=== PATIENT | male | born 1950 | race Two or more races ===

== ENCOUNTER 2018-03-31 01:52 | Inpatient (IN) | payer MEDICARE, OTHER ==
[~2018-03-31] VITALS: Ht 185.4 cm; Wt 84.4 kg
[2018-03-31] VITALS (8 sets, daily range): BP systolic 104–130; BP diastolic 60–74
--- NOTE | 2018-03-31 02:12 | Emergency Room Report ---
History of Present Illness General Chief Complaint: Dyspnea/Respdistress Source: Patient, Medical Record Present Illness HPI This is a 67-year-old male with history of depression, schizophrenia, diabetes who presents from senior care with chief complaint of fever and altered mental status. Patient is noted to be unresponsive and hypoxic at 89% on room air. He also had a temperature of 103. He was given Tylenol rectally. He is brought here for evaluation. Patient is unresponsive at this moment in time and cannot give a history. History is through EMS and senior care note. Allergies: Coded Allergies: ARIPIPRAZOLE (Verified Allergy, Unknown, 03/31/18) QUETIAPINE (Verified Allergy, Unknown, 03/31/18) Patient History Past Medical History: see triage record, old chart reviewed, psych hx Past Surgical History: other Pertinent Family History: none Social History: Denies: smoking Immunizations: other Reviewed Nursing Documentation: PMH: Agreed; PSxH: Agreed Nursing Documentation-PMH Past Medical History: No History, Except For Hx Diabetes: Yes History Of Psychiatric Problem: Yes - SCHIZOPHRENIA, Review of Systems Constitutional: Reports: fever, malaise All Other Systems: limited - secondary to his condition Physical Exam Vital Signs Date Time Temp Pulse Resp B/P (MAP) Pulse Ox O2 Delivery O2 Flow Rate FiO2 03/31/18 01:53 142 56 129/105 87 Room Air vitals with fever and tachycardia Sp02 EP Interpretation: abnormal General Appearance: moderate distress, Chronically Ill, Stupor Head: normocephalic, atraumatic Eyes: bilateral eye PERRL, bilateral eye EOMI ENT: dry mucus membranes Neck: full range of motion, supple, no meningismus Respiratory: chest non-tender, rhonchi Cardiovascular #1: regular rate, rhythm, no murmur, tachycardia Gastrointestinal: normal bowel sounds, non tender, no mass, no organomegaly, no bruit, non-distended Genitourinary: other - Valle with dark urine Musculoskeletal: back normal, other - sacral decubitus Neurologic: grossly normal Skin: warm/dry Procedures Critical Care Time Critical Care Time Critical care is mandated in this patient who presented with abscess from pneumonia. Patient require my urgent intervention to attenuate the risks of metabolic collapse which may lead to cardiovascular collapse and . Critical care time is 55 minutes excluding any reportable procedure. Critical care time included evaluation, multiple reevaluation, looking at old charts, interpreting laboratory and diagnostic data, discussing case with patient and family and consultants, and charting. Medical Decision Making Diagnostic Impression: Primary Impression: Sepsis Qualified Codes: A41.9 - Sepsis, unspecified organism Additional Impressions: Healthcare associated bacterial pneumonia Supraventricular tachycardia Acute prerenal azotemia Thrombocytopenia ER Course Patient presents with sepsis from pneumonia. Heart rate much improved with IV fluid and Tylenol. Occasionally he we'll get paroxysmal SVT versus A. fib. Rate controlled with a dose of Cardizem. Wide spectrum antibiotics given to cover for healthcare associated pneumonia. Patient mental status improve and is more verbalize with IV fluid. Lactic acid improve. Urinalysis is negative. No evidence of acute abdomen. No evidence of TIA or CVA. Patient primary care doctor is Dr. Salcido. I contacted Dr. Hernandes for admission. Lab Results Impression labs with elevated WBC AND LACTIC ACID EKG Diagnostic Results Rate: tachycardiac Rhythm: NSR ST Segments: other - nonspecific ST changes Rhythm Strip Diag. Results Rhythm Strip Time: 02:12 EP Interpretation: yes Rate: 120 Rhythm: NSR, no PVC's, no ectopy Chest X-Ray Diagnostic Results Chest X-Ray Diagnostic Results : Chest X-Ray Ordered: Yes # of Views/Limited/Complete: 1 View Indication: Shortness of Breath EP Interpretation: Yes Interpretation: no effusion, no pneumothorax, other - LEFT LOWER LOBE INFILTRATE Impression: Other - LLL infiltrate Electronically Signed by: Casey Guevara MD Last Vital Signs Date Time Temp Pulse Resp B/P (MAP) Pulse Ox O2 Delivery O2 Flow Rate FiO2 03/31/18 01:53 142 56 129/105 87 Room Air Status: improved Disposition: ADMITTED INPATIENT Condition: Serious Casey Guevara MD Mar 31, 2018 02:12
[2018-03-31 02:26] LABS: HEMATOCRIT 40.5 % (42.0-52.0); HEMOGLOBIN 13.9 G/DL (14.2-18.0); MEAN CORPUSCULAR VOLUME 103 FL (80-99); PLATELET COUNT 99 K/UL (150-450); RED BLOOD COUNT 3.94 M/UL (4.70-6.10); RED CELL DISTRIBUTION WIDTH 12.6 % (11.6-14.8); WHITE BLOOD COUNT 21.9 K/UL (4.8-10.8)
[2018-03-31] MEDS ORDERED: Piperacillin/Tazobactam 3.375 GM in NS 110 ML IVPB ONE (02:30)
[2018-03-31 02:41] LABS: ANION GAP 8 mmol/L (5-15); BLOOD UREA NITROGEN 29 mg/dL (7-18); CALCIUM 9.5 MG/DL (8.5-10.1); CARBON DIOXIDE 26 MMOL/L (21-32); CHLORIDE 108 MMOL/L (98-107); CREATININE 1.2 MG/DL (0.55-1.30); POTASSIUM 4.1 MMOL/L (3.5-5.1); SODIUM 142 MMOL/L (136-145)
[2018-03-31 02:43] LABS: APPEARANCE,URINE CLEAR; BILIRUBIN, URINE 1+ (NEGATIVE); GLUCOSE, URINE (UA) NEGATIVE (NEGATIVE); KETONES,URINE 1+ (NEGATIVE); LEUKOCYTE ESTERASE ,URINE 1+ (NEGATIVE); NITRITE,URINE NEGATIVE (NEGATIVE); PH,URINE 6.5 (4.5-8.0); PROTEIN,URINE 2+ (NEGATIVE); UROBILINOGEN,URINE 12 MG/DL (0.0-1.0)
[2018-03-31 02:54] LABS: ALANINE AMINOTRANSFERASE 48 U/L (12-78); ALBUMIN/GLOBULIN RATIO 0.3 (1.0-2.7); ALKALINE PHOSPHATASE 98 U/L (46-116); ASPARTATE AMINO TRANSFERASE 72 U/L (15-37); BILIRUBIN,TOTAL 1.5 MG/DL (0.2-1.0); CKMB 0.5 NG/ML (0.0-3.6); CREATINE KINASE 162 U/L (26-308)
[2018-03-31 02:54] LABS: COLOR,URINE YELLOW
[2018-03-31] MEDS ORDERED: dilTIAZem HCl 25mg/5ml Inj IVP ONE (03:15)
[2018-03-31] MEDS ORDERED: KLONOPIN1 MG ORAL (04:22)
[2018-03-31] MEDS ORDERED: BREO ELLIPTA 21 EACH IH (04:22)
[2018-03-31] MEDS ORDERED: DEPAKOTE ER500 MG ORAL (04:22)
[2018-03-31] MEDS ORDERED: BUSPIRONE HCL15 MG ORAL (04:22)
[2018-03-31] MEDS ORDERED: BUPROPION XL150 MG ORAL (04:22)
[2018-03-31] MEDS ORDERED: BENZTROPINE ME0.5 MG PO (04:22)
[2018-03-31] MEDS ORDERED: CYCLOBENZAPRINE10 MG ORAL (04:22)
[2018-03-31] MEDS ORDERED: GABAPENTIN300 MG ORAL (04:22)
[2018-03-31] MEDS ORDERED: BANOPHEN50 MG PO (04:22)
[2018-03-31] MEDS ORDERED: SEROQUEL100 MG ORAL (05:38)
[2018-03-31] MEDS ORDERED: HALOPERIDOL10 MG ORAL (05:38)
[2018-03-31] MEDS ORDERED: MONTELUKAST SOD10 MG ORAL (05:38)
[2018-03-31] MEDS ORDERED: PROTONIX40 MG ORAL (05:38)
[2018-03-31] MEDS ORDERED: Acetaminophen 500mg (ES) tab ORAL PRN (06:00)
[2018-03-31] MEDS: BuPROPion XL 150mg tab ORAL SCH (06:00)
--- NOTE | 2018-03-31 06:30 | Consultation ---
Consult Note Consult Note Hematology/Oncology RFC: Thrombocytopenia, Leukocytosis DOS: 03/31/18 REQ MD: Ekta, A ID 67-year-old male with history of depression, schizophrenia, diabetes who presents from residential with chief complaint of fever and altered mental status. Patient is noted to be unresponsive and hypoxic at 89% on room air. He also had a temperature of 103. He was given Tylenol rectally. He is brought here for evaluation. Patient is unresponsive at this moment in time and cannot give a history. History is through EMS and residential note. During interview, sleeping, difficult to arouse, onabx as per rn, and noted to be low plts on admission. Coded Allergies: ARIPIPRAZOLE (Verified Allergy, Unknown, 03/31/18) QUETIAPINE (Verified Allergy, Unknown, 03/31/18) Patient History Past Medical History: see triage record, old chart reviewed, psych hx Past Surgical History: other Pertinent Family History: none Social History: Denies: smoking Immunizations: other Reviewed Nursing Documentation: PMH: Agreed; PSxH: Agreed Nursing Documentation-PMH Past Medical History: No History, Except For Hx Diabetes: Yes History Of Psychiatric Problem: Yes - SCHIZOPHRENIA, ER ROS - General Review of Systems Constitutional: Reports: fever, malaise All Other Systems: limited - secondary to his condition A+O x1 ER Physical Exam - General Physical Exam Vital Signs Date Time Temp Pulse Resp B/P (MAP) Pulse Ox O2 Delivery O2 Flow Rate FiO2 03/31/18 01:53 142 56 129/105 87 Room Air Vitals with fever and tachycardia General Appearance: moderate distress, Chronically Ill, Stupor Head: normocephalic Eyes: bilateral eye PERRL, bilateral eye EOMI Neck: full range of motion, supple Respiratory: chest non-tender, rhonchi++ right side Cardiovascular #1: regular rate, rhythm, no murmur, tachycardia Gastrointestinal: normal bowel sounds, non tender, nd, nt Genitourinary: other - Valle with dark urine Musculoskeletal: back normal, other - sacral decubitus Neurologic: grossly normal Laboratory Tests Test 03/31/18 02:00 03/31/18 02:25 03/31/18 02:30 03/31/18 03:50 White Blood Count 21.9 K/UL (4.8-10.8) H Red Blood Count 3.94 M/UL (4.70-6.10) L Hemoglobin 13.9 G/DL (14.2-18.0) L Hematocrit 40.5 % (42.0-52.0) L Mean Corpuscular Volume 103 FL (80-99) H Mean Corpuscular Hemoglobin 35.3 PG (27.0-31.0) H Mean Corpuscular Hemoglobin Concent 34.4 G/DL (32.0-36.0) Red Cell Distribution Width 12.6 % (11.6-14.8) Platelet Count 99 K/UL (150-450) L Mean Platelet Volume 7.0 FL (6.5-10.1) Neutrophils (%) (Auto) % (45.0-75.0) Lymphocytes (%) (Auto) % (20.0-45.0) Monocytes (%) (Auto) % (1.0-10.0) Eosinophils (%) (Auto) % (0.0-3.0) Basophils (%) (Auto) % (0.0-2.0) Differential Total Cells Counted 100 Neutrophils % (Manual) 78 % (45-75) H Lymphocytes % (Manual) 14 % (20-45) L Monocytes % (Manual) 8 % (1-10) Eosinophils % (Manual) 0 % (0-3) Basophils % (Manual) 0 % (0-2) Band Neutrophils 0 % (0-8) Platelet Estimate Decreased L Platelet Morphology Normal Sodium Level 142 MMOL/L (136-145) Potassium Level 4.1 MMOL/L (3.5-5.1) Chloride Level 108 MMOL/L (98-107) H Carbon Dioxide Level 26 MMOL/L (21-32) Anion Gap 8 mmol/L (5-15) Blood Urea Nitrogen 29 mg/dL (7-18) H Creatinine 1.2 MG/DL (0.55-1.30) Estimat Glomerular Filtration Rate > 60 mL/min (>60) Glucose Level 170 MG/DL (74-106) H Lactic Acid Level 3.30 mmol/L (0.4-2.0) H 2.10 mmol/L (0.66-2.22) Calcium Level 9.5 MG/DL (8.5-10.1) Total Bilirubin 1.5 MG/DL (0.2-1.0) H Direct Bilirubin 1.0 MG/DL (0.0-0.3) H Aspartate Amino Transf (AST/SGOT) 72 U/L (15-37) H Alanine Aminotransferase (ALT/SGPT) 48 U/L (12-78) Alkaline Phosphatase 98 U/L (46-116) Total Creatine Kinase 162 U/L (26-308) Creatine Kinase MB 0.5 NG/ML (0.0-3.6) Creatine Kinase MB Relative Index 0.3 Troponin I 0.025 ng/mL (0.000-0.056) Total Protein 9.8 G/DL (6.4-8.2) H Albumin 2.0 G/DL (3.4-5.0) L Globulin 7.8 g/dL Albumin/Globulin Ratio 0.3 (1.0-2.7) L Ammonia 61 umol/L (11-32) H Urine Color Yellow Urine Appearance Clear Urine pH 6.5 (4.5-8.0) Urine Specific [place] 1.010 (1.005-1.035) Urine Protein 2+ (NEGATIVE) H Urine Glucose (UA) Negative (NEGATIVE) Urine Ketones 1+ (NEGATIVE) H Urine Blood 3+ (NEGATIVE) H Urine Nitrite Negative (NEGATIVE) Urine Bilirubin 1+ (NEGATIVE) H Urine Ictotest Positive (NEGATIVE) Urine Urobilinogen 12 MG/DL (0.0-1.0) H Urine Leukocyte Esterase 1+ (NEGATIVE) H Urine RBC 30-40 /HPF (0 - 0) H Urine WBC 2-4 /HPF (0 - 0) Urine Squamous Epithelial Cells None /LPF (NONE/OCC) Urine Calcium Oxalate Crystals Few /LPF (NONE) Urine Bacteria Few /HPF (NONE) Assessment and Recs: # Thrombocytopenia -- first admission here, therefore do not have his baseline, is VERY likely related to underlying sepsis and consumptive state --> hepatitis and hiv have been ordered, if doesnt improve next few days, consider us of abd --> abx have been reviewed, unlikely contibutors as only short hospital stay --> other medications have been reviewed as well --> peripheral smear reviewed, does not show schistocytes or blasts # Leukocytosis very likely related to either uti/pna --> appreciate id care --> abx have been reviewed # Anemia of chronic disease -- hgb currently >10 --> trend cbc # Septic shock -- on ivf and has recieved abx # Healthcare associated bacterial pneumonia--> on abx, have been reviewed --> consider id eval # Supraventricular tachycardia # Acute prerenal azotemia # Paroxysmal SVT versus A. fib. Rate controlled with a dose of Cardizem. Greatly appreciate consultation! Jose Mcekon MD Mar 31, 2018 06:30
--- NOTE | 2018-03-31 09:46 | Consultation ---
History of Present Illness General Date patient seen: Mar 31, 2018 Time patient seen: 09:38 Chief Complaint: Dyspnea/Respdistress Reason for Consultation: Pneumonia with sepsis Present Illness HPI 67 y/o male w/ hx schizophrenia admitted from half-way, unable to provide history but from chart appears to have developed respiratory distress and altered mental status. Noted with hypoxemia and lactate elevation with mild NURY. Pneumonia reportedly from admission CXR. He was initially on nonrebreather but now on 4L NC. Coughing, moist. Zosyn and levaquin given in ED. BP has been stable and lactate trending down from initial. Starting to be more alert and interactive but still altered and unclear baseline. Allergies: Coded Allergies: ARIPIPRAZOLE (Verified Allergy, Unknown, 03/31/18) QUETIAPINE (Verified Allergy, Unknown, 03/31/18) Medication History Scheduled Bupropion Xl* (Bupropion Xl*), 300 MG ORAL Q24H, (Reported) Buspirone Hcl* (Buspirone Hcl*), 15 MG ORAL TWICE A DAY, (Reported) Clonazepam* (Klonopin*), 1 MG ORAL BID, (Reported) Cyclobenzaprine Hcl* (Flexeril*), 5 MG ORAL THREE TIMES A DAY, (Reported) Divalproex Sodium* (Depakote Er*), 500 MG ORAL EVERY 12 HOURS, (Reported) Gabapentin* (Gabapentin*), 300 MG ORAL THREE TIMES A DAY, (Reported) Haloperidol (Haloperidol), 10 MG ORAL BID, (Reported) Montelukast Sodium* (Montelukast Sodium*), 10 MG ORAL DAILY, (Reported) Pantoprazole* (Protonix*), 40 MG ORAL DAILY, (Reported) Quetiapine Fumarate* (Seroquel*), 100 MG ORAL BID, (Reported) Miscellaneous Medications Benztropine Mesylate* (Cogentin*), 1 MG PO, (Reported) Diphenhydramine Hcl (Banophen), 50 MG PO, (Reported) Fluticasone/Vilanterol (Breo Ellipta 200-25 Mcg INH), 1 EACH IH, (Reported) Patient History Limited by: medical condition History Provided By: Medical Record Healthcare decision maker Resuscitation status Full Code Advanced Directive on File Past Medical/Surgical History Past Medical/Surgical History: (1) Thrombocytopenia (2) Healthcare associated bacterial pneumonia (3) Acute prerenal azotemia (4) Dyspnea (5) Respiratory distress (6) Supraventricular tachycardia (7) Sepsis Review of Systems ROS Narrative Unable to obtain due to patient factors Physical Exam General Appearance: WD/WN, no apparent distress, confused HEENT: normocephalic, atraumatic, PERRL Neck: non-tender, supple Respiratory/Chest: other - Coarse breath sounds anteriorly Cardiovascular/Chest: normal rate, regular rhythm Abdomen: non tender, soft Extremities: no edema Last 24 Hour Vital Signs Date Time Temp Pulse Resp B/P (MAP) Pulse Ox O2 Delivery O2 Flow Rate FiO2 03/31/18 08:00 98.1 102 19 117/67 (84) 91 98.1 03/31/18 08:00 100 03/31/18 06:20 Nasal Cannula 4.0 03/31/18 05:00 98.0 114 30 104/71 92 Nasal Cannula 4.0 100 98.0 03/31/18 04:52 98.0 114 30 104/71 92 Nasal Cannula 5.0 98.0 03/31/18 03:30 98.0 133 28 123/60 100 Non-Rebreather 15.0 100 98.0 03/31/18 03:28 174 130/71 03/31/18 02:30 103.0 142 38 118/72 87 Room Air 103.0 03/31/18 02:15 103.0 142 38 130/70 Room Air 103.0 03/31/18 02:15 142 56 Room Air 03/31/18 01:53 142 56 129/105 87 Room Air Intake and Output 03/30/18 03/31/18 19:00 07:00 Intake Total 0 ml Output Total 400 ml Balance -400 ml Intake Oral 0 ml Output Urine Total 400 ml Laboratory Tests Test 03/31/18 02:00 03/31/18 02:25 03/31/18 02:30 03/31/18 03:50 White Blood Count 21.9 K/UL (4.8-10.8) H Red Blood Count 3.94 M/UL (4.70-6.10) L Hemoglobin 13.9 G/DL (14.2-18.0) L Hematocrit 40.5 % (42.0-52.0) L Mean Corpuscular Volume 103 FL (80-99) H Mean Corpuscular Hemoglobin 35.3 PG (27.0-31.0) H Mean Corpuscular Hemoglobin Concent 34.4 G/DL (32.0-36.0) Red Cell Distribution Width 12.6 % (11.6-14.8) Platelet Count 99 K/UL (150-450) L Mean Platelet Volume 7.0 FL (6.5-10.1) Neutrophils (%) (Auto) % (45.0-75.0) Lymphocytes (%) (Auto) % (20.0-45.0) Monocytes (%) (Auto) % (1.0-10.0) Eosinophils (%) (Auto) % (0.0-3.0) Basophils (%) (Auto) % (0.0-2.0) Differential Total Cells Counted 100 Neutrophils % (Manual) 78 % (45-75) H Lymphocytes % (Manual) 14 % (20-45) L Monocytes % (Manual) 8 % (1-10) Eosinophils % (Manual) 0 % (0-3) Basophils % (Manual) 0 % (0-2) Band Neutrophils 0 % (0-8) Platelet Estimate Decreased L Platelet Morphology Normal Sodium Level 142 MMOL/L (136-145) Potassium Level 4.1 MMOL/L (3.5-5.1) Chloride Level 108 MMOL/L (98-107) H Carbon Dioxide Level 26 MMOL/L (21-32) Anion Gap 8 mmol/L (5-15) Blood Urea Nitrogen 29 mg/dL (7-18) H Creatinine 1.2 MG/DL (0.55-1.30) Estimat Glomerular Filtration Rate > 60 mL/min (>60) Glucose Level 170 MG/DL (74-106) H Lactic Acid Level 3.30 mmol/L (0.4-2.0) H 2.10 mmol/L (0.66-2.22) Calcium Level 9.5 MG/DL (8.5-10.1) Total Bilirubin 1.5 MG/DL (0.2-1.0) H Direct Bilirubin 1.0 MG/DL (0.0-0.3) H Aspartate Amino Transf (AST/SGOT) 72 U/L (15-37) H Alanine Aminotransferase (ALT/SGPT) 48 U/L (12-78) Alkaline Phosphatase 98 U/L (46-116) Total Creatine Kinase 162 U/L (26-308) Creatine Kinase MB 0.5 NG/ML (0.0-3.6) Creatine Kinase MB Relative Index 0.3 Troponin I 0.025 ng/mL (0.000-0.056) Total Protein 9.8 G/DL (6.4-8.2) H Albumin 2.0 G/DL (3.4-5.0) L Globulin 7.8 g/dL Albumin/Globulin Ratio 0.3 (1.0-2.7) L Ammonia 61 umol/L (11-32) H Urine Color Yellow Urine Appearance Clear Urine pH 6.5 (4.5-8.0) Urine Specific [place] 1.010 (1.005-1.035) Urine Protein 2+ (NEGATIVE) H Urine Glucose (UA) Negative (NEGATIVE) Urine Ketones 1+ (NEGATIVE) H Urine Blood 3+ (NEGATIVE) H Urine Nitrite Negative (NEGATIVE) Urine Bilirubin 1+ (NEGATIVE) H Urine Ictotest Positive (NEGATIVE) Urine Urobilinogen 12 MG/DL (0.0-1.0) H Urine Leukocyte Esterase 1+ (NEGATIVE) H Urine RBC 30-40 /HPF (0 - 0) H Urine WBC 2-4 /HPF (0 - 0) Urine Squamous Epithelial Cells None /LPF (NONE/OCC) Urine Calcium Oxalate Crystals Few /LPF (NONE) Urine Bacteria Few /HPF (NONE) Test 03/31/18 07:00 Total Protein (PEP) Pending Albumin (PEP) Pending Globulin (PEP) Pending Albumin/Globulin Ratio Pending [id number] Pending Rupin-3-Idxawkowx Pending Beta Globulins Pending Beta Gamma Globulin Pending PEP Abnormal Protein Bands Pending Protein Electrophoresis Interpret Pending Prostate Specific Antigen 1.05 ng/mL (0.13-4.0) Hepatitis A IgM Antibody Pending Hepatitis B Surface Antigen Pending Hepatitis B Core IgM Antibody Pending Hepatitis C Antibody Pending HIV (1&2) Antibody Rapid Negative (NEGATIVE) Height (Feet): 6 Height (Inches): 1.00 Weight (Pounds): 180 Medications Current Medications Medications (Trade) Dose Ordered Sig/Elizabeth Route PRN Reason Start Time Stop Time Status Last Admin Dose Admin Acetaminophen (Tylenol) 500 mg Q4H PRN ORAL Mild Pain/Temp > 100.5 10/11/18 06:00 04/30/18 05:59 Albuterol/ Ipratropium (Albuterol/ Ipratropium) 3 ml Q6HRT HHN 03/31/18 13:00 04/05/18 12:59 UNV Benztropine Mesylate (Cogentin) 1 mg BID ORAL 03/31/18 09:00 04/30/18 08:59 Bupropion HCl (Wellbutrin XL) 300 mg Q24H ORAL 03/31/18 06:00 04/30/18 05:59 Divalproex Sodium (Depakote ER) 500 mg EVERY 12 HOURS ORAL 03/31/18 09:00 04/30/18 08:59 Gabapentin (Neurontin) 300 mg THREE TIMES A DAY ORAL 03/31/18 09:00 04/30/18 08:59 Haloperidol (Haldol) 10 mg BID PRN ORAL Agitation 03/31/18 05:45 04/30/18 05:44 Pantoprazole (Protonix) 40 mg DAILY ORAL 03/31/18 09:00 04/30/18 08:59 Piperacillin Sod/ Tazobactam Sod 3.375 gm/Dextrose 110 ml @ 27.5 mls/hr Q6HR IVPB 03/31/18 12:00 04/05/18 11:59 UNV Quetiapine Fumarate (SEROquel) 100 mg BID ORAL 03/31/18 09:00 04/30/18 08:59 UNV Sodium Chloride 1,000 ml @ 75 mls/hr [id number] IV 03/31/18 09:30 04/30/18 09:29 UNV Vancomycin HCl (Vanco rx to dose) 1 ea DAILY PRN MISC Per rx protocol 03/31/18 09:30 04/30/18 09:29 UNV Vancomycin HCl 1 gm/Dextrose 275 ml @ 183.708 mls/hr Q24H IVPB 03/31/18 09:30 04/05/18 09:29 UNV Assessment/Plan Assessment/Plan 67 y/o male w/ hx schizophrenia with sepsis likely from pneumonia. Assessment: 1. Acute hypoxemic respiratory failure 2. Sepsis 3. Pneumonia 4. Altered mental status 5. NURY 6. Thrombocytopenia 7. Schizophrenia Plan: -abx: vanco/zosyn -f/u cultures -IVF: NS 75 cc/hour -ABG -wean oxygen as tolerated -duonebs q6 -monitor platelets Koko Wetzel MD Mar 31, 2018 09:46
--- NOTE | 2018-03-31 10:39 | Diagnostic Imaging Report ---
Indication: Dyspnea Comparison: None A single view chest radiograph was obtained. Findings: Patient is rotated. There is no definite infiltrate or evidence of pulmonary edema. Heart size is probably normal. There are osteophytes within the thoracic spine. IMPRESSION: No acute disease
[2018-03-31] MEDS ORDERED: Vancomycin 1.5 GM/D5W 250ML IVPB ONE (11:00)
--- NOTE | 2018-03-31 11:09 | Consultation ---
History of Present Illness General Date patient seen: Mar 31, 2018 Chief Complaint: Dyspnea/Respdistress Reason for Consultation: Pneumonia with sepsis Present Illness HPI 7 y/o male w/ hx schizophrenia admitted from [facility], unable to provide history the pt is confused. the pt has hx oif schizoaffective d/o and is on multiple psychotropics. the pt is hypotensive and tachy the pt has waxing and waning of consciousness. Allergies: Coded Allergies: ARIPIPRAZOLE (Verified Allergy, Unknown, 03/31/18) QUETIAPINE (Verified Allergy, Unknown, 03/31/18) Medication History Scheduled Bupropion Xl* (Bupropion Xl*), 300 MG ORAL Q24H, (Reported) Buspirone Hcl* (Buspirone Hcl*), 15 MG ORAL TWICE A DAY, (Reported) Clonazepam* (Klonopin*), 1 MG ORAL BID, (Reported) Cyclobenzaprine Hcl* (Flexeril*), 5 MG ORAL THREE TIMES A DAY, (Reported) Divalproex Sodium* (Depakote Er*), 500 MG ORAL EVERY 12 HOURS, (Reported) Gabapentin* (Gabapentin*), 300 MG ORAL THREE TIMES A DAY, (Reported) Haloperidol (Haloperidol), 10 MG ORAL BID, (Reported) Montelukast Sodium* (Montelukast Sodium*), 10 MG ORAL DAILY, (Reported) Pantoprazole* (Protonix*), 40 MG ORAL DAILY, (Reported) Quetiapine Fumarate* (Seroquel*), 100 MG ORAL BID, (Reported) Miscellaneous Medications Benztropine Mesylate* (Cogentin*), 1 MG PO, (Reported) Diphenhydramine Hcl (Banophen), 50 MG PO, (Reported) Fluticasone/Vilanterol (Breo Ellipta 200-25 Mcg INH), 1 EACH IH, (Reported) Patient History Limited by: medical condition History Provided By: Patient, Medical Record Healthcare decision maker Resuscitation status Full Code Advanced Directive on File Past Medical/Surgical History Past Medical/Surgical History: (1) Thrombocytopenia (2) Healthcare associated bacterial pneumonia (3) Acute prerenal azotemia (4) Dyspnea (5) Respiratory distress (6) Supraventricular tachycardia (7) Sepsis Review of Systems Psychiatric: Reports: prior hx, anxiety, depressed feelings, hallucinations Physical Exam General Appearance: no apparent distress, alert, confused, agitated Last 24 Hour Vital Signs Date Time Temp Pulse Resp B/P (MAP) Pulse Ox O2 Delivery O2 Flow Rate FiO2 03/31/18 09:00 Nasal Cannula 3.0 03/31/18 08:00 98.1 102 19 117/67 (84) 91 98.1 03/31/18 08:00 100 03/31/18 06:20 Nasal Cannula 4.0 03/31/18 05:00 98.0 114 30 104/71 92 Nasal Cannula 4.0 100 98.0 03/31/18 04:52 98.0 114 30 104/71 92 Nasal Cannula 5.0 98.0 03/31/18 03:30 98.0 133 28 123/60 100 Non-Rebreather 15.0 100 98.0 03/31/18 03:28 174 130/71 03/31/18 02:30 103.0 142 38 118/72 87 Room Air 103.0 03/31/18 02:15 103.0 142 38 130/70 Room Air 103.0 03/31/18 02:15 142 56 Room Air 03/31/18 01:53 142 56 129/105 87 Room Air Intake and Output 03/30/18 03/31/18 19:00 07:00 Intake Total 0 ml Output Total 400 ml Balance -400 ml Intake Oral 0 ml Output Urine Total 400 ml Laboratory Tests Test 03/31/18 02:00 03/31/18 02:25 03/31/18 02:30 03/31/18 03:50 White Blood Count 21.9 K/UL (4.8-10.8) H Red Blood Count 3.94 M/UL (4.70-6.10) L Hemoglobin 13.9 G/DL (14.2-18.0) L Hematocrit 40.5 % (42.0-52.0) L Mean Corpuscular Volume 103 FL (80-99) H Mean Corpuscular Hemoglobin 35.3 PG (27.0-31.0) H Mean Corpuscular Hemoglobin Concent 34.4 G/DL (32.0-36.0) Red Cell Distribution Width 12.6 % (11.6-14.8) Platelet Count 99 K/UL (150-450) L Mean Platelet Volume 7.0 FL (6.5-10.1) Neutrophils (%) (Auto) % (45.0-75.0) Lymphocytes (%) (Auto) % (20.0-45.0) Monocytes (%) (Auto) % (1.0-10.0) Eosinophils (%) (Auto) % (0.0-3.0) Basophils (%) (Auto) % (0.0-2.0) Differential Total Cells Counted 100 Neutrophils % (Manual) 78 % (45-75) H Lymphocytes % (Manual) 14 % (20-45) L Monocytes % (Manual) 8 % (1-10) Eosinophils % (Manual) 0 % (0-3) Basophils % (Manual) 0 % (0-2) Band Neutrophils 0 % (0-8) Platelet Estimate Decreased L Platelet Morphology Normal Sodium Level 142 MMOL/L (136-145) Potassium Level 4.1 MMOL/L (3.5-5.1) Chloride Level 108 MMOL/L (98-107) H Carbon Dioxide Level 26 MMOL/L (21-32) Anion Gap 8 mmol/L (5-15) Blood Urea Nitrogen 29 mg/dL (7-18) H Creatinine 1.2 MG/DL (0.55-1.30) Estimat Glomerular Filtration Rate > 60 mL/min (>60) Glucose Level 170 MG/DL (74-106) H Lactic Acid Level 3.30 mmol/L (0.4-2.0) H 2.10 mmol/L (0.66-2.22) Calcium Level 9.5 MG/DL (8.5-10.1) Total Bilirubin 1.5 MG/DL (0.2-1.0) H Direct Bilirubin 1.0 MG/DL (0.0-0.3) H Aspartate Amino Transf (AST/SGOT) 72 U/L (15-37) H Alanine Aminotransferase (ALT/SGPT) 48 U/L (12-78) Alkaline Phosphatase 98 U/L (46-116) Total Creatine Kinase 162 U/L (26-308) Creatine Kinase MB 0.5 NG/ML (0.0-3.6) Creatine Kinase MB Relative Index 0.3 Troponin I 0.025 ng/mL (0.000-0.056) Total Protein 9.8 G/DL (6.4-8.2) H Albumin 2.0 G/DL (3.4-5.0) L Globulin 7.8 g/dL Albumin/Globulin Ratio 0.3 (1.0-2.7) L Ammonia 61 umol/L (11-32) H Urine Color Yellow Urine Appearance Clear Urine pH 6.5 (4.5-8.0) Urine Specific [place] 1.010 (1.005-1.035) Urine Protein 2+ (NEGATIVE) H Urine Glucose (UA) Negative (NEGATIVE) Urine Ketones 1+ (NEGATIVE) H Urine Blood 3+ (NEGATIVE) H Urine Nitrite Negative (NEGATIVE) Urine Bilirubin 1+ (NEGATIVE) H Urine Ictotest Positive (NEGATIVE) Urine Urobilinogen 12 MG/DL (0.0-1.0) H Urine Leukocyte Esterase 1+ (NEGATIVE) H Urine RBC 30-40 /HPF (0 - 0) H Urine WBC 2-4 /HPF (0 - 0) Urine Squamous Epithelial Cells None /LPF (NONE/OCC) Urine Calcium Oxalate Crystals Few /LPF (NONE) Urine Bacteria Few /HPF (NONE) Test 03/31/18 07:00 03/31/18 11:00 Total Protein (PEP) Pending Albumin (PEP) Pending Globulin (PEP) Pending Albumin/Globulin Ratio Pending Uozqv-4-Tthbiiruq Pending Ecxit-5-Iciwgurpm Pending Beta Globulins Pending Beta Gamma Globulin Pending PEP Abnormal Protein Bands Pending Protein Electrophoresis Interpret Pending Prostate Specific Antigen 1.05 ng/mL (0.13-4.0) Hepatitis A IgM Antibody Pending Hepatitis B Surface Antigen Pending Hepatitis B Core IgM Antibody Pending Hepatitis C Antibody Pending HIV (1&2) Antibody Rapid Negative (NEGATIVE) Arterial Blood pH 7.474 (7.350-7.450) Arterial Blood Partial Pressure CO2 34.8 mmHg (35.0-45.0) L Arterial Blood Partial Pressure O2 62.1 mmHg (75.0-100.0) L Arterial Blood HCO3 25.0 mmol/L (22.0-26.0) Arterial Blood Oxygen Saturation 91.7 % (95-100) L Arterial Blood Base Excess 1.7 (-2-2) [place] Test Positive Height (Feet): 6 Height (Inches): 1.00 Weight (Pounds): 180 Medications Current Medications Medications (Trade) Dose Ordered Sig/Elizabeth Route PRN Reason Start Time Stop Time Status Last Admin Dose Admin Acetaminophen (Tylenol) 500 mg Q4H PRN ORAL Mild Pain/Temp > 100.5 03/31/18 06:00 04/30/18 05:59 Albuterol/ Ipratropium (Albuterol/ Ipratropium) 3 ml Q6HRT HHN 03/31/18 13:00 04/05/18 12:59 Benztropine Mesylate (Cogentin) 1 mg BID ORAL 03/31/18 09:00 04/30/18 08:59 Bupropion HCl (Wellbutrin XL) 300 mg Q24H ORAL 03/31/18 06:00 04/30/18 05:59 Divalproex Sodium (Depakote ER) 500 mg EVERY 12 HOURS ORAL 03/31/18 09:00 04/30/18 08:59 Gabapentin (Neurontin) 300 mg THREE TIMES A DAY ORAL 03/31/18 09:00 04/30/18 08:59 Haloperidol (Haldol) 10 mg BID PRN ORAL Agitation 03/31/18 05:45 04/30/18 05:44 Pantoprazole (Protonix) 40 mg DAILY ORAL 03/31/18 09:00 04/30/18 08:59 Piperacillin Sod/ Tazobactam Sod 3.375 gm/Dextrose 110 ml @ 27.5 mls/hr Q8HR IVPB 03/31/18 14:00 04/07/18 13:59 Quetiapine Fumarate (SEROquel) 100 mg BID ORAL 03/31/18 09:00 04/30/18 08:59 UNV Sodium Chloride 1,000 ml @ 75 mls/hr [id number] IV 03/31/18 10:00 04/30/18 09:59 Vancomycin HCl (Vanco rx to dose) 1 ea DAILY PRN MISC Per rx protocol 03/31/18 09:30 04/30/18 09:29 Vancomycin HCl 1 gm/Dextrose 275 ml @ 183.708 mls/hr Q12HR@1100,2300 IVPB 03/31/18 23:00 04/05/18 22:59 Vancomycin HCl/ Dextrose 250 ml @ 125 mls/hr ONCE ONCE IVPB 03/31/18 11:00 03/31/18 12:59 Assessment/Plan Assessment/Plan encephalopathy due to metabolic d/o hypotension tachy cardia the pt lacks capacity to make decisions hold all psych meds at this time Madisyn Shetty MD Mar 31, 2018 11:09
[2018-03-31] MEDS: Benztropine 1mg tab ORAL SCH ×2 (11:12→18:00)
[2018-03-31] MEDS: Depakote ER 500mg tab ORAL SCH ×2 (11:13→21:00)
[2018-03-31] MEDS: Albuterol/Ipratropium 3ml neb HHN SCH ×2 (13:00→20:25)
[2018-03-31] MEDS: Piperacillin/Tazobactam 3.375 GM in D5W 110 ML IVPB SCH ×2 (14:51→22:03)
--- NOTE | 2018-03-31 15:40 | Consultation ---
History of Present Illness General Date patient seen: Mar 31, 2018 Chief Complaint: Dyspnea/Respdistress Reason for Consultation: infected sacral decubitus ulcer Present Illness HPI 67 year old male long-term resident presents with pneumonia, altered, desaturating. During admission noted to have foul smelling necrotic sacral decubitus ulcer. surgery called to evaluate and assist with care and management. patient seen, chart reviewed, patient examined. Allergies: Coded Allergies: ARIPIPRAZOLE (Verified Allergy, Unknown, 03/31/18) QUETIAPINE (Verified Allergy, Unknown, 03/31/18) Medication History Scheduled Bupropion Xl* (Bupropion Xl*), 300 MG ORAL Q24H, (Reported) Buspirone Hcl* (Buspirone Hcl*), 15 MG ORAL TWICE A DAY, (Reported) Clonazepam* (Klonopin*), 1 MG ORAL BID, (Reported) Cyclobenzaprine Hcl* (Flexeril*), 5 MG ORAL THREE TIMES A DAY, (Reported) Divalproex Sodium* (Depakote Er*), 500 MG ORAL EVERY 12 HOURS, (Reported) Gabapentin* (Gabapentin*), 300 MG ORAL THREE TIMES A DAY, (Reported) Haloperidol (Haloperidol), 10 MG ORAL BID, (Reported) Montelukast Sodium* (Montelukast Sodium*), 10 MG ORAL DAILY, (Reported) Pantoprazole* (Protonix*), 40 MG ORAL DAILY, (Reported) Quetiapine Fumarate* (Seroquel*), 100 MG ORAL BID, (Reported) Miscellaneous Medications Benztropine Mesylate* (Cogentin*), 1 MG PO, (Reported) Diphenhydramine Hcl (Banophen), 50 MG PO, (Reported) Fluticasone/Vilanterol (Breo Ellipta 200-25 Mcg INH), 1 EACH IH, (Reported) Patient History Limited by: medical condition History Provided By: Medical Record, PMD Healthcare decision maker Resuscitation status Full Code Advanced Directive on File Past Medical/Surgical History Past Medical/Surgical History: (1) Thrombocytopenia (2) Healthcare associated bacterial pneumonia (3) Acute prerenal azotemia (4) Dyspnea (5) Respiratory distress (6) Supraventricular tachycardia (7) Sepsis Review of Systems ROS Narrative cannot obtain given medical condition Physical Exam General Appearance: no apparent distress Lines, tubes and drains: other HEENT: mucous membranes moist Neck: other Respiratory/Chest: other Cardiovascular/Chest: regular rhythm Abdomen: soft, no organomegaly, no mass Skin Exam: other Neurologic: unresponsiveness Last 24 Hour Vital Signs Date Time Temp Pulse Resp B/P (MAP) Pulse Ox O2 Delivery O2 Flow Rate FiO2 03/31/18 13:10 99 16 98 Nasal Cannula 2.0 28 03/31/18 13:00 100 16 95 Nasal Cannula 2.0 28 03/31/18 13:00 28 03/31/18 12:00 98.2 106 23 116/65 (82) 93 98.2 03/31/18 12:00 106 03/31/18 09:00 Nasal Cannula 3.0 03/31/18 08:00 98.1 102 19 117/67 (84) 91 98.1 03/31/18 08:00 100 03/31/18 06:20 Nasal Cannula 4.0 03/31/18 05:00 98.0 114 30 104/71 92 Nasal Cannula 4.0 100 98.0 03/31/18 04:52 98.0 114 30 104/71 92 Nasal Cannula 5.0 98.0 03/31/18 03:30 98.0 133 28 123/60 100 Non-Rebreather 15.0 100 98.0 03/31/18 03:28 174 130/71 03/31/18 02:30 103.0 142 38 118/72 87 Room Air 103.0 03/31/18 02:15 103.0 142 38 130/70 Room Air 103.0 03/31/18 02:15 142 56 Room Air 03/31/18 01:53 142 56 129/105 87 Room Air Intake and Output 03/30/18 03/31/18 19:00 07:00 Intake Total 0 ml Output Total 400 ml Balance -400 ml Intake Oral 0 ml Output Urine Total 400 ml Laboratory Tests Test 03/31/18 02:00 03/31/18 02:25 03/31/18 02:30 03/31/18 03:50 White Blood Count 21.9 K/UL (4.8-10.8) H Red Blood Count 3.94 M/UL (4.70-6.10) L Hemoglobin 13.9 G/DL (14.2-18.0) L Hematocrit 40.5 % (42.0-52.0) L Mean Corpuscular Volume 103 FL (80-99) H Mean Corpuscular Hemoglobin 35.3 PG (27.0-31.0) H Mean Corpuscular Hemoglobin Concent 34.4 G/DL (32.0-36.0) Red Cell Distribution Width 12.6 % (11.6-14.8) Platelet Count 99 K/UL (150-450) L Mean Platelet Volume 7.0 FL (6.5-10.1) Neutrophils (%) (Auto) % (45.0-75.0) Lymphocytes (%) (Auto) % (20.0-45.0) Monocytes (%) (Auto) % (1.0-10.0) Eosinophils (%) (Auto) % (0.0-3.0) Basophils (%) (Auto) % (0.0-2.0) Differential Total Cells Counted 100 Neutrophils % (Manual) 78 % (45-75) H Lymphocytes % (Manual) 14 % (20-45) L Monocytes % (Manual) 8 % (1-10) Eosinophils % (Manual) 0 % (0-3) Basophils % (Manual) 0 % (0-2) Band Neutrophils 0 % (0-8) Platelet Estimate Decreased L Platelet Morphology Normal Sodium Level 142 MMOL/L (136-145) Potassium Level 4.1 MMOL/L (3.5-5.1) Chloride Level 108 MMOL/L (98-107) H Carbon Dioxide Level 26 MMOL/L (21-32) Anion Gap 8 mmol/L (5-15) Blood Urea Nitrogen 29 mg/dL (7-18) H Creatinine 1.2 MG/DL (0.55-1.30) Estimat Glomerular Filtration Rate > 60 mL/min (>60) Glucose Level 170 MG/DL (74-106) H Lactic Acid Level 3.30 mmol/L (0.4-2.0) H 2.10 mmol/L (0.66-2.22) Calcium Level 9.5 MG/DL (8.5-10.1) Total Bilirubin 1.5 MG/DL (0.2-1.0) H Direct Bilirubin 1.0 MG/DL (0.0-0.3) H Aspartate Amino Transf (AST/SGOT) 72 U/L (15-37) H Alanine Aminotransferase (ALT/SGPT) 48 U/L (12-78) Alkaline Phosphatase 98 U/L (46-116) Total Creatine Kinase 162 U/L (26-308) Creatine Kinase MB 0.5 NG/ML (0.0-3.6) Creatine Kinase MB Relative Index 0.3 Troponin I 0.025 ng/mL (0.000-0.056) Total Protein 9.8 G/DL (6.4-8.2) H Albumin 2.0 G/DL (3.4-5.0) L Globulin 7.8 g/dL Albumin/Globulin Ratio 0.3 (1.0-2.7) L Ammonia 61 umol/L (11-32) H Urine Color Yellow Urine Appearance Clear Urine pH 6.5 (4.5-8.0) Urine Specific [place] 1.010 (1.005-1.035) Urine Protein 2+ (NEGATIVE) H Urine Glucose (UA) Negative (NEGATIVE) Urine Ketones 1+ (NEGATIVE) H Urine Blood 3+ (NEGATIVE) H Urine Nitrite Negative (NEGATIVE) Urine Bilirubin 1+ (NEGATIVE) H Urine Ictotest Positive (NEGATIVE) Urine Urobilinogen 12 MG/DL (0.0-1.0) H Urine Leukocyte Esterase 1+ (NEGATIVE) H Urine RBC 30-40 /HPF (0 - 0) H Urine WBC 2-4 /HPF (0 - 0) Urine Squamous Epithelial Cells None /LPF (NONE/OCC) Urine Calcium Oxalate Crystals Few /LPF (NONE) Urine Bacteria Few /HPF (NONE) Test 03/31/18 07:00 03/31/18 11:00 03/31/18 13:45 Total Protein (PEP) Pending Albumin (PEP) Pending Globulin (PEP) Pending Albumin/Globulin Ratio Pending Vpmls-7-Dtwktollm Pending Ticdp-2-Glkmpjzmn Pending Beta Globulins Pending Beta Gamma Globulin Pending PEP Abnormal Protein Bands Pending Protein Electrophoresis Interpret Pending Prostate Specific Antigen 1.05 ng/mL (0.13-4.0) Hepatitis A IgM Antibody Pending Hepatitis B Surface Antigen Pending Hepatitis B Core IgM Antibody Pending Hepatitis C Antibody Pending HIV (1&2) Antibody Rapid Negative (NEGATIVE) Arterial Blood pH 7.474 (7.350-7.450) Arterial Blood Partial Pressure CO2 34.8 mmHg (35.0-45.0) L Arterial Blood Partial Pressure O2 62.1 mmHg (75.0-100.0) L Arterial Blood HCO3 25.0 mmol/L (22.0-26.0) Arterial Blood Oxygen Saturation 91.7 % (95-100) L Arterial Blood Base Excess 1.7 (-2-2) [place] Test Positive Urine Total Protein Pending Urine Albumin (%) Pending Urine Xtvpx-2-Rqjjnmgyo (%) Pending Urine Eqdqw-0-Yinqzpavz (%) Pending Urine Beta-Globulin (%) Pending Urine Gamma Globulin (%) Pending Ur Protein Electrophoresis [place] Pending Urine Protein Electrophoresis Intrp Pending Height (Feet): 6 Height (Inches): 1.00 Weight (Pounds): 180 Medications Current Medications Medications (Trade) Dose Ordered Sig/Elizabeth Route PRN Reason Start Time Stop Time Status Last Admin Dose Admin Acetaminophen (Tylenol) 500 mg Q4H PRN ORAL Mild Pain/Temp > 100.5 03/31/18 06:00 04/30/18 05:59 Albuterol/ Ipratropium (Albuterol/ Ipratropium) 3 ml Q6HRT HHN 03/31/18 13:00 04/05/18 12:59 03/31/18 13:00 Benztropine Mesylate (Cogentin) 1 mg BID ORAL 03/31/18 09:00 04/30/18 08:59 Bupropion HCl (Wellbutrin XL) 300 mg Q24H ORAL 03/31/18 06:00 04/30/18 05:59 Divalproex Sodium (Depakote ER) 500 mg EVERY 12 HOURS ORAL 03/31/18 09:00 04/30/18 08:59 Gabapentin (Neurontin) 300 mg THREE TIMES A DAY ORAL 03/31/18 09:00 04/30/18 08:59 Haloperidol (Haldol) 10 mg BID PRN ORAL Agitation 03/31/18 05:45 04/30/18 05:44 Pantoprazole (Protonix) 40 mg DAILY ORAL 03/31/18 09:00 04/30/18 08:59 Piperacillin Sod/ Tazobactam Sod 3.375 gm/Dextrose 110 ml @ 27.5 mls/hr Q8HR IVPB 03/31/18 14:00 04/07/18 13:59 03/31/18 14:51 Quetiapine Fumarate (SEROquel) 100 mg BID ORAL 03/31/18 18:00 04/30/18 17:59 Sodium Chloride 1,000 ml @ 75 mls/hr [id number] IV 03/31/18 10:00 04/30/18 09:59 03/31/18 11:37 Vancomycin HCl (Vanco rx to dose) 1 ea DAILY PRN MISC Per rx protocol 03/31/18 09:30 04/30/18 09:29 Vancomycin HCl 1 gm/Dextrose 275 ml @ 183.708 mls/hr Q12HR@1100,2300 IVPB 03/31/18 23:00 04/05/18 22:59 Assessment/Plan Problem List: (1) Decubitus ulcer of sacral region, stage 4 Assessment & Plan: Large malodorous full thickness stage IV / unstageable Sacral pressure injury. Wound bed with necrosis centrally with detached borders. Soft yellow slough along perimeter. Wound measures (L)9cm x (W)12.1cm with area of necrosis measuring 5.5cm x (W) 10cm. Surrounding area denuded with additional skin breakdown of which largest noted to R buttocks measuring (L)2cm x (W)0.6cm. Scrotum is grossly red with multiple partial thickness wounds at base of scrotum. DTPI noted to R heel (L) 5.7cm x (W)6cm. Area is maroon and fluctuant with delineated borders. Wound present on admission and will be cared for during hospital stay. will likely need debridement given odor and appearance. will work to obtain consent and follow with care plan Tx.Plan:Apply Dakin's moist gauze to wound. Cavilon wipe along borders .Cover with Biatain drsg Daily and prn. P200 Air Fluidized mattress. Apply Cavilon to R heel.Cover with Biatain for 7 days and prn. Reposition on sides at minimum every 2hours or as tolerated. Off-load heels with pillow. ICD Codes: L89.154 - Pressure ulcer of sacral region, stage 4 SNOMED: [id number], [id number] Matthew Jeter Mar 31, 2018 15:39
[2018-03-31] MEDS: Dakin's 0.125% Soln (Quarter Strength) 16oz TOPIC SCH (17:13)
--- NOTE | 2018-03-31 19:00 | Consultation ---
DATE OF CONSULTATION: 03/31/2018 INFECTIOUS DISEASE CONSULTATION CONSULTING PHYSICIAN: Mao Trevino M.D. PRIMARY ATTENDING PHYSICIAN: Loly Dash M.D. REASON FOR CONSULTATION: Sepsis, pneumonia, bronchitis. HISTORY OF PRESENT ILLNESS: This is a 67-year-old male who is a [facility] resident, admitted today because of fever. He had temperature 103, tachycardia, and altered mental status. He was found to have hypoxemic, had leukocytosis, and had lactic acidosis. The patient is poor historian because of his psychological issue. He had history of depression and schizophrenia. He had history of hepatitis C. He had history of admission to [facility] because of suicidal ideation. ALLERGIES: Allergic to aripiprazole and quetiapine. MEDICATIONS: Getting vancomycin, Zosyn, Seroquel, sodium chloride, Depakote, gabapentin, Protonix, benztropine, bupropion, Tylenol, and also got a dose of Levaquin and Zosyn in the ER. SOCIAL HISTORY: [facility] resident. No other history obtainable by the patient. PHYSICAL EXAMINATION: VITAL SIGNS: Maximum temperature is 103, current temperature 98.1, pulse 100, blood pressure 117/67. GENERAL APPEARANCE: He seems to be weak. HEAD AND NECK: Getting oxygen by nasal cannula. He has poor dentition. HEART: Tachycardic. LUNGS: He has bilateral rhonchi. ABDOMEN: Soft. EXTREMITIES: He has no edema. NEUROLOGIC: Awake, verbal, although speaking with low voice. LABORATORY AND DIAGNOSTIC DATA: Sodium 142, potassium 4.1, chloride 108, bicarbonate 26, BUN 29, creatinine 1.2, glucose 117, bilirubin 1.5, AST 72. WBC 21.9 at admission today is 12, hemoglobin 13.9, hematocrit 40.5, and platelet is 99,000. UA showed rbc of 30-40. Chest x-ray was negative. ABG showed hypoxemia, pCO2 in mid 60s. IMPRESSION: Sepsis with fever, leukocytosis, lactic acidosis. The patient has acute hypoxemic respiratory failure that is improving. At the beginning, the patient was on oxygen by mask, now he is getting by nasal cannula. He has bronchitis or pneumonia, thrombocytopenia, history of hepatitis C, and has abnormal bilirubin and AST. RECOMMENDATION: We will continue vancomycin and Zosyn. We will follow up the cultures and narrow antibiotic. We will order an abdominal ultrasound. At the end of my exam, I thank Dr. Dash for involving me in the care of this patient. Mao Trevino M.D. DR: Kristin JOB#: [id number] CC: LISSY
[2018-03-31] MEDS: Vancomycin 1 GM in D5W 275 ML IVPB SCH (22:46)
[2018-04-01] VITALS: BP 129/68
--- NOTE | 2018-04-01 00:15 | History and Physical Report ---
DATE OF ADMISSION: 03/31/2018 HISTORY OF PRESENT ILLNESS: The patient is here admitted for sepsis and pneumonia with leukocytosis and azotemia. The patient was also tachycardic, admitted for those reasons and azotemia. The patient is relatively a poor historian and cannot get any reliable history from the patient. PAST MEDICAL HISTORY: Depression, schizophrenia. Also has a past medical history of anxiety, chronic pain, COPD, GERD, psychosis. PAST SURGICAL HISTORY: Denies. ALLERGIES: and Seroquel. MEDICATIONS: Bupropion, gabapentin, montelukast, Protonix. FAMILY HISTORY: Noncontributory. SOCIAL HISTORY: No history of smoking or illicit drugs. Comes from a senior care. REVIEW OF SYSTEMS: Unable to obtain. Poor historian. However, does have chronic pain syndrome, significant changes in speech pattern, feels weak, poor historian. PHYSICAL EXAMINATION: VITAL SIGNS: Temperature 98, pulse is 108, blood pressure 110/62. HEENT: PERRLA. NECK: Supple. No lymphadenopathy. CHEST: Clear to auscultation. GASTROINTESTINAL: Soft, nontender. EXTREMITIES: A 1+ edema, reflexes in both sides. LABORATORY DATA: WBC of 21.9, hemoglobin 13.9, and platelets of 99,000. Lactic acid 2.1. Chest x-ray shows pneumonia. ASSESSMENT AND PLAN: 1. Leukocytosis. 2. Sepsis. 3. Azotemia. 4. Pneumonia. 5. Psychiatric patient. I have asked Dr. Jade, Dr. Villalta, to see the patient for the treatment of the above-mentioned diagnoses. Loly Dash M.D. DR: FERCHO JOB#: [id number] CC:
[2018-04-01] MEDS: Albuterol/Ipratropium 3ml neb HHN SCH ×4 (02:00→19:38)
[2018-04-01 04:00] VITALS: BP 127/61
[2018-04-01] MEDS: Piperacillin/Tazobactam 3.375 GM in D5W 110 ML IVPB SCH ×3 (05:11→21:25)
[2018-04-01] MEDS: BuPROPion XL 150mg tab ORAL SCH (05:12)
[2018-04-01 06:24] LABS: HEMATOCRIT 33.3 % (42.0-52.0); HEMOGLOBIN 11.2 G/DL (14.2-18.0); MEAN CORPUSCULAR VOLUME 104 FL (80-99); PLATELET COUNT 70 K/UL (150-450); RED CELL DISTRIBUTION WIDTH 12.4 % (11.6-14.8)
[2018-04-01 07:07] LABS: ALANINE AMINOTRANSFERASE 25 U/L (12-78); ALBUMIN 1.6 G/DL (3.4-5.0); ALBUMIN/GLOBULIN RATIO 0.3 (1.0-2.7); ALKALINE PHOSPHATASE 76 U/L (46-116); ANION GAP 6 mmol/L (5-15); ASPARTATE AMINO TRANSFERASE 45 U/L (15-37); BLOOD UREA NITROGEN 18 mg/dL (7-18); CALCIUM 8.8 MG/DL (8.5-10.1); CARBON DIOXIDE 27 MMOL/L (21-32); CHLORIDE 112 MMOL/L (98-107); CHOLESTEROL 51 MG/DL (< 200); CREATININE 0.8 MG/DL (0.55-1.30); GAMMA GLUTAMYL TRANSPEPTIDASE 44 U/L (5-85); HDL CHOLESTEROL 8 MG/DL (40-60); PHOSPHORUS 2.5 MG/DL (2.5-4.9); POTASSIUM 3.5 MMOL/L (3.5-5.1); SODIUM 145 MMOL/L (136-145); TRIGLYCERIDES 98 MG/DL (30-150)
--- NOTE | 2018-04-01 07:17 | General Progress Note ---
Assessment/Plan Assessment/Plan # Thrombocytopenia -- first admission here, therefore do not have his baseline, is VERY likely related to underlying sepsis and consumptive state, plt count appears to be 50-100k, hep panel pending --> hepatitis P and hiv is negative, if doesnt improve next few days, consider us of abd --> abx have been reviewed, unlikely contibutors as only short hospital stay --> other medications have been reviewed as well --> peripheral smear reviewed, does not show schistocytes or blasts # Leukocytosis very likely related to either uti/pna --> appreciate id care --> abx have been reviewed # Anemia of chronic disease -- hgb currently >10 --> trend cbc # Septic shock -- on ivf and has received abx # Healthcare associated bacterial pneumonia--> on abx, have been reviewed --> consider id eval # Supraventricular tachycardia # Acute prerenal azotemia # Paroxysmal SVT versus A. fib. Rate controlled with a dose of Cardizem. # Resp failure on NC Greatly appreciate consultation! Subjective Constitutional: Denies: no symptoms, chills, diaphoresis, fever, malaise, weakness, other HEENT: Denies: no symptoms, eye pain, blurred vision, tearing, double vision, ear pain, ear discharge, nose pain, nose congestion, throat pain, throat swelling, mouth pain, mouth swelling, other Cardiovascular: Denies: no symptoms, chest pain, edema, irregular heart rate, lightheadedness, palpitations, syncope, other Respiratory: Denies: no symptoms, cough, orthopnea, shortness of breath, SOB with excertion, SOB at rest, sputum, stridor, wheezing, other Gastrointestinal/Abdominal: Denies: no symptoms, abdomen distended, abdominal pain, black stools, tarry stools, blood in stool, constipated, diarrhea, difficulty swallowing, nausea, poor appetite, poor fluid intake, rectal bleeding , vomiting, other Genitourinary: Denies: no symptoms, burning, discharge, frequency, flank pain, hematuria, incontinence, pain, urgency, other Neurologic/Psychiatric: Denies: no symptoms, anxiety, depressed, emotional problems, headache, numbness, paresthesia, pre-existing deficit, seizure, tingling, tremors, weakness, other Endocrine: Denies: no symptoms, excessive sweating, flushing, intolerance to cold, intolerance to heat, increased hunger, increased thirst, increased urine, unexplained weight gain, unexplained weight loss, other Allergies: Coded Allergies: ARIPIPRAZOLE (Verified Allergy, Unknown, 03/31/18) QUETIAPINE (Verified Allergy, Unknown, 03/31/18) Subjective no fevers, or chills, on abx Objective Last 24 Hour Vital Signs Date Time Temp Pulse Resp B/P (MAP) Pulse Ox O2 Delivery O2 Flow Rate FiO2 04/01/18 06:58 110 20 95 Nasal Cannula 2.0 28 04/01/18 06:58 28 04/01/18 06:58 110 20 Nasal Cannula 2.0 28 04/01/18 04:00 117 04/01/18 04:00 97.7 114 20 127/61 (83) 97 97.7 04/01/18 02:05 108 20 98 Nasal Cannula 2.0 28 04/01/18 01:57 112 20 96 Nasal Cannula 2.0 28 04/01/18 00:00 99.1 110 20 129/68 (88) 96 99.1 04/01/18 00:00 111 03/31/18 21:00 Nasal Cannula 2.0 03/31/18 20:28 107 20 97 Nasal Cannula 2.0 28 03/31/18 20:23 111 24 96 Nasal Cannula 2.0 28 03/31/18 20:21 111 24 Nasal Cannula 2.0 28 03/31/18 20:00 97.9 110 18 113/74 (87) 95 97.9 03/31/18 20:00 111 03/31/18 16:00 98.0 108 19 110/62 (78) 93 98.0 03/31/18 16:00 107 03/31/18 13:10 99 16 98 Nasal Cannula 2.0 28 03/31/18 13:00 100 16 95 Nasal Cannula 2.0 28 03/31/18 13:00 28 03/31/18 12:00 98.2 106 23 116/65 (82) 93 98.2 03/31/18 12:00 106 03/31/18 09:00 Nasal Cannula 3.0 03/31/18 08:00 98.1 102 19 117/67 (84) 91 98.1 03/31/18 08:00 100 Intake and Output 03/31/18 04/01/18 19:00 07:00 Intake Total 0 ml 700 ml Output Total 675 ml 550 ml Balance -675 ml 150 ml Intake Oral 0 ml 0 ml IV Total 700 ml Output Urine Total 675 ml 550 ml Laboratory Tests 03/31/18 11:00: Arterial Blood pH 7.474H, Arterial Blood Partial Pressure CO2 34.8L, Arterial Blood Partial Pressure O2 62.1L, Arterial Blood HCO3 25.0, Arterial Blood Oxygen Saturation 91.7L, Arterial Blood Base Excess 1.7, [place] Test Positive 03/31/18 13:45: Urine Total Protein [Pending], Urine Albumin (%) [Pending], Urine Alpha-1- Globulins (%) [Pending], Urine [id number]-[id number] (%) [Pending], Urine Beta- Globulin (%) [Pending], Urine Gamma Globulin (%) [Pending], Ur Protein Electrophoresis M-Glen [Pending], Urine Protein Electrophoresis Intrp [Pending] 04/01/18 04:50: White Blood Count 12.0H, Red Blood Count 3.20L, Hemoglobin 11.2L, Hematocrit 33.3L, Mean Corpuscular Volume 104H, Mean Corpuscular Hemoglobin 35.0H, Mean Corpuscular Hemoglobin Concent 33.6, Red Cell Distribution Width 12.4, Platelet Count 70L, Mean Platelet Volume 7.3, Neutrophils (%) (Auto) , Lymphocytes (%) ( Auto) , Monocytes (%) (Auto) , Eosinophils (%) (Auto) , Basophils (%) (Auto) , Neutrophils % (Manual) [Pending], Lymphocytes % (Manual) [Pending], Platelet Estimate [Pending], Platelet Morphology [Pending], Sodium Level 145, Potassium Level 3.5, Chloride Level 112H, Carbon Dioxide Level 27, Anion Gap 6, Blood Urea Nitrogen 18, Creatinine 0.8, Estimat Glomerular Filtration Rate > 60, Glucose Level 70#L, Uric Acid 1.7L, Calcium Level 8.8, Phosphorus Level 2.5, Magnesium Level 1.6L, Total Bilirubin 1.0, Gamma Glutamyl Transpeptidase 44, Aspartate Amino Transf (AST/SGOT) 45H, Alanine Aminotransferase (ALT/SGPT) 25, Alkaline Phosphatase 76, Pro-B-Type Natriuretic Peptide 269H, Total Protein 7.7 , Albumin 1.6L, Globulin 6.1, Albumin/Globulin Ratio 0.3L, Triglycerides Level 98, Cholesterol Level 51, LDL Cholesterol 33, HDL Cholesterol 8L, Cholesterol/ HDL Ratio 6.4H, Vitamin B12 Level [Pending], Thyroid Stimulating Hormone (TSH) 4.496H Height (Feet): 6 Height (Inches): 1.00 Weight (Pounds): 180 General Appearance: alert EENT: TMs normal Neck: supple Cardiovascular: regular rhythm Respiratory/Chest: normal breath sounds Abdomen: non tender Extremities: non-tender Edema: 1+ Leg (L), 1+ Leg (R) Edema: mild edema Neurologic: alert Skin: normal pigmentation Jose Mckeon MD Apr 01, 2018 07:17
[2018-04-01 07:53] VITALS: BP 134/63
[2018-04-01] MEDS: Benztropine 1mg tab ORAL SCH ×2 (09:12→17:49)
[2018-04-01] MEDS: Depakote ER 500mg tab ORAL SCH ×2 (09:12→21:25)
--- NOTE | 2018-04-01 09:39 | Pulmonology Progress Note ---
Assessment/Plan Assessment/Plan 67 y/o male w/ hx schizophrenia with sepsis likely from pneumonia. Assessment: 1. Acute hypoxemic respiratory failure 2. Sepsis 3. Pneumonia 4. Altered mental status 5. NURY 6. Thrombocytopenia 7. Schizophrenia 8. Stage IV decubitus ulcer Plan: -abx per ID: [email or web address] -f/u cultures -IVF: NS 50 cc/hour -wound care -wean oxygen as tolerated -duonebs q6 -monitor platelets -video swallow eval planned Case d/w RN Subjective ROS Limited/Unobtainable: Yes Interval Events: BP stable. Improved oxygen needs. Seems more alert, possibly at baseline. Allergies: Coded Allergies: ARIPIPRAZOLE (Verified Allergy, Unknown, 03/31/18) QUETIAPINE (Verified Allergy, Unknown, 03/31/18) Objective Last 24 Hour Vital Signs Date Time Temp Pulse Resp B/P (MAP) Pulse Ox O2 Delivery O2 Flow Rate FiO2 04/01/18 07:53 99.1 123 24 134/63 (86) 93 99.1 04/01/18 07:06 111 20 99 Nasal Cannula 2.0 28 04/01/18 06:58 110 20 95 Nasal Cannula 2.0 28 04/01/18 06:58 28 04/01/18 06:58 110 20 Nasal Cannula 2.0 28 04/01/18 04:00 117 04/01/18 04:00 97.7 114 20 127/61 (83) 97 97.7 04/01/18 02:05 108 20 98 Nasal Cannula 2.0 28 04/01/18 01:57 112 20 96 Nasal Cannula 2.0 28 04/01/18 00:00 99.1 110 20 129/68 (88) 96 99.1 04/01/18 00:00 111 03/31/18 21:00 Nasal Cannula 2.0 03/31/18 20:28 107 20 97 Nasal Cannula 2.0 28 03/31/18 20:23 111 24 96 Nasal Cannula 2.0 28 03/31/18 20:21 111 24 Nasal Cannula 2.0 28 03/31/18 20:00 97.9 110 18 113/74 (87) 95 97.9 03/31/18 20:00 111 03/31/18 16:00 98.0 108 19 110/62 (78) 93 98.0 03/31/18 16:00 107 10/11/18 13:10 99 16 98 Nasal Cannula 2.0 28 03/31/18 13:00 100 16 95 Nasal Cannula 2.0 28 03/31/18 13:00 28 03/31/18 12:00 98.2 106 23 116/65 (82) 93 98.2 03/31/18 12:00 106 Intake and Output 03/31/18 04/01/18 19:00 07:00 Intake Total 0 ml 700 ml Output Total 675 ml 550 ml Balance -675 ml 150 ml Intake Oral 0 ml 0 ml IV Total 700 ml Output Urine Total 675 ml 550 ml General Appearance: no acute distress HEENT: normocephalic, atraumatic, PERRL Respiratory/Chest: other - Lungs clear anteriorly Cardiovascular: normal rate, regular rhythm Abdomen: normal bowel sounds, soft, non tender Extremities: no edema Microbiology Date/Time Source Procedure Growth Status 03/31/18 02:00 Blood Blood Culture - Preliminary NO GROWTH AFTER 24 HOURS Resulted 03/31/18 01:50 Blood Blood Culture - Preliminary NO GROWTH AFTER 24 HOURS Resulted Laboratory Tests 03/31/18 11:00: Arterial Blood pH 7.474H, Arterial Blood Partial Pressure CO2 34.8L, Arterial Blood Partial Pressure O2 62.1L, Arterial Blood HCO3 25.0, Arterial Blood Oxygen Saturation 91.7L, Arterial Blood Base Excess 1.7, [place] Test Positive 03/31/18 13:45: Urine Total Protein [Pending], Urine Albumin (%) [Pending], Urine Alpha-1- Globulins (%) [Pending], Urine Wzubr-6-[id number] (%) [Pending], Urine Beta- Globulin (%) [Pending], Urine Gamma Globulin (%) [Pending], Ur Protein Electrophoresis M-Glen [Pending], Urine Protein Electrophoresis Intrp [Pending] 04/01/18 04:50: White Blood Count 12.0H, Red Blood Count 3.20L, Hemoglobin 11.2L, Hematocrit 33.3L, Mean Corpuscular Volume 104H, Mean Corpuscular Hemoglobin 35.0H, Mean Corpuscular Hemoglobin Concent 33.6, Red Cell Distribution Width 12.4, Platelet Count 70L, Mean Platelet Volume 7.3, Neutrophils (%) (Auto) , Lymphocytes (%) ( Auto) , Monocytes (%) (Auto) , Eosinophils (%) (Auto) , Basophils (%) (Auto) , Neutrophils % (Manual) [Pending], Lymphocytes % (Manual) [Pending], Platelet Estimate [Pending], Platelet Morphology [Pending], Sodium Level 145, Potassium Level 3.5, Chloride Level 112H, Carbon Dioxide Level 27, Anion Gap 6, Blood Urea Nitrogen 18, Creatinine 0.8, Estimat Glomerular Filtration Rate > 60, Glucose Level 70#L, Uric Acid 1.7L, Calcium Level 8.8, Phosphorus Level 2.5, Magnesium Level 1.6L, Total Bilirubin 1.0, Gamma Glutamyl Transpeptidase 44, Aspartate Amino Transf (AST/SGOT) 45H, Alanine Aminotransferase (ALT/SGPT) 25, Alkaline Phosphatase 76, Pro-B-Type Natriuretic Peptide 269H, Total Protein 7.7 , Albumin 1.6L, Globulin 6.1, Albumin/Globulin Ratio 0.3L, Triglycerides Level 98, Cholesterol Level 51, LDL Cholesterol 33, HDL Cholesterol 8L, Cholesterol/ HDL Ratio 6.4H, Vitamin B12 Level > 2000H, Thyroid Stimulating Hormone (TSH) 4.496H Current Medications Medications (Trade) Dose Ordered Sig/Elziabeth Route PRN Reason Start Time Stop Time Status Last Admin Dose Admin Acetaminophen (Tylenol) 500 mg Q4H PRN ORAL Mild Pain/Temp > 100.5 03/31/18 06:00 04/30/18 05:59 Albuterol/ Ipratropium (Albuterol/ Ipratropium) 3 ml Q6HRT HHN 03/31/18 13:00 04/05/18 12:59 04/01/18 06:58 Benztropine Mesylate (Cogentin) 1 mg BID ORAL 03/31/18 09:00 04/30/18 08:59 04/01/18 09:12 Bupropion HCl (Wellbutrin XL) 300 mg Q24H ORAL 03/31/18 06:00 04/30/18 05:59 Divalproex Sodium (Depakote ER) 500 mg EVERY 12 HOURS ORAL 03/31/18 09:00 04/30/18 08:59 04/01/18 09:12 Gabapentin (Neurontin) 300 mg THREE TIMES A DAY ORAL 03/31/18 09:00 04/30/18 08:59 04/01/18 09:11 Haloperidol (Haldol) 10 mg BID PRN ORAL Agitation 03/31/18 05:45 04/30/18 05:44 Magnesium Sulfate 100 ml @ 100 mls/hr Q1H IVPB 04/01/18 10:00 04/01/18 13:59 Pantoprazole (Protonix) 40 mg DAILY ORAL 03/31/18 09:00 04/30/18 08:59 04/01/18 09:11 Piperacillin Sod/ Tazobactam Sod 3.375 gm/Dextrose 110 ml @ 27.5 mls/hr Q8HR IVPB 03/31/18 14:00 04/07/18 13:59 04/01/18 05:11 Quetiapine Fumarate (SEROquel) 100 mg BID ORAL 03/31/18 18:00 04/30/18 17:59 04/01/18 09:11 Sodium Hypochlorite (Dakin's Quarter Strength) 1 applic DAILY TOPIC 03/31/18 15:41 04/30/18 15:40 03/31/18 17:13 Sodium Chloride 1,000 ml @ 75 mls/hr [id number] IV 03/31/18 10:00 04/30/18 09:59 03/31/18 22:46 Vancomycin HCl (Vanco rx to dose) 1 ea DAILY PRN MISC Per rx protocol 03/31/18 09:30 04/30/18 09:29 Vancomycin HCl 1 gm/Dextrose 275 ml @ 183.708 mls/hr Q12HR@1100,2300 IVPB 03/31/18 23:00 04/05/18 22:59 03/31/18 22:46 Koko Wetzel MD Apr 01, 2018 09:39
--- NOTE | 2018-04-01 09:39 | Diagnostic Imaging Report ---
Indication:Abdominal pain Technique: Grayscale and duplex Doppler imaging of the abdomen performed. Comparison: None Findings: The liver is unremarkable. The gallbladder is noted and unremarkable. The demonstrated part of the pancreas, aorta and IVC show no abnormalities. 1.8 cm cyst in the left kidney demonstrated. The spleen is normal in size. There is no biliary ductal dilatation identified. Doppler evaluation of the main portal vein shows patency. There is no ascites. No hydronephrosis seen. Impression: No acute findings. Left renal cyst
[2018-04-01] MEDS: Dakin's 0.125% Soln (Quarter Strength) 16oz TOPIC SCH (10:40)
--- NOTE | 2018-04-01 10:59 | Infectious Diseases Prog Note ---
Assessment/Plan Assessment/Plan antibiotics : vancomycin iv, zosyn A 1. ? pneumonia 2. leucocytosis improving 3. hepatitis C 4, thrombocytopenia P 1. continue vancomycin iv, zosyn 2. sputum culture 3. will follow up cultures Subjective Constitutional: Denies: fever, chills Respiratory: Denies: shortness of breath, dry cough Gastrointestinal/Abdominal: Denies: nausea, vomiting, diarrhea Musculoskeletal: Denies: pain Allergies: Coded Allergies: ARIPIPRAZOLE (Verified Allergy, Unknown, 03/31/18) QUETIAPINE (Verified Allergy, Unknown, 03/31/18) Objective Vital Signs Last 24 Hour Vital Signs Date Time Temp Pulse Resp B/P (MAP) Pulse Ox O2 Delivery O2 Flow Rate FiO2 04/01/18 07:53 99.1 123 24 134/63 (86) 93 99.1 04/01/18 07:06 111 20 99 Nasal Cannula 2.0 28 04/01/18 06:58 110 20 95 Nasal Cannula 2.0 28 04/01/18 06:58 28 04/01/18 06:58 110 20 Nasal Cannula 2.0 28 04/01/18 04:00 117 04/01/18 04:00 97.7 114 20 127/61 (83) 97 97.7 04/01/18 02:05 108 20 98 Nasal Cannula 2.0 28 04/01/18 01:57 112 20 96 Nasal Cannula 2.0 28 04/01/18 00:00 99.1 110 20 129/68 (88) 96 99.1 04/01/18 00:00 111 03/31/18 21:00 Nasal Cannula 2.0 03/31/18 20:28 107 20 97 Nasal Cannula 2.0 28 03/31/18 20:23 111 24 96 Nasal Cannula 2.0 28 03/31/18 20:21 111 24 Nasal Cannula 2.0 28 03/31/18 20:00 97.9 110 18 113/74 (87) 95 97.9 03/31/18 20:00 111 03/31/18 16:00 98.0 108 19 110/62 (78) 93 98.0 03/31/18 16:00 107 03/31/18 13:10 99 16 98 Nasal Cannula 2.0 28 03/31/18 13:00 100 16 95 Nasal Cannula 2.0 28 03/31/18 13:00 28 03/31/18 12:00 98.2 106 23 116/65 (82) 93 98.2 03/31/18 12:00 106 Height (Feet): 6 Height (Inches): 1.00 Weight (Pounds): 180 Respiratory/Chest: lungs clear Cardiovascular: normal rate, regular rhythm, no gallop/murmur Abdomen: soft, non tender Extremities: no edema Microbiology Date/Time Source Procedure Growth Status 03/31/18 02:00 Blood Blood Culture - Preliminary NO GROWTH AFTER 24 HOURS Resulted 03/31/18 01:50 Blood Blood Culture - Preliminary NO GROWTH AFTER 24 HOURS Resulted 03/31/18 10:00 Wound Gram Stain Pending Resulted 03/31/18 10:00 Wound Wound Culture - Preliminary Resulted 03/31/18 02:25 Rectum - Preliminary Resulted Laboratory Tests Test 03/31/18 11:00 03/31/18 13:45 04/01/18 04:50 Arterial Blood pH 7.474 (7.350-7.450) Arterial Blood Partial Pressure CO2 34.8 mmHg (35.0-45.0) L Arterial Blood Partial Pressure O2 62.1 mmHg (75.0-100.0) L Arterial Blood HCO3 25.0 mmol/L (22.0-26.0) Arterial Blood Oxygen Saturation 91.7 % (95-100) L Arterial Blood Base Excess 1.7 (-2-2) [place] Test Positive Urine Total Protein Pending Urine Albumin (%) Pending Urine Vnvbq-8-Wbvwbuyyk (%) Pending Urine Ijibg-3-Lwjzqjetc (%) Pending Urine Beta-Globulin (%) Pending Urine Gamma Globulin (%) Pending Ur Protein Electrophoresis M-Glen Pending Urine Protein Electrophoresis Intrp Pending White Blood Count 12.0 K/UL (4.8-10.8) H Red Blood Count 3.20 M/UL (4.70-6.10) L Hemoglobin 11.2 G/DL (14.2-18.0) L Hematocrit 33.3 % (42.0-52.0) L Mean Corpuscular Volume 104 FL (80-99) H Mean Corpuscular Hemoglobin 35.0 PG (27.0-31.0) H Mean Corpuscular Hemoglobin Concent 33.6 G/DL (32.0-36.0) Red Cell Distribution Width 12.4 % (11.6-14.8) Platelet Count 70 K/UL (150-450) L Mean Platelet Volume 7.3 FL (6.5-10.1) Neutrophils (%) (Auto) % (45.0-75.0) Lymphocytes (%) (Auto) % (20.0-45.0) Monocytes (%) (Auto) % (1.0-10.0) Eosinophils (%) (Auto) % (0.0-3.0) Basophils (%) (Auto) % (0.0-2.0) Differential Total Cells Counted 100 Neutrophils % (Manual) 66 % (45-75) Lymphocytes % (Manual) 18 % (20-45) L Monocytes % (Manual) 16 % (1-10) H Eosinophils % (Manual) 0 % (0-3) Basophils % (Manual) 0 % (0-2) Band Neutrophils 0 % (0-8) Platelet Estimate Decreased L Platelet Morphology Normal Hypochromasia 1+ Anisocytosis 1+ Macrocytosis 1+ Sodium Level 145 MMOL/L (136-145) Potassium Level 3.5 MMOL/L (3.5-5.1) Chloride Level 112 MMOL/L (98-107) H Carbon Dioxide Level 27 MMOL/L (21-32) Anion Gap 6 mmol/L (5-15) Blood Urea Nitrogen 18 mg/dL (7-18) Creatinine 0.8 MG/DL (0.55-1.30) Estimat Glomerular Filtration Rate > 60 mL/min (>60) Glucose Level 70 MG/DL (74-106) #L Uric Acid 1.7 MG/DL (2.6-7.2) L Calcium Level 8.8 MG/DL (8.5-10.1) Phosphorus Level 2.5 MG/DL (2.5-4.9) Magnesium Level 1.6 MG/DL (1.8-2.4) L Total Bilirubin 1.0 MG/DL (0.2-1.0) Gamma Glutamyl Transpeptidase 44 U/L (5-85) Aspartate Amino Transf (AST/SGOT) 45 U/L (15-37) H Alanine Aminotransferase (ALT/SGPT) 25 U/L (12-78) Alkaline Phosphatase 76 U/L (46-116) Pro-B-Type Natriuretic Peptide 269 pg/mL (0-125) H Total Protein 7.7 G/DL (6.4-8.2) Albumin 1.6 G/DL (3.4-5.0) L Globulin 6.1 g/dL Albumin/Globulin Ratio 0.3 (1.0-2.7) L Triglycerides Level 98 MG/DL (30-150) Cholesterol Level 51 MG/DL (< 200) LDL Cholesterol 33 mg/dL (<100) HDL Cholesterol 8 MG/DL (40-60) L Cholesterol/HDL Ratio 6.4 (3.3-4.4) H Vitamin B12 Level > 2000 PG/ML (193-986) H Thyroid Stimulating Hormone (TSH) 4.496 uiU/mL (0.358-3.740) Current Medications Medications (Trade) Dose Ordered Sig/Elizabeth Route PRN Reason Start Time Stop Time Status Last Admin Dose Admin Acetaminophen (Tylenol) 500 mg Q4H PRN ORAL Mild Pain/Temp > 100.5 03/31/18 06:00 04/30/18 05:59 Albuterol/ Ipratropium (Albuterol/ Ipratropium) 3 ml Q6HRT HHN 03/31/18 13:00 04/05/18 12:59 04/01/18 06:58 Benztropine Mesylate (Cogentin) 1 mg BID ORAL 03/31/18 09:00 04/30/18 08:59 04/01/18 09:12 Bupropion HCl (Wellbutrin XL) 300 mg Q24H ORAL 03/31/18 06:00 04/30/18 05:59 Divalproex Sodium (Depakote ER) 500 mg EVERY 12 HOURS ORAL 03/31/18 09:00 04/30/18 08:59 04/01/18 09:12 Gabapentin (Neurontin) 300 mg THREE TIMES A DAY ORAL 03/31/18 09:00 04/30/18 08:59 04/01/18 09:11 Haloperidol (Haldol) 10 mg BID PRN ORAL Agitation 03/31/18 05:45 04/30/18 05:44 Magnesium Sulfate 100 ml @ 100 mls/hr Q1H IVPB 04/01/18 10:00 04/01/18 13:59 04/01/18 10:06 Pantoprazole (Protonix) 40 mg DAILY ORAL 03/31/18 09:00 04/30/18 08:59 04/01/18 09:11 Piperacillin Sod/ Tazobactam Sod 3.375 gm/Dextrose 110 ml @ 27.5 mls/hr Q8HR IVPB 03/31/18 14:00 04/07/18 13:59 04/01/18 05:11 Quetiapine Fumarate (SEROquel) 100 mg BID ORAL 03/31/18 18:00 04/30/18 17:59 04/01/18 09:11 Sodium Hypochlorite (Dakin's Quarter Strength) 1 applic DAILY TOPIC 03/31/18 15:41 04/30/18 15:40 04/01/18 10:40 Sodium Chloride 1,000 ml @ 50 mls/hr Q20H IV 04/01/18 10:00 04/30/18 09:59 04/01/18 10:06 Vancomycin HCl (Vanco rx to dose) 1 ea DAILY PRN MISC Per rx protocol 03/31/18 09:30 04/30/18 09:29 Vancomycin HCl 1 gm/Dextrose 275 ml @ 183.708 mls/hr Q12HR@1100,2300 IVPB 03/31/18 23:00 04/05/18 22:59 03/31/18 22:46 Burt Rico MD Apr 01, 2018 10:59
[2018-04-01] MEDS: Vancomycin 1 GM in D5W 275 ML IVPB SCH (11:48)
[2018-04-01 11:59] VITALS: BP 123/62
--- NOTE | 2018-04-01 14:02 | General Progress Note ---
Assessment/Plan Status: stable, progressing Assessment/Plan encephalopathy due to metabolic d/o hypotension tachy cardia the pt lacks capacity to make decisions hold all psych meds at this time Subjective Date patient seen: Apr 01, 2018 Neurologic/Psychiatric: Reports: anxiety, depressed, emotional problems Allergies: Coded Allergies: ARIPIPRAZOLE (Verified Allergy, Unknown, 03/31/18) QUETIAPINE (Verified Allergy, Unknown, 03/31/18) Objective Last 24 Hour Vital Signs Date Time Temp Pulse Resp B/P (MAP) Pulse Ox O2 Delivery O2 Flow Rate FiO2 04/01/18 12:33 106 20 99 Nasal Cannula 2.0 28 04/01/18 12:25 28 04/01/18 12:25 108 18 97 Nasal Cannula 2.0 28 04/01/18 11:59 98.1 111 21 123/62 (82) 95 98.1 04/01/18 08:00 Nasal Cannula 2.0 04/01/18 07:53 99.1 123 24 134/63 (86) 93 99.1 04/01/18 07:31 124 04/01/18 07:06 111 20 99 Nasal Cannula 2.0 28 04/01/18 06:58 110 20 95 Nasal Cannula 2.0 28 04/01/18 06:58 28 04/01/18 06:58 110 20 Nasal Cannula 2.0 28 04/01/18 04:00 117 04/01/18 04:00 97.7 114 20 127/61 (83) 97 97.7 04/01/18 02:05 108 20 98 Nasal Cannula 2.0 28 04/01/18 01:57 112 20 96 Nasal Cannula 2.0 28 04/01/18 00:00 99.1 110 20 129/68 (88) 96 99.1 04/01/18 00:00 111 03/31/18 21:00 Nasal Cannula 2.0 03/31/18 20:28 107 20 97 Nasal Cannula 2.0 28 03/31/18 20:23 111 24 96 Nasal Cannula 2.0 28 03/31/18 20:21 111 24 Nasal Cannula 2.0 28 03/31/18 20:00 97.9 110 18 113/74 (87) 95 97.9 03/31/18 20:00 111 03/31/18 16:00 98.0 108 19 110/62 (78) 93 98.0 03/31/18 16:00 107 Intake and Output 03/31/18 04/01/18 19:00 07:00 Intake Total 0 ml 700 ml Output Total 675 ml 550 ml Balance -675 ml 150 ml Intake Oral 0 ml 0 ml IV Total 700 ml Output Urine Total 675 ml 550 ml Laboratory Tests 04/01/18 04:50: White Blood Count 12.0H, Red Blood Count 3.20L, Hemoglobin 11.2L, Hematocrit 33.3L, Mean Corpuscular Volume 104H, Mean Corpuscular Hemoglobin 35.0H, Mean Corpuscular Hemoglobin Concent 33.6, Red Cell Distribution Width 12.4, Platelet Count 70L, Mean Platelet Volume 7.3, Neutrophils (%) (Auto) , Lymphocytes (%) ( Auto) , Monocytes (%) (Auto) , Eosinophils (%) (Auto) , Basophils (%) (Auto) , Differential Total Cells Counted 100, Neutrophils % (Manual) 66, Lymphocytes % ( Manual) 18L, Monocytes % (Manual) 16H, Eosinophils % (Manual) 0, Basophils % ( Manual) 0, Band Neutrophils 0, Platelet Estimate DecreasedL, Platelet Morphology Normal, Hypochromasia 1+, Anisocytosis 1+, Macrocytosis 1+, Sodium Level 145, Potassium Level 3.5, Chloride Level 112H, Carbon Dioxide Level 27, Anion Gap 6, Blood Urea Nitrogen 18, Creatinine 0.8, Estimat Glomerular Filtration Rate > 60, Glucose Level 70#L, Uric Acid 1.7L, Calcium Level 8.8, Phosphorus Level 2.5, Magnesium Level 1.6L, Total Bilirubin 1.0, Gamma Glutamyl Transpeptidase 44, Aspartate Amino Transf (AST/SGOT) 45H, Alanine Aminotransferase (ALT/SGPT) 25, Alkaline Phosphatase 76, Pro-B-Type Natriuretic Peptide 269H, Total Protein 7.7, Albumin 1.6L, Globulin 6.1, Albumin/Globulin Ratio 0.3L, Triglycerides Level 98, Cholesterol Level 51, LDL Cholesterol 33, HDL Cholesterol 8L, Cholesterol/HDL Ratio 6.4H, Vitamin B12 Level > 2000H, Thyroid Stimulating Hormone (TSH) 4.496H Height (Feet): 6 Height (Inches): 1.00 Weight (Pounds): 180 General Appearance: no apparent distress, alert, confused Madisyn Shetty MD Apr 01, 2018 14:02
--- NOTE | 2018-04-01 14:21 | General Surgery Progress Note ---
General Surgery-Progress Note Subjective Additional Comments leukocytosis improving. Objective Last 24 Hour Vital Signs Date Time Temp Pulse Resp B/P (MAP) Pulse Ox O2 Delivery O2 Flow Rate FiO2 04/01/18 12:33 106 20 99 Nasal Cannula 2.0 28 04/01/18 12:25 28 04/01/18 12:25 108 18 97 Nasal Cannula 2.0 28 04/01/18 11:59 98.1 111 21 123/62 (82) 95 98.1 04/01/18 08:00 Nasal Cannula 2.0 04/01/18 07:53 99.1 123 24 134/63 (86) 93 99.1 04/01/18 07:31 124 04/01/18 07:06 111 20 99 Nasal Cannula 2.0 28 04/01/18 06:58 110 20 95 Nasal Cannula 2.0 28 04/01/18 06:58 28 04/01/18 06:58 110 20 Nasal Cannula 2.0 28 04/01/18 04:00 117 04/01/18 04:00 97.7 114 20 127/61 (83) 97 97.7 04/01/18 02:05 108 20 98 Nasal Cannula 2.0 28 04/01/18 01:57 112 20 96 Nasal Cannula 2.0 28 04/01/18 00:00 99.1 110 20 129/68 (88) 96 99.1 04/01/18 00:00 111 03/31/18 21:00 Nasal Cannula 2.0 03/31/18 20:28 107 20 97 Nasal Cannula 2.0 28 03/31/18 20:23 111 24 96 Nasal Cannula 2.0 28 03/31/18 20:21 111 24 Nasal Cannula 2.0 28 03/31/18 20:00 97.9 110 18 113/74 (87) 95 97.9 03/31/18 20:00 111 03/31/18 16:00 98.0 108 19 110/62 (78) 93 98.0 03/31/18 16:00 107 I&O Intake and Output 03/31/18 04/01/18 19:00 07:00 Intake Total 0 ml 700 ml Output Total 675 ml 550 ml Balance -675 ml 150 ml Intake Oral 0 ml 0 ml IV Total 700 ml Output Urine Total 675 ml 550 ml Dressing: saturated Wound: other Drains: other Cardiovascular: RSR, other - tachy Respiratory: decreased breath sounds Abdomen: soft, flat, present bowel sounds Extremities: other Laboratory Tests Test 04/01/18 04:50 White Blood Count 12.0 K/UL (4.8-10.8) H Red Blood Count 3.20 M/UL (4.70-6.10) L Hemoglobin 11.2 G/DL (14.2-18.0) L Hematocrit 33.3 % (42.0-52.0) L Mean Corpuscular Volume 104 FL (80-99) H Mean Corpuscular Hemoglobin 35.0 PG (27.0-31.0) H Mean Corpuscular Hemoglobin Concent 33.6 G/DL (32.0-36.0) Red Cell Distribution Width 12.4 % (11.6-14.8) Platelet Count 70 K/UL (150-450) L Mean Platelet Volume 7.3 FL (6.5-10.1) Neutrophils (%) (Auto) % (45.0-75.0) Lymphocytes (%) (Auto) % (20.0-45.0) Monocytes (%) (Auto) % (1.0-10.0) Eosinophils (%) (Auto) % (0.0-3.0) Basophils (%) (Auto) % (0.0-2.0) Differential Total Cells Counted 100 Neutrophils % (Manual) 66 % (45-75) Lymphocytes % (Manual) 18 % (20-45) L Monocytes % (Manual) 16 % (1-10) H Eosinophils % (Manual) 0 % (0-3) Basophils % (Manual) 0 % (0-2) Band Neutrophils 0 % (0-8) Platelet Estimate Decreased L Platelet Morphology Normal Hypochromasia 1+ Anisocytosis 1+ Macrocytosis 1+ Sodium Level 145 MMOL/L (136-145) Potassium Level 3.5 MMOL/L (3.5-5.1) Chloride Level 112 MMOL/L (98-107) H Carbon Dioxide Level 27 MMOL/L (21-32) Anion Gap 6 mmol/L (5-15) Blood Urea Nitrogen 18 mg/dL (7-18) Creatinine 0.8 MG/DL (0.55-1.30) Estimat Glomerular Filtration Rate > 60 mL/min (>60) Glucose Level 70 MG/DL (74-106) #L Uric Acid 1.7 MG/DL (2.6-7.2) L Calcium Level 8.8 MG/DL (8.5-10.1) Phosphorus Level 2.5 MG/DL (2.5-4.9) Magnesium Level 1.6 MG/DL (1.8-2.4) L Total Bilirubin 1.0 MG/DL (0.2-1.0) Gamma Glutamyl Transpeptidase 44 U/L (5-85) Aspartate Amino Transf (AST/SGOT) 45 U/L (15-37) H Alanine Aminotransferase (ALT/SGPT) 25 U/L (12-78) Alkaline Phosphatase 76 U/L (46-116) Pro-B-Type Natriuretic Peptide 269 pg/mL (0-125) H Total Protein 7.7 G/DL (6.4-8.2) Albumin 1.6 G/DL (3.4-5.0) L Globulin 6.1 g/dL Albumin/Globulin Ratio 0.3 (1.0-2.7) L Triglycerides Level 98 MG/DL (30-150) Cholesterol Level 51 MG/DL (< 200) LDL Cholesterol 33 mg/dL (<100) HDL Cholesterol 8 MG/DL (40-60) L Cholesterol/HDL Ratio 6.4 (3.3-4.4) H Vitamin B12 Level > 2000 PG/ML (193-986) H Thyroid Stimulating Hormone (TSH) 4.496 uiU/mL (0.358-3.740) Plan Problems: (1) Decubitus ulcer of sacral region, stage 4 Assessment & Plan: Large malodorous full thickness stage IV / unstageable Sacral pressure injury. Wound bed with necrosis centrally with detached borders. Soft yellow slough along perimeter. Wound measures (L)9cm x (W)12.1cm with area of necrosis measuring 5.5cm x (W) 10cm. Surrounding area denuded with additional skin breakdown of which largest noted to R buttocks measuring (L)2cm x (W)0.6cm. Scrotum is grossly red with multiple partial thickness wounds at base of scrotum. DTPI noted to R heel (L) 5.7cm x (W)6cm. Area is maroon and fluctuant with delineated borders. Wound present on admission and will be cared for during hospital stay. will likely need debridement given odor and appearance. will work to obtain consent and follow with care plan Tx.Plan:Apply Dakin's moist gauze to wound. Cavilon wipe along borders .Cover with Biatain drsg Daily and prn. P200 Air Fluidized mattress. Apply Cavilon to R heel.Cover with Biatain for 7 days and prn. Reposition on sides at minimum every 2hours or as tolerated. Off-load heels with pillow. Patient without capacity to make decisions. will attempt to locate POA or next of kin scheduled for debridement wednesday at 0730 will obtain consent thank you Matthew Jeter Apr 01, 2018 14:21
[2018-04-01] MEDS ORDERED: NS 275ml ONE (15:32)
[2018-04-01] MEDS ORDERED: Tubing IV Secondary IV ONE (15:32)
[2018-04-01 16:00] VITALS: BP 114/60
[2018-04-01] MEDS ORDERED: Levodopa/Carbidopa 25/100 tab ORAL SCH (18:00)
[2018-04-01 20:00] VITALS: BP 100/46
--- NOTE | 2018-04-01 20:23 | General Progress Note ---
Assessment/Plan Problem List: (1) Acute prerenal azotemia ICD Codes: R79.89 - Other specified abnormal findings of blood chemistry SNOMED: 086440581 (2) Dyspnea ICD Codes: R06.00 - Dyspnea, unspecified SNOMED: 911393238 (3) Sepsis ICD Codes: A41.9 - Sepsis, unspecified organism SNOMED: 51158045 Qualifiers: Qualified Codes: A41.9 - Sepsis, unspecified organism (4) Dysphagia ICD Codes: R13.10 - Dysphagia, unspecified SNOMED: 88901238, 560970665 (5) Healthcare associated bacterial pneumonia ICD Codes: J15.9 - Unspecified bacterial pneumonia SNOMED: 477637099 Status: progressing Assessment/Plan failed swallow study consulted dr alegre for possible peg afebrile sepsis Subjective ROS Limited/Unobtainable: Yes Allergies: Coded Allergies: ARIPIPRAZOLE (Verified Allergy, Unknown, 03/31/18) QUETIAPINE (Verified Allergy, Unknown, 03/31/18) Objective Last 24 Hour Vital Signs Date Time Temp Pulse Resp B/P (MAP) Pulse Ox O2 Delivery O2 Flow Rate FiO2 04/01/18 20:00 107 04/01/18 19:46 103 19 100 Nasal Cannula 2.0 28 04/01/18 19:46 28 04/01/18 19:40 100 20 Nasal Cannula 2.0 28 04/01/18 19:38 100 18 98 Nasal Cannula 2.0 28 04/01/18 16:00 98.2 118 21 114/60 (78) 93 98.2 04/01/18 15:59 173 04/01/18 12:33 106 20 99 Nasal Cannula 2.0 28 04/01/18 12:25 28 04/01/18 12:25 108 18 97 Nasal Cannula 2.0 28 04/01/18 11:59 98.1 111 21 123/62 (82) 95 98.1 04/01/18 11:35 112 04/01/18 08:00 Nasal Cannula 2.0 04/01/18 07:53 99.1 123 24 134/63 (86) 93 99.1 04/01/18 07:31 124 04/01/18 07:06 111 20 99 Nasal Cannula 2.0 28 04/01/18 06:58 110 20 95 Nasal Cannula 2.0 28 04/01/18 06:58 28 10/12/18 06:58 110 20 Nasal Cannula 2.0 28 04/01/18 04:00 117 04/01/18 04:00 97.7 114 20 127/61 (83) 97 97.7 04/01/18 02:05 108 20 98 Nasal Cannula 2.0 28 04/01/18 01:57 112 20 96 Nasal Cannula 2.0 28 04/01/18 00:00 99.1 110 20 129/68 (88) 96 99.1 04/01/18 00:00 111 03/31/18 21:00 Nasal Cannula 2.0 03/31/18 20:28 107 20 97 Nasal Cannula 2.0 28 03/31/18 20:23 111 24 96 Nasal Cannula 2.0 28 Intake and Output 03/31/18 04/01/18 19:00 07:00 Intake Total 0 ml 700 ml Output Total 675 ml 550 ml Balance -675 ml 150 ml Intake Oral 0 ml 0 ml IV Total 700 ml Output Urine Total 675 ml 550 ml Laboratory Tests 04/01/18 04:50: White Blood Count 12.0H, Red Blood Count 3.20L, Hemoglobin 11.2L, Hematocrit 33.3L, Mean Corpuscular Volume 104H, Mean Corpuscular Hemoglobin 35.0H, Mean Corpuscular Hemoglobin Concent 33.6, Red Cell Distribution Width 12.4, Platelet Count 70L, Mean Platelet Volume 7.3, Neutrophils (%) (Auto) , Lymphocytes (%) ( Auto) , Monocytes (%) (Auto) , Eosinophils (%) (Auto) , Basophils (%) (Auto) , Differential Total Cells Counted 100, Neutrophils % (Manual) 66, Lymphocytes % ( Manual) 18L, Monocytes % (Manual) 16H, Eosinophils % (Manual) 0, Basophils % ( Manual) 0, Band Neutrophils 0, Platelet Estimate DecreasedL, Platelet Morphology Normal, Hypochromasia 1+, Anisocytosis 1+, Macrocytosis 1+, Sodium Level 145, Potassium Level 3.5, Chloride Level 112H, Carbon Dioxide Level 27, Anion Gap 6, Blood Urea Nitrogen 18, Creatinine 0.8, Estimat Glomerular Filtration Rate > 60, Glucose Level 70#L, Uric Acid 1.7L, Calcium Level 8.8, Phosphorus Level 2.5, Magnesium Level 1.6L, Total Bilirubin 1.0, Gamma Glutamyl Transpeptidase 44, Aspartate Amino Transf (AST/SGOT) 45H, Alanine Aminotransferase (ALT/SGPT) 25, Alkaline Phosphatase 76, Pro-B-Type Natriuretic Peptide 269H, Total Protein 7.7, Albumin 1.6L, Globulin 6.1, Albumin/Globulin Ratio 0.3L, Triglycerides Level 98, Cholesterol Level 51, LDL Cholesterol 33, HDL Cholesterol 8L, Cholesterol/HDL Ratio 6.4H, Vitamin B12 Level > 2000H, Thyroid Stimulating Hormone (TSH) 4.496H Height (Feet): 6 Height (Inches): 1.00 Weight (Pounds): 180 Cardiovascular: normal rate Respiratory/Chest: lungs clear Abdomen: soft Loly Dash MD Apr 01, 2018 20:23
[2018-04-01] MEDS: Vancomycin 1250mg/D5W 250ml 250 ML IVPB SCH (23:07)
[2018-04-02] VITALS: BP 108/55
[2018-04-02] MEDS: Albuterol/Ipratropium 3ml neb HHN SCH ×4 (01:03→19:07)
--- NOTE | 2018-04-02 02:51 | Diagnostic Imaging Report ---
EXAM: XR Abdomen CLINICAL HISTORY: NGT COMPARISON: No prior studies available. FINDINGS/IMPRESSION: Single frontal view centered on the chest with inclusion of the mid and upper abdomen. Distal NG tube in stomach. Suspect some lung opacities most prominent at the left lung base.
[2018-04-02 04:00] VITALS: BP 129/71
[2018-04-02] MEDS: BuPROPion XL 150mg tab ORAL SCH (06:00)
[2018-04-02] MEDS: Piperacillin/Tazobactam 3.375 GM in D5W 110 ML IVPB SCH ×3 (06:10→21:22)
[2018-04-02 08:00] VITALS: BP 128/66
[2018-04-02] MEDS: Depakote ER 500mg tab ORAL SCH ×2 (09:31→20:23)
[2018-04-02] MEDS: Benztropine 1mg tab ORAL SCH ×2 (09:32→17:57)
--- NOTE | 2018-04-02 10:58 | Anethesia Preoperative Eval ---
Anesthesia Pre-op PMH/ROS General Date of Evaluation: Apr 02, 2018 Time of Evaluation: 10:50 Anesthesiologist: Elli ASA Score: ASA 4 Mallampati Score Class I : Soft palate, uvula, fauces, pillars visible Class II: Soft palate, uvula, fauces visible Class III: Soft palate, base of uvula visible Class IV: Only hard plate visible Mallampati Classification: Class III Surgeon: Elkin Diagnosis: Sacral wounds Surgical Procedure: Debridement of decubitus ulcers Anesthesia History: none Family History: no anesthesia problems Allergies: Coded Allergies: ARIPIPRAZOLE (Verified Allergy, Unknown, 03/31/18) QUETIAPINE (Verified Allergy, Unknown, 03/31/18) Medications: see eMAR Patient NPO?: Yes Past Medical History Cardiovascular: Reports: HTN, arrhythmia - SVT; Denies: CAD, MS, valve dz, other Pulmonary: Reports: ANKITA, other; Denies: asthma, COPD Gastrointestinal/Genitourinary: Reports: GERD, other - dysphagia feeding tube in place; Denies: CRI, ESRD Neurologic/Psychiatric: Reports: dementia, other - schisophrenia; Denies: CVA, depression/anxiety, TIA Endocrine: Reports: DM, hypothyroidism; Denies: steroids, other HEENT: Denies: cataract (L), cataract (R), glaucoma, BENTON (L), BENTON (R), other Hematology/Immune: Reports: anemia - mild; Denies: DVT, bleeding disorder, other Musculoskeletal/Integumentary: Reports: DJD; Denies: OA, RA, DDD, edema, other PMH Narrative: as above PSxH Narrative: see H&P Anesthesia Pre-op Phys. Exam Physician Exam Last Vital Signs Date Time Temp Pulse Resp B/P (MAP) Pulse Ox O2 Delivery O2 Flow Rate FiO2 04/02/18 08:15 96 20 98 Nasal Cannula 2.0 28 04/02/18 08:00 99.2 128/66 (86) 99.2 Constitutional: NAD Neurologic: other - unable to obtaine Cardiovascular: other - mild tachicardia Respiratory: other - mild dyspnea at rest Gastrointestinal: S/NT/ND Airway Exam Mallampati Score: Class III MO: limited Neck: short stiff ROM: limited Teeth: missing, broken, other - poor oral hygeen Dentures: no upper, no lower Anesthesia Pre-op A/P Labs see chart Risk Assessment & Plan Assessment: ASA 4 Plan: GA possible prone position-surgeon choice, LMA vs ETT Pre-Antibiotics Drug: as scheduled Dale Calloway MD Apr 02, 2018 10:58
[2018-04-02] MEDS: Dakin's 0.125% Soln (Quarter Strength) 16oz TOPIC SCH (11:20)
--- NOTE | 2018-04-02 11:32 | Consultation ---
DATE OF CONSULTATION: 04/02/2018 GASTROENTEROLOGY CONSULTATION CONSULTING PHYSICIAN: Artie Mcgee M.D. REFERRING PHYSICIAN: Loly Dash M.D. CHIEF COMPLAINT: Dysphagia. HISTORY OF PRESENT ILLNESS: Most of the history per chart. This is a 67-year-old patient with history of psychiatric disorder, admitted to the hospital mainly with fever and desaturations, diagnosed with pneumonia. The patient also has not had enough to eat, has evidence of dysphagia, so GI consult was requested for further evaluation. PAST MEDICAL HISTORY: Significant for history of psychiatric disorder including schizophrenia, possible diabetes, and possible hepatitis C. PAST SURGICAL HISTORY: Unknown. ALLERGIES: Aripiprazole and quetiapine. MEDICATIONS: Please see medication reconciliation list. SOCIAL HISTORY: Currently lives in a [facility]. Unable to obtain history of alcohol or IV drug abuse. FAMILY HISTORY: Noncontributory. REVIEW OF SYSTEMS: Unable to obtain. PHYSICAL EXAMINATION: VITAL SIGNS: Temperature is 98.6, pulse is 105, respirations 20, and blood pressure 129/71. HEENT: Normocephalic and atraumatic. Sclerae anicteric. NECK: Supple. No evidence of lymphadenopathy. CARDIOVASCULAR: Tachycardic. Regular rate. Plus S1 and S2. LUNGS: Decreased breath sounds bilaterally diffusely, right more than left. ABDOMEN: Soft, nontender. No rebound. No guarding. No peritoneal sign. EXTREMITIES: No cyanosis, no clubbing, no edema. SKIN: The patient also had evidence of stage IV decubital ulcerations in the sacral area. LABORATORY DATA: White count on admission was 21 and now is 12, hemoglobin 11, hematocrit 33, MCV of 104, platelet count is 70,000. Sodium is 145, potassium 3.5. Liver function grossly normal. Albumin is low at 2. ASSESSMENT AND PLAN: This is a 67-year-old male with numerous medical problems, psychiatric problem, hepatitis C, admitted to the hospital with possible pneumonia and sepsis, now currently on antibiotics, currently on NG-tube feeding, also positive serology for hepatitis C. PLAN: NG-tube feeding for now. Observe over the weekend. The patient has no family according to the chart to sign for consent for PEG. We will get Bioethics involved if the patient needs PEG placement. Meanwhile, we are going to treat the sepsis to see if the patient wakes up and is able to eat again and if he has failed swallow evaluation again, we will consider doing PEG if the Bioethics agrees with it. Meanwhile, continue NG-tube feeding. In terms of hepatitis C, the patient has normal liver function tests, but has evidence of thrombocytopenia. Plan to order INR to see if the patient has evidence of coagulopathy. We will order abdominal ultrasound to evaluate for cirrhosis. I will follow closely. I want to thank Dr. Loly Dash for this kind referral. Artie Mcgee M.D. DR: NIDIA JOB#: [id number] CC: Loly Dash M.D.; Fax#: [phone]
--- NOTE | 2018-04-02 11:33 | General Progress Note ---
Assessment/Plan Problem List: (1) Acute prerenal azotemia ICD Codes: R79.89 - Other specified abnormal findings of blood chemistry SNOMED: 707020411 (2) Dyspnea ICD Codes: R06.00 - Dyspnea, unspecified SNOMED: 939720778 (3) Sepsis ICD Codes: A41.9 - Sepsis, unspecified organism SNOMED: 77229047 Qualifiers: Qualified Codes: A41.9 - Sepsis, unspecified organism (4) Dysphagia ICD Codes: R13.10 - Dysphagia, unspecified SNOMED: 14538825, 864680487 (5) Healthcare associated bacterial pneumonia ICD Codes: J15.9 - Unspecified bacterial pneumonia SNOMED: 524549751 Status: progressing Assessment/Plan failed swallow study dysphagia azotmeia improved needs fluids sepsis Subjective ROS Limited/Unobtainable: Yes Allergies: Coded Allergies: ARIPIPRAZOLE (Verified Allergy, Unknown, 03/31/18) QUETIAPINE (Verified Allergy, Unknown, 03/31/18) Objective Last 24 Hour Vital Signs Date Time Temp Pulse Resp B/P (MAP) Pulse Ox O2 Delivery O2 Flow Rate FiO2 04/02/18 08:15 96 20 98 Nasal Cannula 2.0 28 04/02/18 08:08 106 18 97 Nasal Cannula 2.0 28 04/02/18 08:08 28 04/02/18 08:08 106 20 Nasal Cannula 2.0 28 04/02/18 08:00 99.2 104 24 128/66 (86) 94 99.2 04/02/18 08:00 Nasal Cannula 2.0 04/02/18 07:52 106 04/02/18 04:00 98.6 105 39 129/71 (90) 91 98.6 04/02/18 04:00 104 04/02/18 01:16 99 20 98 Nasal Cannula 2.0 28 04/02/18 01:03 28 04/02/18 01:03 86 18 96 Nasal Cannula 2.0 28 04/02/18 00:00 86 04/02/18 00:00 98.4 89 21 108/55 (72) 98 98.4 04/01/18 21:00 Nasal Cannula 2.0 04/01/18 20:00 98.6 107 22 100/46 (64) 94 98.6 04/01/18 20:00 107 04/01/18 19:46 103 19 100 Nasal Cannula 2.0 28 04/01/18 19:46 28 04/01/18 19:40 100 20 Nasal Cannula 2.0 28 04/01/18 19:38 100 18 98 Nasal Cannula 2.0 28 04/01/18 16:00 98.2 118 21 114/60 (78) 93 98.2 04/01/18 15:59 173 04/01/18 12:33 106 20 99 Nasal Cannula 2.0 28 04/01/18 12:25 28 04/01/18 12:25 108 18 97 Nasal Cannula 2.0 28 04/01/18 11:59 98.1 111 21 123/62 (82) 95 98.1 04/01/18 11:35 112 Intake and Output 04/01/18 04/02/18 19:00 07:00 Intake Total 75 ml 525 ml Output Total 500 ml 300 ml Balance -425 ml 225 ml IV Total 75 ml 525 ml Output Urine Total 500 ml 300 ml Laboratory Tests 04/01/18 21:45: Vancomycin Level Trough 7.7 Height (Feet): 6 Height (Inches): 1.00 Weight (Pounds): 180 General Appearance: confused Cardiovascular: normal rate Loly Dash MD Apr 02, 2018 11:33
[2018-04-02 12:00] VITALS: BP 121/63
--- NOTE | 2018-04-02 12:38 | General Progress Note ---
Assessment/Plan Status: unchanged Assessment/Plan # Thrombocytopenia -- first admission here, therefore do not have his baseline, is VERY likely related to underlying sepsis and consumptive state, plt count appears to be 50-100k, hep panel pending --> hepatitis panel and hiv is negative --> US abd: No acute findings. Left renal cyst --> abx have been reviewed, unlikely contibutors as only short hospital stay --> other medications have been reviewed as well --> peripheral smear reviewed, does not show schistocytes or blasts # Leukocytosis very likely related to either uti/pna --> appreciate id care --> abx have been reviewed --> Currently, wbc at 12. Improving. # Anemia of chronic disease -- hgb currently 11.2 --> trend cbc --> Hgb goal above 7 # Septic shock -- on ivf and has received abx # Healthcare associated bacterial pneumonia--> on abx, have been reviewed --> consider id eval # Supraventricular tachycardia # Acute prerenal azotemia # Paroxysmal SVT versus A. fib. Rate controlled with a dose of Cardizem. # Resp failure on NC Greatly appreciate consultation! Subjective Date patient seen: Apr 02, 2018 ROS Limited/Unobtainable: Yes Hematologic/Lymphatic: Reports: anemia Allergies: Coded Allergies: ARIPIPRAZOLE (Verified Allergy, Unknown, 03/31/18) QUETIAPINE (Verified Allergy, Unknown, 03/31/18) Subjective No acute events. Tolerating g tube feeding. H/H stable. Objective Last 24 Hour Vital Signs Date Time Temp Pulse Resp B/P (MAP) Pulse Ox O2 Delivery O2 Flow Rate FiO2 04/02/18 08:15 96 20 98 Nasal Cannula 2.0 28 04/02/18 08:08 106 18 97 Nasal Cannula 2.0 28 04/02/18 08:08 28 04/02/18 08:08 106 20 Nasal Cannula 2.0 28 04/02/18 08:00 99.2 104 24 128/66 (86) 94 99.2 04/02/18 08:00 Nasal Cannula 2.0 04/02/18 07:52 106 04/02/18 04:00 98.6 105 39 129/71 (90) 91 98.6 04/02/18 04:00 104 04/02/18 01:16 99 20 98 Nasal Cannula 2.0 28 04/02/18 01:03 28 04/02/18 01:03 86 18 96 Nasal Cannula 2.0 28 04/02/18 00:00 86 04/02/18 00:00 98.4 89 21 108/55 (72) 98 98.4 04/01/18 21:00 Nasal Cannula 2.0 04/01/18 20:00 98.6 107 22 100/46 (64) 94 98.6 04/01/18 20:00 107 04/01/18 19:46 103 19 100 Nasal Cannula 2.0 28 04/01/18 19:46 28 04/01/18 19:40 100 20 Nasal Cannula 2.0 28 04/01/18 19:38 100 18 98 Nasal Cannula 2.0 28 04/01/18 16:00 98.2 118 21 114/60 (78) 93 98.2 04/01/18 15:59 173 Intake and Output 04/01/18 04/02/18 19:00 07:00 Intake Total 75 ml 525 ml Output Total 500 ml 300 ml Balance -425 ml 225 ml IV Total 75 ml 525 ml Output Urine Total 500 ml 300 ml Laboratory Tests 04/01/18 21:45: Vancomycin Level Trough 7.7 Height (Feet): 6 Height (Inches): 1.00 Weight (Pounds): 180 General Appearance: no apparent distress EENT: PERRL/EOMI Neck: normal alignment Cardiovascular: tachycardia Respiratory/Chest: no respiratory distress Abdomen: no organomegaly Jose Mckeon MD Apr 02, 2018 12:38
--- NOTE | 2018-04-02 13:24 | General Surgery Progress Note ---
General Surgery-Progress Note Subjective Additional Comments no acute events. leukocytosis improving. dysphagia. cooperative but confused. Objective Last 24 Hour Vital Signs Date Time Temp Pulse Resp B/P (MAP) Pulse Ox O2 Delivery O2 Flow Rate FiO2 04/02/18 12:40 101 20 99 Nasal Cannula 2.0 28 04/02/18 12:34 28 04/02/18 12:34 99 18 98 Nasal Cannula 2.0 28 04/02/18 12:00 99.0 110 26 121/63 (82) 94 99.0 04/02/18 08:15 96 20 98 Nasal Cannula 2.0 28 04/02/18 08:08 106 18 97 Nasal Cannula 2.0 28 04/02/18 08:08 28 04/02/18 08:08 106 20 Nasal Cannula 2.0 28 04/02/18 08:00 99.2 104 24 128/66 (86) 94 99.2 04/02/18 08:00 Nasal Cannula 2.0 04/02/18 07:52 106 04/02/18 04:00 98.6 105 39 129/71 (90) 91 98.6 04/02/18 04:00 104 04/02/18 01:16 99 20 98 Nasal Cannula 2.0 28 04/02/18 01:03 28 04/02/18 01:03 86 18 96 Nasal Cannula 2.0 28 04/02/18 00:00 86 04/02/18 00:00 98.4 89 21 108/55 (72) 98 98.4 04/01/18 21:00 Nasal Cannula 2.0 04/01/18 20:00 98.6 107 22 100/46 (64) 94 98.6 04/01/18 20:00 107 04/01/18 19:46 103 19 100 Nasal Cannula 2.0 28 04/01/18 19:46 28 04/01/18 19:40 100 20 Nasal Cannula 2.0 28 04/01/18 19:38 100 18 98 Nasal Cannula 2.0 28 04/01/18 16:00 98.2 118 21 114/60 (78) 93 98.2 04/01/18 15:59 173 I&O Intake and Output 04/01/18 04/02/18 19:00 07:00 Intake Total 75 ml 525 ml Output Total 500 ml 300 ml Balance -425 ml 225 ml IV Total 75 ml 525 ml Output Urine Total 500 ml 300 ml Drains: other Cardiovascular: RSR Respiratory: clear Abdomen: soft, non-tender, present bowel sounds Extremities: other Laboratory Tests Test 04/01/18 21:45 Vancomycin Level Trough 7.7 ug/mL (5.0-12.0) Plan Problems: (1) Decubitus ulcer of sacral region, stage 4 Assessment & Plan: Large malodorous full thickness stage IV / unstageable Sacral pressure injury. Wound bed with necrosis centrally with detached borders. Soft yellow slough along perimeter. Wound measures (L)9cm x (W)12.1cm with area of necrosis measuring 5.5cm x (W) 10cm. Surrounding area denuded with additional skin breakdown of which largest noted to R buttocks measuring (L)2cm x (W)0.6cm. Scrotum is grossly red with multiple partial thickness wounds at base of scrotum. DTPI noted to R heel (L) 5.7cm x (W)6cm. Area is maroon and fluctuant with delineated borders. Wound present on admission and will be cared for during hospital stay. will likely need debridement given odor and appearance. will work to obtain consent and follow with care plan Tx.Plan:Apply Dakin's moist gauze to wound. Cavilon wipe along borders .Cover with Biatain drsg Daily and prn. P200 Air Fluidized mattress. Apply Cavilon to R heel.Cover with Biatain for 7 days and prn. Reposition on sides at minimum every 2hours or as tolerated. Off-load heels with pillow. Patient without capacity to make decisions. will attempt to locate POA or next of kin will await bioethics review for consent thank you Matthew Jeter Apr 02, 2018 13:24
[2018-04-02] MEDS: Vancomycin 1250mg/D5W 250ml 250 ML IVPB SCH ×2 (13:50→23:15)
[2018-04-02 16:00] VITALS: BP 124/69
--- NOTE | 2018-04-02 16:54 | Pulmonology Progress Note ---
Assessment/Plan Assessment/Plan 1. Acute hypoxemic respiratory failure 2. Sepsis 3. Pneumonia 4. Altered mental status 5. NURY 6. Thrombocytopenia 7. Schizophrenia 8. Stage IV decubitus ulcer sp debridement Plan: -abx per ID: [email or web address] -f/u cultures -IVF: NS 50 cc/hour -oral care -NPO and TF -wound care --wean oxygen as tolerated -duonebs q6 -monitor platelets -CXR monda Subjective ROS Limited/Unobtainable: Yes Allergies: Coded Allergies: ARIPIPRAZOLE (Verified Allergy, Unknown, 03/31/18) QUETIAPINE (Verified Allergy, Unknown, 03/31/18) Subjective obtunded, NGT in place sahllow respirations on supplemental o2 no fever does not get oob Objective Last 24 Hour Vital Signs Date Time Temp Pulse Resp B/P (MAP) Pulse Ox O2 Delivery O2 Flow Rate FiO2 04/02/18 16:00 98.8 98 24 124/69 (87) 94 98.8 04/02/18 12:40 101 20 99 Nasal Cannula 2.0 28 04/02/18 12:34 28 04/02/18 12:34 99 18 98 Nasal Cannula 2.0 28 04/02/18 12:00 99.0 110 26 121/63 (82) 94 99.0 04/02/18 11:53 107 04/02/18 08:15 96 20 98 Nasal Cannula 2.0 28 04/02/18 08:08 106 18 97 Nasal Cannula 2.0 28 04/02/18 08:08 28 04/02/18 08:08 106 20 Nasal Cannula 2.0 28 04/02/18 08:00 99.2 104 24 128/66 (86) 94 99.2 04/02/18 08:00 Nasal Cannula 2.0 04/02/18 07:52 106 04/02/18 04:00 98.6 105 39 129/71 (90) 91 98.6 04/02/18 04:00 104 04/02/18 01:16 99 20 98 Nasal Cannula 2.0 28 04/02/18 01:03 28 04/02/18 01:03 86 18 96 Nasal Cannula 2.0 28 04/02/18 00:00 86 04/02/18 00:00 98.4 89 21 108/55 (72) 98 98.4 04/01/18 21:00 Nasal Cannula 2.0 04/01/18 20:00 98.6 107 22 100/46 (64) 94 98.6 04/01/18 20:00 107 04/01/18 19:46 103 19 100 Nasal Cannula 2.0 28 04/01/18 19:46 28 04/01/18 19:40 100 20 Nasal Cannula 2.0 28 04/01/18 19:38 100 18 98 Nasal Cannula 2.0 28 Intake and Output 04/01/18 04/02/18 19:00 07:00 Intake Total 75 ml 525 ml Output Total 500 ml 300 ml Balance -425 ml 225 ml IV Total 75 ml 525 ml Output Urine Total 500 ml 300 ml General Appearance: WD/WN HEENT: normocephalic, atraumatic Respiratory/Chest: rhonchi Cardiovascular: regular rhythm, murmur systolic, edema Abdomen: soft, non tender, no organomegaly Neurologic/Psychiatric: unresponsiveness Microbiology Date/Time Source Procedure Growth Status 03/31/18 02:00 Blood Blood Culture - Preliminary NO GROWTH AFTER 48 HOURS Resulted 03/31/18 01:50 Blood Blood Culture - Preliminary NO GROWTH AFTER 48 HOURS Resulted 03/31/18 10:00 Wound Gram Stain - Final Resulted 03/31/18 10:00 Wound Culture - Preliminary Gram Negative Ty Resulted 03/31/18 02:25 Nasal Nares MRSA Culture - Final NO METHICILLIN RESISTANT STAPH AUREUS... Complete 03/31/18 02:25 Rectum - Final NO CARBAPENEM-RESISTANT ENTEROBACTERI... Complete 03/31/18 02:25 Rectum VRE Culture - Final NO VANCOMYCIN RESISTANT ENTEROCOCCUS ... Complete Laboratory Tests 04/01/18 21:45: Vancomycin Level Trough 7.7 Current Medications Medications (Trade) Dose Ordered Sig/Elizabeth Route PRN Reason Start Time Stop Time Status Last Admin Dose Admin Acetaminophen (Tylenol) 500 mg Q4H PRN ORAL Mild Pain/Temp > 100.5 03/31/18 06:00 04/30/18 05:59 Albuterol/ Ipratropium (Albuterol/ Ipratropium) 3 ml Q6HRT HHN 03/31/18 13:00 04/05/18 12:59 04/02/18 12:34 Benztropine Mesylate (Cogentin) 1 mg BID ORAL 03/31/18 09:00 04/30/18 08:59 04/02/18 09:32 Bupropion HCl (Wellbutrin XL) 300 mg Q24H ORAL 03/31/18 06:00 04/30/18 05:59 Divalproex Sodium (Depakote ER) 500 mg EVERY 12 HOURS ORAL 03/31/18 09:00 04/30/18 08:59 04/02/18 09:31 Gabapentin (Neurontin) 300 mg THREE TIMES A DAY ORAL 03/31/18 09:00 04/30/18 08:59 04/02/18 13:50 Haloperidol (Haldol) 10 mg BID PRN ORAL Agitation 03/31/18 05:45 04/30/18 05:44 Pantoprazole (Protonix) 40 mg DAILY ORAL 03/31/18 09:00 04/30/18 08:59 04/02/18 09:31 Piperacillin Sod/ Tazobactam Sod 3.375 gm/Dextrose 110 ml @ 27.5 mls/hr Q8HR IVPB 03/31/18 14:00 04/07/18 13:59 04/02/18 15:16 Quetiapine Fumarate (SEROquel) 100 mg BID ORAL 03/31/18 18:00 04/30/18 17:59 04/02/18 09:32 Sodium Hypochlorite (Dakin's Quarter Strength) 1 applic DAILY TOPIC 03/31/18 15:41 04/30/18 15:40 04/02/18 11:20 Sodium Chloride 1,000 ml @ 75 mls/hr [id number] IV 04/01/18 17:12 05/01/18 17:11 04/02/18 02:55 Vancomycin HCl (Vanco rx to dose) 1 ea DAILY PRN MISC Per rx protocol 03/31/18 09:30 04/30/18 09:29 Vancomycin HCl/ Dextrose 250 ml @ 167 mls/hr 1100,2300 IVPB 04/01/18 23:00 04/06/18 22:59 04/02/18 13:50 Yesi Palmer DO Apr 02, 2018 16:54
--- NOTE | 2018-04-02 17:04 | Cardiology Progress Note ---
Assessment/Plan Assessment/Plan The patient is seen and examined, full consult note will be dictated soon. Objective Last 24 Hour Vital Signs Date Time Temp Pulse Resp B/P (MAP) Pulse Ox O2 Delivery O2 Flow Rate FiO2 04/02/18 16:00 98.8 98 24 124/69 (87) 94 98.8 04/02/18 12:40 101 20 99 Nasal Cannula 2.0 28 04/02/18 12:34 28 04/02/18 12:34 99 18 98 Nasal Cannula 2.0 28 04/02/18 12:00 99.0 110 26 121/63 (82) 94 99.0 04/02/18 11:53 107 04/02/18 08:15 96 20 98 Nasal Cannula 2.0 28 04/02/18 08:08 106 18 97 Nasal Cannula 2.0 28 04/02/18 08:08 28 04/02/18 08:08 106 20 Nasal Cannula 2.0 28 04/02/18 08:00 99.2 104 24 128/66 (86) 94 99.2 04/02/18 08:00 Nasal Cannula 2.0 04/02/18 07:52 106 04/02/18 04:00 98.6 105 39 129/71 (90) 91 98.6 04/02/18 04:00 104 04/02/18 01:16 99 20 98 Nasal Cannula 2.0 28 04/02/18 01:03 28 04/02/18 01:03 86 18 96 Nasal Cannula 2.0 28 04/02/18 00:00 86 04/02/18 00:00 98.4 89 21 108/55 (72) 98 98.4 04/01/18 21:00 Nasal Cannula 2.0 04/01/18 20:00 98.6 107 22 100/46 (64) 94 98.6 04/01/18 20:00 107 04/01/18 19:46 103 19 100 Nasal Cannula 2.0 28 04/01/18 19:46 28 04/01/18 19:40 100 20 Nasal Cannula 2.0 28 04/01/18 19:38 100 18 98 Nasal Cannula 2.0 28 Intake and Output 04/01/18 04/02/18 19:00 07:00 Intake Total 75 ml 525 ml Output Total 500 ml 300 ml Balance -425 ml 225 ml IV Total 75 ml 525 ml Output Urine Total 500 ml 300 ml Laboratory Tests Test 04/01/18 21:45 Vancomycin Level Trough 7.7 ug/mL (5.0-12.0) Microbiology Date/Time Source Procedure Growth Status 03/31/18 02:00 Blood Blood Culture - Preliminary NO GROWTH AFTER 48 HOURS Resulted 03/31/18 01:50 Blood Blood Culture - Preliminary NO GROWTH AFTER 48 HOURS Resulted 03/31/18 10:00 Wound Gram Stain - Final Resulted 03/31/18 10:00 Wound Culture - Preliminary Gram Negative Ty Resulted 03/31/18 02:25 Nasal Nares MRSA Culture - Final NO METHICILLIN RESISTANT STAPH AUREUS... Complete 03/31/18 02:25 Rectum - Final NO CARBAPENEM-RESISTANT ENTEROBACTERI... Complete 03/31/18 02:25 Rectum VRE Culture - Final NO VANCOMYCIN RESISTANT ENTEROCOCCUS ... Complete Gokul Villalta MD Apr 02, 2018 17:04
--- NOTE | 2018-04-02 19:47 | Consultation ---
DATE OF CONSULTATION: 04/02/2018 CARDIOLOGY CONSULTATION CONSULTING PHYSICIAN: Gokul Villalta M.D. REFERRING PHYSICIAN: Loly Dash M.D. REASON FOR CONSULTATION: Management of tachycardia. HISTORY OF PRESENT ILLNESS: The patient is a very unfortunate 67-year-old gentleman, who was transferred from nursing facility for complaints of fever and altered mental status. Apparently, the patient was unresponsive and hypoxic with O2 saturation on room air of about 89%. He also had temperature of 103. He was brought in for evaluation of altered level of consciousness and possible sepsis. Initial blood pressure was 129/105 mmHg and heart rate of 142. A 12-lead electrocardiogram was significant for sinus tachycardia, but no acute ST and T-wave abnormalities. The patient's initial laboratory finding was significant for leukocytosis. Chest x-ray did not show any acute disease. The patient was admitted to the telemetry floor with sepsis. Cardiology consultation was made at the request of Dr. Dash for management of tachycardia. While he was on the floor, he also showed beats of nonsustained ventricular tachycardia. PAST MEDICAL HISTORY: Includes: 1. History of schizophrenia. 2. Depression. 3. Diabetes mellitus. PAST SURGICAL HISTORY: None. FAMILY HISTORY: No premature coronary artery disease in first-degree relatives. SOCIAL HISTORY: No history of current tobacco, alcohol, or illicit drug use. ALLERGIES: To quetiapine and aripiprazole. MEDICATIONS: List of medications from nursing facility included Cogentin 1 mg p.o. daily, bupropion 300 mg p.o. q.24 hours, buspirone 15 mg twice daily, Klonopin 1 mg twice daily, Flexeril 5 mg 3 times a day, 50 mg p.o. daily, Depakote 500 mg q.12 hours, Breo 1 inhaler daily, gabapentin 300 mg 3 times a day, haloperidol 10 mg p.o. twice daily, montelukast 10 mg p.o. daily, Protonix 40 mg p.o. daily, and Seroquel 100 mg p.o. twice daily. REVIEW OF SYSTEMS: HEENT: Denies any headache, diplopia, or blurred vision. CONSTITUTIONAL: Complains of weakness, also fever, chills, and diaphoresis. CARDIOVASCULAR SYSTEM: No current history of chest pain or shortness of breath, although he was hypoxic. No PND, orthopnea, or leg swelling. PULMONARY: He was hypoxic with no complaints of shortness of breath likely because he was altered. GASTROINTESTINAL: Denies any nausea, vomiting, diarrhea, constipation, abdominal pain, or GI bleed. GENITOURINARY: Denies any hematuria, dysuria, or incontinence. NEUROLOGIC: Denies any sensory deficit, motor dysfunction, or altered speech. PHYSICAL EXAMINATION: VITAL SIGNS: Blood pressure at the time of arrival to the hospital was 129/105, respiration of , pulse of 142, O2 saturation 87% on room air. Currently, blood pressure is 124/69 with heart rate of 101, respiration of 20, and O2 saturation 99% on 2 L nasal cannula. GENERAL: The patient is a very unfortunate 67-year-old gentleman, in no apparent respiratory distress, lethargic. NG tube in place. HEENT: Atraumatic and normocephalic. Anicteric. Pupils are equal, round, and reactive to light and accommodation. Conjunctival pallor is present. NECK: JVP less than 5 cm. No carotid bruit. Carotid upstroke is 2+ bilaterally. CARDIOVASCULAR SYSTEM: Normal S1, S2. Regular rhythm. Tachycardic. No murmurs, gallops, or rubs. LUNGS: Clear to auscultation bilaterally. ABDOMEN: Soft, nontender, and nondistended. No hepatosplenomegaly. Positive bowel sounds. EXTREMITIES: No evidence of edema, clubbing, or cyanosis. LABORATORY FINDINGS: Sodium was 142, potassium 4.1, chloride 108, bicarbonate 26, BUN of 29, creatinine 1.2, glucose is 170. Troponin I was 0.025. WBC was 21.9, hemoglobin 13.9, hematocrit of 40.5, and platelet count is 99,000. ABG was significant for hypoxemic respiratory failure. Chest x-ray with no acute cardiopulmonary disease. ASSESSMENT AND PLAN: The patient is a very unfortunate 67-year-old gentleman, who is seen in Cardiology consultation at the request of Dr. Dash. 1. Sinus tachycardia, most likely secondary to overwhelming sepsis. The patient has also evidence of hypovolemia. The main set of therapy is to use volume steel placer such as lactic Ringer as well as correction of the electrolytes and management of underlying sepsis with IV antibiotics. At this time, there is no indication for any AV-fabián agents in view of sepsis and a risk of septic shock. The treatment of sinus tachycardia is treatment of the underlying etiology. 2. Short run of nonsustained ventricular tachycardia. I will make sure that the patient's magnesium level is within normal limits. We will replace magnesium and keep the magnesium above 4.0. Potassium needs to also be corrected to above 4.0. I would like to use AV-fabián agents once the patient's blood pressure was better controlled. We would also obtain routine 2D echocardiography for assessment of LV systolic function. I would like to thank Dr. Dash for the courtesy of this consultation. Gokul Villalta M.D. DR: Javed JOB#: [id number] CC:
[2018-04-02 20:00] VITALS: BP 119/44
--- NOTE | 2018-04-02 23:57 | General Progress Note ---
Assessment/Plan Status: stable, progressing Assessment/Plan encephalopathy due to metabolic d/o hypotension tachy cardia the pt lacks capacity to make decisions hold all psych meds at this time Subjective Neurologic/Psychiatric: Reports: anxiety, depressed, emotional problems Allergies: Coded Allergies: ARIPIPRAZOLE (Verified Allergy, Unknown, 03/31/18) QUETIAPINE (Verified Allergy, Unknown, 03/31/18) Objective Last 24 Hour Vital Signs Date Time Temp Pulse Resp B/P (MAP) Pulse Ox O2 Delivery O2 Flow Rate FiO2 04/02/18 21:00 Nasal Cannula 2.0 04/02/18 20:00 98.4 110 32 119/44 (69) 96 98.4 04/02/18 20:00 103 04/02/18 19:22 101 20 99 Nasal Cannula 2.0 28 04/02/18 19:22 28 04/02/18 19:11 101 20 Nasal Cannula 2.0 28 04/02/18 19:08 101 18 96 Nasal Cannula 2.0 28 04/02/18 16:00 106 04/02/18 16:00 98.8 98 24 124/69 (87) 94 98.8 04/02/18 12:40 101 20 99 Nasal Cannula 2.0 28 04/02/18 12:34 28 04/02/18 12:34 99 18 98 Nasal Cannula 2.0 28 04/02/18 12:00 99.0 110 26 121/63 (82) 94 99.0 04/02/18 11:53 107 04/02/18 08:15 96 20 98 Nasal Cannula 2.0 28 04/02/18 08:08 106 18 97 Nasal Cannula 2.0 28 04/02/18 08:08 28 04/02/18 08:08 106 20 Nasal Cannula 2.0 28 04/02/18 08:00 99.2 104 24 128/66 (86) 94 99.2 04/02/18 08:00 Nasal Cannula 2.0 04/02/18 07:52 106 04/02/18 04:00 98.6 105 39 129/71 (90) 91 98.6 04/02/18 04:00 104 04/02/18 01:16 99 20 98 Nasal Cannula 2.0 28 04/02/18 01:03 28 04/02/18 01:03 86 18 96 Nasal Cannula 2.0 28 04/02/18 00:00 86 04/02/18 00:00 98.4 89 21 108/55 (72) 98 98.4 Intake and Output 04/01/18 04/02/18 19:00 07:00 Intake Total 75 ml 605 ml Output Total 500 ml 300 ml Balance -425 ml 305 ml Free Water 60 ml IV Total 75 ml 525 ml Tube Feeding 20 ml Output Urine Total 500 ml 300 ml Height (Feet): 6 Height (Inches): 1.00 Weight (Pounds): 180 General Appearance: no apparent distress, alert, confused Madisyn Shetty MD Apr 02, 2018 23:57
[2018-04-03] VITALS: BP 117/68
[2018-04-03] MEDS: Albuterol/Ipratropium 3ml neb HHN SCH ×4 (00:43→19:36)
[2018-04-03 04:00] VITALS: BP 117/68
[2018-04-03] MEDS: BuPROPion XL 150mg tab ORAL SCH (06:09)
[2018-04-03] MEDS: Piperacillin/Tazobactam 3.375 GM in D5W 110 ML IVPB SCH ×3 (06:10→20:28)
[2018-04-03 08:00] VITALS: BP 126/66
[2018-04-03 08:03] LABS: HEMOGLOBIN 11.5 G/DL (14.2-18.0); MEAN CORPUSCULAR VOLUME 104 FL (80-99); PLATELET COUNT 75 K/UL (150-450); RED BLOOD COUNT 3.27 M/UL (4.70-6.10); RED CELL DISTRIBUTION WIDTH 12.1 % (11.6-14.8); WHITE BLOOD COUNT 11.5 K/UL (4.8-10.8)
--- NOTE | 2018-04-03 08:04 | General Progress Note ---
Assessment/Plan Problem List: (1) Dysphagia ICD Codes: R13.10 - Dysphagia, unspecified SNOMED: 40967646, 909127632 (2) Decubitus ulcer of sacral region, stage 4 ICD Codes: L89.154 - Pressure ulcer of sacral region, stage 4 SNOMED: 011888412, 560016262 (3) Sepsis ICD Codes: A41.9 - Sepsis, unspecified organism SNOMED: 13369191 Qualifiers: Qualified Codes: A41.9 - Sepsis, unspecified organism (4) Healthcare associated bacterial pneumonia ICD Codes: J15.9 - Unspecified bacterial pneumonia SNOMED: 185493984 Assessment/Plan ngtf repeat swallow eval on Wednesday bioethic consult if needs PEG Subjective ROS Limited/Unobtainable: No Allergies: Coded Allergies: ARIPIPRAZOLE (Verified Allergy, Unknown, 03/31/18) QUETIAPINE (Verified Allergy, Unknown, 03/31/18) Objective Last 24 Hour Vital Signs Date Time Temp Pulse Resp B/P (MAP) Pulse Ox O2 Delivery O2 Flow Rate FiO2 04/03/18 07:28 91 20 99 Room Air 21 04/03/18 07:22 21 04/03/18 07:22 89 20 97 Room Air 21 04/03/18 04:00 98.4 91 28 117/68 (84) 99 98.4 04/03/18 04:00 97 04/03/18 01:12 103 20 99 Nasal Cannula 2.0 28 04/03/18 01:12 28 04/03/18 00:55 99 18 97 Nasal Cannula 2.0 28 04/03/18 00:00 98.4 97 29 117/68 (84) 99 98.4 04/03/18 00:00 100 04/02/18 21:00 Nasal Cannula 2.0 04/02/18 20:00 98.4 110 32 119/44 (69) 96 98.4 04/02/18 20:00 103 04/02/18 19:22 101 20 99 Nasal Cannula 2.0 28 04/02/18 19:22 28 04/02/18 19:11 101 20 Nasal Cannula 2.0 28 04/02/18 19:08 101 18 96 Nasal Cannula 2.0 28 04/02/18 16:00 106 04/02/18 16:00 98.8 98 24 124/69 (87) 94 98.8 04/02/18 12:40 101 20 99 Nasal Cannula 2.0 28 04/02/18 12:34 28 04/02/18 12:34 99 18 98 Nasal Cannula 2.0 28 04/02/18 12:00 99.0 110 26 121/63 (82) 94 99.0 04/02/18 11:53 107 04/02/18 08:15 96 20 98 Nasal Cannula 2.0 28 04/02/18 08:08 106 18 97 Nasal Cannula 2.0 28 04/02/18 08:08 28 04/02/18 08:08 106 20 Nasal Cannula 2.0 28 Intake and Output 04/02/18 04/03/18 19:00 07:00 Intake Total 420 ml Output Total 1800 ml Balance 420 ml -1800 ml Free Water 120 ml Tube Feeding 300 ml Output Urine Total 1800 ml Laboratory Tests 04/03/18 07:00: White Blood Count [Pending], Red Blood Count [Pending], Hemoglobin [Pending], Hematocrit [Pending], Mean Corpuscular Volume [Pending], Mean Corpuscular Hemoglobin [Pending], Mean Corpuscular Hemoglobin Concent [Pending], Red Cell Distribution Width [Pending], Platelet Count [Pending], Mean Platelet Volume [ Pending], Neutrophils (%) (Auto) [Pending], Lymphocytes (%) (Auto) [Pending], Monocytes (%) (Auto) [Pending], Eosinophils (%) (Auto) [Pending], Basophils (%) (Auto) [Pending], Prothrombin Time [Pending], Prothromb Time International Ratio [Pending], Sodium Level [Pending], Potassium Level [Pending], Chloride Level [Pending], Carbon Dioxide Level [Pending], Blood Urea Nitrogen [Pending], Creatinine [Pending], Estimat Glomerular Filtration Rate [Pending], Glucose Level [Pending], Calcium Level [Pending], Magnesium Level [Pending], Iron Level [Pending], Unsaturated Iron Binding [Pending], Total Bilirubin [Pending], Aspartate Amino Transf (AST/SGOT) [Pending], Alanine Aminotransferase (ALT/SGPT ) [Pending], Alkaline Phosphatase [Pending], Total Protein [Pending], Albumin [ Pending], Globulin [Pending] Height (Feet): 6 Height (Inches): 1.00 Weight (Pounds): 180 General Appearance: lethargic EENT: normal ENT inspection Neck: supple Cardiovascular: normal rate Respiratory/Chest: decreased breath sounds Abdomen: normal bowel sounds, non tender, soft Extremities: non-tender Artie Mcgee MD Apr 03, 2018 08:04
[2018-04-03 08:26] LABS: ALANINE AMINOTRANSFERASE 48 U/L (12-78); ALBUMIN 1.6 G/DL (3.4-5.0); ALBUMIN/GLOBULIN RATIO 0.2 (1.0-2.7); ALKALINE PHOSPHATASE 189 U/L (46-116); ANION GAP 6 mmol/L (5-15); ASPARTATE AMINO TRANSFERASE 96 U/L (15-37); BILIRUBIN,TOTAL 0.9 MG/DL (0.2-1.0); BLOOD UREA NITROGEN 12 mg/dL (7-18); CALCIUM 8.2 MG/DL (8.5-10.1); CARBON DIOXIDE 26 MMOL/L (21-32); CHLORIDE 103 MMOL/L (98-107); CREATININE 0.6 MG/DL (0.55-1.30); INR 1.4 (0.9-1.1); POTASSIUM 3.7 MMOL/L (3.5-5.1); SODIUM 135 MMOL/L (136-145)
[2018-04-03 08:37] LABS: % IRON SATURATION 32 % (15-50); IRON 52 ug/dL (50-175); TOTAL IRON BINDING CAPACITY 164 ug/dL (250-450)
[2018-04-03] MEDS ORDERED: Norco 5mg/325mg tab NG PRN (08:45)
[2018-04-03] MEDS ORDERED: Pantoprazole Inj IV SCH (09:00)
[2018-04-03] MEDS ORDERED: Acetaminophen 650mg/20.3ml NG PRN (09:00)
[2018-04-03] MEDS ORDERED: Acetaminophen 500mg (ES) tab ORAL PRN (10:00)
--- NOTE | 2018-04-03 10:05 | Infectious Diseases Prog Note ---
Assessment/Plan Assessment/Plan A 1. ? pneumonia 2. leucocytosis improving 3. hepatitis C 4, thrombocytopenia 5. necrotic sacral ulcer may be infected 6. Encephalopathy 7. Tachycardia P 1. continue vancomycin iv, Zosyn 2. will follow up cultures 3. repeat CXR Subjective ROS Limited/Unobtainable: Yes Allergies: Coded Allergies: ARIPIPRAZOLE (Verified Allergy, Unknown, 03/31/18) QUETIAPINE (Verified Allergy, Unknown, 03/31/18) Objective Vital Signs Last 24 Hour Vital Signs Date Time Temp Pulse Resp B/P (MAP) Pulse Ox O2 Delivery O2 Flow Rate FiO2 04/03/18 08:00 97.7 108 20 126/66 (86) 93 97.7 04/03/18 07:28 91 20 99 Room Air 21 04/03/18 07:22 21 04/03/18 07:22 89 20 97 Room Air 21 04/03/18 04:00 98.4 91 28 117/68 (84) 99 98.4 04/03/18 04:00 97 04/03/18 01:12 103 20 99 Nasal Cannula 2.0 28 04/03/18 01:12 28 04/03/18 00:55 99 18 97 Nasal Cannula 2.0 28 04/03/18 00:00 98.4 97 29 117/68 (84) 99 98.4 04/03/18 00:00 100 04/02/18 21:00 Nasal Cannula 2.0 04/02/18 20:00 98.4 110 32 119/44 (69) 96 98.4 04/02/18 20:00 103 04/02/18 19:22 101 20 99 Nasal Cannula 2.0 28 04/02/18 19:22 28 04/02/18 19:11 101 20 Nasal Cannula 2.0 28 04/02/18 19:08 101 18 96 Nasal Cannula 2.0 28 04/02/18 16:00 106 04/02/18 16:00 98.8 98 24 124/69 (87) 94 98.8 04/02/18 12:40 101 20 99 Nasal Cannula 2.0 28 04/02/18 12:34 28 04/02/18 12:34 99 18 98 Nasal Cannula 2.0 28 04/02/18 12:00 99.0 110 26 121/63 (82) 94 99.0 04/02/18 11:53 107 Height (Feet): 6 Height (Inches): 1.00 Weight (Pounds): 180 HEENT: mucous membranes moist Respiratory/Chest: rhonchi - bilaterally Cardiovascular: tachycardia Abdomen: soft, non tender, other - NG tube feeding Skin: ulcers, other - necrotic sacral ulcer, unstagable right heel ulcer Neurologic/Psychiatric: unresponsiveness Microbiology Date/Time Source Procedure Growth Status 04/03/18 01:30 Sputum Gram Stain - Final Resulted 04/03/18 01:30 Sputum Sputum Culture Pending Resulted Laboratory Tests Test 04/03/18 07:00 White Blood Count 11.5 K/UL (4.8-10.8) H Red Blood Count 3.27 M/UL (4.70-6.10) L Hemoglobin 11.5 G/DL (14.2-18.0) L Hematocrit 34.0 % (42.0-52.0) L Mean Corpuscular Volume 104 FL (80-99) H Mean Corpuscular Hemoglobin 35.2 PG (27.0-31.0) H Mean Corpuscular Hemoglobin Concent 33.8 G/DL (32.0-36.0) Red Cell Distribution Width 12.1 % (11.6-14.8) Platelet Count 75 K/UL (150-450) L Mean Platelet Volume 6.7 FL (6.5-10.1) Neutrophils (%) (Auto) % (45.0-75.0) Lymphocytes (%) (Auto) % (20.0-45.0) Monocytes (%) (Auto) % (1.0-10.0) Eosinophils (%) (Auto) % (0.0-3.0) Basophils (%) (Auto) % (0.0-2.0) Differential Total Cells Counted 100 Neutrophils % (Manual) 51 % (45-75) Lymphocytes % (Manual) 29 % (20-45) Monocytes % (Manual) 14 % (1-10) H Eosinophils % (Manual) 3 % (0-3) Basophils % (Manual) 0 % (0-2) Band Neutrophils 3 % (0-8) Platelet Estimate Decreased L Platelet Morphology Normal Anisocytosis Macrocytosis 1+ Prothrombin Time 14.8 SEC (9.30-11.50) H Prothromb Time International Ratio 1.4 (0.9-1.1) H Sodium Level 135 MMOL/L (136-145) L Potassium Level 3.7 MMOL/L (3.5-5.1) Chloride Level 103 MMOL/L (98-107) Carbon Dioxide Level 26 MMOL/L (21-32) Anion Gap 6 mmol/L (5-15) Blood Urea Nitrogen 12 mg/dL (7-18) Creatinine 0.6 MG/DL (0.55-1.30) Estimat Glomerular Filtration Rate > 60 mL/min (>60) Glucose Level 136 MG/DL (74-106) H Calcium Level 8.2 MG/DL (8.5-10.1) L Magnesium Level 1.6 MG/DL (1.8-2.4) L Iron Level 52 ug/dL (50-175) Total Iron Binding Capacity 164 ug/dL (250-450) L Percent Iron Saturation 32 % (15-50) Unsaturated Iron Binding 112 ug/dL (112-346) Total Bilirubin 0.9 MG/DL (0.2-1.0) Aspartate Amino Transf (AST/SGOT) 96 U/L (15-37) H Alanine Aminotransferase (ALT/SGPT) 48 U/L (12-78) Alkaline Phosphatase 189 U/L (46-116) H Total Protein 8.1 G/DL (6.4-8.2) Albumin 1.6 G/DL (3.4-5.0) L Globulin 6.5 g/dL Albumin/Globulin Ratio 0.2 (1.0-2.7) L Current Medications Medications (Trade) Dose Ordered Sig/Elizabeth Route PRN Reason Start Time Stop Time Status Last Admin Dose Admin Acetaminophen (Tylenol) 500 mg Q4H PRN NG mild pain/temp >100.5 04/03/18 09:00 05/03/18 08:59 Acetaminophen/ Hydrocodone Bitart ([place] 5/325) 1 tab EVERY 8 HOURS PRN NG for moderate pain 04/03/18 09:00 04/10/18 08:59 Albuterol/ Ipratropium (Albuterol/ Ipratropium) 3 ml Q6HRT HHN 03/31/18 13:00 04/05/18 12:59 04/03/18 07:49 Benztropine Mesylate (Cogentin) 1 mg BID NG 04/03/18 09:00 11/10/18 08:59 Bupropion HCl (Wellbutrin) 150 mg BID NG 04/03/18 18:00 05/03/18 17:59 Docusate Sodium (Colace) 100 mg TWICE A DAY NG 04/03/18 09:00 05/03/18 08:59 Gabapentin (Neurontin) 300 mg TID NG 04/03/18 09:00 05/03/18 08:59 Haloperidol (Haldol) 10 mg BID PRN ORAL Agitation 03/31/18 05:45 04/30/18 05:44 Pantoprazole (Protonix) 40 mg DAILY IV 04/03/18 09:00 05/03/18 08:59 Piperacillin Sod/ Tazobactam Sod 3.375 gm/Dextrose 110 ml @ 27.5 mls/hr Q8HR IVPB 03/31/18 14:00 04/07/18 13:59 04/03/18 06:10 Quetiapine Fumarate (SEROquel) 100 mg BID NG 04/03/18 09:00 04/30/18 17:59 Sodium Hypochlorite (Dakin's Quarter Strength) 1 applic DAILY TOPIC 03/31/18 15:41 04/30/18 15:40 04/02/18 11:20 Sodium Chloride 1,000 ml @ 75 mls/hr [id number] IV 04/01/18 17:12 05/01/18 17:11 04/02/18 20:04 Valproic Acid (Depakene) 500 mg EVERY 12 HOURS NG 04/03/18 09:15 05/03/18 09:14 Vancomycin HCl (Vanco rx to dose) 1 ea DAILY PRN MISC Per rx protocol 03/31/18 09:30 04/30/18 09:29 Vancomycin HCl/ Dextrose 250 ml @ 167 mls/hr 1100,2300 IVPB 04/01/18 23:00 04/06/18 22:59 04/02/18 23:15 Mao Trevino MD Apr 03, 2018 10:05
[2018-04-03] MEDS: Valproic Acid 500mg/10ml liquid NG SCH ×2 (10:23→20:28)
[2018-04-03] MEDS: Norco 5mg/325mg tab NG PRN (10:24)
[2018-04-03] MEDS: Benztropine 1mg tab NG SCH ×2 (10:25→17:52)
[2018-04-03] MEDS: Dakin's 0.125% Soln (Quarter Strength) 16oz TOPIC SCH (10:25)
[2018-04-03] MEDS: Docusate 100mg/10ml Liq NG SCH ×2 (10:26→17:51)
[2018-04-03] MEDS: Gabapentin 300 MG/6 ML Soln NG SCH ×3 (10:30→17:52)
[2018-04-03] MEDS: Vancomycin 1250mg/D5W 250ml 250 ML IVPB SCH ×2 (11:46→22:40)
--- NOTE | 2018-04-03 12:16 | Cardiology Report ---
APPROVED REPORT EKG Measurement Heart [id number] Sinus tachycardia Inferior infarct, age undetermined Abnormal ECG
--- NOTE | 2018-04-03 12:47 | General Surgery Progress Note ---
General Surgery-Progress Note Subjective Additional Comments no acute events. doing okay. still confused. Objective Last 24 Hour Vital Signs Date Time Temp Pulse Resp B/P (MAP) Pulse Ox O2 Delivery O2 Flow Rate FiO2 04/03/18 12:42 93 22 99 Room Air 21 04/03/18 12:34 84 18 97 Room Air 21 04/03/18 12:34 36 04/03/18 10:54 97.7 04/03/18 10:24 97.7 04/03/18 08:00 Nasal Cannula 2.0 04/03/18 08:00 97.7 108 20 126/66 (86) 93 97.7 04/03/18 07:28 91 20 99 Room Air 21 04/03/18 07:22 36 04/03/18 07:22 89 20 97 Room Air 21 04/03/18 04:00 98.4 91 28 117/68 (84) 99 98.4 04/03/18 04:00 97 04/03/18 01:12 103 20 99 Nasal Cannula 2.0 28 04/03/18 01:12 28 04/03/18 00:55 99 18 97 Nasal Cannula 2.0 28 04/03/18 00:00 98.4 97 29 117/68 (84) 99 98.4 04/03/18 00:00 100 04/02/18 21:00 Nasal Cannula 2.0 04/02/18 20:00 98.4 110 32 119/44 (69) 96 98.4 04/02/18 20:00 103 04/02/18 19:22 101 20 99 Nasal Cannula 2.0 28 04/02/18 19:22 28 04/02/18 19:11 101 20 Nasal Cannula 2.0 28 04/02/18 19:08 101 18 96 Nasal Cannula 2.0 28 04/02/18 16:00 106 04/02/18 16:00 98.8 98 24 124/69 (87) 94 98.8 I&O Intake and Output 04/02/18 04/03/18 19:00 07:00 Intake Total 420 ml Output Total 1800 ml Balance 420 ml -1800 ml Free Water 120 ml Tube Feeding 300 ml Output Urine Total 1800 ml Dressing: saturated Wound: other Drains: other Cardiovascular: RSR Respiratory: clear, decreased breath sounds Abdomen: soft, flat, non-tender, present bowel sounds Extremities: no cyanosis Laboratory Tests Test 04/03/18 07:00 White Blood Count 11.5 K/UL (4.8-10.8) H Red Blood Count 3.27 M/UL (4.70-6.10) L Hemoglobin 11.5 G/DL (14.2-18.0) L Hematocrit 34.0 % (42.0-52.0) L Mean Corpuscular Volume 104 FL (80-99) H Mean Corpuscular Hemoglobin 35.2 PG (27.0-31.0) H Mean Corpuscular Hemoglobin Concent 33.8 G/DL (32.0-36.0) Red Cell Distribution Width 12.1 % (11.6-14.8) Platelet Count 75 K/UL (150-450) L Mean Platelet Volume 6.7 FL (6.5-10.1) Neutrophils (%) (Auto) % (45.0-75.0) Lymphocytes (%) (Auto) % (20.0-45.0) Monocytes (%) (Auto) % (1.0-10.0) Eosinophils (%) (Auto) % (0.0-3.0) Basophils (%) (Auto) % (0.0-2.0) Differential Total Cells Counted 100 Neutrophils % (Manual) 51 % (45-75) Lymphocytes % (Manual) 29 % (20-45) Monocytes % (Manual) 14 % (1-10) H Eosinophils % (Manual) 3 % (0-3) Basophils % (Manual) 0 % (0-2) Band Neutrophils 3 % (0-8) Platelet Estimate Decreased L Platelet Morphology Normal Anisocytosis Macrocytosis 1+ Prothrombin Time 14.8 SEC (9.30-11.50) H Prothromb Time International Ratio 1.4 (0.9-1.1) H Sodium Level 135 MMOL/L (136-145) L Potassium Level 3.7 MMOL/L (3.5-5.1) Chloride Level 103 MMOL/L (98-107) Carbon Dioxide Level 26 MMOL/L (21-32) Anion Gap 6 mmol/L (5-15) Blood Urea Nitrogen 12 mg/dL (7-18) Creatinine 0.6 MG/DL (0.55-1.30) Estimat Glomerular Filtration Rate > 60 mL/min (>60) Glucose Level 136 MG/DL (74-106) H Calcium Level 8.2 MG/DL (8.5-10.1) L Magnesium Level 1.6 MG/DL (1.8-2.4) L Iron Level 52 ug/dL (50-175) Total Iron Binding Capacity 164 ug/dL (250-450) L Percent Iron Saturation 32 % (15-50) Unsaturated Iron Binding 112 ug/dL (112-346) Total Bilirubin 0.9 MG/DL (0.2-1.0) Aspartate Amino Transf (AST/SGOT) 96 U/L (15-37) H Alanine Aminotransferase (ALT/SGPT) 48 U/L (12-78) Alkaline Phosphatase 189 U/L (46-116) H Total Protein 8.1 G/DL (6.4-8.2) Albumin 1.6 G/DL (3.4-5.0) L Globulin 6.5 g/dL Albumin/Globulin Ratio 0.2 (1.0-2.7) L Plan Problems: (1) Decubitus ulcer of sacral region, stage 4 Assessment & Plan: Large malodorous full thickness stage IV / unstageable Sacral pressure injury. Wound bed with necrosis centrally with detached borders. Soft yellow slough along perimeter. Wound measures (L)9cm x (W)12.1cm with area of necrosis measuring 5.5cm x (W) 10cm. Surrounding area denuded with additional skin breakdown of which largest noted to R buttocks measuring (L)2cm x (W)0.6cm. Scrotum is grossly red with multiple partial thickness wounds at base of scrotum. DTPI noted to R heel (L) 5.7cm x (W)6cm. Area is maroon and fluctuant with delineated borders. Wound present on admission and will be cared for during hospital stay. will likely need debridement given odor and appearance. will work to obtain consent and follow with care plan Tx.Plan:Apply Dakin's moist gauze to wound. Cavilon wipe along borders .Cover with Biatain drsg Daily and prn. P200 Air Fluidized mattress. Apply Cavilon to R heel.Cover with Biatain for 7 days and prn. Reposition on sides at minimum every 2hours or as tolerated. Off-load heels with pillow. Patient without capacity to make decisions. will attempt to locate POA or next of kin will await bioethics review for consent thank you Matthew Jeter Apr 03, 2018 12:47
--- NOTE | 2018-04-03 13:03 | Diagnostic Imaging Report ---
EXAM: US Abdomen Complete CLINICAL HISTORY: Abdominal pain TECHNIQUE: Real-time ultrasound of the abdomen (complete) with image documentation. COMPARISON: Abdominal ultrasound dated 03/31/18 FINDINGS: Liver: Unremarkable. No parenchymal lesions. No intrahepatic bile duct dilation. Gallbladder: Unremarkable. No gallstones. No wall thickening. No pericholecystic fluid. Common bile duct: Common bile duct diameter of 2.6 mm. No stones. No dilation. Pancreas: Unremarkable as visualized. Pancreatic body and tail are obscured by bowel gas. Kidneys: Left kidney has a length of 11.2 cm. Right kidney has a length of 10.5 cm. Normal cortical thickness. Unremarkable parenchymal echotexture. No visible stones. No hydronephrosis. Previously noted left renal cyst is not well-seen on this exam. Spleen: Unremarkable. No splenomegaly. Aorta: Unremarkable. Visualized portions appear unremarkable without evidence of aneurysm. Inferior vena cava: Unremarkable. IMPRESSION: No acute findings.
--- NOTE | 2018-04-03 13:26 | Consultation ---
Consult Note Consult Note asked to eval for fluid management and adjustment of electrolyte chart reviewed patient examined discussed with RN Orders in EMR Assessment/Plan Electrolyte imbalance other conditions; 1. Acute hypoxemic respiratory failure 2. Sepsis 3. Pneumonia 4. Altered mental status 5. NURY 6. Thrombocytopenia 7. Schizophrenia 8. Stage IV decubitus ulcer Plan: mag supplement- change IV protonox to NG Prevacid change hypotonic solution to Isotonic as Na is lowering per consultants Jeffry Jade MD Apr 03, 2018 13:26
--- NOTE | 2018-04-03 15:57 | Pulmonology Progress Note ---
Assessment/Plan Assessment/Plan 1. Acute hypoxemic respiratory failure 2. Sepsis 3. Pneumonia 4. Altered mental status 5. NURY 6. Thrombocytopenia 7. Schizophrenia 8. Stage IV decubitus ulcer sp debridement Plan: -abx per ID: [email or web address] -f/u cultures -IVF: NS 50 cc/hour -oral care -NPO and TF -wound care --wean oxygen as tolerated -duonebs q6 -monitor platelets -CXR wednesday Subjective ROS Limited/Unobtainable: Yes Allergies: Coded Allergies: ARIPIPRAZOLE (Verified Allergy, Unknown, 03/31/18) QUETIAPINE (Verified Allergy, Unknown, 03/31/18) Subjective remains obtunded, NGT in place on supplemental o2 no fever does not get oob no overnight events Objective Last 24 Hour Vital Signs Date Time Temp Pulse Resp B/P (MAP) Pulse Ox O2 Delivery O2 Flow Rate FiO2 04/03/18 12:42 93 22 99 Room Air 21 04/03/18 12:34 84 18 97 Room Air 21 04/03/18 12:34 36 04/03/18 11:44 102 04/03/18 10:54 97.7 04/03/18 10:24 97.7 04/03/18 08:00 Nasal Cannula 2.0 04/03/18 08:00 97.7 108 20 126/66 (86) 93 97.7 04/03/18 07:51 102 04/03/18 07:28 91 20 99 Room Air 21 04/03/18 07:22 36 04/03/18 07:22 89 20 97 Room Air 21 04/03/18 04:00 98.4 91 28 117/68 (84) 99 98.4 04/03/18 04:00 97 04/03/18 01:12 103 20 99 Nasal Cannula 2.0 28 04/03/18 01:12 28 04/03/18 00:55 99 18 97 Nasal Cannula 2.0 28 04/03/18 00:00 98.4 97 29 117/68 (84) 99 98.4 04/03/18 00:00 100 04/02/18 21:00 Nasal Cannula 2.0 04/02/18 20:00 98.4 110 32 119/44 (69) 96 98.4 04/02/18 20:00 103 04/02/18 19:22 101 20 99 Nasal Cannula 2.0 28 04/02/18 19:22 28 04/02/18 19:11 101 20 Nasal Cannula 2.0 28 04/02/18 19:08 101 18 96 Nasal Cannula 2.0 28 04/02/18 16:00 106 04/02/18 16:00 98.8 98 24 124/69 (87) 94 98.8 Intake and Output 04/02/18 04/03/18 19:00 07:00 Intake Total 420 ml Output Total 1800 ml Balance 420 ml -1800 ml Free Water 120 ml Tube Feeding 300 ml Output Urine Total 1800 ml Respiratory/Chest: rhonchi Cardiovascular: normal rate, regular rhythm Abdomen: soft, non tender, no organomegaly Neurologic/Psychiatric: disoriented Lymphatic: no neck adenopathy Musculoskeletal: normal muscle bulk Microbiology Date/Time Source Procedure Growth Status 04/03/18 01:30 Sputum Gram Stain - Final Resulted 04/03/18 01:30 Sputum Sputum Culture Pending Resulted Laboratory Tests 04/03/18 07:00: White Blood Count 11.5H, Red Blood Count 3.27L, Hemoglobin 11.5L, Hematocrit 34.0L, Mean Corpuscular Volume 104H, Mean Corpuscular Hemoglobin 35.2H, Mean Corpuscular Hemoglobin Concent 33.8, Red Cell Distribution Width 12.1, Platelet Count 75L, Mean Platelet Volume 6.7, Neutrophils (%) (Auto) , Lymphocytes (%) ( Auto) , Monocytes (%) (Auto) , Eosinophils (%) (Auto) , Basophils (%) (Auto) , Differential Total Cells Counted 100, Neutrophils % (Manual) 51, Lymphocytes % ( Manual) 29, Monocytes % (Manual) 14H, Eosinophils % (Manual) 3, Basophils % ( Manual) 0, Band Neutrophils 3, Platelet Estimate DecreasedL, Platelet Morphology Normal, Anisocytosis , Macrocytosis 1+, Prothrombin Time 14.8H, Prothromb Time International Ratio 1.4H, Sodium Level 135L, Potassium Level 3.7 , Chloride Level 103, Carbon Dioxide Level 26, Anion Gap 6, Blood Urea Nitrogen 12, Creatinine 0.6, Estimat Glomerular Filtration Rate > 60, Glucose Level 136H , Calcium Level 8.2L, Magnesium Level 1.6L, Iron Level 52, Total Iron Binding Capacity 164L, Percent Iron Saturation 32, Unsaturated Iron Binding 112, Total Bilirubin 0.9, Aspartate Amino Transf (AST/SGOT) 96H, Alanine Aminotransferase ( ALT/SGPT) 48, Alkaline Phosphatase 189H, Total Protein 8.1, Albumin 1.6L, Globulin 6.5, Albumin/Globulin Ratio 0.2L Current Medications Medications (Trade) Dose Ordered Sig/Elizabeth Route PRN Reason Start Time Stop Time Status Last Admin Dose Admin Acetaminophen (Tylenol) 500 mg Q4H PRN NG mild pain/temp >100.5 04/03/18 09:00 05/03/18 08:59 Acetaminophen/ Hydrocodone Bitart ([place] 5/325) 1 tab EVERY 8 HOURS PRN NG for moderate pain 04/03/18 09:00 04/10/18 08:59 04/03/18 10:24 Albuterol/ Ipratropium (Albuterol/ Ipratropium) 3 ml Q6HRT HHN 03/31/18 13:00 04/05/18 12:59 04/03/18 12:41 Benztropine Mesylate (Cogentin) 1 mg BID NG 04/03/18 09:00 04/30/18 08:59 04/03/18 10:25 Bupropion HCl (Wellbutrin) 150 mg BID NG 04/03/18 18:00 05/03/18 17:59 Docusate Sodium (Colace) 100 mg TWICE A DAY NG 04/03/18 09:00 05/03/18 08:59 04/03/18 10:26 Gabapentin (Neurontin) 300 mg TID NG 04/03/18 09:00 05/03/18 08:59 04/03/18 14:52 Haloperidol (Haldol) 10 mg BID PRN ORAL Agitation 03/31/18 05:45 04/30/18 05:44 Lansoprazole (Prevacid) 30 mg BID NG 04/03/18 18:00 05/03/18 17:59 Magnesium Sulfate 100 ml @ 100 mls/hr Q1H IVPB 04/03/18 14:00 04/03/18 15:59 04/03/18 14:42 Piperacillin Sod/ Tazobactam Sod 3.375 gm/Dextrose 110 ml @ 27.5 mls/hr Q8HR IVPB 03/31/18 14:00 04/07/18 13:59 04/03/18 14:42 Quetiapine Fumarate (SEROquel) 100 mg BID NG 04/03/18 09:00 04/30/18 17:59 04/03/18 10:25 Sodium Hypochlorite (Dakin's Quarter Strength) 1 applic DAILY TOPIC 03/31/18 15:41 04/30/18 15:40 04/03/18 10:25 Sodium Chloride 1,000 ml @ 50 mls/hr Q20H IV 04/03/18 13:30 05/03/18 13:29 04/03/18 14:42 Valproic Acid (Depakene) 500 mg EVERY 12 HOURS NG 04/03/18 09:15 05/03/18 09:14 04/03/18 10:23 Vancomycin HCl (Vanco rx to dose) 1 ea DAILY PRN MISC Per rx protocol 03/31/18 09:30 04/30/18 09:29 Vancomycin HCl/ Dextrose 250 ml @ 167 mls/hr 1100,2300 IVPB 04/01/18 23:00 04/06/18 22:59 04/03/18 11:46 Yesi Palmer DO Apr 03, 2018 15:57
[2018-04-03 16:00] VITALS: BP 123/57
--- NOTE | 2018-04-03 16:31 | General Progress Note ---
Assessment/Plan Status: stable Assessment/Plan # Thrombocytopenia -- first admission here, therefore do not have his baseline, is VERY likely related to underlying sepsis and consumptive state, plt count appears to be 50-100k --> Hep-C++ and hiv is negative --> US abd: No acute findings. Left renal cyst --> abx have been reviewed, unlikely contributors as only short hospital stay --> other medications have been reviewed as well --> peripheral smear reviewed, does not show schistocytes or blasts --> Currently, Plt count remains low at 75k # Leukocytosis very likely related to either uti/pna --> appreciate id care --> abx have been reviewed --> Currently, wbc at 11.5, elevated # Anemia of chronic disease -- hgb currently 11.5 --> trend cbc --> Hgb goal above 7 # Septic shock -- on ivf and has received abx # Healthcare associated bacterial pneumonia--> on abx, have been reviewed --> ID is following. Appreciate recs. # Supraventricular tachycardia # Acute prerenal azotemia # Paroxysmal SVT versus A. fib. Rate controlled with a dose of Cardizem. # Resp failure on NC Greatly appreciate consultation! Subjective Date patient seen: Apr 03, 2018 Hematologic/Lymphatic: Reports: anemia Allergies: Coded Allergies: ARIPIPRAZOLE (Verified Allergy, Unknown, 03/31/18) QUETIAPINE (Verified Allergy, Unknown, 03/31/18) All Systems: reviewed and negative except above Subjective No acute events. [place] ordered. H/H stable. Objective Last 24 Hour Vital Signs Date Time Temp Pulse Resp B/P (MAP) Pulse Ox O2 Delivery O2 Flow Rate FiO2 04/03/18 12:42 93 22 99 Room Air 21 04/03/18 12:34 84 18 97 Room Air 21 04/03/18 12:34 36 04/03/18 11:44 102 04/03/18 10:54 97.7 04/03/18 10:24 97.7 04/03/18 08:00 Nasal Cannula 2.0 04/03/18 08:00 97.7 108 20 126/66 (86) 93 97.7 04/03/18 07:51 102 04/03/18 07:28 91 20 99 Room Air 21 04/03/18 07:22 36 04/03/18 07:22 89 20 97 Room Air 21 04/03/18 04:00 98.4 91 28 117/68 (84) 99 98.4 04/03/18 04:00 97 04/03/18 01:12 103 20 99 Nasal Cannula 2.0 28 04/03/18 01:12 28 04/03/18 00:55 99 18 97 Nasal Cannula 2.0 28 04/03/18 00:00 98.4 97 29 117/68 (84) 99 98.4 04/03/18 00:00 100 04/02/18 21:00 Nasal Cannula 2.0 04/02/18 20:00 98.4 110 32 119/44 (69) 96 98.4 04/02/18 20:00 103 04/02/18 19:22 101 20 99 Nasal Cannula 2.0 28 04/02/18 19:22 28 04/02/18 19:11 101 20 Nasal Cannula 2.0 28 04/02/18 19:08 101 18 96 Nasal Cannula 2.0 28 Intake and Output 04/02/18 04/03/18 19:00 07:00 Intake Total 420 ml Output Total 1800 ml Balance 420 ml -1800 ml Free Water 120 ml Tube Feeding 300 ml Output Urine Total 1800 ml Laboratory Tests 04/03/18 07:00: White Blood Count 11.5H, Red Blood Count 3.27L, Hemoglobin 11.5L, Hematocrit 34.0L, Mean Corpuscular Volume 104H, Mean Corpuscular Hemoglobin 35.2H, Mean Corpuscular Hemoglobin Concent 33.8, Red Cell Distribution Width 12.1, Platelet Count 75L, Mean Platelet Volume 6.7, Neutrophils (%) (Auto) , Lymphocytes (%) ( Auto) , Monocytes (%) (Auto) , Eosinophils (%) (Auto) , Basophils (%) (Auto) , Differential Total Cells Counted 100, Neutrophils % (Manual) 51, Lymphocytes % ( Manual) 29, Monocytes % (Manual) 14H, Eosinophils % (Manual) 3, Basophils % ( Manual) 0, Band Neutrophils 3, Platelet Estimate DecreasedL, Platelet Morphology Normal, Anisocytosis , Macrocytosis 1+, Prothrombin Time 14.8H, Prothromb Time International Ratio 1.4H, Sodium Level 135L, Potassium Level 3.7 , Chloride Level 103, Carbon Dioxide Level 26, Anion Gap 6, Blood Urea Nitrogen 12, Creatinine 0.6, Estimat Glomerular Filtration Rate > 60, Glucose Level 136H , Calcium Level 8.2L, Magnesium Level 1.6L, Iron Level 52, Total Iron Binding Capacity 164L, Percent Iron Saturation 32, Unsaturated Iron Binding 112, Total Bilirubin 0.9, Aspartate Amino Transf (AST/SGOT) 96H, Alanine Aminotransferase ( ALT/SGPT) 48, Alkaline Phosphatase 189H, Total Protein 8.1, Albumin 1.6L, Globulin 6.5, Albumin/Globulin Ratio 0.2L Height (Feet): 6 Height (Inches): 1.00 Weight (Pounds): 180 General Appearance: no apparent distress EENT: PERRL/EOMI Neck: normal alignment Cardiovascular: tachycardia Respiratory/Chest: no respiratory distress Abdomen: soft Jose Mckeon MD Apr 03, 2018 16:31
[2018-04-03] MEDS: BuPROPion 75mg Tab NG SCH (17:51)
--- NOTE | 2018-04-03 19:47 | Cardiology Progress Note ---
Assessment/Plan Assessment/Plan 1. Sinus tachycardia, most likely secondary to overwhelming sepsis, continue hydration, electrolyte correction and oxygen administration. 2. Short run of nonsustained ventricular tachycardia, Mg sulphate to bring Mg level >2.5, keep K >4.0 3. Acute hypoxemic respiratory failure 4. Pneumonia 5. NURY 6. Thrombocytopenia Subjective Subjective Sinus tachycardia at 102. Objective Last 24 Hour Vital Signs Date Time Temp Pulse Resp B/P (MAP) Pulse Ox O2 Delivery O2 Flow Rate FiO2 04/03/18 19:36 98 20 97 Nasal Cannula 2.0 28 04/03/18 16:00 97.9 111 22 123/57 (79) 95 97.9 04/03/18 15:30 101 04/03/18 12:42 93 22 99 Room Air 21 04/03/18 12:34 84 18 97 Room Air 21 04/03/18 12:34 36 04/03/18 11:44 102 04/03/18 10:54 97.7 04/03/18 10:24 97.7 04/03/18 08:00 Nasal Cannula 2.0 04/03/18 08:00 97.7 108 20 126/66 (86) 93 97.7 04/03/18 07:51 102 04/03/18 07:28 91 20 99 Room Air 21 04/03/18 07:22 36 04/03/18 07:22 89 20 97 Room Air 21 04/03/18 04:00 98.4 91 28 117/68 (84) 99 98.4 04/03/18 04:00 97 04/03/18 01:12 103 20 99 Nasal Cannula 2.0 28 04/03/18 01:12 28 04/03/18 00:55 99 18 97 Nasal Cannula 2.0 28 04/03/18 00:00 98.4 97 29 117/68 (84) 99 98.4 04/03/18 00:00 100 04/02/18 21:00 Nasal Cannula 2.0 04/02/18 20:00 98.4 110 32 119/44 (69) 96 98.4 04/02/18 20:00 103 Intake and Output 04/02/18 04/03/18 19:00 07:00 Intake Total 420 ml Output Total 1800 ml Balance 420 ml -1800 ml Free Water 120 ml Tube Feeding 300 ml Output Urine Total 1800 ml Laboratory Tests Test 04/03/18 07:00 White Blood Count 11.5 K/UL (4.8-10.8) H Red Blood Count 3.27 M/UL (4.70-6.10) L Hemoglobin 11.5 G/DL (14.2-18.0) L Hematocrit 34.0 % (42.0-52.0) L Mean Corpuscular Volume 104 FL (80-99) H Mean Corpuscular Hemoglobin 35.2 PG (27.0-31.0) H Mean Corpuscular Hemoglobin Concent 33.8 G/DL (32.0-36.0) Red Cell Distribution Width 12.1 % (11.6-14.8) Platelet Count 75 K/UL (150-450) L Mean Platelet Volume 6.7 FL (6.5-10.1) Neutrophils (%) (Auto) % (45.0-75.0) Lymphocytes (%) (Auto) % (20.0-45.0) Monocytes (%) (Auto) % (1.0-10.0) Eosinophils (%) (Auto) % (0.0-3.0) Basophils (%) (Auto) % (0.0-2.0) Differential Total Cells Counted 100 Neutrophils % (Manual) 51 % (45-75) Lymphocytes % (Manual) 29 % (20-45) Monocytes % (Manual) 14 % (1-10) H Eosinophils % (Manual) 3 % (0-3) Basophils % (Manual) 0 % (0-2) Band Neutrophils 3 % (0-8) Platelet Estimate Decreased L Platelet Morphology Normal Anisocytosis Macrocytosis 1+ Prothrombin Time 14.8 SEC (9.30-11.50) H Prothromb Time International Ratio 1.4 (0.9-1.1) H Sodium Level 135 MMOL/L (136-145) L Potassium Level 3.7 MMOL/L (3.5-5.1) Chloride Level 103 MMOL/L (98-107) Carbon Dioxide Level 26 MMOL/L (21-32) Anion Gap 6 mmol/L (5-15) Blood Urea Nitrogen 12 mg/dL (7-18) Creatinine 0.6 MG/DL (0.55-1.30) Estimat Glomerular Filtration Rate > 60 mL/min (>60) Glucose Level 136 MG/DL (74-106) H Calcium Level 8.2 MG/DL (8.5-10.1) L Magnesium Level 1.6 MG/DL (1.8-2.4) L Iron Level 52 ug/dL (50-175) Total Iron Binding Capacity 164 ug/dL (250-450) L Percent Iron Saturation 32 % (15-50) Unsaturated Iron Binding 112 ug/dL (112-346) Total Bilirubin 0.9 MG/DL (0.2-1.0) Aspartate Amino Transf (AST/SGOT) 96 U/L (15-37) H Alanine Aminotransferase (ALT/SGPT) 48 U/L (12-78) Alkaline Phosphatase 189 U/L (46-116) H Total Protein 8.1 G/DL (6.4-8.2) Albumin 1.6 G/DL (3.4-5.0) L Globulin 6.5 g/dL Albumin/Globulin Ratio 0.2 (1.0-2.7) L Microbiology Date/Time Source Procedure Growth Status 04/03/18 01:30 Sputum Gram Stain - Final Resulted 04/03/18 01:30 Sputum Sputum Culture Pending Resulted Objective HEENT: Atraumatic and normocephalic. Anicteric. Pupils are equal, round, and reactive to light and accommodation. Conjunctival pallor is present. NECK: JVP less than 5 cm. No carotid bruit. Carotid upstroke is 2+ bilaterally. CARDIOVASCULAR SYSTEM: Normal S1, S2. Regular rhythm. Tachycardic. No murmurs, gallops, or rubs. LUNGS: Clear to auscultation bilaterally. ABDOMEN: Soft, nontender, and nondistended. No hepatosplenomegaly. Positive bowel sounds. EXTREMITIES: No evidence of edema, clubbing, or cyanosis. Gokul Villalta MD Apr 03, 2018 19:47
[2018-04-03 20:00] VITALS: BP 126/73
[2018-04-03] MEDS ORDERED: Depakote ER 500mg tab ORAL SCH (21:00)
--- NOTE | 2018-04-03 21:04 | General Progress Note ---
Assessment/Plan Problem List: (1) Acute prerenal azotemia ICD Codes: R79.89 - Other specified abnormal findings of blood chemistry SNOMED: 094938026 (2) Dyspnea ICD Codes: R06.00 - Dyspnea, unspecified SNOMED: 633735370 (3) Sepsis ICD Codes: A41.9 - Sepsis, unspecified organism SNOMED: 92216655 Qualifiers: Qualified Codes: A41.9 - Sepsis, unspecified organism (4) Dysphagia ICD Codes: R13.10 - Dysphagia, unspecified SNOMED: 91271584, 406276044 (5) Healthcare associated bacterial pneumonia ICD Codes: J15.9 - Unspecified bacterial pneumonia SNOMED: 116904380 Status: progressing Assessment/Plan failed swallow study dysphagia has ng tube feeding tube per gi sepsis improving Subjective ROS Limited/Unobtainable: Yes Allergies: Coded Allergies: ARIPIPRAZOLE (Verified Allergy, Unknown, 03/31/18) QUETIAPINE (Verified Allergy, Unknown, 03/31/18) Objective Last 24 Hour Vital Signs Date Time Temp Pulse Resp B/P (MAP) Pulse Ox O2 Delivery O2 Flow Rate FiO2 04/03/18 20:01 90 22 99 Room Air 21 04/03/18 20:01 28 04/03/18 19:36 98 20 97 Nasal Cannula 2.0 28 04/03/18 16:00 97.9 111 22 123/57 (79) 95 97.9 04/03/18 15:30 101 04/03/18 12:42 93 22 99 Room Air 21 04/03/18 12:34 84 18 97 Room Air 21 04/03/18 12:34 36 04/03/18 11:44 102 04/03/18 10:54 97.7 04/03/18 10:24 97.7 04/03/18 08:00 Nasal Cannula 2.0 04/03/18 08:00 97.7 108 20 126/66 (86) 93 97.7 04/03/18 07:51 102 04/03/18 07:28 91 20 99 Room Air 21 04/03/18 07:22 36 04/03/18 07:22 89 20 97 Room Air 21 04/03/18 04:00 98.4 91 28 117/68 (84) 99 98.4 04/03/18 04:00 97 10/14/18 01:12 103 20 99 Nasal Cannula 2.0 28 04/03/18 01:12 28 04/03/18 00:55 99 18 97 Nasal Cannula 2.0 28 04/03/18 00:00 98.4 97 29 117/68 (84) 99 98.4 04/03/18 00:00 100 Intake and Output 04/02/18 04/03/18 19:00 07:00 Intake Total 420 ml Output Total 1800 ml Balance 420 ml -1800 ml Free Water 120 ml Tube Feeding 300 ml Output Urine Total 1800 ml Laboratory Tests 04/03/18 07:00: White Blood Count 11.5H, Red Blood Count 3.27L, Hemoglobin 11.5L, Hematocrit 34.0L, Mean Corpuscular Volume 104H, Mean Corpuscular Hemoglobin 35.2H, Mean Corpuscular Hemoglobin Concent 33.8, Red Cell Distribution Width 12.1, Platelet Count 75L, Mean Platelet Volume 6.7, Neutrophils (%) (Auto) , Lymphocytes (%) ( Auto) , Monocytes (%) (Auto) , Eosinophils (%) (Auto) , Basophils (%) (Auto) , Differential Total Cells Counted 100, Neutrophils % (Manual) 51, Lymphocytes % ( Manual) 29, Monocytes % (Manual) 14H, Eosinophils % (Manual) 3, Basophils % ( Manual) 0, Band Neutrophils 3, Platelet Estimate DecreasedL, Platelet Morphology Normal, Anisocytosis , Macrocytosis 1+, Prothrombin Time 14.8H, Prothromb Time International Ratio 1.4H, Sodium Level 135L, Potassium Level 3.7 , Chloride Level 103, Carbon Dioxide Level 26, Anion Gap 6, Blood Urea Nitrogen 12, Creatinine 0.6, Estimat Glomerular Filtration Rate > 60, Glucose Level 136H , Calcium Level 8.2L, Magnesium Level 1.6L, Iron Level 52, Total Iron Binding Capacity 164L, Percent Iron Saturation 32, Unsaturated Iron Binding 112, Total Bilirubin 0.9, Aspartate Amino Transf (AST/SGOT) 96H, Alanine Aminotransferase ( ALT/SGPT) 48, Alkaline Phosphatase 189H, Total Protein 8.1, Albumin 1.6L, Globulin 6.5, Albumin/Globulin Ratio 0.2L Height (Feet): 6 Height (Inches): 1.00 Weight (Pounds): 180 General Appearance: confused Cardiovascular: regular rhythm Respiratory/Chest: lungs clear Loly Dash MD Apr 03, 2018 21:04
[2018-04-04] VITALS: BP 130/72
[2018-04-04] MEDS: Albuterol/Ipratropium 3ml neb HHN SCH ×4 (01:03→19:27)
[2018-04-04 04:00] VITALS: BP 124/67
[2018-04-04] MEDS: Piperacillin/Tazobactam 3.375 GM in D5W 110 ML IVPB SCH (05:29)
[2018-04-04] MEDS ORDERED: BuPROPion XL 150mg tab ORAL SCH (06:00)
--- NOTE | 2018-04-04 06:36 | General Progress Note ---
Assessment/Plan Assessment/Plan # Thrombocytopenia -- first admission here, therefore do not have his baseline, is VERY likely related to underlying sepsis and consumptive state, plt count appears to be 50-100k, on hepatitis panel does have Hep-C++ and hiv is negative , also on US abd: No acute findings. Left renal cyst, does have evidence of liver disease --> abx have been reviewed, unlikely contributors as only short hospital stay --> other medications have been reviewed as well --> peripheral smear reviewed, does not show schistocytes or blasts --> transfuse if plt <20k # Leukocytosis very likely related to either uti/pna --> appreciate id care --> abx have been reviewed --> currently, wbc at 11.5, elevated # Anemia of chronic disease -- hgb currently 10-12 range, anemia panel reviewed --> trend cbc --> Hgb goal above 7 # Septic shock -- on ivf and has received abx # Healthcare associated bacterial pneumonia--> on abx, have been reviewed --> ID is following. Appreciate recs. # Supraventricular tachycardia # Acute prerenal azotemia # Paroxysmal SVT versus A. fib. Rate controlled with a dose of Cardizem. # Resp failure on NC # Dyshpagia - ng tube in place Greatly appreciate consultation! Subjective Constitutional: Denies: no symptoms, chills, diaphoresis, fever, malaise, weakness, other HEENT: Denies: no symptoms, eye pain, blurred vision, tearing, double vision, ear pain, ear discharge, nose pain, nose congestion, throat pain, throat swelling, mouth pain, mouth swelling, other Respiratory: Denies: no symptoms, cough, orthopnea, shortness of breath, SOB with excertion, SOB at rest, sputum, stridor, wheezing, other Gastrointestinal/Abdominal: Denies: no symptoms, abdomen distended, abdominal pain, black stools, tarry stools, blood in stool, constipated, diarrhea, difficulty swallowing, nausea, poor appetite, poor fluid intake, rectal bleeding , vomiting, other Genitourinary: Denies: no symptoms, burning, discharge, frequency, flank pain, hematuria, incontinence, pain, urgency, other Neurologic/Psychiatric: Denies: no symptoms, anxiety, depressed, emotional problems, headache, numbness, paresthesia, pre-existing deficit, seizure, tingling, tremors, weakness, other Endocrine: Reports: no symptoms Hematologic/Lymphatic: Reports: anemia Allergies: Coded Allergies: ARIPIPRAZOLE (Verified Allergy, Unknown, 03/31/18) QUETIAPINE (Verified Allergy, Unknown, 03/31/18) Subjective No acute events. Remains obtunded, on 1L nc. H/H stable. Objective Last 24 Hour Vital Signs Date Time Temp Pulse Resp B/P (MAP) Pulse Ox O2 Delivery O2 Flow Rate FiO2 04/04/18 04:00 106 04/04/18 04:00 98.1 110 20 124/67 (86) 96 98.1 04/04/18 01:09 104 22 96 Nasal Cannula 3.0 32 04/04/18 01:09 28 04/04/18 01:03 101 20 98 Nasal Cannula 2.0 28 04/04/18 00:00 99.4 115 22 130/72 (91) 94 99.4 04/04/18 00:00 111 04/03/18 21:00 Nasal Cannula 2.0 04/03/18 20:01 90 22 99 Room Air 21 04/03/18 20:01 28 04/03/18 20:00 112 04/03/18 20:00 98.0 112 24 126/73 (90) 94 98.0 04/03/18 19:36 98 20 97 Nasal Cannula 2.0 28 04/03/18 16:00 97.9 111 22 123/57 (79) 95 97.9 04/03/18 15:30 101 04/03/18 12:42 93 22 99 Room Air 21 04/03/18 12:34 84 18 97 Room Air 21 04/03/18 12:34 36 04/03/18 11:44 102 04/03/18 10:54 97.7 04/03/18 10:24 97.7 04/03/18 08:00 Nasal Cannula 2.0 04/03/18 08:00 97.7 108 20 126/66 (86) 93 97.7 04/03/18 07:51 102 04/03/18 07:28 91 20 99 Room Air 21 04/03/18 07:22 36 04/03/18 07:22 89 20 97 Room Air 21 Intake and Output 04/03/18 04/04/18 19:00 07:00 Intake Total 105 ml 1455 ml Output Total 1200 ml Balance -1095 ml 1455 ml Free Water 300 ml IV Total 75 ml 825 ml Tube Feeding 30 ml 330 ml Output Urine Total 1200 ml Laboratory Tests 04/03/18 07:00: White Blood Count 11.5H, Red Blood Count 3.27L, Hemoglobin 11.5L, Hematocrit 34.0L, Mean Corpuscular Volume 104H, Mean Corpuscular Hemoglobin 35.2H, Mean Corpuscular Hemoglobin Concent 33.8, Red Cell Distribution Width 12.1, Platelet Count 75L, Mean Platelet Volume 6.7, Neutrophils (%) (Auto) , Lymphocytes (%) ( Auto) , Monocytes (%) (Auto) , Eosinophils (%) (Auto) , Basophils (%) (Auto) , Differential Total Cells Counted 100, Neutrophils % (Manual) 51, Lymphocytes % ( Manual) 29, Monocytes % (Manual) 14H, Eosinophils % (Manual) 3, Basophils % ( Manual) 0, Band Neutrophils 3, Platelet Estimate DecreasedL, Platelet Morphology Normal, Anisocytosis , Macrocytosis 1+, Prothrombin Time 14.8H, Prothromb Time International Ratio 1.4H, Sodium Level 135L, Potassium Level 3.7 , Chloride Level 103, Carbon Dioxide Level 26, Anion Gap 6, Blood Urea Nitrogen 12, Creatinine 0.6, Estimat Glomerular Filtration Rate > 60, Glucose Level 136H , Calcium Level 8.2L, Magnesium Level 1.6L, Iron Level 52, Total Iron Binding Capacity 164L, Percent Iron Saturation 32, Unsaturated Iron Binding 112, Total Bilirubin 0.9, Aspartate Amino Transf (AST/SGOT) 96H, Alanine Aminotransferase ( ALT/SGPT) 48, Alkaline Phosphatase 189H, Total Protein 8.1, Albumin 1.6L, Globulin 6.5, Albumin/Globulin Ratio 0.2L Height (Feet): 6 Height (Inches): 1.00 Weight (Pounds): 180 General Appearance: no apparent distress EENT: TMs normal Neck: normal alignment Cardiovascular: regular rhythm Respiratory/Chest: chest wall non-tender Abdomen: non tender Extremities: non-tender Jose Mckeon MD Apr 04, 2018 06:36
[2018-04-04] MEDS: Benztropine 1mg tab NG SCH ×2 (08:08→17:10)
[2018-04-04] MEDS: Valproic Acid 500mg/10ml liquid NG SCH ×2 (08:08→21:00)
[2018-04-04] MEDS: Docusate 100mg/10ml Liq NG SCH ×2 (08:08→17:09)
[2018-04-04] MEDS: BuPROPion 75mg Tab NG SCH ×2 (08:08→17:10)
[2018-04-04] MEDS: Gabapentin 300 MG/6 ML Soln NG SCH ×3 (08:17→17:11)
[2018-04-04] MEDS: Dakin's 0.125% Soln (Quarter Strength) 16oz TOPIC SCH (08:18)
[2018-04-04 08:21] LABS: HEMATOCRIT 29.9 % (42.0-52.0); HEMOGLOBIN 10.7 G/DL (14.2-18.0); MEAN CORPUSCULAR VOLUME 101 FL (80-99); PLATELET COUNT 80 K/UL (150-450); RED BLOOD COUNT 2.96 M/UL (4.70-6.10); RED CELL DISTRIBUTION WIDTH 12.4 % (11.6-14.8); WHITE BLOOD COUNT 16.2 K/UL (4.8-10.8)
[2018-04-04 08:22] VITALS: BP 113/66
[2018-04-04 08:45] LABS: ALANINE AMINOTRANSFERASE 32 U/L (12-78); ALBUMIN 1.3 G/DL (3.4-5.0); ALBUMIN/GLOBULIN RATIO 0.2 (1.0-2.7); ALKALINE PHOSPHATASE 185 U/L (46-116); ANION GAP 3 mmol/L (5-15); ASPARTATE AMINO TRANSFERASE 57 U/L (15-37); BILIRUBIN,TOTAL 0.7 MG/DL (0.2-1.0); BLOOD UREA NITROGEN 11 mg/dL (7-18); CALCIUM 7.7 MG/DL (8.5-10.1); CARBON DIOXIDE 28 MMOL/L (21-32); CHLORIDE 105 MMOL/L (98-107); CREATININE 0.6 MG/DL (0.55-1.30); POTASSIUM 3.7 MMOL/L (3.5-5.1); SODIUM 136 MMOL/L (136-145)
--- NOTE | 2018-04-04 10:11 | GI Progress Note ---
Assessment/Plan Problems: (1) Dehydration ICD Codes: E86.0 - Dehydration SNOMED: 44308707 (2) Malnutrition ICD Codes: E46 - Unspecified protein-calorie malnutrition SNOMED: 05294709 (3) Dysphagia ICD Codes: R13.10 - Dysphagia, unspecified SNOMED: 78600662, 661545406 (4) Thrombocytopenia ICD Codes: D69.6 - Thrombocytopenia, unspecified SNOMED: 957701203 Status: unchanged Status Narrative Discussed with Dr. Mcgee. Assessment/Plan d/w with ST, patient failed and PEG recommended will put in for bioethics consult, PEG to follow pending cont NGTFs prn transfusions ppi fu labs The patient was seen and examined at bedside and all new and available data was reviewed in the patients chart. I agree with the above findings, impression and plan. (Patient seen earlier today. Signature stamp does not reflect patient encounter time.). - Artie Mcgee MD Subjective Subjective limited Objective Last 24 Hour Vital Signs Date Time Temp Pulse Resp B/P (MAP) Pulse Ox O2 Delivery O2 Flow Rate FiO2 04/04/18 08:55 Nasal Cannula 2.0 04/04/18 08:22 98.7 107 21 113/66 (82) 97 98.7 04/04/18 08:00 102 04/04/18 07:38 98 20 98 Nasal Cannula 2.0 28 04/04/18 07:38 98 22 96 Nasal Cannula 3.0 22 04/04/18 07:38 28 04/04/18 04:00 106 04/04/18 04:00 98.1 110 20 124/67 (86) 96 98.1 04/04/18 01:09 104 22 96 Nasal Cannula 3.0 32 04/04/18 01:09 28 04/04/18 01:03 101 20 98 Nasal Cannula 2.0 28 04/04/18 00:00 99.4 115 22 130/72 (91) 94 99.4 04/04/18 00:00 111 04/03/18 21:00 Nasal Cannula 2.0 04/03/18 20:01 90 22 99 Room Air 21 04/03/18 20:01 28 04/03/18 20:00 112 04/03/18 20:00 98.0 112 24 126/73 (90) 94 98.0 04/03/18 19:36 98 20 97 Nasal Cannula 2.0 28 04/03/18 16:00 97.9 111 22 123/57 (79) 95 97.9 04/03/18 15:30 101 04/03/18 12:42 93 22 99 Room Air 21 04/03/18 12:34 84 18 97 Room Air 21 04/03/18 12:34 36 04/03/18 11:44 102 04/03/18 10:54 97.7 04/03/18 10:24 97.7 Intake and Output 04/03/18 04/04/18 19:00 07:00 Intake Total 105 ml 1455 ml Output Total 1200 ml Balance -1095 ml 1455 ml Free Water 300 ml IV Total 75 ml 825 ml Tube Feeding 30 ml 330 ml Output Urine Total 1200 ml Laboratory Tests Test 04/04/18 07:30 White Blood Count 16.2 K/UL (4.8-10.8) H Red Blood Count 2.96 M/UL (4.70-6.10) L Hemoglobin 10.7 G/DL (14.2-18.0) L Hematocrit 29.9 % (42.0-52.0) L Mean Corpuscular Volume 101 FL (80-99) H Mean Corpuscular Hemoglobin 36.3 PG (27.0-31.0) H Mean Corpuscular Hemoglobin Concent 35.9 G/DL (32.0-36.0) Red Cell Distribution Width 12.4 % (11.6-14.8) Platelet Count 80 K/UL (150-450) L Mean Platelet Volume 7.2 FL (6.5-10.1) Neutrophils (%) (Auto) % (45.0-75.0) Lymphocytes (%) (Auto) % (20.0-45.0) Monocytes (%) (Auto) % (1.0-10.0) Eosinophils (%) (Auto) % (0.0-3.0) Basophils (%) (Auto) % (0.0-2.0) Differential Total Cells Counted 100 Neutrophils % (Manual) 60 % (45-75) Lymphocytes % (Manual) 25 % (20-45) Monocytes % (Manual) 7 % (1-10) Eosinophils % (Manual) 8 % (0-3) H Basophils % (Manual) 0 % (0-2) Band Neutrophils 0 % (0-8) Platelet Estimate Decreased L Platelet Morphology Normal Macrocytosis 1+ Sodium Level 136 MMOL/L (136-145) Potassium Level 3.7 MMOL/L (3.5-5.1) Chloride Level 105 MMOL/L (98-107) Carbon Dioxide Level 28 MMOL/L (21-32) Anion Gap 3 mmol/L (5-15) L Blood Urea Nitrogen 11 mg/dL (7-18) Creatinine 0.6 MG/DL (0.55-1.30) Estimat Glomerular Filtration Rate > 60 mL/min (>60) Glucose Level 134 MG/DL (74-106) H Calcium Level 7.7 MG/DL (8.5-10.1) L Magnesium Level 1.6 MG/DL (1.8-2.4) L Total Bilirubin 0.7 MG/DL (0.2-1.0) Aspartate Amino Transf (AST/SGOT) 57 U/L (15-37) H Alanine Aminotransferase (ALT/SGPT) 32 U/L (12-78) Alkaline Phosphatase 185 U/L (46-116) H Total Protein 6.9 G/DL (6.4-8.2) Albumin 1.3 G/DL (3.4-5.0) L Globulin 5.6 g/dL Albumin/Globulin Ratio 0.2 (1.0-2.7) L Alpha Fetoprotein Pending Height (Feet): 6 Height (Inches): 1.00 Weight (Pounds): 180 General Appearance: alert Cardiovascular: normal rate Respiratory/Chest: normal breath sounds Abdominal Exam: soft, other - NGT Phil Guevara CONTACT [employer] OPERATOR Apr 04, 2018 10:11
--- NOTE | 2018-04-04 10:43 | General Surgery Progress Note ---
General Surgery-Progress Note Subjective Additional Comments no acute events. leukocytosis. awaiting bioethics Objective Last 24 Hour Vital Signs Date Time Temp Pulse Resp B/P (MAP) Pulse Ox O2 Delivery O2 Flow Rate FiO2 04/04/18 08:55 Nasal Cannula 2.0 04/04/18 08:22 98.7 107 21 113/66 (82) 97 98.7 04/04/18 08:00 102 04/04/18 07:38 98 20 98 Nasal Cannula 2.0 28 04/04/18 07:38 98 22 96 Nasal Cannula 3.0 22 04/04/18 07:38 28 04/04/18 04:00 106 04/04/18 04:00 98.1 110 20 124/67 (86) 96 98.1 04/04/18 01:09 104 22 96 Nasal Cannula 3.0 32 04/04/18 01:09 28 04/04/18 01:03 101 20 98 Nasal Cannula 2.0 28 04/04/18 00:00 99.4 115 22 130/72 (91) 94 99.4 04/04/18 00:00 111 04/03/18 21:00 Nasal Cannula 2.0 04/03/18 20:01 90 22 99 Room Air 21 04/03/18 20:01 28 04/03/18 20:00 112 04/03/18 20:00 98.0 112 24 126/73 (90) 94 98.0 04/03/18 19:36 98 20 97 Nasal Cannula 2.0 28 04/03/18 16:00 97.9 111 22 123/57 (79) 95 97.9 04/03/18 15:30 101 04/03/18 12:42 93 22 99 Room Air 21 04/03/18 12:34 84 18 97 Room Air 21 04/03/18 12:34 36 04/03/18 11:44 102 04/03/18 10:54 97.7 I&O Intake and Output 04/03/18 04/04/18 19:00 07:00 Intake Total 105 ml 1455 ml Output Total 1200 ml Balance -1095 ml 1455 ml Free Water 300 ml IV Total 75 ml 825 ml Tube Feeding 30 ml 330 ml Output Urine Total 1200 ml Dressing: saturated Wound: other Drains: other Cardiovascular: RSR Respiratory: clear Abdomen: soft, non-tender, present bowel sounds Extremities: no cyanosis Laboratory Tests Test 04/04/18 07:30 White Blood Count 16.2 K/UL (4.8-10.8) H Red Blood Count 2.96 M/UL (4.70-6.10) L Hemoglobin 10.7 G/DL (14.2-18.0) L Hematocrit 29.9 % (42.0-52.0) L Mean Corpuscular Volume 101 FL (80-99) H Mean Corpuscular Hemoglobin 36.3 PG (27.0-31.0) H Mean Corpuscular Hemoglobin Concent 35.9 G/DL (32.0-36.0) Red Cell Distribution Width 12.4 % (11.6-14.8) Platelet Count 80 K/UL (150-450) L Mean Platelet Volume 7.2 FL (6.5-10.1) Neutrophils (%) (Auto) % (45.0-75.0) Lymphocytes (%) (Auto) % (20.0-45.0) Monocytes (%) (Auto) % (1.0-10.0) Eosinophils (%) (Auto) % (0.0-3.0) Basophils (%) (Auto) % (0.0-2.0) Differential Total Cells Counted 100 Neutrophils % (Manual) 60 % (45-75) Lymphocytes % (Manual) 25 % (20-45) Monocytes % (Manual) 7 % (1-10) Eosinophils % (Manual) 8 % (0-3) H Basophils % (Manual) 0 % (0-2) Band Neutrophils 0 % (0-8) Platelet Estimate Decreased L Platelet Morphology Normal Macrocytosis 1+ Sodium Level 136 MMOL/L (136-145) Potassium Level 3.7 MMOL/L (3.5-5.1) Chloride Level 105 MMOL/L (98-107) Carbon Dioxide Level 28 MMOL/L (21-32) Anion Gap 3 mmol/L (5-15) L Blood Urea Nitrogen 11 mg/dL (7-18) Creatinine 0.6 MG/DL (0.55-1.30) Estimat Glomerular Filtration Rate > 60 mL/min (>60) Glucose Level 134 MG/DL (74-106) H Calcium Level 7.7 MG/DL (8.5-10.1) L Magnesium Level 1.6 MG/DL (1.8-2.4) L Total Bilirubin 0.7 MG/DL (0.2-1.0) Aspartate Amino Transf (AST/SGOT) 57 U/L (15-37) H Alanine Aminotransferase (ALT/SGPT) 32 U/L (12-78) Alkaline Phosphatase 185 U/L (46-116) H Total Protein 6.9 G/DL (6.4-8.2) Albumin 1.3 G/DL (3.4-5.0) L Globulin 5.6 g/dL Albumin/Globulin Ratio 0.2 (1.0-2.7) L Alpha Fetoprotein Pending Plan Problems: (1) Decubitus ulcer of sacral region, stage 4 Assessment & Plan: Large malodorous full thickness stage IV / unstageable Sacral pressure injury. Wound bed with necrosis centrally with detached borders. Soft yellow slough along perimeter. Wound measures (L)9cm x (W)12.1cm with area of necrosis measuring 5.5cm x (W) 10cm. Surrounding area denuded with additional skin breakdown of which largest noted to R buttocks measuring (L)2cm x (W)0.6cm. Scrotum is grossly red with multiple partial thickness wounds at base of scrotum. DTPI noted to R heel (L) 5.7cm x (W)6cm. Area is maroon and fluctuant with delineated borders. Wound present on admission and will be cared for during hospital stay. will likely need debridement given odor and appearance. will work to obtain consent and follow with care plan Tx.Plan:Apply Dakin's moist gauze to wound. Cavilon wipe along borders .Cover with Biatain drsg Daily and prn. P200 Air Fluidized mattress. Apply Cavilon to R heel.Cover with Biatain for 7 days and prn. Reposition on sides at minimum every 2hours or as tolerated. Off-load heels with pillow. Patient without capacity to make decisions. will attempt to locate POA or next of kin will await bioethics review for consent thank you Matthew Jeter Apr 04, 2018 10:43
[2018-04-04] MEDS: Vancomycin 1250mg/D5W 250ml 250 ML IVPB SCH (10:59)
--- NOTE | 2018-04-04 11:17 | Diagnostic Imaging Report ---
Indication: Dyspnea Comparison: 03/31/2018 A single view chest radiograph was obtained. Findings: There is a faint infiltrate at the left lung base. Finding could be atelectasis or scarring. Appearance is somewhat nonspecific. In retrospect this may been present on the prior study but the previous study was suboptimal due to rotation and any disease at the lung bases difficult to see on the prior study.. Heart size is normal. No change otherwise. IMPRESSION: Faint infiltrate versus atelectasis suspected at the left lung base.
--- NOTE | 2018-04-04 11:26 | General Progress Note ---
Assessment/Plan Status: unchanged Assessment/Plan encephalopathy due to metabolic d/o hypotension tachy cardia the pt lacks capacity to make decisions hold all psych meds at this time the pt may need urgent gt d/w Dr. mendenhall Subjective Date patient seen: Apr 04, 2018 Neurologic/Psychiatric: Reports: anxiety Allergies: Coded Allergies: ARIPIPRAZOLE (Verified Allergy, Unknown, 03/31/18) QUETIAPINE (Verified Allergy, Unknown, 03/31/18) Objective Last 24 Hour Vital Signs Date Time Temp Pulse Resp B/P (MAP) Pulse Ox O2 Delivery O2 Flow Rate FiO2 04/04/18 08:55 Nasal Cannula 2.0 04/04/18 08:22 98.7 107 21 113/66 (82) 97 98.7 04/04/18 08:00 102 04/04/18 07:38 98 20 98 Nasal Cannula 2.0 28 04/04/18 07:38 98 22 96 Nasal Cannula 3.0 22 04/04/18 07:38 28 04/04/18 04:00 106 04/04/18 04:00 98.1 110 20 124/67 (86) 96 98.1 04/04/18 01:09 104 22 96 Nasal Cannula 3.0 32 04/04/18 01:09 28 04/04/18 01:03 101 20 98 Nasal Cannula 2.0 28 04/04/18 00:00 99.4 115 22 130/72 (91) 94 99.4 04/04/18 00:00 111 04/03/18 21:00 Nasal Cannula 2.0 04/03/18 20:01 90 22 99 Room Air 21 04/03/18 20:01 28 04/03/18 20:00 112 04/03/18 20:00 98.0 112 24 126/73 (90) 94 98.0 04/03/18 19:36 98 20 97 Nasal Cannula 2.0 28 04/03/18 16:00 97.9 111 22 123/57 (79) 95 97.9 04/03/18 15:30 101 04/03/18 12:42 93 22 99 Room Air 21 04/03/18 12:34 84 18 97 Room Air 21 04/03/18 12:34 36 04/03/18 11:44 102 Intake and Output 04/03/18 04/04/18 19:00 07:00 Intake Total 105 ml 1455 ml Output Total 1200 ml Balance -1095 ml 1455 ml Free Water 300 ml IV Total 75 ml 825 ml Tube Feeding 30 ml 330 ml Output Urine Total 1200 ml Laboratory Tests 04/04/18 07:30: White Blood Count 16.2H, Red Blood Count 2.96L, Hemoglobin 10.7L, Hematocrit 29.9L, Mean Corpuscular Volume 101H, Mean Corpuscular Hemoglobin 36.3H, Mean Corpuscular Hemoglobin Concent 35.9, Red Cell Distribution Width 12.4, Platelet Count 80L, Mean Platelet Volume 7.2, Neutrophils (%) (Auto) , Lymphocytes (%) ( Auto) , Monocytes (%) (Auto) , Eosinophils (%) (Auto) , Basophils (%) (Auto) , Differential Total Cells Counted 100, Neutrophils % (Manual) 60, Lymphocytes % ( Manual) 25, Monocytes % (Manual) 7, Eosinophils % (Manual) 8H, Basophils % ( Manual) 0, Band Neutrophils 0, Platelet Estimate DecreasedL, Platelet Morphology Normal, Macrocytosis 1+, Sodium Level 136, Potassium Level 3.7, Chloride Level 105, Carbon Dioxide Level 28, Anion Gap 3L, Blood Urea Nitrogen 11, Creatinine 0.6, Estimat Glomerular Filtration Rate > 60, Glucose Level 134H , Calcium Level 7.7L, Magnesium Level 1.6L, Total Bilirubin 0.7, Aspartate Amino Transf (AST/SGOT) 57H, Alanine Aminotransferase (ALT/SGPT) 32, Alkaline Phosphatase 185H, Total Protein 6.9, Albumin 1.3L, Globulin 5.6, Albumin/ Globulin Ratio 0.2L, Alpha Fetoprotein [Pending] 04/04/18 10:00: Vancomycin Level Trough [Pending] Height (Feet): 6 Height (Inches): 1.00 Weight (Pounds): 180 General Appearance: no apparent distress, alert, confused Madisyn Shetty MD Apr 04, 2018 11:26
--- NOTE | 2018-04-04 11:44 | Nephrology Progress Note ---
Assessment/Plan Problem List: (1) Malnutrition (2) Dehydration (3) Sepsis Assessment Electrolyte imbalance other conditions; 1. Acute hypoxemic respiratory failure 2. Sepsis 3. Pneumonia 4. Altered mental status 5. NURY 6. Thrombocytopenia 7. Schizophrenia 8. Stage IV decubitus ulcer Plan mag supplement- change IV protonox to NG Prevacid change hypotonic solution to Isotonic as Na is lowering per mining consultant Subjective ROS Limited/Unobtainable: No Constitutional: Reports: malaise Objective Objective Last 24 Hour Vital Signs Date Time Temp Pulse Resp B/P (MAP) Pulse Ox O2 Delivery O2 Flow Rate FiO2 04/04/18 08:55 Nasal Cannula 2.0 04/04/18 08:22 98.7 107 21 113/66 (82) 97 98.7 04/04/18 08:00 102 04/04/18 07:38 98 20 98 Nasal Cannula 2.0 28 04/04/18 07:38 98 22 96 Nasal Cannula 3.0 22 04/04/18 07:38 28 04/04/18 04:00 106 04/04/18 04:00 98.1 110 20 124/67 (86) 96 98.1 04/04/18 01:09 104 22 96 Nasal Cannula 3.0 32 04/04/18 01:09 28 04/04/18 01:03 101 20 98 Nasal Cannula 2.0 28 04/04/18 00:00 99.4 115 22 130/72 (91) 94 99.4 04/04/18 00:00 111 04/03/18 21:00 Nasal Cannula 2.0 04/03/18 20:01 90 22 99 Room Air 21 04/03/18 20:01 28 04/03/18 20:00 112 04/03/18 20:00 98.0 112 24 126/73 (90) 94 98.0 04/03/18 19:36 98 20 97 Nasal Cannula 2.0 28 04/03/18 16:00 97.9 111 22 123/57 (79) 95 97.9 04/03/18 15:30 101 04/03/18 12:42 93 22 99 Room Air 21 04/03/18 12:34 84 18 97 Room Air 21 04/03/18 12:34 36 04/03/18 11:44 102 Intake and Output 04/03/18 04/04/18 19:00 07:00 Intake Total 105 ml 1455 ml Output Total 1200 ml Balance -1095 ml 1455 ml Free Water 300 ml IV Total 75 ml 825 ml Tube Feeding 30 ml 330 ml Output Urine Total 1200 ml Laboratory Tests 04/04/18 07:30: White Blood Count 16.2H, Red Blood Count 2.96L, Hemoglobin 10.7L, Hematocrit 29.9L, Mean Corpuscular Volume 101H, Mean Corpuscular Hemoglobin 36.3H, Mean Corpuscular Hemoglobin Concent 35.9, Red Cell Distribution Width 12.4, Platelet Count 80L, Mean Platelet Volume 7.2, Neutrophils (%) (Auto) , Lymphocytes (%) ( Auto) , Monocytes (%) (Auto) , Eosinophils (%) (Auto) , Basophils (%) (Auto) , Differential Total Cells Counted 100, Neutrophils % (Manual) 60, Lymphocytes % ( Manual) 25, Monocytes % (Manual) 7, Eosinophils % (Manual) 8H, Basophils % ( Manual) 0, Band Neutrophils 0, Platelet Estimate DecreasedL, Platelet Morphology Normal, Macrocytosis 1+, Sodium Level 136, Potassium Level 3.7, Chloride Level 105, Carbon Dioxide Level 28, Anion Gap 3L, Blood Urea Nitrogen 11, Creatinine 0.6, Estimat Glomerular Filtration Rate > 60, Glucose Level 134H , Calcium Level 7.7L, Magnesium Level 1.6L, Total Bilirubin 0.7, Aspartate Amino Transf (AST/SGOT) 57H, Alanine Aminotransferase (ALT/SGPT) 32, Alkaline Phosphatase 185H, Total Protein 6.9, Albumin 1.3L, Globulin 5.6, Albumin/ Globulin Ratio 0.2L, Alpha Fetoprotein [Pending] 04/04/18 10:00: Vancomycin Level Trough 7.7 Height (Feet): 6 Height (Inches): 1.00 Weight (Pounds): 180 General Appearance: no apparent distress Cardiovascular: tachycardia Respiratory/Chest: decreased breath sounds Abdomen: soft Jeffry Jade MD Apr 04, 2018 11:44
[2018-04-04 12:00] VITALS: BP 127/70
--- NOTE | 2018-04-04 12:12 | Infectious Diseases Prog Note ---
Assessment/Plan Assessment/Plan A 1. ? pneumonia 2. leucocytosis increasing 3. hepatitis C 4, thrombocytopenia 5. necrotic sacral ulcer may be infected 6. Encephalopathy 7. Tachycardia P 1. discontinue vancomycin iv, Zosyn 2. start on Meropenem 3. waiting for wound debridement Subjective ROS Limited/Unobtainable: Yes Allergies: Coded Allergies: ARIPIPRAZOLE (Verified Allergy, Unknown, 03/31/18) QUETIAPINE (Verified Allergy, Unknown, 03/31/18) Objective Vital Signs Last 24 Hour Vital Signs Date Time Temp Pulse Resp B/P (MAP) Pulse Ox O2 Delivery O2 Flow Rate FiO2 04/04/18 08:55 Nasal Cannula 2.0 04/04/18 08:22 98.7 107 21 113/66 (82) 97 98.7 04/04/18 08:00 102 04/04/18 07:38 98 20 98 Nasal Cannula 2.0 28 04/04/18 07:38 98 22 96 Nasal Cannula 3.0 22 04/04/18 07:38 28 04/04/18 04:00 106 04/04/18 04:00 98.1 110 20 124/67 (86) 96 98.1 04/04/18 01:09 104 22 96 Nasal Cannula 3.0 32 04/04/18 01:09 28 04/04/18 01:03 101 20 98 Nasal Cannula 2.0 28 04/04/18 00:00 99.4 115 22 130/72 (91) 94 99.4 04/04/18 00:00 111 04/03/18 21:00 Nasal Cannula 2.0 04/03/18 20:01 90 22 99 Room Air 21 04/03/18 20:01 28 04/03/18 20:00 112 04/03/18 20:00 98.0 112 24 126/73 (90) 94 98.0 04/03/18 19:36 98 20 97 Nasal Cannula 2.0 28 04/03/18 16:00 97.9 111 22 123/57 (79) 95 97.9 04/03/18 15:30 101 04/03/18 12:42 93 22 99 Room Air 21 04/03/18 12:34 84 18 97 Room Air 21 04/03/18 12:34 36 Height (Feet): 6 Height (Inches): 1.00 Weight (Pounds): 180 General Appearance: no acute distress HEENT: mucous membranes moist Respiratory/Chest: lungs clear Cardiovascular: tachycardia Abdomen: soft, non tender, other - NG tube Genitourinary: other - Valle catheter Extremities: no edema Neurologic/Psychiatric: other - barely opens eyes Microbiology Date/Time Source Procedure Growth Status 04/03/18 01:30 Sputum Gram Stain - Final Resulted 04/03/18 01:30 Sputum Sputum Culture - Preliminary Resulted Laboratory Tests Test 04/04/18 07:30 04/04/18 10:00 White Blood Count 16.2 K/UL (4.8-10.8) H Red Blood Count 2.96 M/UL (4.70-6.10) L Hemoglobin 10.7 G/DL (14.2-18.0) L Hematocrit 29.9 % (42.0-52.0) L Mean Corpuscular Volume 101 FL (80-99) H Mean Corpuscular Hemoglobin 36.3 PG (27.0-31.0) H Mean Corpuscular Hemoglobin Concent 35.9 G/DL (32.0-36.0) Red Cell Distribution Width 12.4 % (11.6-14.8) Platelet Count 80 K/UL (150-450) L Mean Platelet Volume 7.2 FL (6.5-10.1) Neutrophils (%) (Auto) % (45.0-75.0) Lymphocytes (%) (Auto) % (20.0-45.0) Monocytes (%) (Auto) % (1.0-10.0) Eosinophils (%) (Auto) % (0.0-3.0) Basophils (%) (Auto) % (0.0-2.0) Differential Total Cells Counted 100 Neutrophils % (Manual) 60 % (45-75) Lymphocytes % (Manual) 25 % (20-45) Monocytes % (Manual) 7 % (1-10) Eosinophils % (Manual) 8 % (0-3) H Basophils % (Manual) 0 % (0-2) Band Neutrophils 0 % (0-8) Platelet Estimate Decreased L Platelet Morphology Normal Macrocytosis 1+ Sodium Level 136 MMOL/L (136-145) Potassium Level 3.7 MMOL/L (3.5-5.1) Chloride Level 105 MMOL/L (98-107) Carbon Dioxide Level 28 MMOL/L (21-32) Anion Gap 3 mmol/L (5-15) L Blood Urea Nitrogen 11 mg/dL (7-18) Creatinine 0.6 MG/DL (0.55-1.30) Estimat Glomerular Filtration Rate > 60 mL/min (>60) Glucose Level 134 MG/DL (74-106) H Calcium Level 7.7 MG/DL (8.5-10.1) L Magnesium Level 1.6 MG/DL (1.8-2.4) L Total Bilirubin 0.7 MG/DL (0.2-1.0) Aspartate Amino Transf (AST/SGOT) 57 U/L (15-37) H Alanine Aminotransferase (ALT/SGPT) 32 U/L (12-78) Alkaline Phosphatase 185 U/L (46-116) H Total Protein 6.9 G/DL (6.4-8.2) Albumin 1.3 G/DL (3.4-5.0) L Globulin 5.6 g/dL Albumin/Globulin Ratio 0.2 (1.0-2.7) L Alpha Fetoprotein Pending Vancomycin Level Trough 7.7 ug/mL (5.0-12.0) Current Medications Medications (Trade) Dose Ordered Sig/Elizabeth Route PRN Reason Start Time Stop Time Status Last Admin Dose Admin Acetaminophen (Tylenol) 500 mg Q4H PRN NG mild pain/temp >100.5 04/03/18 09:00 05/03/18 08:59 Acetaminophen/ Hydrocodone Bitart ([place] 5/325) 1 tab EVERY 8 HOURS PRN NG for moderate pain 04/03/18 09:00 04/10/18 08:59 04/03/18 10:24 Albuterol/ Ipratropium (Albuterol/ Ipratropium) 3 ml Q6HRT HHN 03/31/18 13:00 04/05/18 12:59 04/04/18 07:37 Benztropine Mesylate (Cogentin) 1 mg BID NG 04/03/18 09:00 04/30/18 08:59 04/04/18 08:08 Bupropion HCl (Wellbutrin) 150 mg BID NG 04/03/18 18:00 05/03/18 17:59 04/04/18 08:08 Docusate Sodium (Colace) 100 mg TWICE A DAY NG 04/03/18 09:00 05/03/18 08:59 04/04/18 08:08 Gabapentin (Neurontin) 300 mg TID NG 04/03/18 09:00 05/03/18 08:59 04/04/18 08:17 Haloperidol (Haldol) 10 mg BID PRN ORAL Agitation 03/31/18 05:45 04/30/18 05:44 Lansoprazole (Prevacid) 30 mg BID NG 04/03/18 18:00 05/03/18 17:59 04/04/18 08:10 Magnesium Sulfate 100 ml @ 100 mls/hr Q1H IVPB 04/04/18 11:00 04/04/18 14:59 04/04/18 11:35 Piperacillin Sod/ Tazobactam Sod 3.375 gm/Dextrose 110 ml @ 27.5 mls/hr Q8HR IVPB 03/31/18 14:00 04/07/18 13:59 04/04/18 05:29 Quetiapine Fumarate (SEROquel) 100 mg BID NG 04/03/18 09:00 04/30/18 17:59 04/04/18 08:08 Sodium Hypochlorite ([place] Quarter Strength) 1 applic DAILY TOPIC 03/31/18 15:41 04/30/18 15:40 04/04/18 08:18 Sodium Chloride 1,000 ml @ 50 mls/hr Q20H IV 04/03/18 13:30 05/03/18 13:29 04/04/18 08:32 Valproic Acid (Depakene) 500 mg EVERY 12 HOURS NG 04/03/18 09:15 05/03/18 09:14 04/04/18 08:08 Vancomycin HCl (Vanco rx to dose) 1 ea DAILY PRN MISC Per rx protocol 03/31/18 09:30 04/30/18 09:29 Vancomycin/Sodium Chloride 250 ml @ 166.667 mls/hr Q8H IVPB 04/04/18 20:00 04/09/18 19:59 Mao Trevino MD Apr 04, 2018 12:12
--- NOTE | 2018-04-04 13:22 | Pulmonology Progress Note ---
Assessment/Plan Problems: (1) Healthcare associated bacterial pneumonia (2) Decubitus ulcer of sacral region, stage 4 (3) Dysphagia (4) Respiratory distress (5) Dyspnea Assessment/Plan 1. Acute hypoxemic respiratory failure 2. Sepsis 3. Pneumonia 4. Altered mental status 5. NURY 6. Thrombocytopenia 7. Schizophrenia 8. Stage IV decubitus ulcer sp debridement Plan: -abx per ID: vanco/gume -f/u cultures -IVF: NS 50 cc/hour -oral care -NPO and TF, BIOETHICS eval prior to PEG -wound care, ? plan for debridement --wean oxygen as tolerated -duonebs q6 -monitor platelets -FC, continue to discuss GOC, F/U bioethics eval Subjective Allergies: Coded Allergies: ARIPIPRAZOLE (Verified Allergy, Unknown, 03/31/18) QUETIAPINE (Verified Allergy, Unknown, 03/31/18) Subjective Awake, not following commands, O2 needs stable, awaiting ethics eval prior to PEG, brandie TF's + cough, + SOB, CXr worse, WCt inc Objective Last 24 Hour Vital Signs Date Time Temp Pulse Resp B/P (MAP) Pulse Ox O2 Delivery O2 Flow Rate FiO2 04/04/18 12:00 97.9 101 26 127/70 (89) 99 97.9 04/04/18 08:55 Nasal Cannula 2.0 04/04/18 08:22 98.7 107 21 113/66 (82) 97 98.7 04/04/18 08:00 102 04/04/18 07:38 98 20 98 Nasal Cannula 2.0 28 04/04/18 07:38 98 22 96 Nasal Cannula 3.0 22 04/04/18 07:38 28 04/04/18 04:00 106 04/04/18 04:00 98.1 110 20 124/67 (86) 96 98.1 04/04/18 01:09 104 22 96 Nasal Cannula 3.0 32 04/04/18 01:09 28 04/04/18 01:03 101 20 98 Nasal Cannula 2.0 28 04/04/18 00:00 99.4 115 22 130/72 (91) 94 99.4 04/04/18 00:00 111 04/03/18 21:00 Nasal Cannula 2.0 04/03/18 20:01 90 22 99 Room Air 21 04/03/18 20:01 28 04/03/18 20:00 112 04/03/18 20:00 98.0 112 24 126/73 (90) 94 98.0 04/03/18 19:36 98 20 97 Nasal Cannula 2.0 28 04/03/18 16:00 97.9 111 22 123/57 (79) 95 97.9 04/03/18 15:30 101 Intake and Output 04/03/18 04/04/18 19:00 07:00 Intake Total 105 ml 1455 ml Output Total 1200 ml Balance -1095 ml 1455 ml Free Water 300 ml IV Total 75 ml 825 ml Tube Feeding 30 ml 330 ml Output Urine Total 1200 ml General Appearance: cachetic HEENT: normocephalic, atraumatic, anicteric, mucous membranes moist Respiratory/Chest: rhonchi Cardiovascular: normal peripheral pulses, normal rate, regular rhythm Abdomen: normal bowel sounds, soft, non tender, no organomegaly, non distended Extremities: no cyanosis, no clubbing, no edema Microbiology Date/Time Source Procedure Growth Status 04/03/18 01:30 Sputum Gram Stain - Final Resulted 04/03/18 01:30 Sputum Sputum Culture - Preliminary Resulted Laboratory Tests 04/04/18 07:30: White Blood Count 16.2H, Red Blood Count 2.96L, Hemoglobin 10.7L, Hematocrit 29.9L, Mean Corpuscular Volume 101H, Mean Corpuscular Hemoglobin 36.3H, Mean Corpuscular Hemoglobin Concent 35.9, Red Cell Distribution Width 12.4, Platelet Count 80L, Mean Platelet Volume 7.2, Neutrophils (%) (Auto) , Lymphocytes (%) ( Auto) , Monocytes (%) (Auto) , Eosinophils (%) (Auto) , Basophils (%) (Auto) , Differential Total Cells Counted 100, Neutrophils % (Manual) 60, Lymphocytes % ( Manual) 25, Monocytes % (Manual) 7, Eosinophils % (Manual) 8H, Basophils % ( Manual) 0, Band Neutrophils 0, Platelet Estimate DecreasedL, Platelet Morphology Normal, Macrocytosis 1+, Sodium Level 136, Potassium Level 3.7, Chloride Level 105, Carbon Dioxide Level 28, Anion Gap 3L, Blood Urea Nitrogen 11, Creatinine 0.6, Estimat Glomerular Filtration Rate > 60, Glucose Level 134H , Calcium Level 7.7L, Magnesium Level 1.6L, Total Bilirubin 0.7, Aspartate Amino Transf (AST/SGOT) 57H, Alanine Aminotransferase (ALT/SGPT) 32, Alkaline Phosphatase 185H, Total Protein 6.9, Albumin 1.3L, Globulin 5.6, Albumin/ Globulin Ratio 0.2L, Alpha Fetoprotein [Pending] 04/04/18 10:00: Vancomycin Level Trough 7.7 Current Medications Medications (Trade) Dose Ordered Sig/Elizabeth Route PRN Reason Start Time Stop Time Status Last Admin Dose Admin Acetaminophen (Tylenol) 500 mg Q4H PRN NG mild pain/temp >100.5 04/03/18 09:00 05/03/18 08:59 Acetaminophen/ Hydrocodone Bitart ([place] 5/325) 1 tab EVERY 8 HOURS PRN NG for moderate pain 04/03/18 09:00 04/10/18 08:59 04/03/18 10:24 Albuterol/ Ipratropium (Albuterol/ Ipratropium) 3 ml Q6HRT HHN 03/31/18 13:00 04/05/18 12:59 04/04/18 07:37 Benztropine Mesylate (Cogentin) 1 mg BID NG 04/03/18 09:00 04/30/18 08:59 04/04/18 08:08 Bupropion HCl (Wellbutrin) 150 mg BID NG 04/03/18 18:00 05/03/18 17:59 04/04/18 08:08 Docusate Sodium (Colace) 100 mg TWICE A DAY NG 04/03/18 09:00 05/03/18 08:59 04/04/18 08:08 Gabapentin (Neurontin) 300 mg TID NG 04/03/18 09:00 05/03/18 08:59 04/04/18 13:09 Haloperidol (Haldol) 10 mg BID PRN ORAL Agitation 03/31/18 05:45 04/30/18 05:44 Lansoprazole (Prevacid) 30 mg BID NG 04/03/18 18:00 05/03/18 17:59 04/04/18 08:10 Magnesium Sulfate 100 ml @ 100 mls/hr Q1H IVPB 04/04/18 11:00 04/04/18 14:59 04/04/18 13:09 Meropenem 1 gm/ Sodium Chloride 55 ml @ 110 mls/hr Q8HR IVPB 04/04/18 14:00 04/09/18 13:59 Quetiapine Fumarate (SEROquel) 100 mg BID NG 04/03/18 09:00 04/30/18 17:59 04/04/18 08:08 Sodium Hypochlorite (Dakin's Quarter Strength) 1 applic DAILY TOPIC 03/31/18 15:41 04/30/18 15:40 04/04/18 08:18 Sodium Chloride 1,000 ml @ 50 mls/hr Q20H IV 04/03/18 13:30 05/03/18 13:29 04/04/18 08:32 Valproic Acid (Depakene) 500 mg EVERY 12 HOURS NG 04/03/18 09:15 05/03/18 09:14 04/04/18 08:08 Brendan Eugene MD Apr 04, 2018 13:22
[2018-04-04] MEDS: Meropenem 1 GM in NS 55 ML IVPB SCH ×2 (13:50→21:50)
--- NOTE | 2018-04-04 14:08 | Cardiology Progress Note ---
Assessment/Plan Assessment/Plan 1. Sinus tachycardia, most likely secondary to overwhelming sepsis, continue hydration, electrolyte correction and oxygen administration. 2. Short run of nonsustained ventricular tachycardia, Mg sulphate to bring Mg level >2.5, another 2 grams of Mg sulphate will be given. 3. Acute hypoxemic respiratory failure 4. Pneumonia 5. NURY, resolved. 6. Thrombocytopenia Subjective Subjective Sinus tachycardia at 108. Objective Last 24 Hour Vital Signs Date Time Temp Pulse Resp B/P (MAP) Pulse Ox O2 Delivery O2 Flow Rate FiO2 04/04/18 13:37 98 20 98 Nasal Cannula 2.0 28 04/04/18 13:37 28 04/04/18 13:37 103 20 97 Nasal Cannula 3.0 22 04/04/18 12:00 97.9 101 26 127/70 (89) 99 97.9 04/04/18 12:00 101 04/04/18 08:55 Nasal Cannula 2.0 04/04/18 08:22 98.7 107 21 113/66 (82) 97 98.7 04/04/18 08:00 102 04/04/18 07:38 98 20 98 Nasal Cannula 2.0 28 04/04/18 07:38 98 22 96 Nasal Cannula 3.0 22 04/04/18 07:38 28 04/04/18 04:00 106 04/04/18 04:00 98.1 110 20 124/67 (86) 96 98.1 04/04/18 01:09 104 22 96 Nasal Cannula 3.0 32 04/04/18 01:09 28 04/04/18 01:03 101 20 98 Nasal Cannula 2.0 28 04/04/18 00:00 99.4 115 22 130/72 (91) 94 99.4 04/04/18 00:00 111 04/03/18 21:00 Nasal Cannula 2.0 04/03/18 20:01 90 22 99 Room Air 21 04/03/18 20:01 28 04/03/18 20:00 112 04/03/18 20:00 98.0 112 24 126/73 (90) 94 98.0 04/03/18 19:36 98 20 97 Nasal Cannula 2.0 28 04/03/18 16:00 97.9 111 22 123/57 (79) 95 97.9 04/03/18 15:30 101 Intake and Output 04/03/18 04/04/18 19:00 07:00 Intake Total 105 ml 1455 ml Output Total 1200 ml Balance -1095 ml 1455 ml Free Water 300 ml IV Total 75 ml 825 ml Tube Feeding 30 ml 330 ml Output Urine Total 1200 ml Laboratory Tests Test 04/04/18 07:30 04/04/18 10:00 White Blood Count 16.2 K/UL (4.8-10.8) H Red Blood Count 2.96 M/UL (4.70-6.10) L Hemoglobin 10.7 G/DL (14.2-18.0) L Hematocrit 29.9 % (42.0-52.0) L Mean Corpuscular Volume 101 FL (80-99) H Mean Corpuscular Hemoglobin 36.3 PG (27.0-31.0) H Mean Corpuscular Hemoglobin Concent 35.9 G/DL (32.0-36.0) Red Cell Distribution Width 12.4 % (11.6-14.8) Platelet Count 80 K/UL (150-450) L Mean Platelet Volume 7.2 FL (6.5-10.1) Neutrophils (%) (Auto) % (45.0-75.0) Lymphocytes (%) (Auto) % (20.0-45.0) Monocytes (%) (Auto) % (1.0-10.0) Eosinophils (%) (Auto) % (0.0-3.0) Basophils (%) (Auto) % (0.0-2.0) Differential Total Cells Counted 100 Neutrophils % (Manual) 60 % (45-75) Lymphocytes % (Manual) 25 % (20-45) Monocytes % (Manual) 7 % (1-10) Eosinophils % (Manual) 8 % (0-3) H Basophils % (Manual) 0 % (0-2) Band Neutrophils 0 % (0-8) Platelet Estimate Decreased L Platelet Morphology Normal Macrocytosis 1+ Sodium Level 136 MMOL/L (136-145) Potassium Level 3.7 MMOL/L (3.5-5.1) Chloride Level 105 MMOL/L (98-107) Carbon Dioxide Level 28 MMOL/L (21-32) Anion Gap 3 mmol/L (5-15) L Blood Urea Nitrogen 11 mg/dL (7-18) Creatinine 0.6 MG/DL (0.55-1.30) Estimat Glomerular Filtration Rate > 60 mL/min (>60) Glucose Level 134 MG/DL (74-106) H Calcium Level 7.7 MG/DL (8.5-10.1) L Magnesium Level 1.6 MG/DL (1.8-2.4) L Total Bilirubin 0.7 MG/DL (0.2-1.0) Aspartate Amino Transf (AST/SGOT) 57 U/L (15-37) H Alanine Aminotransferase (ALT/SGPT) 32 U/L (12-78) Alkaline Phosphatase 185 U/L (46-116) H Total Protein 6.9 G/DL (6.4-8.2) Albumin 1.3 G/DL (3.4-5.0) L Globulin 5.6 g/dL Albumin/Globulin Ratio 0.2 (1.0-2.7) L Alpha Fetoprotein Pending Vancomycin Level Trough 7.7 ug/mL (5.0-12.0) Microbiology Date/Time Source Procedure Growth Status 04/03/18 01:30 Sputum Gram Stain - Final Resulted 04/03/18 01:30 Sputum Sputum Culture - Preliminary Resulted Objective HEENT: Atraumatic and normocephalic. Anicteric. Pupils are equal, round, and reactive to light and accommodation. Conjunctival pallor is present. NECK: JVP less than 5 cm. No carotid bruit. Carotid upstroke is 2+ bilaterally. CARDIOVASCULAR SYSTEM: Normal S1, S2. Regular rhythm. Tachycardic. No murmurs, gallops, or rubs. LUNGS: Clear to auscultation bilaterally. ABDOMEN: Soft, nontender, and nondistended. No hepatosplenomegaly. Positive bowel sounds. EXTREMITIES: No evidence of edema, clubbing, or cyanosis. Gokul Villalta MD Apr 04, 2018 14:08
[2018-04-04 16:00] VITALS: BP 127/62
[2018-04-04 20:00] VITALS: BP 102/53
[2018-04-04] MEDS ORDERED: Vancomycin 750mg/NS 250ml IVPB SCH (20:00)
--- NOTE | 2018-04-04 20:45 | General Progress Note ---
Assessment/Plan Problem List: (1) Acute prerenal azotemia ICD Codes: R79.89 - Other specified abnormal findings of blood chemistry SNOMED: 107601784 (2) Dyspnea ICD Codes: R06.00 - Dyspnea, unspecified SNOMED: 219753594 (3) Sepsis ICD Codes: A41.9 - Sepsis, unspecified organism SNOMED: 99675184 Qualifiers: Qualified Codes: A41.9 - Sepsis, unspecified organism (4) Dysphagia ICD Codes: R13.10 - Dysphagia, unspecified SNOMED: 31105778, 714008116 (5) Healthcare associated bacterial pneumonia ICD Codes: J15.9 - Unspecified bacterial pneumonia SNOMED: 233852315 Status: progressing Assessment/Plan r/o infection no wheezing afebrile failed swallow study dysphagia has ng tube feeding tube per gi sepsis improving Subjective ROS Limited/Unobtainable: Yes Allergies: Coded Allergies: ARIPIPRAZOLE (Verified Allergy, Unknown, 03/31/18) QUETIAPINE (Verified Allergy, Unknown, 03/31/18) Objective Last 24 Hour Vital Signs Date Time Temp Pulse Resp B/P (MAP) Pulse Ox O2 Delivery O2 Flow Rate FiO2 04/04/18 19:41 110 20 97 Nasal Cannula 2.0 22 04/04/18 19:27 28 04/04/18 19:27 110 20 96 Nasal Cannula 2.0 04/04/18 16:00 98.2 103 24 127/62 (83) 96 98.2 04/04/18 16:00 113 04/04/18 13:37 98 20 98 Nasal Cannula 2.0 28 04/04/18 13:37 28 04/04/18 13:37 103 20 97 Nasal Cannula 3.0 22 04/04/18 12:00 97.9 101 26 127/70 (89) 99 97.9 04/04/18 12:00 101 04/04/18 08:55 Nasal Cannula 2.0 04/04/18 08:22 98.7 107 21 113/66 (82) 97 98.7 04/04/18 08:00 102 04/04/18 07:38 98 20 98 Nasal Cannula 2.0 28 04/04/18 07:38 98 22 96 Nasal Cannula 3.0 22 04/04/18 07:38 28 04/04/18 04:00 106 04/04/18 04:00 98.1 110 20 124/67 (86) 96 98.1 04/04/18 01:09 104 22 96 Nasal Cannula 3.0 32 04/04/18 01:09 28 04/04/18 01:03 101 20 98 Nasal Cannula 2.0 28 04/04/18 00:00 99.4 115 22 130/72 (91) 94 99.4 04/04/18 00:00 111 04/03/18 21:00 Nasal Cannula 2.0 Intake and Output 04/03/18 04/04/18 19:00 07:00 Intake Total 105 ml 1455 ml Output Total 1200 ml Balance -1095 ml 1455 ml Free Water 300 ml IV Total 75 ml 825 ml Tube Feeding 30 ml 330 ml Output Urine Total 1200 ml Laboratory Tests 04/04/18 07:30: White Blood Count 16.2H, Red Blood Count 2.96L, Hemoglobin 10.7L, Hematocrit 29.9L, Mean Corpuscular Volume 101H, Mean Corpuscular Hemoglobin 36.3H, Mean Corpuscular Hemoglobin Concent 35.9, Red Cell Distribution Width 12.4, Platelet Count 80L, Mean Platelet Volume 7.2, Neutrophils (%) (Auto) , Lymphocytes (%) ( Auto) , Monocytes (%) (Auto) , Eosinophils (%) (Auto) , Basophils (%) (Auto) , Differential Total Cells Counted 100, Neutrophils % (Manual) 60, Lymphocytes % ( Manual) 25, Monocytes % (Manual) 7, Eosinophils % (Manual) 8H, Basophils % ( Manual) 0, Band Neutrophils 0, Platelet Estimate DecreasedL, Platelet Morphology Normal, Macrocytosis 1+, Sodium Level 136, Potassium Level 3.7, Chloride Level 105, Carbon Dioxide Level 28, Anion Gap 3L, Blood Urea Nitrogen 11, Creatinine 0.6, Estimat Glomerular Filtration Rate > 60, Glucose Level 134H , Calcium Level 7.7L, Magnesium Level 1.6L, Total Bilirubin 0.7, Aspartate Amino Transf (AST/SGOT) 57H, Alanine Aminotransferase (ALT/SGPT) 32, Alkaline Phosphatase 185H, Total Protein 6.9, Albumin 1.3L, Globulin 5.6, Albumin/ Globulin Ratio 0.2L, Alpha Fetoprotein [Pending] 04/04/18 10:00: Vancomycin Level Trough 7.7 Height (Feet): 6 Height (Inches): 1.00 Weight (Pounds): 180 Cardiovascular: regular rhythm Respiratory/Chest: lungs clear Abdomen: soft Loly Dash MD Apr 04, 2018 20:45
--- NOTE | 2018-04-04 21:52 | Psych Consult Progress Note ---
Psych Consult Progress Note Consult 04/03/18 the pt is alert however confused and has episodes of agitation Vital Signs Last 24 Hour Vital Signs Date Time Temp Pulse Resp B/P (MAP) Pulse Ox O2 Delivery O2 Flow Rate FiO2 04/04/18 19:41 110 20 97 Nasal Cannula 2.0 22 04/04/18 19:27 28 04/04/18 19:27 110 20 96 Nasal Cannula 2.0 04/04/18 16:00 98.2 103 24 127/62 (83) 96 98.2 04/04/18 16:00 113 04/04/18 13:37 98 20 98 Nasal Cannula 2.0 28 04/04/18 13:37 28 04/04/18 13:37 103 20 97 Nasal Cannula 3.0 22 04/04/18 12:00 97.9 101 26 127/70 (89) 99 97.9 04/04/18 12:00 101 04/04/18 08:55 Nasal Cannula 2.0 04/04/18 08:22 98.7 107 21 113/66 (82) 97 98.7 04/04/18 08:00 102 04/04/18 07:38 98 20 98 Nasal Cannula 2.0 28 04/04/18 07:38 98 22 96 Nasal Cannula 3.0 22 04/04/18 07:38 28 04/04/18 04:00 106 04/04/18 04:00 98.1 110 20 124/67 (86) 96 98.1 04/04/18 01:09 104 22 96 Nasal Cannula 3.0 32 04/04/18 01:09 28 04/04/18 01:03 101 20 98 Nasal Cannula 2.0 28 04/04/18 00:00 99.4 115 22 130/72 (91) 94 99.4 04/04/18 00:00 111 Labs Laboratory Tests Test 04/04/18 07:30 04/04/18 10:00 White Blood Count 16.2 K/UL (4.8-10.8) H Red Blood Count 2.96 M/UL (4.70-6.10) L Hemoglobin 10.7 G/DL (14.2-18.0) L Hematocrit 29.9 % (42.0-52.0) L Mean Corpuscular Volume 101 FL (80-99) H Mean Corpuscular Hemoglobin 36.3 PG (27.0-31.0) H Mean Corpuscular Hemoglobin Concent 35.9 G/DL (32.0-36.0) Red Cell Distribution Width 12.4 % (11.6-14.8) Platelet Count 80 K/UL (150-450) L Mean Platelet Volume 7.2 FL (6.5-10.1) Neutrophils (%) (Auto) % (45.0-75.0) Lymphocytes (%) (Auto) % (20.0-45.0) Monocytes (%) (Auto) % (1.0-10.0) Eosinophils (%) (Auto) % (0.0-3.0) Basophils (%) (Auto) % (0.0-2.0) Differential Total Cells Counted 100 Neutrophils % (Manual) 60 % (45-75) Lymphocytes % (Manual) 25 % (20-45) Monocytes % (Manual) 7 % (1-10) Eosinophils % (Manual) 8 % (0-3) H Basophils % (Manual) 0 % (0-2) Band Neutrophils 0 % (0-8) Platelet Estimate Decreased L Platelet Morphology Normal Macrocytosis 1+ Sodium Level 136 MMOL/L (136-145) Potassium Level 3.7 MMOL/L (3.5-5.1) Chloride Level 105 MMOL/L (98-107) Carbon Dioxide Level 28 MMOL/L (21-32) Anion Gap 3 mmol/L (5-15) L Blood Urea Nitrogen 11 mg/dL (7-18) Creatinine 0.6 MG/DL (0.55-1.30) Estimat Glomerular Filtration Rate > 60 mL/min (>60) Glucose Level 134 MG/DL (74-106) H Calcium Level 7.7 MG/DL (8.5-10.1) L Magnesium Level 1.6 MG/DL (1.8-2.4) L Total Bilirubin 0.7 MG/DL (0.2-1.0) Aspartate Amino Transf (AST/SGOT) 57 U/L (15-37) H Alanine Aminotransferase (ALT/SGPT) 32 U/L (12-78) Alkaline Phosphatase 185 U/L (46-116) H Total Protein 6.9 G/DL (6.4-8.2) Albumin 1.3 G/DL (3.4-5.0) L Globulin 5.6 g/dL Albumin/Globulin Ratio 0.2 (1.0-2.7) L Alpha Fetoprotein Pending Vancomycin Level Trough 7.7 ug/mL (5.0-12.0) Medications Current Medications Medications (Trade) Dose Ordered Sig/Elizabeth Route PRN Reason Start Time Stop Time Status Last Admin Dose Admin Acetaminophen (Tylenol) 500 mg Q4H PRN NG mild pain/temp >100.5 04/03/18 09:00 05/03/18 08:59 Acetaminophen/ Hydrocodone Bitart (Salley 5/325) 1 tab EVERY 8 HOURS PRN NG for moderate pain 04/03/18 09:00 04/10/18 08:59 04/03/18 10:24 Albuterol/ Ipratropium (Albuterol/ Ipratropium) 3 ml Q6HRT HHN 03/31/18 13:00 04/05/18 12:59 04/04/18 19:27 Benztropine Mesylate (Cogentin) 1 mg BID NG 04/03/18 09:00 04/30/18 08:59 04/04/18 17:10 Bupropion HCl (Wellbutrin) 150 mg BID NG 04/03/18 18:00 05/03/18 17:59 04/04/18 17:10 Docusate Sodium (Colace) 100 mg TWICE A DAY NG 04/03/18 09:00 05/03/18 08:59 04/04/18 17:09 Gabapentin (Neurontin) 300 mg TID NG 04/03/18 09:00 05/03/18 08:59 04/04/18 17:11 Haloperidol (Haldol) 10 mg BID PRN ORAL Agitation 03/31/18 05:45 04/30/18 05:44 Lansoprazole (Prevacid) 30 mg BID NG 04/03/18 18:00 05/03/18 17:59 04/04/18 17:09 Meropenem 1 gm/ Sodium Chloride 55 ml @ 110 mls/hr Q8HR IVPB 04/04/18 14:00 04/09/18 13:59 04/04/18 21:50 Quetiapine Fumarate (SEROquel) 100 mg BID NG 04/03/18 09:00 04/30/18 17:59 04/04/18 17:10 Sodium Hypochlorite (Dakin's Quarter Strength) 1 applic DAILY TOPIC 03/31/18 15:41 04/30/18 15:40 04/04/18 08:18 Sodium Chloride 1,000 ml @ 50 mls/hr Q20H IV 04/03/18 13:30 05/03/18 13:29 04/04/18 08:32 Valproic Acid (Depakene) 500 mg EVERY 12 HOURS NG 04/03/18 09:15 05/03/18 09:14 04/04/18 21:00 Problems: (1) Malnutrition Assessment & Plan: encephalopathy due to metabolic d/o hypotension tachy cardia the pt lacks capacity to make decisions hold all psych meds at this time the pt may need urgent gt d/w Madisyn Sloan MD Apr 04, 2018 21:52
[2018-04-05] VITALS: BP 108/71
[2018-04-05] MEDS: Albuterol/Ipratropium 3ml neb HHN SCH ×2 (00:44→07:36)
[2018-04-05 04:00] VITALS: BP 128/66
[2018-04-05 05:20] LABS: HEMOGLOBIN 10.5 G/DL (14.2-18.0); MEAN CORPUSCULAR VOLUME 104 FL (80-99); PLATELET COUNT 85 K/UL (150-450); RED BLOOD COUNT 2.97 M/UL (4.70-6.10); RED CELL DISTRIBUTION WIDTH 12.9 % (11.6-14.8); WHITE BLOOD COUNT 13.5 K/UL (4.8-10.8)
[2018-04-05] MEDS: Meropenem 1 GM in NS 55 ML IVPB SCH ×3 (06:00→21:49)
[2018-04-05 06:29] LABS: ALANINE AMINOTRANSFERASE 33 U/L (12-78); ALBUMIN 1.4 G/DL (3.4-5.0); ALBUMIN/GLOBULIN RATIO 0.3 (1.0-2.7); ALKALINE PHOSPHATASE 226 U/L (46-116); ANION GAP 3 mmol/L (5-15); ASPARTATE AMINO TRANSFERASE 46 U/L (15-37); BILIRUBIN,TOTAL 0.6 MG/DL (0.2-1.0); BLOOD UREA NITROGEN 12 mg/dL (7-18); CALCIUM 7.9 MG/DL (8.5-10.1); CARBON DIOXIDE 29 MMOL/L (21-32); CHLORIDE 105 MMOL/L (98-107); CREATININE 0.6 MG/DL (0.55-1.30); FERRITIN 1427 NG/ML (8-388); PHOSPHORUS 2.1 MG/DL (2.5-4.9); POTASSIUM 4.2 MMOL/L (3.5-5.1); SODIUM 137 MMOL/L (136-145)
[2018-04-05 08:00] VITALS: BP 126/78
[2018-04-05] MEDS: BuPROPion 75mg Tab NG SCH ×2 (09:07→17:49)
[2018-04-05] MEDS: Docusate 100mg/10ml Liq NG SCH ×2 (09:07→17:49)
[2018-04-05] MEDS: Valproic Acid 500mg/10ml liquid NG SCH ×2 (09:07→21:47)
[2018-04-05] MEDS: Benztropine 1mg tab NG SCH ×2 (09:07→17:49)
[2018-04-05] MEDS: Dakin's 0.125% Soln (Quarter Strength) 16oz TOPIC SCH (09:08)
[2018-04-05] MEDS: Gabapentin 300 MG/6 ML Soln NG SCH ×3 (09:11→17:49)
--- NOTE | 2018-04-05 10:29 | Nephrology Progress Note ---
Assessment/Plan Problem List: (1) Malnutrition (2) Dehydration (3) Sepsis (4) Electrolyte abnormality Assessment Electrolyte imbalance other conditions; 1. Acute hypoxemic respiratory failure 2. Sepsis 3. Pneumonia 4. Altered mental status 5. NURY 6. Thrombocytopenia 7. Schizophrenia 8. Stage IV decubitus ulcer Plan mag & Phos supplement- change IV protonox to NG Prevacid change hypotonic solution to Isotonic as Na is lowering per data virtualization consultant Subjective ROS Limited/Unobtainable: No Constitutional: Reports: malaise, weakness Objective Objective Last 24 Hour Vital Signs Date Time Temp Pulse Resp B/P (MAP) Pulse Ox O2 Delivery O2 Flow Rate FiO2 04/05/18 08:00 97.3 95 20 126/78 (94) 99 97.3 04/05/18 07:35 99 20 98 Nasal Cannula 2.0 22 04/05/18 07:25 28 04/05/18 07:25 91 20 96 Nasal Cannula 2.0 04/05/18 04:00 105 04/05/18 04:00 98.2 105 20 128/66 (86) 99 98.2 04/05/18 00:55 108 20 98 Nasal Cannula 2.0 22 04/05/18 00:44 28 04/05/18 00:44 97 20 97 Nasal Cannula 2.0 04/05/18 00:00 97.0 90 20 108/71 (83) 96 97.0 04/05/18 00:00 57 04/04/18 21:00 Nasal Cannula 2.0 04/04/18 20:00 97.2 80 22 102/53 (69) 100 97.2 04/04/18 20:00 107 04/04/18 19:41 110 20 97 Nasal Cannula 2.0 22 04/04/18 19:27 28 04/04/18 19:27 110 20 96 Nasal Cannula 2.0 04/04/18 16:00 98.2 103 24 127/62 (83) 96 98.2 04/04/18 16:00 113 04/04/18 13:37 98 20 98 Nasal Cannula 2.0 28 04/04/18 13:37 28 04/04/18 13:37 103 20 97 Nasal Cannula 3.0 22 04/04/18 12:00 97.9 101 26 127/70 (89) 99 97.9 04/04/18 12:00 101 Intake and Output 04/04/18 04/05/18 19:00 07:00 Intake Total 1847 ml Output Total 1400 ml 800 ml Balance 447 ml -800 ml Free Water 150 ml IV Total 977 ml Tube Feeding 720 ml Output Urine Total 1400 ml 800 ml Laboratory Tests 04/05/18 03:50: White Blood Count 13.5H, Red Blood Count 2.97L, Hemoglobin 10.5L, Hematocrit 31.0L, Mean Corpuscular Volume 104H, Mean Corpuscular Hemoglobin 35.1H, Mean Corpuscular Hemoglobin Concent 33.7, Red Cell Distribution Width 12.9, Platelet Count 85L, Mean Platelet Volume 6.1L, Neutrophils (%) (Auto) , Lymphocytes (%) ( Auto) , Monocytes (%) (Auto) , Eosinophils (%) (Auto) , Basophils (%) (Auto) , Differential Total Cells Counted 100, Neutrophils % (Manual) 62, Lymphocytes % ( Manual) 17L, Monocytes % (Manual) 15H, Eosinophils % (Manual) 6H, Basophils % ( Manual) 0, Band Neutrophils 0, Platelet Estimate DecreasedL, Platelet Morphology Normal, Hypochromasia 1+, Anisocytosis 1+, Macrocytosis 1+, Sodium Level 137, Potassium Level 4.2, Chloride Level 105, Carbon Dioxide Level 29, Anion Gap 3L, Blood Urea Nitrogen 12, Creatinine 0.6, Estimat Glomerular Filtration Rate > 60, Glucose Level 143H, Calcium Level 7.9L, Phosphorus Level 2.1L, Magnesium Level 1.7L, Ferritin 1427H, Total Bilirubin 0.6, Aspartate Amino Transf (AST/SGOT) 46H, Alanine Aminotransferase (ALT/SGPT) 33, Alkaline Phosphatase 226H, C-Reactive Protein, Quantitative 3.3H, Total Protein 6.9, Albumin 1.4L, Globulin 5.5, Albumin/Globulin Ratio 0.3L, Valproic Acid (Depakene ) Level 30L Height (Feet): 6 Height (Inches): 1.00 Weight (Pounds): 180 General Appearance: no apparent distress Respiratory/Chest: decreased breath sounds Abdomen: soft Jeffry Jade MD Apr 05, 2018 10:29
[2018-04-05] MEDS ORDERED: Sodium Phosphate 30 MM in NS 275 ML IVPB SCH (11:00)
--- NOTE | 2018-04-05 11:34 | General Progress Note ---
Assessment/Plan Problem List: (1) Malnutrition Assessment & Plan: encephalopathy due to metabolic d/o hypotension tachy cardia the pt lacks capacity to make decisions hold all psych meds at this time the pt may need urgent gt d/w Dr. mendenhall ICD Codes: E46 - Unspecified protein-calorie malnutrition SNOMED: 78733183 Status: stable Assessment/Plan encephalopathy due to metabolic d/o hypotension tachy cardia the pt lacks capacity to make decisions hold all psych meds at this time the pt may need urgent gt d/w Dr. mendenhall d/w Dr. Veloz Subjective Neurologic/Psychiatric: Reports: anxiety, depressed, emotional problems Allergies: Coded Allergies: ARIPIPRAZOLE (Verified Allergy, Unknown, 03/31/18) QUETIAPINE (Verified Allergy, Unknown, 03/31/18) Objective Last 24 Hour Vital Signs Date Time Temp Pulse Resp B/P (MAP) Pulse Ox O2 Delivery O2 Flow Rate FiO2 04/05/18 09:00 Nasal Cannula 2.0 04/05/18 08:00 97.3 95 20 126/78 (94) 99 97.3 04/05/18 07:35 99 20 98 Nasal Cannula 2.0 22 04/05/18 07:25 28 04/05/18 07:25 91 20 96 Nasal Cannula 2.0 04/05/18 04:00 105 04/05/18 04:00 98.2 105 20 128/66 (86) 99 98.2 04/05/18 00:55 108 20 98 Nasal Cannula 2.0 22 04/05/18 00:44 28 04/05/18 00:44 97 20 97 Nasal Cannula 2.0 04/05/18 00:00 97.0 90 20 108/71 (83) 96 97.0 04/05/18 00:00 57 04/04/18 21:00 Nasal Cannula 2.0 04/04/18 20:00 97.2 80 22 102/53 (69) 100 97.2 04/04/18 20:00 107 04/04/18 19:41 110 20 97 Nasal Cannula 2.0 22 04/04/18 19:27 28 04/04/18 19:27 110 20 96 Nasal Cannula 2.0 04/04/18 16:00 98.2 103 24 127/62 (83) 96 98.2 04/04/18 16:00 113 04/04/18 13:37 98 20 98 Nasal Cannula 2.0 28 04/04/18 13:37 28 04/04/18 13:37 103 20 97 Nasal Cannula 3.0 22 04/04/18 12:00 97.9 101 26 127/70 (89) 99 97.9 04/04/18 12:00 101 Intake and Output 04/04/18 04/05/18 19:00 07:00 Intake Total 1847 ml Output Total 1400 ml 800 ml Balance 447 ml -800 ml Free Water 150 ml IV Total 977 ml Tube Feeding 720 ml Output Urine Total 1400 ml 800 ml Laboratory Tests 04/05/18 03:50: White Blood Count 13.5H, Red Blood Count 2.97L, Hemoglobin 10.5L, Hematocrit 31.0L, Mean Corpuscular Volume 104H, Mean Corpuscular Hemoglobin 35.1H, Mean Corpuscular Hemoglobin Concent 33.7, Red Cell Distribution Width 12.9, Platelet Count 85L, Mean Platelet Volume 6.1L, Neutrophils (%) (Auto) , Lymphocytes (%) ( Auto) , Monocytes (%) (Auto) , Eosinophils (%) (Auto) , Basophils (%) (Auto) , Differential Total Cells Counted 100, Neutrophils % (Manual) 62, Lymphocytes % ( Manual) 17L, Monocytes % (Manual) 15H, Eosinophils % (Manual) 6H, Basophils % ( Manual) 0, Band Neutrophils 0, Platelet Estimate DecreasedL, Platelet Morphology Normal, Hypochromasia 1+, Anisocytosis 1+, Macrocytosis 1+, Sodium Level 137, Potassium Level 4.2, Chloride Level 105, Carbon Dioxide Level 29, Anion Gap 3L, Blood Urea Nitrogen 12, Creatinine 0.6, Estimat Glomerular Filtration Rate > 60, Glucose Level 143H, Calcium Level 7.9L, Phosphorus Level 2.1L, Magnesium Level 1.7L, Ferritin 1427H, Total Bilirubin 0.6, Aspartate Amino Transf (AST/SGOT) 46H, Alanine Aminotransferase (ALT/SGPT) 33, Alkaline Phosphatase 226H, C-Reactive Protein, Quantitative 3.3H, Total Protein 6.9, Albumin 1.4L, Globulin 5.5, Albumin/Globulin Ratio 0.3L, Valproic Acid (Depakene ) Level 30L Height (Feet): 6 Height (Inches): 1.00 Weight (Pounds): 180 General Appearance: no apparent distress, lethargic, confused, agitated Madisyn Shetty MD Apr 05, 2018 11:34
--- NOTE | 2018-04-05 11:57 | GI Progress Note ---
Assessment/Plan Problems: (1) Dehydration ICD Codes: E86.0 - Dehydration SNOMED: 20457597 (2) Malnutrition ICD Codes: E46 - Unspecified protein-calorie malnutrition SNOMED: 68751133 (3) Dysphagia ICD Codes: R13.10 - Dysphagia, unspecified SNOMED: 27427786, [id number] (4) Thrombocytopenia ICD Codes: D69.6 - Thrombocytopenia, unspecified SNOMED: 640703713 Status: unchanged Status Narrative Discussed with Dr. Mcgee. Assessment/Plan d/w with ST, patient failed and PEG recommended pending bioethics today cont NGTFs prn transfusions ppi fu labs The patient was seen and examined at bedside and all new and available data was reviewed in the patients chart. I agree with the above findings, impression and plan. (Patient seen earlier today. Signature stamp does not reflect patient encounter time.). - Artie Mcgee MD Subjective Subjective limited Objective Last 24 Hour Vital Signs Date Time Temp Pulse Resp B/P (MAP) Pulse Ox O2 Delivery O2 Flow Rate FiO2 04/05/18 09:00 Nasal Cannula 2.0 04/05/18 08:00 97.3 95 20 126/78 (94) 99 97.3 04/05/18 07:35 99 20 98 Nasal Cannula 2.0 22 04/05/18 07:25 28 04/05/18 07:25 91 20 96 Nasal Cannula 2.0 04/05/18 04:00 105 04/05/18 04:00 98.2 105 20 128/66 (86) 99 98.2 04/05/18 00:55 108 20 98 Nasal Cannula 2.0 22 04/05/18 00:44 28 04/05/18 00:44 97 20 97 Nasal Cannula 2.0 04/05/18 00:00 97.0 90 20 108/71 (83) 96 97.0 04/05/18 00:00 57 04/04/18 21:00 Nasal Cannula 2.0 04/04/18 20:00 97.2 80 22 102/53 (69) 100 97.2 04/04/18 20:00 107 04/04/18 19:41 110 20 97 Nasal Cannula 2.0 22 04/04/18 19:27 28 04/04/18 19:27 110 20 96 Nasal Cannula 2.0 04/04/18 16:00 98.2 103 24 127/62 (83) 96 98.2 04/04/18 16:00 113 04/04/18 13:37 98 20 98 Nasal Cannula 2.0 28 04/04/18 13:37 28 04/04/18 13:37 103 20 97 Nasal Cannula 3.0 22 04/04/18 12:00 97.9 101 26 127/70 (89) 99 97.9 04/04/18 12:00 101 Intake and Output 04/04/18 04/05/18 19:00 07:00 Intake Total 1847 ml Output Total 1400 ml 800 ml Balance 447 ml -800 ml Free Water 150 ml IV Total 977 ml Tube Feeding 720 ml Output Urine Total 1400 ml 800 ml Laboratory Tests Test 04/05/18 03:50 White Blood Count 13.5 K/UL (4.8-10.8) H Red Blood Count 2.97 M/UL (4.70-6.10) L Hemoglobin 10.5 G/DL (14.2-18.0) L Hematocrit 31.0 % (42.0-52.0) L Mean Corpuscular Volume 104 FL (80-99) H Mean Corpuscular Hemoglobin 35.1 PG (27.0-31.0) H Mean Corpuscular Hemoglobin Concent 33.7 G/DL (32.0-36.0) Red Cell Distribution Width 12.9 % (11.6-14.8) Platelet Count 85 K/UL (150-450) L Mean Platelet Volume 6.1 FL (6.5-10.1) L Neutrophils (%) (Auto) % (45.0-75.0) Lymphocytes (%) (Auto) % (20.0-45.0) Monocytes (%) (Auto) % (1.0-10.0) Eosinophils (%) (Auto) % (0.0-3.0) Basophils (%) (Auto) % (0.0-2.0) Differential Total Cells Counted 100 Neutrophils % (Manual) 62 % (45-75) Lymphocytes % (Manual) 17 % (20-45) L Monocytes % (Manual) 15 % (1-10) H Eosinophils % (Manual) 6 % (0-3) H Basophils % (Manual) 0 % (0-2) Band Neutrophils 0 % (0-8) Platelet Estimate Decreased L Platelet Morphology Normal Hypochromasia 1+ Anisocytosis 1+ Macrocytosis 1+ Sodium Level 137 MMOL/L (136-145) Potassium Level 4.2 MMOL/L (3.5-5.1) Chloride Level 105 MMOL/L (98-107) Carbon Dioxide Level 29 MMOL/L (21-32) Anion Gap 3 mmol/L (5-15) L Blood Urea Nitrogen 12 mg/dL (7-18) Creatinine 0.6 MG/DL (0.55-1.30) Estimat Glomerular Filtration Rate > 60 mL/min (>60) Glucose Level 143 MG/DL (74-106) H Calcium Level 7.9 MG/DL (8.5-10.1) L Phosphorus Level 2.1 MG/DL (2.5-4.9) L Magnesium Level 1.7 MG/DL (1.8-2.4) L Ferritin 1427 NG/ML (8-388) H Total Bilirubin 0.6 MG/DL (0.2-1.0) Aspartate Amino Transf (AST/SGOT) 46 U/L (15-37) H Alanine Aminotransferase (ALT/SGPT) 33 U/L (12-78) Alkaline Phosphatase 226 U/L (46-116) H C-Reactive Protein, Quantitative 3.3 mg/dL (0.00-0.90) H Total Protein 6.9 G/DL (6.4-8.2) Albumin 1.4 G/DL (3.4-5.0) L Globulin 5.5 g/dL Albumin/Globulin Ratio 0.3 (1.0-2.7) L Valproic Acid (Depakene) Level 30 MCG/ML (50-100) L Height (Feet): 6 Height (Inches): 1.00 Weight (Pounds): 180 General Appearance: WD/WN, no apparent distress, alert Cardiovascular: normal rate Respiratory/Chest: normal breath sounds, no respiratory distress Abdominal Exam: normal bowel sounds, non tender, soft, other - NGT Extremities: non-tender Phil Guevara NP Apr 05, 2018 11:57
[2018-04-05 12:00] VITALS: BP 125/67
--- NOTE | 2018-04-05 12:12 | Infectious Diseases Prog Note ---
Assessment/Plan Assessment/Plan A 1. pneumonia 2. leucocytosis improving 3. hepatitis C 4, thrombocytopenia 5. necrotic sacral ulcer may be infected 6. Encephalopathy 7. Tachycardia P 1. continue Meropenem 2. waiting for wound debridement Subjective ROS Limited/Unobtainable: Yes Allergies: Coded Allergies: ARIPIPRAZOLE (Verified Allergy, Unknown, 03/31/18) QUETIAPINE (Verified Allergy, Unknown, 03/31/18) Objective Vital Signs Last 24 Hour Vital Signs Date Time Temp Pulse Resp B/P (MAP) Pulse Ox O2 Delivery O2 Flow Rate FiO2 04/05/18 09:00 Nasal Cannula 2.0 04/05/18 08:00 97.3 95 20 126/78 (94) 99 97.3 04/05/18 07:35 99 20 98 Nasal Cannula 2.0 22 04/05/18 07:25 28 04/05/18 07:25 91 20 96 Nasal Cannula 2.0 04/05/18 04:00 105 04/05/18 04:00 98.2 105 20 128/66 (86) 99 98.2 04/05/18 00:55 108 20 98 Nasal Cannula 2.0 22 04/05/18 00:44 28 04/05/18 00:44 97 20 97 Nasal Cannula 2.0 04/05/18 00:00 97.0 90 20 108/71 (83) 96 97.0 04/05/18 00:00 57 04/04/18 21:00 Nasal Cannula 2.0 04/04/18 20:00 97.2 80 22 102/53 (69) 100 97.2 04/04/18 20:00 107 04/04/18 19:41 110 20 97 Nasal Cannula 2.0 22 04/04/18 19:27 28 04/04/18 19:27 110 20 96 Nasal Cannula 2.0 04/04/18 16:00 98.2 103 24 127/62 (83) 96 98.2 04/04/18 16:00 113 04/04/18 13:37 98 20 98 Nasal Cannula 2.0 28 04/04/18 13:37 28 04/04/18 13:37 103 20 97 Nasal Cannula 3.0 22 Height (Feet): 6 Height (Inches): 1.00 Weight (Pounds): 180 General Appearance: no acute distress HEENT: mucous membranes moist Respiratory/Chest: lungs clear Cardiovascular: normal rate Abdomen: soft, non tender, other - NGT feeding Skin: ulcers, other - Sacral & R heel Neurologic/Psychiatric: other - opens eyes Microbiology Date/Time Source Procedure Growth Status 04/03/18 01:30 Sputum Gram Stain - Final Resulted 04/03/18 01:30 Sputum Culture - Preliminary YEAST Usual Respiratory Serena Resulted Laboratory Tests Test 04/05/18 03:50 White Blood Count 13.5 K/UL (4.8-10.8) H Red Blood Count 2.97 M/UL (4.70-6.10) L Hemoglobin 10.5 G/DL (14.2-18.0) L Hematocrit 31.0 % (42.0-52.0) L Mean Corpuscular Volume 104 FL (80-99) H Mean Corpuscular Hemoglobin 35.1 PG (27.0-31.0) H Mean Corpuscular Hemoglobin Concent 33.7 G/DL (32.0-36.0) Red Cell Distribution Width 12.9 % (11.6-14.8) Platelet Count 85 K/UL (150-450) L Mean Platelet Volume 6.1 FL (6.5-10.1) L Neutrophils (%) (Auto) % (45.0-75.0) Lymphocytes (%) (Auto) % (20.0-45.0) Monocytes (%) (Auto) % (1.0-10.0) Eosinophils (%) (Auto) % (0.0-3.0) Basophils (%) (Auto) % (0.0-2.0) Differential Total Cells Counted 100 Neutrophils % (Manual) 62 % (45-75) Lymphocytes % (Manual) 17 % (20-45) L Monocytes % (Manual) 15 % (1-10) H Eosinophils % (Manual) 6 % (0-3) H Basophils % (Manual) 0 % (0-2) Band Neutrophils 0 % (0-8) Platelet Estimate Decreased L Platelet Morphology Normal Hypochromasia 1+ Anisocytosis 1+ Macrocytosis 1+ Sodium Level 137 MMOL/L (136-145) Potassium Level 4.2 MMOL/L (3.5-5.1) Chloride Level 105 MMOL/L (98-107) Carbon Dioxide Level 29 MMOL/L (21-32) Anion Gap 3 mmol/L (5-15) L Blood Urea Nitrogen 12 mg/dL (7-18) Creatinine 0.6 MG/DL (0.55-1.30) Estimat Glomerular Filtration Rate > 60 mL/min (>60) Glucose Level 143 MG/DL (74-106) H Calcium Level 7.9 MG/DL (8.5-10.1) L Phosphorus Level 2.1 MG/DL (2.5-4.9) L Magnesium Level 1.7 MG/DL (1.8-2.4) L Ferritin 1427 NG/ML (8-388) H Total Bilirubin 0.6 MG/DL (0.2-1.0) Aspartate Amino Transf (AST/SGOT) 46 U/L (15-37) H Alanine Aminotransferase (ALT/SGPT) 33 U/L (12-78) Alkaline Phosphatase 226 U/L (46-116) H C-Reactive Protein, Quantitative 3.3 mg/dL (0.00-0.90) H Total Protein 6.9 G/DL (6.4-8.2) Albumin 1.4 G/DL (3.4-5.0) L Globulin 5.5 g/dL Albumin/Globulin Ratio 0.3 (1.0-2.7) L Valproic Acid (Depakene) Level 30 MCG/ML (50-100) L Current Medications Medications (Trade) Dose Ordered Sig/Elizabeth Route PRN Reason Start Time Stop Time Status Last Admin Dose Admin Acetaminophen (Tylenol) 500 mg Q4H PRN NG mild pain/temp >100.5 04/03/18 09:00 05/03/18 08:59 Acetaminophen/ Hydrocodone Bitart ([place] 5/325) 1 tab EVERY 8 HOURS PRN NG for moderate pain 04/03/18 09:00 04/10/18 08:59 04/03/18 10:24 Albuterol/ Ipratropium (Albuterol/ Ipratropium) 3 ml Q6HRT HHN 03/31/18 13:00 04/05/18 12:59 04/05/18 07:36 Benztropine Mesylate (Cogentin) 1 mg BID NG 04/03/18 09:00 04/30/18 08:59 04/05/18 09:07 Bupropion HCl (Wellbutrin) 150 mg BID NG 04/03/18 18:00 05/03/18 17:59 04/05/18 09:07 Docusate Sodium (Colace) 100 mg TWICE A DAY NG 04/05/18 09:00 05/05/18 08:59 04/05/18 09:07 Gabapentin (Neurontin) 300 mg TID NG 04/03/18 09:00 05/03/18 08:59 04/05/18 09:11 Haloperidol (Haldol) 10 mg BID PRN ORAL Agitation 03/31/18 05:45 04/30/18 05:44 Lansoprazole (Prevacid) 30 mg BID NG 04/03/18 18:00 05/03/18 17:59 04/05/18 09:07 Magnesium Sulfate 100 ml @ 100 mls/hr Q1H IVPB 04/05/18 10:00 04/05/18 13:59 04/05/18 11:29 Meropenem 1 gm/ Sodium Chloride 55 ml @ 110 mls/hr Q8HR IVPB 04/04/18 14:00 04/09/18 13:59 04/05/18 06:00 Polyethylene Glycol (Miralax) 17 gm BEDTIME NG 04/05/18 21:00 05/05/18 20:59 Quetiapine Fumarate (SEROquel) 100 mg BID NG 04/03/18 09:00 04/30/18 17:59 04/05/18 09:07 Sodium Hypochlorite ([place] Quarter Strength) 1 applic DAILY TOPIC 03/31/18 15:41 04/30/18 15:40 04/05/18 09:08 Sodium Chloride 1,000 ml @ 50 mls/hr Q20H IV 04/03/18 13:30 05/03/18 13:29 04/05/18 05:48 Sodium Phosphate 30 mm/Sodium Chloride 285 ml @ 47.5 mls/hr ONCE IVPB 04/05/18 11:00 04/05/18 16:59 04/05/18 11:30 Valproic Acid (Depakene) 500 mg EVERY 12 HOURS NG 04/03/18 09:15 05/03/18 09:14 04/05/18 09:07 Mao Trevino MD Apr 05, 2018 12:12
--- NOTE | 2018-04-05 12:38 | Pulmonology Progress Note ---
Assessment/Plan Problems: (1) Healthcare associated bacterial pneumonia (2) Decubitus ulcer of sacral region, stage 4 (3) Dysphagia (4) Respiratory distress (5) Dyspnea Assessment/Plan 1. Acute hypoxemic respiratory failure 2. Sepsis 3. Pneumonia 4. Altered mental status 5. NURY 6. Thrombocytopenia 7. Schizophrenia 8. Stage IV decubitus ulcer sp debridement Plan: -abx per ID: vanco/gume -oral care -NPO and TF, BIOETHICS eval prior to PEG -wound care, ? plan for debridement --wean oxygen as tolerated -duonebs q6 -monitor volumes -FC, continue to discuss GOC, F/U bioethics eval Subjective Allergies: Coded Allergies: ARIPIPRAZOLE (Verified Allergy, Unknown, 03/31/18) QUETIAPINE (Verified Allergy, Unknown, 03/31/18) Subjective Awake, not following commands, O2 needs stable, awaiting ethics eval prior to PEG, brandie TF's + cough, + SOB Objective Last 24 Hour Vital Signs Date Time Temp Pulse Resp B/P (MAP) Pulse Ox O2 Delivery O2 Flow Rate FiO2 04/05/18 09:00 Nasal Cannula 2.0 04/05/18 08:00 97.3 95 20 126/78 (94) 99 97.3 04/05/18 07:35 99 20 98 Nasal Cannula 2.0 22 04/05/18 07:25 28 04/05/18 07:25 91 20 96 Nasal Cannula 2.0 04/05/18 04:00 105 04/05/18 04:00 98.2 105 20 128/66 (86) 99 98.2 04/05/18 00:55 108 20 98 Nasal Cannula 2.0 22 04/05/18 00:44 28 04/05/18 00:44 97 20 97 Nasal Cannula 2.0 04/05/18 00:00 97.0 90 20 108/71 (83) 96 97.0 04/05/18 00:00 57 04/04/18 21:00 Nasal Cannula 2.0 04/04/18 20:00 97.2 80 22 102/53 (69) 100 97.2 04/04/18 20:00 107 04/04/18 19:41 110 20 97 Nasal Cannula 2.0 22 04/04/18 19:27 28 04/04/18 19:27 110 20 96 Nasal Cannula 2.0 04/04/18 16:00 98.2 103 24 127/62 (83) 96 98.2 04/04/18 16:00 113 04/04/18 13:37 98 20 98 Nasal Cannula 2.0 28 04/04/18 13:37 28 04/04/18 13:37 103 20 97 Nasal Cannula 3.0 22 Intake and Output 04/04/18 04/05/18 19:00 07:00 Intake Total 1847 ml Output Total 1400 ml 800 ml Balance 447 ml -800 ml Free Water 150 ml IV Total 977 ml Tube Feeding 720 ml Output Urine Total 1400 ml 800 ml General Appearance: no acute distress, cachetic HEENT: normocephalic, atraumatic, anicteric, mucous membranes moist Respiratory/Chest: chest wall non-tender, lungs clear, normal breath sounds, no respiratory distress Cardiovascular: normal peripheral pulses, normal rate, regular rhythm Abdomen: normal bowel sounds, soft, non tender, no organomegaly, non distended , no mass Extremities: no cyanosis, no clubbing, no edema Microbiology Date/Time Source Procedure Growth Status 04/03/18 01:30 Sputum Gram Stain - Final Resulted 04/03/18 01:30 Sputum Culture - Preliminary YEAST Usual Respiratory Serena Resulted Laboratory Tests 04/05/18 03:50: White Blood Count 13.5H, Red Blood Count 2.97L, Hemoglobin 10.5L, Hematocrit 31.0L, Mean Corpuscular Volume 104H, Mean Corpuscular Hemoglobin 35.1H, Mean Corpuscular Hemoglobin Concent 33.7, Red Cell Distribution Width 12.9, Platelet Count 85L, Mean Platelet Volume 6.1L, Neutrophils (%) (Auto) , Lymphocytes (%) ( Auto) , Monocytes (%) (Auto) , Eosinophils (%) (Auto) , Basophils (%) (Auto) , Differential Total Cells Counted 100, Neutrophils % (Manual) 62, Lymphocytes % ( Manual) 17L, Monocytes % (Manual) 15H, Eosinophils % (Manual) 6H, Basophils % ( Manual) 0, Band Neutrophils 0, Platelet Estimate DecreasedL, Platelet Morphology Normal, Hypochromasia 1+, Anisocytosis 1+, Macrocytosis 1+, Sodium Level 137, Potassium Level 4.2, Chloride Level 105, Carbon Dioxide Level 29, Anion Gap 3L, Blood Urea Nitrogen 12, Creatinine 0.6, Estimat Glomerular Filtration Rate > 60, Glucose Level 143H, Calcium Level 7.9L, Phosphorus Level 2.1L, Magnesium Level 1.7L, Ferritin 1427H, Total Bilirubin 0.6, Aspartate Amino Transf (AST/SGOT) 46H, Alanine Aminotransferase (ALT/SGPT) 33, Alkaline Phosphatase 226H, C-Reactive Protein, Quantitative 3.3H, Total Protein 6.9, Albumin 1.4L, Globulin 5.5, Albumin/Globulin Ratio 0.3L, Valproic Acid (Depakene ) Level 30L Current Medications Medications (Trade) Dose Ordered Sig/Elizabeth Route PRN Reason Start Time Stop Time Status Last Admin Dose Admin Acetaminophen (Tylenol) 500 mg Q4H PRN NG mild pain/temp >100.5 04/03/18 09:00 05/03/18 08:59 Acetaminophen/ Hydrocodone Bitart ([place] 5/325) 1 tab EVERY 8 HOURS PRN NG for moderate pain 04/03/18 09:00 04/10/18 08:59 04/03/18 10:24 Albuterol/ Ipratropium (Albuterol/ Ipratropium) 3 ml Q6HRT HHN 03/31/18 13:00 04/05/18 12:59 04/05/18 07:36 Benztropine Mesylate (Cogentin) 1 mg BID NG 04/03/18 09:00 04/30/18 08:59 04/05/18 09:07 Bupropion HCl (Wellbutrin) 150 mg BID NG 04/03/18 18:00 05/03/18 17:59 04/05/18 09:07 Docusate Sodium (Colace) 100 mg TWICE A DAY NG 04/05/18 09:00 05/05/18 08:59 04/05/18 09:07 Gabapentin (Neurontin) 300 mg TID NG 04/03/18 09:00 05/03/18 08:59 04/05/18 09:11 Haloperidol (Haldol) 10 mg BID PRN ORAL Agitation 03/31/18 05:45 04/30/18 05:44 Lansoprazole (Prevacid) 30 mg BID NG 04/03/18 18:00 05/03/18 17:59 04/05/18 09:07 Magnesium Sulfate 100 ml @ 100 mls/hr Q1H IVPB 04/05/18 10:00 04/05/18 13:59 04/05/18 11:29 Meropenem 1 gm/ Sodium Chloride 55 ml @ 110 mls/hr Q8HR IVPB 04/04/18 14:00 04/09/18 13:59 04/05/18 06:00 Polyethylene Glycol (Miralax) 17 gm BEDTIME NG 04/05/18 21:00 05/05/18 20:59 Quetiapine Fumarate (SEROquel) 100 mg BID NG 04/03/18 09:00 04/30/18 17:59 04/05/18 09:07 Sodium Hypochlorite ([place]akin's Quarter Strength) 1 applic DAILY TOPIC 03/31/18 15:41 04/30/18 15:40 04/05/18 09:08 Sodium Chloride 1,000 ml @ 50 mls/hr Q20H IV 04/03/18 13:30 05/03/18 13:29 04/05/18 05:48 Sodium Phosphate 30 mm/Sodium Chloride 285 ml @ 47.5 mls/hr ONCE IVPB 04/05/18 11:00 04/05/18 16:59 04/05/18 11:30 Valproic Acid (Depakene) 500 mg EVERY 12 HOURS NG 04/03/18 09:15 05/03/18 09:14 04/05/18 09:07 Brendan Eugene MD Apr 05, 2018 12:38
--- NOTE | 2018-04-05 13:20 | General Surgery Progress Note ---
General Surgery-Progress Note Subjective Additional Comments no acute events. doing well. appreciate bioethics input Objective Last 24 Hour Vital Signs Date Time Temp Pulse Resp B/P (MAP) Pulse Ox O2 Delivery O2 Flow Rate FiO2 04/05/18 09:00 Nasal Cannula 2.0 04/05/18 08:00 97.3 95 20 126/78 (94) 99 97.3 04/05/18 07:35 99 20 98 Nasal Cannula 2.0 22 04/05/18 07:25 28 04/05/18 07:25 91 20 96 Nasal Cannula 2.0 04/05/18 04:00 105 04/05/18 04:00 98.2 105 20 128/66 (86) 99 98.2 04/05/18 00:55 108 20 98 Nasal Cannula 2.0 22 04/05/18 00:44 28 04/05/18 00:44 97 20 97 Nasal Cannula 2.0 04/05/18 00:00 97.0 90 20 108/71 (83) 96 97.0 04/05/18 00:00 57 04/04/18 21:00 Nasal Cannula 2.0 04/04/18 20:00 97.2 80 22 102/53 (69) 100 97.2 04/04/18 20:00 107 04/04/18 19:41 110 20 97 Nasal Cannula 2.0 22 04/04/18 19:27 28 04/04/18 19:27 110 20 96 Nasal Cannula 2.0 04/04/18 16:00 98.2 103 24 127/62 (83) 96 98.2 04/04/18 16:00 113 04/04/18 13:37 98 20 98 Nasal Cannula 2.0 28 04/04/18 13:37 28 04/04/18 13:37 103 20 97 Nasal Cannula 3.0 22 I&O Intake and Output 04/04/18 04/05/18 19:00 07:00 Intake Total 1847 ml Output Total 1400 ml 800 ml Balance 447 ml -800 ml Free Water 150 ml IV Total 977 ml Tube Feeding 720 ml Output Urine Total 1400 ml 800 ml Dressing: saturated Wound: other Drains: none Cardiovascular: RSR Respiratory: clear Abdomen: soft, flat, non-tender, present bowel sounds Extremities: no cyanosis Laboratory Tests Test 04/05/18 03:50 White Blood Count 13.5 K/UL (4.8-10.8) H Red Blood Count 2.97 M/UL (4.70-6.10) L Hemoglobin 10.5 G/DL (14.2-18.0) L Hematocrit 31.0 % (42.0-52.0) L Mean Corpuscular Volume 104 FL (80-99) H Mean Corpuscular Hemoglobin 35.1 PG (27.0-31.0) H Mean Corpuscular Hemoglobin Concent 33.7 G/DL (32.0-36.0) Red Cell Distribution Width 12.9 % (11.6-14.8) Platelet Count 85 K/UL (150-450) L Mean Platelet Volume 6.1 FL (6.5-10.1) L Neutrophils (%) (Auto) % (45.0-75.0) Lymphocytes (%) (Auto) % (20.0-45.0) Monocytes (%) (Auto) % (1.0-10.0) Eosinophils (%) (Auto) % (0.0-3.0) Basophils (%) (Auto) % (0.0-2.0) Differential Total Cells Counted 100 Neutrophils % (Manual) 62 % (45-75) Lymphocytes % (Manual) 17 % (20-45) L Monocytes % (Manual) 15 % (1-10) H Eosinophils % (Manual) 6 % (0-3) H Basophils % (Manual) 0 % (0-2) Band Neutrophils 0 % (0-8) Platelet Estimate Decreased L Platelet Morphology Normal Hypochromasia 1+ Anisocytosis 1+ Macrocytosis 1+ Sodium Level 137 MMOL/L (136-145) Potassium Level 4.2 MMOL/L (3.5-5.1) Chloride Level 105 MMOL/L (98-107) Carbon Dioxide Level 29 MMOL/L (21-32) Anion Gap 3 mmol/L (5-15) L Blood Urea Nitrogen 12 mg/dL (7-18) Creatinine 0.6 MG/DL (0.55-1.30) Estimat Glomerular Filtration Rate > 60 mL/min (>60) Glucose Level 143 MG/DL (74-106) H Calcium Level 7.9 MG/DL (8.5-10.1) L Phosphorus Level 2.1 MG/DL (2.5-4.9) L Magnesium Level 1.7 MG/DL (1.8-2.4) L Ferritin 1427 NG/ML (8-388) H Total Bilirubin 0.6 MG/DL (0.2-1.0) Aspartate Amino Transf (AST/SGOT) 46 U/L (15-37) H Alanine Aminotransferase (ALT/SGPT) 33 U/L (12-78) Alkaline Phosphatase 226 U/L (46-116) H C-Reactive Protein, Quantitative 3.3 mg/dL (0.00-0.90) H Total Protein 6.9 G/DL (6.4-8.2) Albumin 1.4 G/DL (3.4-5.0) L Globulin 5.5 g/dL Albumin/Globulin Ratio 0.3 (1.0-2.7) L Valproic Acid (Depakene) Level 30 MCG/ML (50-100) L Plan Problems: (1) Decubitus ulcer of sacral region, stage 4 Assessment & Plan: Large malodorous full thickness stage IV / unstageable Sacral pressure injury. Wound bed with necrosis centrally with detached borders. Soft yellow slough along perimeter. Wound measures (L)9cm x (W)12.1cm with area of necrosis measuring 5.5cm x (W) 10cm. Surrounding area denuded with additional skin breakdown of which largest noted to R buttocks measuring (L)2cm x (W)0.6cm. Scrotum is grossly red with multiple partial thickness wounds at base of scrotum. DTPI noted to R heel (L) 5.7cm x (W)6cm. Area is maroon and fluctuant with delineated borders. Wound present on admission and will be cared for during hospital stay. will likely need debridement given odor and appearance. will work to obtain consent and follow with care plan Tx.Plan:Apply Dakin's moist gauze to wound. Cavilon wipe along borders .Cover with Biatain drsg Daily and prn. P200 Air Fluidized mattress. Apply Cavilon to R heel.Cover with Biatain for 7 days and prn. Reposition on sides at minimum every 2hours or as tolerated. Off-load heels with pillow. Patient without capacity to make decisions. will attempt to locate POA or next of kin appreciate bioethics input will plan for bedside debridement after PEG tomorrow thank you Matthew Jeter Apr 05, 2018 13:20
[2018-04-05 16:00] VITALS: BP 115/61
--- NOTE | 2018-04-05 16:44 | General Progress Note ---
Assessment/Plan Status: unchanged Assessment/Plan # Thrombocytopenia -- first admission here, therefore do not have his baseline, is VERY likely related to underlying sepsis and consumptive state, plt count appears to be 50-100k, on hepatitis panel does have Hep-C++ and hiv is negative , also on US abd: No acute findings. Left renal cyst, does have evidence of liver disease --> abx have been reviewed, unlikely contributors as only short hospital stay --> other medications have been reviewed as well --> peripheral smear reviewed, does not show schistocytes or blasts --> transfuse if plt <20k # Leukocytosis very likely related to either uti/pna --> appreciate id care --> abx have been reviewed --> currently, wbc at 11.5, elevated # Anemia of chronic disease -- hgb currently 10-12 range, anemia panel reviewed --> trend cbc --> Hgb goal above 7 # Septic shock -- on ivf and has received abx # Healthcare associated bacterial pneumonia--> on abx, have been reviewed --> ID is following. Appreciate recs. # Supraventricular tachycardia # Acute prerenal azotemia # Paroxysmal SVT versus A. fib. Rate controlled with a dose of Cardizem. # Resp failure on NC # Dyshpagia - ng tube in place Greatly appreciate consultation! Subjective Date patient seen: Apr 05, 2018 Hematologic/Lymphatic: Reports: anemia Allergies: Coded Allergies: ARIPIPRAZOLE (Verified Allergy, Unknown, 03/31/18) QUETIAPINE (Verified Allergy, Unknown, 03/31/18) All Systems: reviewed and negative except above Subjective No acute events. H/H stable. Bioethics meeting for potential PEG placement. Objective Last 24 Hour Vital Signs Date Time Temp Pulse Resp B/P (MAP) Pulse Ox O2 Delivery O2 Flow Rate FiO2 04/05/18 12:00 110 04/05/18 12:00 97.1 77 20 125/67 (86) 99 97.1 04/05/18 09:00 Nasal Cannula 2.0 04/05/18 08:00 108 04/05/18 08:00 97.3 95 20 126/78 (94) 99 97.3 04/05/18 07:35 99 20 98 Nasal Cannula 2.0 22 04/05/18 07:25 28 04/05/18 07:25 91 20 96 Nasal Cannula 2.0 04/05/18 04:00 105 04/05/18 04:00 98.2 105 20 128/66 (86) 99 98.2 04/05/18 00:55 108 20 98 Nasal Cannula 2.0 22 04/05/18 00:44 28 04/05/18 00:44 97 20 97 Nasal Cannula 2.0 04/05/18 00:00 97.0 90 20 108/71 (83) 96 97.0 04/05/18 00:00 57 04/04/18 21:00 Nasal Cannula 2.0 04/04/18 20:00 97.2 80 22 102/53 (69) 100 97.2 04/04/18 20:00 107 04/04/18 19:41 110 20 97 Nasal Cannula 2.0 22 04/04/18 19:27 28 04/04/18 19:27 110 20 96 Nasal Cannula 2.0 Intake and Output 04/04/18 04/05/18 19:00 07:00 Intake Total 1847 ml Output Total 1400 ml 800 ml Balance 447 ml -800 ml Free Water 150 ml IV Total 977 ml Tube Feeding 720 ml Output Urine Total 1400 ml 800 ml Laboratory Tests 04/05/18 03:50: White Blood Count 13.5H, Red Blood Count 2.97L, Hemoglobin 10.5L, Hematocrit 31.0L, Mean Corpuscular Volume 104H, Mean Corpuscular Hemoglobin 35.1H, Mean Corpuscular Hemoglobin Concent 33.7, Red Cell Distribution Width 12.9, Platelet Count 85L, Mean Platelet Volume 6.1L, Neutrophils (%) (Auto) , Lymphocytes (%) ( Auto) , Monocytes (%) (Auto) , Eosinophils (%) (Auto) , Basophils (%) (Auto) , Differential Total Cells Counted 100, Neutrophils % (Manual) 62, Lymphocytes % ( Manual) 17L, Monocytes % (Manual) 15H, Eosinophils % (Manual) 6H, Basophils % ( Manual) 0, Band Neutrophils 0, Platelet Estimate DecreasedL, Platelet Morphology Normal, Hypochromasia 1+, Anisocytosis 1+, Macrocytosis 1+, Sodium Level 137, Potassium Level 4.2, Chloride Level 105, Carbon Dioxide Level 29, Anion Gap 3L, Blood Urea Nitrogen 12, Creatinine 0.6, Estimat Glomerular Filtration Rate > 60, Glucose Level 143H, Calcium Level 7.9L, Phosphorus Level 2.1L, Magnesium Level 1.7L, Ferritin 1427H, Total Bilirubin 0.6, Aspartate Amino Transf (AST/SGOT) 46H, Alanine Aminotransferase (ALT/SGPT) 33, Alkaline Phosphatase 226H, C-Reactive Protein, Quantitative 3.3H, Total Protein 6.9, Albumin 1.4L, Globulin 5.5, Albumin/Globulin Ratio 0.3L, Valproic Acid (Depakene ) Level 30L Height (Feet): 6 Height (Inches): 1.00 Weight (Pounds): 180 General Appearance: no apparent distress EENT: PERRL/EOMI Neck: normal alignment Cardiovascular: tachycardia Respiratory/Chest: no respiratory distress Abdomen: soft Jose Mckeon MD Apr 05, 2018 16:44
[2018-04-05 20:00] VITALS: BP 105/74
[2018-04-05] MEDS: Miralax 17gm pkt NG SCH (21:47)
--- NOTE | 2018-04-05 22:16 | General Progress Note ---
Assessment/Plan Problem List: (1) Acute prerenal azotemia ICD Codes: R79.89 - Other specified abnormal findings of blood chemistry SNOMED: 060970382 (2) Dyspnea ICD Codes: R06.00 - Dyspnea, unspecified SNOMED: 904900569 (3) Sepsis ICD Codes: A41.9 - Sepsis, unspecified organism SNOMED: 86842259 Qualifiers: Qualified Codes: A41.9 - Sepsis, unspecified organism (4) Dysphagia ICD Codes: R13.10 - Dysphagia, unspecified SNOMED: 31496470, 854573021 (5) Healthcare associated bacterial pneumonia ICD Codes: J15.9 - Unspecified bacterial pneumonia SNOMED: 957938909 Status: progressing Assessment/Plan low platelet persistent leukocytosis afebrile failed swallow study dysphagia feeding tube per gi Subjective ROS Limited/Unobtainable: Yes Allergies: Coded Allergies: ARIPIPRAZOLE (Verified Allergy, Unknown, 03/31/18) QUETIAPINE (Verified Allergy, Unknown, 03/31/18) Objective Last 24 Hour Vital Signs Date Time Temp Pulse Resp B/P (MAP) Pulse Ox O2 Delivery O2 Flow Rate FiO2 04/05/18 16:00 98.2 106 20 115/61 (79) 98 98.2 04/05/18 16:00 102 04/05/18 12:00 110 04/05/18 12:00 97.1 77 20 125/67 (86) 99 97.1 04/05/18 09:00 Nasal Cannula 2.0 04/05/18 08:00 108 04/05/18 08:00 97.3 95 20 126/78 (94) 99 97.3 04/05/18 07:35 99 20 98 Nasal Cannula 2.0 22 04/05/18 07:25 28 04/05/18 07:25 91 20 96 Nasal Cannula 2.0 04/05/18 04:00 105 04/05/18 04:00 98.2 105 20 128/66 (86) 99 98.2 04/05/18 00:55 108 20 98 Nasal Cannula 2.0 22 04/05/18 00:44 28 04/05/18 00:44 97 20 97 Nasal Cannula 2.0 04/05/18 00:00 97.0 90 20 108/71 (83) 96 97.0 04/05/18 00:00 57 Intake and Output 04/04/18 04/05/18 19:00 07:00 Intake Total 1847 ml Output Total 1400 ml 800 ml Balance 447 ml -800 ml Free Water 150 ml IV Total 977 ml Tube Feeding 720 ml Output Urine Total 1400 ml 800 ml Laboratory Tests 04/05/18 03:50: White Blood Count 13.5H, Red Blood Count 2.97L, Hemoglobin 10.5L, Hematocrit 31.0L, Mean Corpuscular Volume 104H, Mean Corpuscular Hemoglobin 35.1H, Mean Corpuscular Hemoglobin Concent 33.7, Red Cell Distribution Width 12.9, Platelet Count 85L, Mean Platelet Volume 6.1L, Neutrophils (%) (Auto) , Lymphocytes (%) ( Auto) , Monocytes (%) (Auto) , Eosinophils (%) (Auto) , Basophils (%) (Auto) , Differential Total Cells Counted 100, Neutrophils % (Manual) 62, Lymphocytes % ( Manual) 17L, Monocytes % (Manual) 15H, Eosinophils % (Manual) 6H, Basophils % ( Manual) 0, Band Neutrophils 0, Platelet Estimate DecreasedL, Platelet Morphology Normal, Hypochromasia 1+, Anisocytosis 1+, Macrocytosis 1+, Sodium Level 137, Potassium Level 4.2, Chloride Level 105, Carbon Dioxide Level 29, Anion Gap 3L, Blood Urea Nitrogen 12, Creatinine 0.6, Estimat Glomerular Filtration Rate > 60, Glucose Level 143H, Calcium Level 7.9L, Phosphorus Level 2.1L, Magnesium Level 1.7L, Ferritin 1427H, Total Bilirubin 0.6, Aspartate Amino Transf (AST/SGOT) 46H, Alanine Aminotransferase (ALT/SGPT) 33, Alkaline Phosphatase 226H, C-Reactive Protein, Quantitative 3.3H, Total Protein 6.9, Albumin 1.4L, Globulin 5.5, Albumin/Globulin Ratio 0.3L, Valproic Acid (Depakene ) Level 30L Height (Feet): 6 Height (Inches): 1.00 Weight (Pounds): 180 General Appearance: confused Respiratory/Chest: lungs clear Abdomen: soft Loly Dash MD Apr 05, 2018 22:16
--- NOTE | 2018-04-05 22:40 | Cardiology Progress Note ---
Assessment/Plan Assessment/Plan 1. Sinus tachycardia, most likely secondary to overwhelming sepsis, continue hydration, electrolyte correction and oxygen administration. 2. Short run of nonsustained ventricular tachycardia, Mg level at 1.7 despite 4 grams of Mg sulphate administration. 3. Acute hypoxemic respiratory failure 4. Healthcare associated Pneumonia 5. NURY, resolved. 6. Thrombocytopenia Subjective Subjective Sinus tachycardia at 106. Objective Last 24 Hour Vital Signs Date Time Temp Pulse Resp B/P (MAP) Pulse Ox O2 Delivery O2 Flow Rate FiO2 04/05/18 16:00 98.2 106 20 115/61 (79) 98 98.2 04/05/18 16:00 102 04/05/18 12:00 110 04/05/18 12:00 97.1 77 20 125/67 (86) 99 97.1 04/05/18 09:00 Nasal Cannula 2.0 04/05/18 08:00 108 04/05/18 08:00 97.3 95 20 126/78 (94) 99 97.3 04/05/18 07:35 99 20 98 Nasal Cannula 2.0 22 04/05/18 07:25 28 04/05/18 07:25 91 20 96 Nasal Cannula 2.0 04/05/18 04:00 105 04/05/18 04:00 98.2 105 20 128/66 (86) 99 98.2 04/05/18 00:55 108 20 98 Nasal Cannula 2.0 22 04/05/18 00:44 28 04/05/18 00:44 97 20 97 Nasal Cannula 2.0 04/05/18 00:00 97.0 90 20 108/71 (83) 96 97.0 04/05/18 00:00 57 Intake and Output 04/04/18 04/05/18 19:00 07:00 Intake Total 1847 ml Output Total 1400 ml 800 ml Balance 447 ml -800 ml Free Water 150 ml IV Total 977 ml Tube Feeding 720 ml Output Urine Total 1400 ml 800 ml Laboratory Tests Test 04/05/18 03:50 White Blood Count 13.5 K/UL (4.8-10.8) H Red Blood Count 2.97 M/UL (4.70-6.10) L Hemoglobin 10.5 G/DL (14.2-18.0) L Hematocrit 31.0 % (42.0-52.0) L Mean Corpuscular Volume 104 FL (80-99) H Mean Corpuscular Hemoglobin 35.1 PG (27.0-31.0) H Mean Corpuscular Hemoglobin Concent 33.7 G/DL (32.0-36.0) Red Cell Distribution Width 12.9 % (11.6-14.8) Platelet Count 85 K/UL (150-450) L Mean Platelet Volume 6.1 FL (6.5-10.1) L Neutrophils (%) (Auto) % (45.0-75.0) Lymphocytes (%) (Auto) % (20.0-45.0) Monocytes (%) (Auto) % (1.0-10.0) Eosinophils (%) (Auto) % (0.0-3.0) Basophils (%) (Auto) % (0.0-2.0) Differential Total Cells Counted 100 Neutrophils % (Manual) 62 % (45-75) Lymphocytes % (Manual) 17 % (20-45) L Monocytes % (Manual) 15 % (1-10) H Eosinophils % (Manual) 6 % (0-3) H Basophils % (Manual) 0 % (0-2) Band Neutrophils 0 % (0-8) Platelet Estimate Decreased L Platelet Morphology Normal Hypochromasia 1+ Anisocytosis 1+ Macrocytosis 1+ Sodium Level 137 MMOL/L (136-145) Potassium Level 4.2 MMOL/L (3.5-5.1) Chloride Level 105 MMOL/L (98-107) Carbon Dioxide Level 29 MMOL/L (21-32) Anion Gap 3 mmol/L (5-15) L Blood Urea Nitrogen 12 mg/dL (7-18) Creatinine 0.6 MG/DL (0.55-1.30) Estimat Glomerular Filtration Rate > 60 mL/min (>60) Glucose Level 143 MG/DL (74-106) H Calcium Level 7.9 MG/DL (8.5-10.1) L Phosphorus Level 2.1 MG/DL (2.5-4.9) L Magnesium Level 1.7 MG/DL (1.8-2.4) L Ferritin 1427 NG/ML (8-388) H Total Bilirubin 0.6 MG/DL (0.2-1.0) Aspartate Amino Transf (AST/SGOT) 46 U/L (15-37) H Alanine Aminotransferase (ALT/SGPT) 33 U/L (12-78) Alkaline Phosphatase 226 U/L (46-116) H C-Reactive Protein, Quantitative 3.3 mg/dL (0.00-0.90) H Total Protein 6.9 G/DL (6.4-8.2) Albumin 1.4 G/DL (3.4-5.0) L Globulin 5.5 g/dL Albumin/Globulin Ratio 0.3 (1.0-2.7) L Valproic Acid (Depakene) Level 30 MCG/ML (50-100) L Microbiology Date/Time Source Procedure Growth Status 04/03/18 01:30 Sputum Gram Stain - Final Resulted 04/03/18 01:30 Sputum Culture - Preliminary YEAST Usual Respiratory Serena Resulted Objective HEENT: Atraumatic and normocephalic. Anicteric. Pupils are equal, round, and reactive to light and accommodation. Conjunctival pallor is present. NECK: JVP less than 5 cm. No carotid bruit. Carotid upstroke is 2+ bilaterally. CARDIOVASCULAR SYSTEM: Normal S1, S2. Regular rhythm. Tachycardic. No murmurs, gallops, or rubs. LUNGS: Clear to auscultation bilaterally. ABDOMEN: Soft, nontender, and nondistended. No hepatosplenomegaly. Positive bowel sounds. EXTREMITIES: No evidence of edema, clubbing, or cyanosis. Gokul Villalta MD Apr 05, 2018 22:40
[2018-04-06] VITALS (13 sets, daily range): BP systolic 101–134; BP diastolic 48–89
[2018-04-06] MEDS: Meropenem 1 GM in NS 55 ML IVPB SCH ×3 (05:00→22:28)
[2018-04-06 06:31] LABS: HEMATOCRIT 33.6 % (42.0-52.0); HEMOGLOBIN 11.5 G/DL (14.2-18.0); MEAN CORPUSCULAR VOLUME 104 FL (80-99); PLATELET COUNT 86 K/UL (150-450); RED BLOOD COUNT 3.24 M/UL (4.70-6.10)
[2018-04-06 06:48] LABS: INR 1.3 (0.9-1.1)
[2018-04-06 07:03] LABS: ANION GAP 1 mmol/L (5-15); BLOOD UREA NITROGEN 10 mg/dL (7-18); CALCIUM 8.6 MG/DL (8.5-10.1); CARBON DIOXIDE 31 MMOL/L (21-32); CHLORIDE 104 MMOL/L (98-107); CREATININE 0.6 MG/DL (0.55-1.30); POTASSIUM 4.2 MMOL/L (3.5-5.1); SODIUM 135 MMOL/L (136-145)
[2018-04-06] MEDS ORDERED: DiphenhydrAMINE 50mg/ml Inj IVP PRN (07:15)
[2018-04-06] MEDS ORDERED: Midazolam 2mg/2ml Inj IVP PRN (07:15)
[2018-04-06] MEDS ORDERED: Atropine Inj 1mg/10ml Syr IV PRN (07:15)
[2018-04-06] MEDS ORDERED: fentaNYL 100 mcg/2 mL IV PRN (07:15)
--- NOTE | 2018-04-06 07:18 | Anethesia Preoperative Eval ---
Anesthesia Pre-op PMH/ROS General Date of Evaluation: Apr 06, 2018 Time of Evaluation: 07:13 Anesthesiologist: pretty ASA Score: ASA 4 Mallampati Score Class I : Soft palate, uvula, fauces, pillars visible Class II: Soft palate, uvula, fauces visible Class III: Soft palate, base of uvula visible Class IV: Only hard plate visible Mallampati Classification: Class II Surgeon: sis Diagnosis: dysphagia, malnutrition Surgical Procedure: peg Anesthesia History: none Family History: no anesthesia problems Allergies: Coded Allergies: ARIPIPRAZOLE (Verified Allergy, Unknown, 03/31/18) QUETIAPINE (Verified Allergy, Unknown, 03/31/18) Medications: see eMAR Patient NPO?: Yes Past Medical History Gastrointestinal/Genitourinary: Reports: other - dysphagia, malnutrition, hepatitis Neurologic/Psychiatric: Reports: depression/anxiety, other - encephalopathy, previous suicide attempt, sshizophrenia Endocrine: Reports: DM Hematology/Immune: Reports: other - sepsis, thrombocytopenia Anesthesia Pre-op Phys. Exam Physician Exam Last Vital Signs Date Time Temp Pulse Resp B/P (MAP) Pulse Ox O2 Delivery O2 Flow Rate FiO2 04/06/18 04:11 116 04/06/18 04:00 97.9 19 103/48 (66) 94 97.9 04/05/18 21:00 Nasal Cannula 2.0 04/05/18 07:35 22 Constitutional: NAD Cardiovascular: RRR, other - tachycardia Respiratory: CTA Gastrointestinal: S/NT/ND Airway Exam Mallampati Score: Class II MO: limited Neck: flexible TMD: 2fb ROM: limited Teeth: missing, broken Anesthesia Pre-op A/P Labs Hematology Test 04/06/18 05:35 White Blood Count 12.0 K/UL (4.8-10.8) H Red Blood Count 3.24 M/UL (4.70-6.10) L Hemoglobin 11.5 G/DL (14.2-18.0) L Hematocrit 33.6 % (42.0-52.0) L Mean Corpuscular Volume 104 FL (80-99) H Mean Corpuscular Hemoglobin 35.6 PG (27.0-31.0) H Mean Corpuscular Hemoglobin Concent 34.3 G/DL (32.0-36.0) Red Cell Distribution Width 13.0 % (11.6-14.8) Platelet Count 86 K/UL (150-450) L Mean Platelet Volume 6.1 FL (6.5-10.1) L Neutrophils (%) (Auto) % (45.0-75.0) Lymphocytes (%) (Auto) % (20.0-45.0) Monocytes (%) (Auto) % (1.0-10.0) Eosinophils (%) (Auto) % (0.0-3.0) Basophils (%) (Auto) % (0.0-2.0) Coagulation Test 04/06/18 05:35 Prothrombin Time 13.4 SEC (9.30-11.50) H Prothromb Time International Ratio 1.3 (0.9-1.1) H Activated Partial Thromboplast Time 26 SEC (23-33) Chemistry Test 04/06/18 05:35 Sodium Level 135 MMOL/L (136-145) L Potassium Level 4.2 MMOL/L (3.5-5.1) Chloride Level 104 MMOL/L (98-107) Carbon Dioxide Level 31 MMOL/L (21-32) Anion Gap 1 mmol/L (5-15) L Blood Urea Nitrogen 10 mg/dL (7-18) Creatinine 0.6 MG/DL (0.55-1.30) Estimat Glomerular Filtration Rate > 60 mL/min (>60) Glucose Level 92 MG/DL (74-106) Calcium Level 8.6 MG/DL (8.5-10.1) Risk Assessment & Plan Assessment: [email or web address] Plan: mac Status Change Before Surgery: No Pre-Antibiotics Drug: ancef 1gm Time Given: 12:24 Violet Zheng MD Apr 06, 2018 07:18
--- NOTE | 2018-04-06 08:45 | Cardiology Report ---
APPROVED REPORT EXAM: Two-dimensional and M-mode echocardiogram with Doppler and color Doppler. INDICATION Tachycardia M-Mode DIMENSIONS IVSd1.6 (0.7-1.1cm)Left Atrium (MM)4.2 (1.6-4.0cm) LVDd4.0 (3.5-5.6cm)Aortic Root3.7 (2.0-3.7cm) PWd1.8 (0.7-1.1cm)Aortic Cusp Exc.2.0 (1.5-2.0cm) LVDs2.2 (2.5-4.0cm) PWs2.6 cm Technically difficult study due to poor acoustical windows and pt's position. Normal left ventricular chamber size, systolic function and wall motion to extent visualized. Left ventricular ejection fraction grossly estimated to be 70 %. Study quality precludes accurate assessment of regional wall motion. Mild left ventricular hypertrophy. No evidence of pericardial effusion. All other cardiac chamber sizes are within normal limits. Focal aortic valve sclerosis with adequate cusp excursion. Thickened mitral valve leaflets with normal excursion. Mitral annulus and aortic root calcification. Pulmonic valve not well visualized. Normal tricuspid valve structure. IVC at normal size with physiologic collapse. A color flow and spectral Doppler study was performed and revealed: Trace mitral regurgitation. Mitral diastolic velocities suggest reduced left ventricular relaxation c/w mild LV diastolic dysfunction (Grade I ). Trace tricuspid regurgitation. Tricuspid systolic velocities suggests peak right ventricular systolic pressure of 15 mmHg.
--- NOTE | 2018-04-06 09:08 | General Progress Note ---
Assessment/Plan Problem List: (1) Dysphagia ICD Codes: R13.10 - Dysphagia, unspecified SNOMED: 58579268, 292532641 (2) Decubitus ulcer of sacral region, stage 4 ICD Codes: L89.154 - Pressure ulcer of sacral region, stage 4 SNOMED: 852504431, 371856865 (3) Sepsis ICD Codes: A41.9 - Sepsis, unspecified organism SNOMED: 40932037 Qualifiers: Qualified Codes: A41.9 - Sepsis, unspecified organism (4) Healthcare associated bacterial pneumonia ICD Codes: J15.9 - Unspecified bacterial pneumonia SNOMED: 751451562 Assessment/Plan ngtf pending bioethic consult for PEG Subjective ROS Limited/Unobtainable: No Allergies: Coded Allergies: ARIPIPRAZOLE (Verified Allergy, Unknown, 03/31/18) QUETIAPINE (Verified Allergy, Unknown, 03/31/18) Objective Last 24 Hour Vital Signs Date Time Temp Pulse Resp B/P (MAP) Pulse Ox O2 Delivery O2 Flow Rate FiO2 04/06/18 08:05 Nasal Cannula 2.0 28 04/06/18 08:05 97 Nasal Cannula 2.0 28 04/06/18 04:11 116 04/06/18 04:00 97.9 84 19 103/48 (66) 94 97.9 04/06/18 00:02 96 04/06/18 00:00 97.9 99 28 125/75 (92) 99 97.9 04/05/18 21:00 Nasal Cannula 2.0 04/05/18 20:00 97.9 100 20 105/74 (84) 98 97.9 04/05/18 16:00 98.2 106 20 115/61 (79) 98 98.2 04/05/18 16:00 102 04/05/18 12:00 110 04/05/18 12:00 97.1 77 20 125/67 (86) 99 97.1 Intake and Output 04/05/18 04/06/18 19:00 07:00 Intake Total 990 ml Output Total 950 ml 2150 ml Balance -950 ml -1160 ml Intake Oral 0 ml Free Water 180 ml IV Total 510 ml Tube Feeding 300 ml Output Urine Total 950 ml 2150 ml # Bowel Movements 1 2 Laboratory Tests 04/06/18 05:35: White Blood Count 12.0H, Red Blood Count 3.24L, Hemoglobin 11.5L, Hematocrit 33.6L, Mean Corpuscular Volume 104H, Mean Corpuscular Hemoglobin 35.6H, Mean Corpuscular Hemoglobin Concent 34.3, Red Cell Distribution Width 13.0, Platelet Count 86L, Mean Platelet Volume 6.1L, Neutrophils (%) (Auto) , Lymphocytes (%) ( Auto) , Monocytes (%) (Auto) , Eosinophils (%) (Auto) , Basophils (%) (Auto) , Prothrombin Time 13.4H, Prothromb Time International Ratio 1.3H, Activated Partial Thromboplast Time 26, Sodium Level 135L, Potassium Level 4.2, Chloride Level 104, Carbon Dioxide Level 31, Anion Gap 1L, Blood Urea Nitrogen 10, Creatinine 0.6, Estimat Glomerular Filtration Rate > 60, Glucose Level 92, Calcium Level 8.6, Phosphorus Level [Pending], Magnesium Level [Pending] Height (Feet): 6 Height (Inches): 1.00 Weight (Pounds): 190 General Appearance: no apparent distress EENT: normal ENT inspection Neck: supple Cardiovascular: normal rate Respiratory/Chest: decreased breath sounds Abdomen: normal bowel sounds, non tender, soft Extremities: non-tender Artie Mcgee MD Apr 06, 2018 09:08
[2018-04-06 09:12] LABS: PHOSPHORUS 3.1 MG/DL (2.5-4.9)
[2018-04-06] MEDS: BuPROPion 75mg Tab NG SCH ×2 (09:37→17:12)
[2018-04-06] MEDS: Benztropine 1mg tab NG SCH ×2 (09:38→17:12)
[2018-04-06] MEDS: Valproic Acid 500mg/10ml liquid NG SCH ×2 (09:38→21:24)
[2018-04-06] MEDS: Docusate 100mg/10ml Liq NG SCH ×2 (09:39→17:12)
[2018-04-06] MEDS: Gabapentin 300 MG/6 ML Soln NG SCH ×3 (09:53→17:12)
[2018-04-06] MEDS: Dakin's 0.125% Soln (Quarter Strength) 16oz TOPIC SCH (10:48)
--- NOTE | 2018-04-06 10:52 | Pre-Procedure Note/Attestation ---
Pre-Procedure Note/Attestation Complete Prior to Procedure Planned Procedure: not applicable Procedure Narrative: egd/peg Indications for Procedure Pre-Operative Diagnosis: dysphagia Attestation I attest that I discussed the nature of the procedure; its benefits; risks and complications; and alternatives (and the risks and benefits of such alternatives ), prior to the procedure, with the patient (or the patient's legal manufacturer's service representative). I attest that, if there was a reasonable possibility of needing a blood transfusion, the patient (or the patient's legal manufacturer's service representative) was given the [facility] standardized written summary, pursuant to the Jovi Zack Blood Safety Act ([place] Health and Safety Code # 1645, as amended). I attest that I re-evaluated the patient just prior to the surgery and that there has been no change in the patient's H&P, except as documented below: Artie Mcgee MD Apr 06, 2018 10:52
[2018-04-06] MEDS ORDERED: Lidocaine 1% MPF 10mg/ml 5ml ONE (11:00)
[2018-04-06] MEDS ORDERED: Propofol 200mg/20ml IV ONE (11:00)
[2018-04-06] MEDS ORDERED: NS 500ML IVPB ONE (11:20)
--- NOTE | 2018-04-06 11:26 | General Progress Note ---
Assessment/Plan Problem List: (1) Malnutrition Assessment & Plan: encephalopathy due to metabolic d/o hypotension tachy cardia the pt lacks capacity to make decisions hold all psych meds at this time the pt may need urgent gt d/w Dr. mendenhall ICD Codes: E46 - Unspecified protein-calorie malnutrition SNOMED: 91994369 Status: unchanged Assessment/Plan encephalopathy due to metabolic d/o hypotension tachy cardia the pt lacks capacity to make decisions decrease Seroquel 100mg qhs Depakote 500mg bid. the pt may need urgent gt d/w Dr. Morgan d/w Dr. Veloz Subjective Date patient seen: Apr 06, 2018 Neurologic/Psychiatric: Reports: anxiety, depressed, emotional problems Allergies: Coded Allergies: ARIPIPRAZOLE (Verified Allergy, Unknown, 03/31/18) QUETIAPINE (Verified Allergy, Unknown, 03/31/18) Objective Last 24 Hour Vital Signs Date Time Temp Pulse Resp B/P (MAP) Pulse Ox O2 Delivery O2 Flow Rate FiO2 04/06/18 08:05 Nasal Cannula 2.0 28 04/06/18 08:05 97 Nasal Cannula 2.0 28 04/06/18 08:00 98.4 99 18 131/72 (91) 96 98.4 04/06/18 04:11 116 04/06/18 04:00 97.9 84 19 103/48 (66) 94 97.9 04/06/18 00:02 96 04/06/18 00:00 97.9 99 28 125/75 (92) 99 97.9 04/05/18 21:00 Nasal Cannula 2.0 04/05/18 20:00 97.9 100 20 105/74 (84) 98 97.9 04/05/18 16:00 98.2 106 20 115/61 (79) 98 98.2 04/05/18 16:00 102 04/05/18 12:00 110 04/05/18 12:00 97.1 77 20 125/67 (86) 99 97.1 Intake and Output 04/05/18 04/06/18 19:00 07:00 Intake Total 990 ml Output Total 950 ml 2150 ml Balance -950 ml -1160 ml Intake Oral 0 ml Free Water 180 ml IV Total 510 ml Tube Feeding 300 ml Output Urine Total 950 ml 2150 ml # Bowel Movements 1 2 Laboratory Tests 04/06/18 05:35: White Blood Count 12.0H, Red Blood Count 3.24L, Hemoglobin 11.5L, Hematocrit 33.6L, Mean Corpuscular Volume 104H, Mean Corpuscular Hemoglobin 35.6H, Mean Corpuscular Hemoglobin Concent 34.3, Red Cell Distribution Width 13.0, Platelet Count 86L, Mean Platelet Volume 6.1L, Neutrophils (%) (Auto) , Lymphocytes (%) ( Auto) , Monocytes (%) (Auto) , Eosinophils (%) (Auto) , Basophils (%) (Auto) , Prothrombin Time 13.4H, Prothromb Time International Ratio 1.3H, Activated Partial Thromboplast Time 26, Sodium Level 135L, Potassium Level 4.2, Chloride Level 104, Carbon Dioxide Level 31, Anion Gap 1L, Blood Urea Nitrogen 10, Creatinine 0.6, Estimat Glomerular Filtration Rate > 60, Glucose Level 92, Calcium Level 8.6, Phosphorus Level 3.1, Magnesium Level 1.6L Height (Feet): 6 Height (Inches): 1.00 Weight (Pounds): 190 General Appearance: no apparent distress, lethargic, confused Neurologic: depressed affect Madisyn Shetty MD Apr 06, 2018 11:26
--- NOTE | 2018-04-06 11:50 | Endoscopy Procedure Note ---
Endoscopy Procedure Note General Indication for Procedure: dysphagia Procedures Performed: EGD Operative Findings/Diagnosis: same Specimen: yes Pt Tolerated Procedure Well: Yes Estimated Blood Loss: none Anesthesia Anesthesiologist: kaylyn infante Anesthesia: MAC Inserted Devices Implant(s) used?: No GI Core Measures 50 yrs or older w/o bx or poly: Not Applicable 10yrs. F/U not recommended: Not Applicable Artie Mcgee MD Apr 06, 2018 11:50
--- NOTE | 2018-04-06 12:29 | Immediate Post-Op Evaluation ---
Immediate Post-Op Evalulation Immediate Post-Op Evalulation Procedure: peg w/bx Date of Evaluation: Apr 06, 2018 Time of Evaluation: 11:54 IV Fluids: 175ml 0.9ns Blood Products: none Estimated Blood Loss: negligible Blood Pressure Systolic: 134 Blood Pressure Diastolic: 85 Pulse Rate: 144 Respiratory Rate: 18 O2 Sat by Pulse Oximetry: 97 Temperature (Fahrenheit): 97.4 Pain Score (1-10): 0 Nausea: No Vomiting: No Complications none Patient Status: awake, reacts, patent Hydration Status: adequate Drug: Violet Medellin MD Apr 06, 2018 12:29
--- NOTE | 2018-04-06 12:31 | 48 Hour Post Anesthesia Eval ---
Post Anesthesia Evaluation Procedure: peg w/bx Date of Evaluation: Apr 06, 2018 Time of Evaluation: 12:30 Blood Pressure Systolic: 127 0: 88 Pulse Rate: 66 Respiratory Rate: 18 Temperature (Fahrenheit): 97.4 O2 Sat by Pulse Oximetry: 97 Airway: patent Nausea: No Vomiting: No Pain Intensity: 0 Hydration Status: adequate Cardiopulmonary Status: stable Mental Status/LOC: patient returned to baseline Post-Anesthesia Complications: none Follow-up care needed: N/A Violet Zheng MD Apr 06, 2018 12:31
--- NOTE | 2018-04-06 12:36 | General Progress Note ---
Assessment/Plan Problem List: (1) Acute prerenal azotemia ICD Codes: R79.89 - Other specified abnormal findings of blood chemistry SNOMED: 230011857 (2) Dyspnea ICD Codes: R06.00 - Dyspnea, unspecified SNOMED: 033906123 (3) Sepsis ICD Codes: A41.9 - Sepsis, unspecified organism SNOMED: 09517183 Qualifiers: Qualified Codes: A41.9 - Sepsis, unspecified organism (4) Dysphagia ICD Codes: R13.10 - Dysphagia, unspecified SNOMED: 80958996, 914503507 (5) Healthcare associated bacterial pneumonia ICD Codes: J15.9 - Unspecified bacterial pneumonia SNOMED: 184045713 Status: progressing Assessment/Plan low platelet w hematurea so consulted dr corea malnutrition bioethecis wound needs I&d per dr lemus failed swallow study dysphagia feeding tube per gi Subjective ROS Limited/Unobtainable: Yes Allergies: Coded Allergies: ARIPIPRAZOLE (Verified Allergy, Unknown, 03/31/18) QUETIAPINE (Verified Allergy, Unknown, 03/31/18) Objective Last 24 Hour Vital Signs Date Time Temp Pulse Resp B/P (MAP) Pulse Ox O2 Delivery O2 Flow Rate FiO2 04/06/18 12:31 207.3 66 18 97 04/06/18 12:29 207.3 144 18 97 04/06/18 12:11 97 106 30 127/88 96 Nasal Cannula 3 97.0 04/06/18 12:00 106 32 130/82 95 Nasal Cannula 3 04/06/18 11:55 152 27 130/89 97 Nasal Cannula 3 04/06/18 11:50 102 28 129/85 97 Nasal Cannula 3 04/06/18 11:42 97.4 146 26 134/85 97 Nasal Cannula 3 97.4 04/06/18 08:05 Nasal Cannula 2.0 28 04/06/18 08:05 97 Nasal Cannula 2.0 28 04/06/18 08:00 98 04/06/18 08:00 98.4 99 18 131/72 (91) 96 98.4 04/06/18 04:11 116 04/06/18 04:00 97.9 84 19 103/48 (66) 94 97.9 04/06/18 00:02 96 04/06/18 00:00 97.9 99 28 125/75 (92) 99 97.9 04/05/18 21:00 Nasal Cannula 2.0 04/05/18 20:00 97.9 100 20 105/74 (84) 98 97.9 04/05/18 16:00 98.2 106 20 115/61 (79) 98 98.2 04/05/18 16:00 102 Intake and Output 04/05/18 04/06/18 19:00 07:00 Intake Total 990 ml Output Total 950 ml 2150 ml Balance -950 ml -1160 ml Intake Oral 0 ml Free Water 180 ml IV Total 510 ml Tube Feeding 300 ml Output Urine Total 950 ml 2150 ml # Bowel Movements 1 2 Laboratory Tests 04/06/18 05:35: White Blood Count 12.0H, Red Blood Count 3.24L, Hemoglobin 11.5L, Hematocrit 33.6L, Mean Corpuscular Volume 104H, Mean Corpuscular Hemoglobin 35.6H, Mean Corpuscular Hemoglobin Concent 34.3, Red Cell Distribution Width 13.0, Platelet Count 86L, Mean Platelet Volume 6.1L, Neutrophils (%) (Auto) , Lymphocytes (%) ( Auto) , Monocytes (%) (Auto) , Eosinophils (%) (Auto) , Basophils (%) (Auto) , Prothrombin Time 13.4H, Prothromb Time International Ratio 1.3H, Activated Partial Thromboplast Time 26, Sodium Level 135L, Potassium Level 4.2, Chloride Level 104, Carbon Dioxide Level 31, Anion Gap 1L, Blood Urea Nitrogen 10, Creatinine 0.6, Estimat Glomerular Filtration Rate > 60, Glucose Level 92, Calcium Level 8.6, Phosphorus Level 3.1, Magnesium Level 1.6L Height (Feet): 6 Height (Inches): 1.00 Weight (Pounds): 190 General Appearance: confused Cardiovascular: regular rhythm Respiratory/Chest: lungs clear Loly Dash MD Apr 06, 2018 12:36
[2018-04-06] MEDS: Norco 5mg/325mg tab NG PRN (13:04)
--- NOTE | 2018-04-06 13:18 | Infectious Diseases Prog Note ---
Assessment/Plan Assessment/Plan A 1. pneumonia 2. leucocytosis improving 3. hepatitis C 4, thrombocytopenia 5. necrotic sacral ulcer may be infected 6. Encephalopathy 7. Tachycardia P 1. continue Meropenem Subjective ROS Limited/Unobtainable: Yes Gastrointestinal/Abdominal: Reports: other - had EGD & PEG placement today Skin: Reports: other - had wound debridement today Allergies: Coded Allergies: ARIPIPRAZOLE (Verified Allergy, Unknown, 03/31/18) QUETIAPINE (Verified Allergy, Unknown, 03/31/18) Objective Vital Signs Last 24 Hour Vital Signs Date Time Temp Pulse Resp B/P (MAP) Pulse Ox O2 Delivery O2 Flow Rate FiO2 04/06/18 12:31 207.3 66 18 97 04/06/18 12:29 207.3 144 18 97 04/06/18 12:11 97 106 30 127/88 96 Nasal Cannula 3 97.0 04/06/18 12:00 106 32 130/82 95 Nasal Cannula 3 04/06/18 11:55 152 27 130/89 97 Nasal Cannula 3 04/06/18 11:50 102 28 129/85 97 Nasal Cannula 3 04/06/18 11:42 97.4 146 26 134/85 97 Nasal Cannula 3 97.4 04/06/18 08:05 Nasal Cannula 2.0 28 04/06/18 08:05 97 Nasal Cannula 2.0 28 04/06/18 08:00 98 04/06/18 08:00 98.4 99 18 131/72 (91) 96 98.4 04/06/18 04:11 116 04/06/18 04:00 97.9 84 19 103/48 (66) 94 97.9 04/06/18 00:02 96 04/06/18 00:00 97.9 99 28 125/75 (92) 99 97.9 04/05/18 21:00 Nasal Cannula 2.0 04/05/18 20:00 97.9 100 20 105/74 (84) 98 97.9 04/05/18 16:00 98.2 106 20 115/61 (79) 98 98.2 04/05/18 16:00 102 Height (Feet): 6 Height (Inches): 1.00 Weight (Pounds): 190 General Appearance: no acute distress HEENT: mucous membranes moist Respiratory/Chest: lungs clear Cardiovascular: normal rate Abdomen: soft, non tender, other - GT in place Skin: ulcers Neurologic/Psychiatric: other - says few words today Laboratory Tests Test 04/06/18 05:35 White Blood Count 12.0 K/UL (4.8-10.8) H Red Blood Count 3.24 M/UL (4.70-6.10) L Hemoglobin 11.5 G/DL (14.2-18.0) L Hematocrit 33.6 % (42.0-52.0) L Mean Corpuscular Volume 104 FL (80-99) H Mean Corpuscular Hemoglobin 35.6 PG (27.0-31.0) H Mean Corpuscular Hemoglobin Concent 34.3 G/DL (32.0-36.0) Red Cell Distribution Width 13.0 % (11.6-14.8) Platelet Count 86 K/UL (150-450) L Mean Platelet Volume 6.1 FL (6.5-10.1) L Neutrophils (%) (Auto) % (45.0-75.0) Lymphocytes (%) (Auto) % (20.0-45.0) Monocytes (%) (Auto) % (1.0-10.0) Eosinophils (%) (Auto) % (0.0-3.0) Basophils (%) (Auto) % (0.0-2.0) Prothrombin Time 13.4 SEC (9.30-11.50) H Prothromb Time International Ratio 1.3 (0.9-1.1) H Activated Partial Thromboplast Time 26 SEC (23-33) Sodium Level 135 MMOL/L (136-145) L Potassium Level 4.2 MMOL/L (3.5-5.1) Chloride Level 104 MMOL/L (98-107) Carbon Dioxide Level 31 MMOL/L (21-32) Anion Gap 1 mmol/L (5-15) L Blood Urea Nitrogen 10 mg/dL (7-18) Creatinine 0.6 MG/DL (0.55-1.30) Estimat Glomerular Filtration Rate > 60 mL/min (>60) Glucose Level 92 MG/DL (74-106) Calcium Level 8.6 MG/DL (8.5-10.1) Phosphorus Level 3.1 MG/DL (2.5-4.9) Magnesium Level 1.6 MG/DL (1.8-2.4) L Current Medications Medications (Trade) Dose Ordered Sig/Elizabeth Route PRN Reason Start Time Stop Time Status Last Admin Dose Admin Acetaminophen (Tylenol) 500 mg Q4H PRN NG mild pain/temp >100.5 04/03/18 09:00 05/03/18 08:59 Acetaminophen/ Hydrocodone Bitart (Guffey 5/325) 1 tab EVERY 8 HOURS PRN NG for moderate pain 04/03/18 09:00 04/10/18 08:59 04/06/18 13:04 Al Hydroxide/Mg Hydroxide (Mylanta) 15 ml Q1H PRN ORAL gi upset 04/06/18 07:15 04/06/18 17:00 Atropine Sulfate (Atropine) 0.5 mg Q5M PRN IV bpm less than 45 04/06/18 07:15 04/06/18 17:00 Benztropine Mesylate (Cogentin) 1 mg BID NG 04/03/18 09:00 04/30/18 08:59 04/06/18 09:38 Bupropion HCl (Wellbutrin) 150 mg BID NG 04/03/18 18:00 05/03/18 17:59 04/06/18 09:37 Diphenhydramine HCl (Benadryl) 25 mg Q15M PRN IVP Itching 04/06/18 07:15 04/06/18 17:00 Docusate Sodium (Colace) 100 mg TWICE A DAY NG 04/05/18 09:00 05/05/18 08:59 04/06/18 09:39 Fentanyl Citrate (Sublimaze 100 mcg/2 mL) 25 mcg Q10M PRN IV Moderate Pain (Pain Scale 4-6) 04/06/18 07:15 04/06/18 17:00 Gabapentin (Neurontin) 300 mg TID NG 04/03/18 09:00 05/03/18 08:59 04/06/18 09:53 Haloperidol (Haldol) 10 mg BID PRN ORAL Agitation 03/31/18 05:45 04/30/18 05:44 Hydralazine HCl (Apresoline) 5 mg Q30M PRN IV SBP>160 OR___/DBP>90 OR___ 04/06/18 07:15 10/17/18 17:00 Lansoprazole (Prevacid) 30 mg BID NG 04/03/18 18:00 05/03/18 17:59 04/06/18 09:37 Meropenem 1 gm/ Sodium Chloride 55 ml @ 110 mls/hr Q8HR IVPB 04/04/18 14:00 04/09/18 13:59 04/06/18 05:00 Midazolam HCl (Versed 2mg/2ml vial) 1 mg Q15M PRN IVP For Anxiety 04/06/18 07:15 04/06/18 17:00 Ondansetron HCl (Zofran) 4 mg Q1H PRN IVP Nausea & Vomiting 04/06/18 07:15 04/06/18 17:00 Polyethylene Glycol (Miralax) 17 gm BEDTIME NG 04/05/18 21:00 05/05/18 20:59 04/05/18 21:47 Quetiapine Fumarate (SEROquel) 100 mg BEDTIME NG 04/06/18 21:00 05/06/18 20:59 Sodium Hypochlorite (Dakin's Quarter Strength) 1 applic DAILY TOPIC 03/31/18 15:41 04/30/18 15:40 04/06/18 10:48 Sodium Chloride 1,000 ml @ 50 mls/hr Q20H IV 04/03/18 13:30 05/03/18 13:29 04/06/18 01:51 Valproic Acid (Depakene) 500 mg EVERY 12 HOURS NG 04/03/18 09:15 05/03/18 09:14 04/06/18 09:38 Mao Trevino MD Apr 06, 2018 13:18
--- NOTE | 2018-04-06 13:35 | General Progress Note ---
Assessment/Plan Status: stable Assessment/Plan # Thrombocytopenia -- first admission here, therefore do not have his baseline, is VERY likely related to underlying sepsis and consumptive state, plt count appears to be 50-100k, on hepatitis panel does have Hep-C++ and hiv is negative , also on US abd: No acute findings. Left renal cyst, does have evidence of liver disease --> abx have been reviewed, unlikely contributors as only short hospital stay --> other medications have been reviewed as well --> peripheral smear reviewed, does not show schistocytes or blasts --> transfuse if plt <20k # Leukocytosis very likely related to either uti/pna --> appreciate id care --> abx have been reviewed --> currently, wbc at 12, elevated # Anemia of chronic disease -- hgb currently 10-12 range, anemia panel reviewed --> trend cbc --> Hgb goal above 7 --> Currently, stable. # Septic shock -- on ivf and has received abx # Healthcare associated bacterial pneumonia--> on abx, have been reviewed --> ID is following. Appreciate recs. # Supraventricular tachycardia # Acute prerenal azotemia # Paroxysmal SVT versus A. fib. Rate controlled with a dose of Cardizem. # Resp failure on NC # Dysphagia. --> 04/06: PEG placement Greatly appreciate consultation! Subjective Date patient seen: Apr 06, 2018 Hematologic/Lymphatic: Reports: anemia Allergies: Coded Allergies: ARIPIPRAZOLE (Verified Allergy, Unknown, 03/31/18) QUETIAPINE (Verified Allergy, Unknown, 03/31/18) All Systems: reviewed and negative except above Subjective S/P PEG placement, have started tube feedings. Debridement pending consent. Objective Last 24 Hour Vital Signs Date Time Temp Pulse Resp B/P (MAP) Pulse Ox O2 Delivery O2 Flow Rate FiO2 04/06/18 12:31 207.3 66 18 97 04/06/18 12:29 207.3 144 18 97 04/06/18 12:11 97 106 30 127/88 96 Nasal Cannula 3 97.0 04/06/18 12:00 106 32 130/82 95 Nasal Cannula 3 04/06/18 11:55 152 27 130/89 97 Nasal Cannula 3 04/06/18 11:50 102 28 129/85 97 Nasal Cannula 3 04/06/18 11:42 97.4 146 26 134/85 97 Nasal Cannula 3 97.4 04/06/18 08:05 Nasal Cannula 2.0 28 04/06/18 08:05 97 Nasal Cannula 2.0 28 04/06/18 08:00 98 04/06/18 08:00 98.4 99 18 131/72 (91) 96 98.4 04/06/18 04:11 116 04/06/18 04:00 97.9 84 19 103/48 (66) 94 97.9 04/06/18 00:02 96 04/06/18 00:00 97.9 99 28 125/75 (92) 99 97.9 04/05/18 21:00 Nasal Cannula 2.0 04/05/18 20:00 97.9 100 20 105/74 (84) 98 97.9 04/05/18 16:00 98.2 106 20 115/61 (79) 98 98.2 04/05/18 16:00 102 Intake and Output 04/05/18 04/06/18 19:00 07:00 Intake Total 990 ml Output Total 950 ml 2150 ml Balance -950 ml -1160 ml Intake Oral 0 ml Free Water 180 ml IV Total 510 ml Tube Feeding 300 ml Output Urine Total 950 ml 2150 ml # Bowel Movements 1 2 Laboratory Tests 04/06/18 05:35: White Blood Count 12.0H, Red Blood Count 3.24L, Hemoglobin 11.5L, Hematocrit 33.6L, Mean Corpuscular Volume 104H, Mean Corpuscular Hemoglobin 35.6H, Mean Corpuscular Hemoglobin Concent 34.3, Red Cell Distribution Width 13.0, Platelet Count 86L, Mean Platelet Volume 6.1L, Neutrophils (%) (Auto) , Lymphocytes (%) ( Auto) , Monocytes (%) (Auto) , Eosinophils (%) (Auto) , Basophils (%) (Auto) , Prothrombin Time 13.4H, Prothromb Time International Ratio 1.3H, Activated Partial Thromboplast Time 26, Sodium Level 135L, Potassium Level 4.2, Chloride Level 104, Carbon Dioxide Level 31, Anion Gap 1L, Blood Urea Nitrogen 10, Creatinine 0.6, Estimat Glomerular Filtration Rate > 60, Glucose Level 92, Calcium Level 8.6, Phosphorus Level 3.1, Magnesium Level 1.6L Height (Feet): 6 Height (Inches): 1.00 Weight (Pounds): 190 General Appearance: no apparent distress EENT: PERRL/EOMI Cardiovascular: normal peripheral pulses, tachycardia Respiratory/Chest: no respiratory distress Abdomen: soft Jose Mckeon MD Apr 06, 2018 13:35
[2018-04-06] MEDS ORDERED: ceFAZolin 1gm/50ml Premix 50 ML IV SCH (14:00)
--- NOTE | 2018-04-06 15:49 | Diagnostic Imaging Report ---
Indications: Dysphagia Technique: Patient ingested multiple substances under the supervision of speech pathology. Video fluoroscopic recording performed. Total fluoroscopy time 79.6 seconds. Total dose area product 0.08809 mGycm2 Comparison: none Findings: There is delayed pooling of contrast within the vallecula and piriform sinuses. Repeated swallowing results in aspiration of the pooled contrast with both thin and nectar thick liquid barium. There is unusual configuration of the piriform sinuses, which extend anterior to and below the cervical esophageal orifice. Possibly of a diverticulum should be considered. Impression: Positive for aspiration of thin and nectar thick liquid barium Unusual configuration of the piriform sinuses. Small anterior diverticulum not completely excludable
[2018-04-06] MEDS ORDERED: Metoprolol 5mg/5ml Inj IVP SCH (16:23)
[2018-04-06] MEDS ORDERED: Digoxin 0.5mg/2ml Inj IVP SCH (17:13)
[2018-04-06] MEDS ORDERED: Sodium Chloride 500ML 500 ML IV ONE (18:15)
--- NOTE | 2018-04-06 21:12 | Nephrology Progress Note ---
Assessment/Plan Problem List: (1) Malnutrition (2) Dehydration (3) Sepsis (4) Electrolyte abnormality Assessment Electrolyte imbalance other conditions; 1. Acute hypoxemic respiratory failure 2. Sepsis 3. Pneumonia 4. Altered mental status 5. NURY 6. Thrombocytopenia 7. Schizophrenia 8. Stage IV decubitus ulcer Plan now in ICU with At fib DC Wellbutrin mag & Phos supplement- change IV protonox to NG Prevacid change hypotonic solution to Isotonic as Na is lowering per staff consultant Subjective ROS Limited/Unobtainable: No Constitutional: Reports: malaise Objective Objective Last 24 Hour Vital Signs Date Time Temp Pulse Resp B/P (MAP) Pulse Ox O2 Delivery O2 Flow Rate FiO2 04/06/18 20:23 110 04/06/18 20:10 98.9 110 22 111/66 (81) 93 98.9 04/06/18 19:47 98 Nasal Cannula 2.0 28 04/06/18 19:47 Nasal Cannula 2.0 28 04/06/18 16:00 97.5 120 20 103/59 (74) 97 97.5 04/06/18 16:00 71 04/06/18 12:31 207.3 66 18 97 04/06/18 12:29 207.3 144 18 97 04/06/18 12:11 97 106 30 127/88 96 Nasal Cannula 3 97.0 04/06/18 12:00 173 04/06/18 12:00 106 32 130/82 95 Nasal Cannula 3 04/06/18 11:55 152 27 130/89 97 Nasal Cannula 3 04/06/18 11:50 102 28 129/85 97 Nasal Cannula 3 04/06/18 11:42 97.4 146 26 134/85 97 Nasal Cannula 3 97.4 04/06/18 09:00 Nasal Cannula 2.0 04/06/18 08:05 Nasal Cannula 2.0 28 04/06/18 08:05 97 Nasal Cannula 2.0 28 04/06/18 08:00 98 04/06/18 08:00 98.4 99 18 131/72 (91) 96 98.4 04/06/18 04:11 116 04/06/18 04:00 97.9 84 19 103/48 (66) 94 97.9 04/06/18 00:02 96 04/06/18 00:00 97.9 99 28 125/75 (92) 99 97.9 Intake and Output 04/05/18 04/06/18 19:00 07:00 Intake Total 990 ml Output Total 950 ml 2150 ml Balance -950 ml -1160 ml Intake Oral 0 ml Free Water 180 ml IV Total 510 ml Tube Feeding 300 ml Output Urine Total 950 ml 2150 ml # Bowel Movements 1 2 Laboratory Tests 04/06/18 05:35: White Blood Count 12.0H, Red Blood Count 3.24L, Hemoglobin 11.5L, Hematocrit 33.6L, Mean Corpuscular Volume 104H, Mean Corpuscular Hemoglobin 35.6H, Mean Corpuscular Hemoglobin Concent 34.3, Red Cell Distribution Width 13.0, Platelet Count 86L, Mean Platelet Volume 6.1L, Neutrophils (%) (Auto) , Lymphocytes (%) ( Auto) , Monocytes (%) (Auto) , Eosinophils (%) (Auto) , Basophils (%) (Auto) , Prothrombin Time 13.4H, Prothromb Time International Ratio 1.3H, Activated Partial Thromboplast Time 26, Sodium Level 135L, Potassium Level 4.2, Chloride Level 104, Carbon Dioxide Level 31, Anion Gap 1L, Blood Urea Nitrogen 10, Creatinine 0.6, Estimat Glomerular Filtration Rate > 60, Glucose Level 92, Calcium Level 8.6, Phosphorus Level 3.1, Magnesium Level 1.6L 04/06/18 15:00: Stool Occult Blood [Pending] Height (Feet): 6 Height (Inches): 1.00 Weight (Pounds): 190 General Appearance: no apparent distress, lethargic Cardiovascular: tachycardia, arrhythmia Respiratory/Chest: decreased breath sounds Abdomen: soft Objective no other change Jeffry Jade MD Apr 06, 2018 21:12
[2018-04-06] MEDS: Miralax 17gm pkt NG SCH (21:14)
[2018-04-06] MEDS ORDERED: Norco 5mg/325mg tab NG PRN (22:00)
--- NOTE | 2018-04-06 23:56 | Cardiology Progress Note ---
Assessment/Plan Assessment/Plan 1. Paroxysmal atrial fibrillation with RVR , possible postop hypovolemia and sepsis, will transfer to ICU. Will start with metoprolol 5mg IV followed by 25mg po bid, will check hemodynamics. Echo reveals normal LVEF at 70%. 2. Short run of nonsustained ventricular tachycardia, keep Mg level >2.5. 3. Acute hypoxemic respiratory failure, normal intracardiac filling pressure by echo. 4. Healthcare associated Pneumonia 5. NURY, resolved. 6. Thrombocytopenia 7. s/p PEG placement. Subjective Subjective Developed atrial fibrillation with RVR following PEG placement and debridement. Objective Last 24 Hour Vital Signs Date Time Temp Pulse Resp B/P (MAP) Pulse Ox O2 Delivery O2 Flow Rate FiO2 04/06/18 21:00 Nasal Cannula 2.0 04/06/18 20:23 110 04/06/18 20:10 98.9 110 22 111/66 (81) 93 98.9 04/06/18 19:47 98 Nasal Cannula 2.0 28 04/06/18 19:47 Nasal Cannula 2.0 28 04/06/18 16:00 97.5 120 20 103/59 (74) 97 97.5 04/06/18 16:00 71 04/06/18 12:31 207.3 66 18 97 04/06/18 12:29 207.3 144 18 97 04/06/18 12:11 97 106 30 127/88 96 Nasal Cannula 3 97.0 04/06/18 12:00 173 04/06/18 12:00 106 32 130/82 95 Nasal Cannula 3 04/06/18 11:55 152 27 130/89 97 Nasal Cannula 3 04/06/18 11:50 102 28 129/85 97 Nasal Cannula 3 04/06/18 11:42 97.4 146 26 134/85 97 Nasal Cannula 3 97.4 04/06/18 09:00 Nasal Cannula 2.0 04/06/18 08:05 Nasal Cannula 2.0 28 04/06/18 08:05 97 Nasal Cannula 2.0 28 04/06/18 08:00 98 04/06/18 08:00 98.4 99 18 131/72 (91) 96 98.4 04/06/18 04:11 116 04/06/18 04:00 97.9 84 19 103/48 (66) 94 97.9 04/06/18 00:02 96 04/06/18 00:00 97.9 99 28 125/75 (92) 99 97.9 Intake and Output 04/05/18 04/06/18 19:00 07:00 Intake Total 990 ml Output Total 950 ml 2150 ml Balance -950 ml -1160 ml Intake Oral 0 ml Free Water 180 ml IV Total 510 ml Tube Feeding 300 ml Output Urine Total 950 ml 2150 ml # Bowel Movements 1 2 2D Echo: LVEF 70%, Mild LVH, Grade I LVDD, RVSP 15 mmHg Laboratory Tests Test 04/06/18 05:35 04/06/18 15:00 White Blood Count 12.0 K/UL (4.8-10.8) H Red Blood Count 3.24 M/UL (4.70-6.10) L Hemoglobin 11.5 G/DL (14.2-18.0) L Hematocrit 33.6 % (42.0-52.0) L Mean Corpuscular Volume 104 FL (80-99) H Mean Corpuscular Hemoglobin 35.6 PG (27.0-31.0) H Mean Corpuscular Hemoglobin Concent 34.3 G/DL (32.0-36.0) Red Cell Distribution Width 13.0 % (11.6-14.8) Platelet Count 86 K/UL (150-450) L Mean Platelet Volume 6.1 FL (6.5-10.1) L Neutrophils (%) (Auto) % (45.0-75.0) Lymphocytes (%) (Auto) % (20.0-45.0) Monocytes (%) (Auto) % (1.0-10.0) Eosinophils (%) (Auto) % (0.0-3.0) Basophils (%) (Auto) % (0.0-2.0) Prothrombin Time 13.4 SEC (9.30-11.50) H Prothromb Time International Ratio 1.3 (0.9-1.1) H Activated Partial Thromboplast Time 26 SEC (23-33) Sodium Level 135 MMOL/L (136-145) L Potassium Level 4.2 MMOL/L (3.5-5.1) Chloride Level 104 MMOL/L (98-107) Carbon Dioxide Level 31 MMOL/L (21-32) Anion Gap 1 mmol/L (5-15) L Blood Urea Nitrogen 10 mg/dL (7-18) Creatinine 0.6 MG/DL (0.55-1.30) Estimat Glomerular Filtration Rate > 60 mL/min (>60) Glucose Level 92 MG/DL (74-106) Calcium Level 8.6 MG/DL (8.5-10.1) Phosphorus Level 3.1 MG/DL (2.5-4.9) Magnesium Level 1.6 MG/DL (1.8-2.4) L Stool Occult Blood Pending Objective HEENT: Atraumatic and normocephalic. Anicteric. Pupils are equal, round, and reactive to light and accommodation. Conjunctival pallor is present. NECK: JVP less than 5 cm. No carotid bruit. Carotid upstroke is 2+ bilaterally. CARDIOVASCULAR SYSTEM: Normal S1, S2. Irregularly irregular rhythm. Tachycardic. No murmurs, gallops, or rubs. LUNGS: Clear to auscultation bilaterally. ABDOMEN: Soft, nontender, and nondistended. No hepatosplenomegaly. Positive bowel sounds. EXTREMITIES: No evidence of edema, clubbing, or cyanosis. Gokul Villalta MD Apr 06, 2018 23:56
[2018-04-07] VITALS (20 sets, daily range): BP systolic 97–126; BP diastolic 45–69
[2018-04-07] MEDS ORDERED: Acetaminophen 650mg/20.3ml NG PRN ×2 (01:00→18:30)
[2018-04-07 04:59] LABS: BASOPHILS % (AUTO) 1.1 % (0.0-2.0); EOSINOPHILS % (AUTO) 2.9 % (0.0-3.0); HEMATOCRIT 28.9 % (42.0-52.0); HEMOGLOBIN 10.1 G/DL (14.2-18.0); LYMPHOCYTES % (AUTO) 20.5 % (20.0-45.0); MEAN CORPUSCULAR VOLUME 103 FL (80-99); MONOCYTES % (AUTO) 17.8 % (1.0-10.0); NEUTROPHILS % (AUTO) 57.7 % (45.0-75.0); PLATELET COUNT 116 K/UL (150-450); RED CELL DISTRIBUTION WIDTH 12.7 % (11.6-14.8); WHITE BLOOD COUNT 10.9 K/UL (4.8-10.8)
[2018-04-07 05:11] LABS: ANION GAP 2 mmol/L (5-15); BLOOD UREA NITROGEN 11 mg/dL (7-18); CALCIUM 8.2 MG/DL (8.5-10.1); CARBON DIOXIDE 30 MMOL/L (21-32); CHLORIDE 105 MMOL/L (98-107); CREATININE 0.6 MG/DL (0.55-1.30); SODIUM 137 MMOL/L (136-145)
[2018-04-07 05:24] LABS: ALANINE AMINOTRANSFERASE 19 U/L (12-78); ALBUMIN 1.2 G/DL (3.4-5.0); ALKALINE PHOSPHATASE 94 U/L (46-116); ASPARTATE AMINO TRANSFERASE 60 U/L (15-37); BILIRUBIN,DIRECT 0.6 MG/DL (0.0-0.3); BILIRUBIN,TOTAL 0.9 MG/DL (0.2-1.0); PHOSPHORUS 3.1 MG/DL (2.5-4.9)
[2018-04-07] MEDS: Meropenem 1 GM in NS 55 ML IVPB SCH ×2 (06:52→14:40)
[2018-04-07] MEDS: Gabapentin 300 MG/6 ML Soln NG SCH ×3 (08:40→19:05)
[2018-04-07] MEDS ORDERED: Metoprolol Succinate XL 50mg tab ORAL SCH (09:00)
[2018-04-07] MEDS ORDERED: Valproic Acid 500mg/10ml liquid NG SCH (09:00)
[2018-04-07] MEDS ORDERED: Metoprolol 25mg tab ORAL SCH ×3 (09:00→21:00)
[2018-04-07] MEDS ORDERED: Docusate 100mg/10ml Liq NG SCH (09:00)
[2018-04-07] MEDS ORDERED: Benztropine 1mg tab NG SCH (09:00)
[2018-04-07] MEDS ORDERED: Dakin's 0.125% Soln (Quarter Strength) 16oz TOPIC SCH (09:00)
--- NOTE | 2018-04-07 11:57 | GI Progress Note ---
Assessment/Plan Problems: (1) Dehydration ICD Codes: E86.0 - Dehydration SNOMED: 06537303 (2) Malnutrition ICD Codes: E46 - Unspecified protein-calorie malnutrition SNOMED: 25039941 (3) Dysphagia ICD Codes: R13.10 - Dysphagia, unspecified SNOMED: 37483739, 966947511 (4) Thrombocytopenia ICD Codes: D69.6 - Thrombocytopenia, unspecified SNOMED: 113943565 Status: unchanged Status Narrative Discussed with Dr. Mcgee. Assessment/Plan pt transferred to ICU for rapid afib, now in SR s/p PEG GTFs per RD to goal GT site care daily/prn prn transfusions ppi fu labs The patient was seen and examined at bedside and all new and available data was reviewed in the patients chart. I agree with the above findings, impression and plan. (Patient seen earlier today. Signature stamp does not reflect patient encounter time.). - Artie Mcgee MD Subjective Subjective limited Objective Last 24 Hour Vital Signs Date Time Temp Pulse Resp B/P (MAP) Pulse Ox O2 Delivery O2 Flow Rate FiO2 04/07/18 11:00 77 22 106/58 (74) 100 04/07/18 10:00 78 22 103/58 (73) 100 04/07/18 09:00 88 21 120/68 (85) 99 04/07/18 08:12 100 113/68 04/07/18 08:00 Nasal Cannula 2.0 04/07/18 08:00 101 04/07/18 08:00 98.8 99 26 113/68 (83) 96 98.8 04/07/18 07:00 95 21 106/64 (78) 99 04/07/18 06:00 99 21 113/56 (75) 99 04/07/18 05:00 98.7 99 30 112/57 (75) 97 98.7 04/07/18 04:00 Nasal Cannula 2.0 04/07/18 04:00 97 21 102/58 (73) 98 04/07/18 04:00 94 04/07/18 03:00 94 20 101/57 (72) 99 04/07/18 02:00 101 28 105/59 (74) 93 04/07/18 01:00 94 22 109/66 (80) 100 04/07/18 00:00 102 04/07/18 00:00 94 22 109/66 (80) 100 04/07/18 00:00 Nasal Cannula 2.0 04/06/18 23:00 104 22 110/66 (81) 97 04/06/18 22:00 107 22 101/50 (67) 95 04/06/18 21:00 108 22 101/54 (70) 95 04/06/18 21:00 Nasal Cannula 2.0 04/06/18 20:23 110 04/06/18 20:10 98.9 110 22 111/66 (81) 93 98.9 04/06/18 19:47 98 Nasal Cannula 2.0 28 04/06/18 19:47 Nasal Cannula 2.0 28 04/06/18 16:00 97.5 120 20 103/59 (74) 97 97.5 04/06/18 16:00 71 04/06/18 12:31 207.3 66 18 97 04/06/18 12:29 207.3 144 18 97 04/06/18 12:11 97 106 30 127/88 96 Nasal Cannula 3 97.0 04/06/18 12:00 173 04/06/18 12:00 106 32 130/82 95 Nasal Cannula 3 04/06/18 11:55 152 27 130/89 97 Nasal Cannula 3 Intake and Output 04/06/18 04/07/18 19:00 07:00 Intake Total 200 ml 1855 ml Output Total 100 ml 1000 ml Balance 100 ml 855 ml IV Total 200 ml 1255 ml Tube Feeding 600 ml Output Urine Total 100 ml 1000 ml Estimated Blood Loss 0 ml # Bowel Movements 1 Laboratory Tests Test 04/06/18 15:00 04/07/18 04:30 Stool Occult Blood Negative (NEGATIVE) White Blood Count 10.9 K/UL (4.8-10.8) H Red Blood Count 2.80 M/UL (4.70-6.10) L Hemoglobin 10.1 G/DL (14.2-18.0) L Hematocrit 28.9 % (42.0-52.0) L Mean Corpuscular Volume 103 FL (80-99) H Mean Corpuscular Hemoglobin 36.2 PG (27.0-31.0) H Mean Corpuscular Hemoglobin Concent 35.0 G/DL (32.0-36.0) Red Cell Distribution Width 12.7 % (11.6-14.8) Platelet Count 116 K/UL (150-450) L Mean Platelet Volume 6.6 FL (6.5-10.1) Neutrophils (%) (Auto) 57.7 % (45.0-75.0) Lymphocytes (%) (Auto) 20.5 % (20.0-45.0) Monocytes (%) (Auto) 17.8 % (1.0-10.0) H Eosinophils (%) (Auto) 2.9 % (0.0-3.0) Basophils (%) (Auto) 1.1 % (0.0-2.0) Sodium Level 137 MMOL/L (136-145) Potassium Level 4.0 MMOL/L (3.5-5.1) Chloride Level 105 MMOL/L (98-107) Carbon Dioxide Level 30 MMOL/L (21-32) Anion Gap 2 mmol/L (5-15) L Blood Urea Nitrogen 11 mg/dL (7-18) Creatinine 0.6 MG/DL (0.55-1.30) Estimat Glomerular Filtration Rate > 60 mL/min (>60) Glucose Level 118 MG/DL (74-106) H Hemoglobin A1c 5.0 % (4.3-6.0) Uric Acid 2.1 MG/DL (2.6-7.2) L Calcium Level 8.2 MG/DL (8.5-10.1) L Phosphorus Level 3.1 MG/DL (2.5-4.9) Magnesium Level 2.0 MG/DL (1.8-2.4) Total Bilirubin 0.9 MG/DL (0.2-1.0) Direct Bilirubin 0.6 MG/DL (0.0-0.3) H Aspartate Amino Transf (AST/SGOT) 60 U/L (15-37) H Alanine Aminotransferase (ALT/SGPT) 19 U/L (12-78) Alkaline Phosphatase 94 U/L (46-116) Pro-B-Type Natriuretic Peptide 569 pg/mL (0-125) H Total Protein 6.9 G/DL (6.4-8.2) Albumin 1.2 G/DL (3.4-5.0) L Height (Feet): 6 Height (Inches): 1.00 Weight (Pounds): 190 General Appearance: no apparent distress Cardiovascular: normal rate Respiratory/Chest: normal breath sounds, no respiratory distress Abdominal Exam: normal bowel sounds, non tender, soft, GT site - c/d/i Extremities: normal range of motion, non-tender Phil Guevara NP Apr 07, 2018 11:57
--- NOTE | 2018-04-07 12:42 | Infectious Diseases Prog Note ---
Assessment/Plan Assessment/Plan A 1. pneumonia 2. leucocytosis improving 3. hepatitis C 4, thrombocytopenia 5. necrotic sacral ulcer s/p debridement 6. Encephalopathy 7. PAF P 1. continue Meropenem Subjective ROS Limited/Unobtainable: Yes Cardiovascular: Reports: other - transferred to ICU because of rapid A. fib Allergies: Coded Allergies: ARIPIPRAZOLE (Verified Allergy, Unknown, 03/31/18) QUETIAPINE (Verified Allergy, Unknown, 03/31/18) Objective Vital Signs Last 24 Hour Vital Signs Date Time Temp Pulse Resp B/P (MAP) Pulse Ox O2 Delivery O2 Flow Rate FiO2 04/07/18 11:00 77 22 106/58 (74) 100 04/07/18 10:00 78 22 103/58 (73) 100 04/07/18 09:00 88 21 120/68 (85) 99 04/07/18 08:12 100 113/68 04/07/18 08:00 Nasal Cannula 2.0 04/07/18 08:00 101 04/07/18 08:00 98.8 99 26 113/68 (83) 96 98.8 04/07/18 07:00 95 21 106/64 (78) 99 04/07/18 06:00 99 21 113/56 (75) 99 04/07/18 05:00 98.7 99 30 112/57 (75) 97 98.7 04/07/18 04:00 Nasal Cannula 2.0 04/07/18 04:00 97 21 102/58 (73) 98 04/07/18 04:00 94 04/07/18 03:00 94 20 101/57 (72) 99 04/07/18 02:00 101 28 105/59 (74) 93 04/07/18 01:00 94 22 109/66 (80) 100 04/07/18 00:00 102 04/07/18 00:00 94 22 109/66 (80) 100 04/07/18 00:00 Nasal Cannula 2.0 04/06/18 23:00 104 22 110/66 (81) 97 04/06/18 22:00 107 22 101/50 (67) 95 04/06/18 21:00 108 22 101/54 (70) 95 04/06/18 21:00 Nasal Cannula 2.0 04/06/18 20:23 110 04/06/18 20:10 98.9 110 22 111/66 (81) 93 98.9 04/06/18 19:47 98 Nasal Cannula 2.0 28 04/06/18 19:47 Nasal Cannula 2.0 28 04/06/18 16:00 97.5 120 20 103/59 (74) 97 97.5 04/06/18 16:00 71 Height (Feet): 6 Height (Inches): 1.00 Weight (Pounds): 190 General Appearance: no acute distress HEENT: other - dry mouth Respiratory/Chest: lungs clear Cardiovascular: normal rate Abdomen: soft, non tender, other - GT feeding Extremities: no edema Neurologic/Psychiatric: other - awake, poorly communicative Laboratory Tests Test 04/06/18 15:00 04/07/18 04:30 Stool Occult Blood Negative (NEGATIVE) White Blood Count 10.9 K/UL (4.8-10.8) H Red Blood Count 2.80 M/UL (4.70-6.10) L Hemoglobin 10.1 G/DL (14.2-18.0) L Hematocrit 28.9 % (42.0-52.0) L Mean Corpuscular Volume 103 FL (80-99) H Mean Corpuscular Hemoglobin 36.2 PG (27.0-31.0) H Mean Corpuscular Hemoglobin Concent 35.0 G/DL (32.0-36.0) Red Cell Distribution Width 12.7 % (11.6-14.8) Platelet Count 116 K/UL (150-450) L Mean Platelet Volume 6.6 FL (6.5-10.1) Neutrophils (%) (Auto) 57.7 % (45.0-75.0) Lymphocytes (%) (Auto) 20.5 % (20.0-45.0) Monocytes (%) (Auto) 17.8 % (1.0-10.0) H Eosinophils (%) (Auto) 2.9 % (0.0-3.0) Basophils (%) (Auto) 1.1 % (0.0-2.0) Sodium Level 137 MMOL/L (136-145) Potassium Level 4.0 MMOL/L (3.5-5.1) Chloride Level 105 MMOL/L (98-107) Carbon Dioxide Level 30 MMOL/L (21-32) Anion Gap 2 mmol/L (5-15) L Blood Urea Nitrogen 11 mg/dL (7-18) Creatinine 0.6 MG/DL (0.55-1.30) Estimat Glomerular Filtration Rate > 60 mL/min (>60) Glucose Level 118 MG/DL (74-106) H Hemoglobin A1c 5.0 % (4.3-6.0) Uric Acid 2.1 MG/DL (2.6-7.2) L Calcium Level 8.2 MG/DL (8.5-10.1) L Phosphorus Level 3.1 MG/DL (2.5-4.9) Magnesium Level 2.0 MG/DL (1.8-2.4) Total Bilirubin 0.9 MG/DL (0.2-1.0) Direct Bilirubin 0.6 MG/DL (0.0-0.3) H Aspartate Amino Transf (AST/SGOT) 60 U/L (15-37) H Alanine Aminotransferase (ALT/SGPT) 19 U/L (12-78) Alkaline Phosphatase 94 U/L (46-116) Pro-B-Type Natriuretic Peptide 569 pg/mL (0-125) H Total Protein 6.9 G/DL (6.4-8.2) Albumin 1.2 G/DL (3.4-5.0) L Current Medications Medications (Trade) Dose Ordered Sig/Elizabeth Route PRN Reason Start Time Stop Time Status Last Admin Dose Admin Acetaminophen (Tylenol) 500 mg Q4H PRN NG mild pain/temp >100.5 04/07/18 01:00 05/03/18 08:59 Acetaminophen/ Hydrocodone Bitart ([place] 5/325) 1 tab EVERY 8 HOURS PRN NG for moderate pain 04/06/18 22:00 04/10/18 08:59 Benztropine Mesylate (Cogentin) 1 mg BID NG 04/07/18 09:00 04/30/18 08:59 04/07/18 08:31 Docusate Sodium (Colace) 100 mg TWICE A DAY NG 04/07/18 09:00 05/05/18 08:59 04/07/18 08:12 Gabapentin (Neurontin) 300 mg TID NG 04/07/18 09:00 05/03/18 08:59 04/07/18 08:40 Haloperidol (Haldol) 10 mg BID PRN ORAL Agitation 04/07/18 09:00 04/30/18 05:44 Lansoprazole (Prevacid) 30 mg BID NG 04/07/18 09:00 05/03/18 17:59 04/07/18 08:11 Meropenem 1 gm/ Sodium Chloride 55 ml @ 110 mls/hr Q8HR IVPB 04/06/18 22:00 04/09/18 13:59 04/07/18 06:52 Metoprolol Tartrate (Lopressor) 25 mg Q12HR ORAL 04/07/18 09:00 05/07/18 08:59 04/07/18 08:12 Polyethylene Glycol (Miralax) 17 gm BEDTIME NG 04/07/18 21:00 05/05/18 20:59 Quetiapine Fumarate (SEROquel) 100 mg BEDTIME NG 04/07/18 21:00 05/06/18 20:59 Sodium Hypochlorite ([place]akin[place] Quarter Strength) 1 applic DAILY TOPIC 04/07/18 09:00 04/30/18 15:40 Sodium Chloride 1,000 ml @ 75 mls/hr [id number] IV 04/07/18 18:21 05/06/18 18:20 Sodium Chloride 1,000 ml @ 80 mls/hr [id number] IV 04/07/18 22:00 05/06/18 21:59 04/07/18 02:00 Valproic Acid (Depakene) 500 mg EVERY 12 HOURS NG 04/07/18 09:00 05/03/18 09:14 04/07/18 08:31 Mao Trevino MD Apr 07, 2018 12:42
--- NOTE | 2018-04-07 13:17 | General Progress Note ---
Assessment/Plan Problem List: (1) Malnutrition Assessment & Plan: encephalopathy due to metabolic d/o hypotension tachy cardia the pt lacks capacity to make decisions hold all psych meds at this time the pt may need urgent gt d/w Dr. mendenhall ICD Codes: E46 - Unspecified protein-calorie malnutrition SNOMED: [id number] Status: stable Assessment/Plan encephalopathy due to metabolic d/o hypotension tachy cardia the pt lacks capacity to make decisions decrease Seroquel 100mg qhs Depakote 500mg bid. the pt may need urgent gt d/w Dr. Morgan d/w Dr. Veloz Subjective Date patient seen: Apr 07, 2018 Neurologic/Psychiatric: Reports: anxiety Allergies: Coded Allergies: ARIPIPRAZOLE (Verified Allergy, Unknown, 03/31/18) QUETIAPINE (Verified Allergy, Unknown, 03/31/18) Subjective the pt was tachy and lethargic transferred to icu Objective Last 24 Hour Vital Signs Date Time Temp Pulse Resp B/P (MAP) Pulse Ox O2 Delivery O2 Flow Rate FiO2 04/07/18 13:00 80 25 116/54 (74) 98 04/07/18 12:00 98.3 81 19 102/61 (75) 98 98.3 04/07/18 12:00 81 04/07/18 11:00 77 22 106/58 (74) 100 04/07/18 10:00 78 22 103/58 (73) 100 04/07/18 09:00 88 21 120/68 (85) 99 04/07/18 08:12 100 113/68 04/07/18 08:00 Nasal Cannula 2.0 04/07/18 08:00 101 04/07/18 08:00 98.8 99 26 113/68 (83) 96 98.8 04/07/18 07:00 95 21 106/64 (78) 99 04/07/18 06:00 99 21 113/56 (75) 99 04/07/18 05:00 98.7 99 30 112/57 (75) 97 98.7 04/07/18 04:00 Nasal Cannula 2.0 04/07/18 04:00 97 21 102/58 (73) 98 04/07/18 04:00 94 04/07/18 03:00 94 20 101/57 (72) 99 04/07/18 02:00 101 28 105/59 (74) 93 04/07/18 01:00 94 22 109/66 (80) 100 04/07/18 00:00 102 04/07/18 00:00 94 22 109/66 (80) 100 04/07/18 00:00 Nasal Cannula 2.0 04/06/18 23:00 104 22 110/66 (81) 97 04/06/18 22:00 107 22 101/50 (67) 95 04/06/18 21:00 108 22 101/54 (70) 95 04/06/18 21:00 Nasal Cannula 2.0 04/06/18 20:23 110 04/06/18 20:10 98.9 110 22 111/66 (81) 93 98.9 04/06/18 19:47 98 Nasal Cannula 2.0 28 04/06/18 19:47 Nasal Cannula 2.0 28 04/06/18 16:00 97.5 120 20 103/59 (74) 97 97.5 04/06/18 16:00 71 Intake and Output 04/06/18 04/07/18 19:00 07:00 Intake Total 200 ml 1855 ml Output Total 100 ml 1000 ml Balance 100 ml 855 ml IV Total 200 ml 1255 ml Tube Feeding 600 ml Output Urine Total 100 ml 1000 ml Estimated Blood Loss 0 ml # Bowel Movements 1 Laboratory Tests 04/06/18 15:00: Stool Occult Blood Negative 04/07/18 04:30: White Blood Count 10.9H, Red Blood Count 2.80L, Hemoglobin 10.1L, Hematocrit 28.9L, Mean Corpuscular Volume 103H, Mean Corpuscular Hemoglobin 36.2H, Mean Corpuscular Hemoglobin Concent 35.0, Red Cell Distribution Width 12.7, Platelet Count 116L, Mean Platelet Volume 6.6, Neutrophils (%) (Auto) 57.7, Lymphocytes ( %) (Auto) 20.5, Monocytes (%) (Auto) 17.8H, Eosinophils (%) (Auto) 2.9, Basophils (%) (Auto) 1.1, Sodium Level 137, Potassium Level 4.0, Chloride Level 105, Carbon Dioxide Level 30, Anion Gap 2L, Blood Urea Nitrogen 11, Creatinine 0.6, Estimat Glomerular Filtration Rate > 60, Glucose Level 118H, Hemoglobin A1c 5.0, Uric Acid 2.1L, Calcium Level 8.2L, Phosphorus Level 3.1, Magnesium Level 2.0, Total Bilirubin 0.9, Direct Bilirubin 0.6H, Aspartate Amino Transf ( AST/SGOT) 60H, Alanine Aminotransferase (ALT/SGPT) 19, Alkaline Phosphatase 94, Pro-B-Type Natriuretic Peptide 569H, Total Protein 6.9, Albumin 1.2L Height (Feet): 6 Height (Inches): 1.00 Weight (Pounds): 190 General Appearance: no apparent distress, lethargic, confused Madisyn Shetty MD Apr 07, 2018 13:17
--- NOTE | 2018-04-07 15:30 | Operative Note - Dictated ---
DATE OF OPERATION: 04/06/2018 PREOPERATIVE DIAGNOSIS: Infected unstageable/stage IV sacral decubitus ulcer. POSTOPERATIVE DIAGNOSIS: Infected stage 4 sacral decubitus ulcer. PROCEDURE PERFORMED: Excisional debridement of sacral decubitus ulcer. ATTENDING SURGEON: Matthew Jeter M.D. LOCKSTITCH ZIPPER SETTER: None. ANESTHESIOLOGIST: None. ANESTHESIA: The patient premedicated. ESTIMATED BLOOD LOSS: Minimal. INTRAVENOUS FLUIDS: See records SPECIMENS: Excisional debridement of necrotic tissue, sent to pathology for review. WOUND CONSULTATION: Class 3. ANTIBIOTICS: The patient was scheduled on IV antibiotics for acute active inflammatory process. INDICATIONS FOR PROCEDURE: This is a 67-year-old male, half-way resident with multiple medical comorbidities, who was admitted for fever and altered mental status and was found to be unresponsive and hypoxic with sepsis. On admission, the patient was noted to have a foul smelling, large necrotic unstageable/stage IV sacral decubitus ulcer with macerated edges identifying necrotic subcutaneous tissue, which was oozing from the edges and a thick black eschar cap and drainage of fluid, which was considered to be likely infected and cultured identifying E. coli ESBL Proteus and usual skin valentino. Given these findings, excisional debridement was indicated and recommended. The patient unfortunately does not have an next of kin power of health care attorney or surrogate and therefore bioethics was consulted, who agreed that it would be in the best interest of the patient's condition for debridement if continuing to provide care. PROCEDURE: Given the patient's condition, decision was made to perform procedure at the bedside. The patient did non have capacity to consent, but he was awake, alert, and understanding of most things happening, though sometimes confused. I discussed with him and he expressed understanding and was awake during the procedure, but premedicated. The patient was made comfortable at the bedside and placed onto the right lateral decubitus position. When turned, the patient was noted to have stool because of incontinence in around the wound as well as from the anus. The patient was washed up and following this, the sacral area was prepped and draped in the standard surgical fashion. Using a #10 scalpel, forceps, and surgical scissors, the necrotic cap and necrotic infected tissue were debrided. There had been an area of approximately 10 cm x 8 cm down to the sacrum. Debridement was performed down to backbleeding tissue and there was some tracking noted on the right side approximately 3 o'clock, which was debrided down as well. Following complete debridement, specimen was sent to pathology for review and the wound was cleansed. Hemostasis was noted and the wound packed with gauze followed by dressings. We will continue with gauze packing and dressing until the wound is granulated over and heal and slowly healing and potentially hopefully we will be able to flap it in the near future if possible once clean. Furthermore, we will continue standard decubitus precautions by turning the patient every two hours ensuring care, airsoft mattress and offloading. As granulation tissue forms may change wound dressing instructions. Matthew Jeter M.D. DR: ADRIA JOB#: [id number] CC: LISSY
--- NOTE | 2018-04-07 17:15 | Consultation ---
DATE OF CONSULTATION: 04/07/2018 UROLOGY CONSULTATION ATTENDING/CONSULTING PHYSICIAN: Loly Dash M.D. CHIEF COMPLAINT/HISTORY OF PRESENT ILLNESS: I was asked by Dr. Dash to evaluate this unfortunate 67-year-old gentleman regarding history of gross hematuria in the setting of multiple medical issues. Briefly, the patient was sent to the hospital with history of sepsis and pneumonia. He has a history of multiple medical underlying issues including schizophrenia, chronic pain, GERD, and psychosis. Yesterday, he was noted to have gross hematuria and as such, I was asked to evaluate the patient. PAST MEDICAL HISTORY: 1. Depression. 2. Schizophrenia. 3. Anxiety. 4. Chronic pain. 5. Chronic obstructive pulmonary disease. 6. Gastroesophageal reflux disease. 7. Psychosis. PAST SURGICAL HISTORY: Reportedly unremarkable. MEDICATIONS: Please see chart for current medications and administration details. The patient is not currently receiving anticoagulation medication. ALLERGIES: Include Seroquel, aripiprazole, quetiapine. SOCIAL HISTORY: The patient lives in a nursing facility. Uncertain if he uses tobacco, alcohol, or drugs FAMILY HISTORY: Unavailable as patient cannot cooperate much with questioning. REVIEW OF SYSTEMS: A 14- system review of systems cannot be done as the patient cannot answer any questions. PHYSICAL EXAMINATION: GENERAL: The patient is an older gentleman, awake but drowsy, not oriented, no obvious distress. HEENT: NC/AT. Oropharynx clear. NECK: Supple. CHEST: Within normal limits. ABDOMEN: Soft, flat, nontender, nondistended. EXTREMITIES: Warm and well perfused. No cyanosis, clubbing or edema. BACK: No CVA tenderness to percussion appreciated. NEUROLOGIC: Notable for altered mental status/drowsiness. The patient cannot cooperate with the full exam. GENITOURINARY: Normal male phallus. No discharge, lesions or curvature. There is a Valle catheter in place with clear yellow urine output. There are bilateral descended testes and cord structures. No masses or tenderness to palpation. LABORATORY DATA: White blood cell count 10.9, hematocrit 28.9, platelets 116. PT 13.4, INR 1.3, PTT 26. Coagulation time was higher on a previous draw. Sodium 137, potassium 4.0, chloride 105, bicarbonate 30, BUN 11, creatinine 0.6, glucose 118, calcium 8.2. LFTs notable for AST of 60. Urinalysis, specific gravity 1.010, pH 6.5. Dip test notable for 2+ protein, 1+ ketones, 3+ occult blood, 1+ bilirubin, positive , 1+ leukocyte esterase. Microanalysis with 30 to 40 red blood cells per high-power field, 2 to 4 white blood cells per high-power field, and few bacteria seen. Blood cultures negative. Wound culture with E coli. Sputum culture with Karla. DIAGNOSTIC IMAGING: Abdominal ultrasound reveals no abnormalities of the kidneys. There is no evidence of stones, hydronephrosis, mass or other finding. The rest the abdomen appears within normal limits. ASSESSMENT AND PLAN: In summary, the patient is a 67-year-old gentleman with history of gross hematuria in the setting of multiple medical issues. Physical exam reveals a drowsy and confused gentleman with a catheter placed with now clear yellow urine output. Laboratory data is notable for elevated coagulation times which were even higher before. It appears that the patient may have been anticoagulated previous to this time although medicine is currently being held. Diagnostic imaging with ultrasound does not reveal any significant findings of the urinary tract. The patient does not appear to have urinary tract infection and there is no finding on ultrasound to implicate that the bleeding is coming from his kidneys. The only finding of concern is his elevated coagulation time which can cause bleeding especially in the setting of an indwelling catheter. It appears that this is the case. He is no longer receiving any anticoagulation medication and the bleeding appears to have stopped. I would recommend holding this as needed to prevent further hematuria. If the patient recovers, he can eventually follow up with me as an outpatient to receive cystoscopy to complete his evaluation. Thank you for allowing me to participate in care of this unfortunate gentleman. Please do not hesitate to contact me for any questions that you may further have regarding his care. I will be happy to see the patient with you as needed. Rambo Hamm M.D. DR: Vivek JOB#: [id number] CC:
[2018-04-07] MEDS: Docusate 100mg/10ml Liq NG SCH (18:36)
[2018-04-07] MEDS: Benztropine 1mg tab NG SCH (18:37)
--- NOTE | 2018-04-07 18:38 | Nephrology Progress Note ---
Assessment/Plan Problem List: (1) Malnutrition (2) Dehydration (3) Sepsis (4) Electrolyte abnormality Assessment Electrolyte imbalance other conditions; 1. Acute hypoxemic respiratory failure 2. Sepsis 3. Pneumonia 4. Altered mental status 5. NURY 6. Thrombocytopenia 7. Schizophrenia 8. Stage IV decubitus ulcer Plan now in ICU with At fib DC Wellbutrin mag & Phos supplement- change IV protonox to NG Prevacid change hypotonic solution to Isotonic as Na is lowering per integration consultant Subjective ROS Limited/Unobtainable: No Objective Objective Last 24 Hour Vital Signs Date Time Temp Pulse Resp B/P (MAP) Pulse Ox O2 Delivery O2 Flow Rate FiO2 04/07/18 17:00 87 20 123/56 (78) 95 04/07/18 16:00 81 04/07/18 16:00 98.9 87 26 97/68 (78) 96 98.9 04/07/18 16:00 Nasal Cannula 2.0 04/07/18 15:00 87 26 126/45 (72) 97 04/07/18 14:00 85 21 114/56 (75) 98 04/07/18 13:00 80 25 116/54 (74) 98 04/07/18 12:00 98.3 81 19 102/61 (75) 98 98.3 04/07/18 12:00 Nasal Cannula 2.0 04/07/18 12:00 81 04/07/18 11:00 77 22 106/58 (74) 100 04/07/18 10:00 78 22 103/58 (73) 100 04/07/18 09:00 88 21 120/68 (85) 99 04/07/18 08:12 100 113/68 04/07/18 08:00 Nasal Cannula 2.0 04/07/18 08:00 101 04/07/18 08:00 98.8 99 26 113/68 (83) 96 98.8 04/07/18 07:00 95 21 106/64 (78) 99 04/07/18 06:00 99 21 113/56 (75) 99 04/07/18 05:00 98.7 99 30 112/57 (75) 97 98.7 04/07/18 04:00 Nasal Cannula 2.0 04/07/18 04:00 97 21 102/58 (73) 98 04/07/18 04:00 94 04/07/18 03:00 94 20 101/57 (72) 99 04/07/18 02:00 101 28 105/59 (74) 93 04/07/18 01:00 94 22 109/66 (80) 100 04/07/18 00:00 102 04/07/18 00:00 94 22 109/66 (80) 100 04/07/18 00:00 Nasal Cannula 2.0 04/06/18 23:00 104 22 110/66 (81) 97 04/06/18 22:00 107 22 101/50 (67) 95 04/06/18 21:00 108 22 101/54 (70) 95 04/06/18 21:00 Nasal Cannula 2.0 04/06/18 20:23 110 04/06/18 20:10 98.9 110 22 111/66 (81) 93 98.9 04/06/18 19:47 98 Nasal Cannula 2.0 28 04/06/18 19:47 Nasal Cannula 2.0 28 Intake and Output 04/06/18 04/07/18 19:00 07:00 Intake Total 200 ml 1935 ml Output Total 100 ml 1000 ml Balance 100 ml 935 ml IV Total 200 ml 1335 ml Tube Feeding 600 ml Output Urine Total 100 ml 1000 ml Estimated Blood Loss 0 ml # Bowel Movements 1 Laboratory Tests 04/07/18 04:30: White Blood Count 10.9H, Red Blood Count 2.80L, Hemoglobin 10.1L, Hematocrit 28.9L, Mean Corpuscular Volume 103H, Mean Corpuscular Hemoglobin 36.2H, Mean Corpuscular Hemoglobin Concent 35.0, Red Cell Distribution Width 12.7, Platelet Count 116L, Mean Platelet Volume 6.6, Neutrophils (%) (Auto) 57.7, Lymphocytes ( %) (Auto) 20.5, Monocytes (%) (Auto) 17.8H, Eosinophils (%) (Auto) 2.9, Basophils (%) (Auto) 1.1, Sodium Level 137, Potassium Level 4.0, Chloride Level 105, Carbon Dioxide Level 30, Anion Gap 2L, Blood Urea Nitrogen 11, Creatinine 0.6, Estimat Glomerular Filtration Rate > 60, Glucose Level 118H, Hemoglobin A1c 5.0, Uric Acid 2.1L, Calcium Level 8.2L, Phosphorus Level 3.1, Magnesium Level 2.0, Total Bilirubin 0.9, Direct Bilirubin 0.6H, Aspartate Amino Transf ( AST/SGOT) 60H, Alanine Aminotransferase (ALT/SGPT) 19, Alkaline Phosphatase 94, Pro-B-Type Natriuretic Peptide 569H, Total Protein 6.9, Albumin 1.2L Height (Feet): 6 Height (Inches): 1.00 Weight (Pounds): 190 General Appearance: no apparent distress Cardiovascular: normal rate Respiratory/Chest: decreased breath sounds Abdomen: soft Objective no other change Jeffry Jade MD Apr 07, 2018 18:38
--- NOTE | 2018-04-07 19:21 | General Progress Note ---
Assessment/Plan Assessment/Plan # Thrombocytopenia -- first admission here, therefore do not have his baseline, is VERY likely related to underlying sepsis and consumptive state, plt count appears to be 50-100k, on hepatitis panel does have Hep-C++ and hiv is negative , also on US abd: No acute findings. Left renal cyst, does have evidence of liver disease --> abx have been reviewed, unlikely contributors as only short hospital stay --> other medications have been reviewed as well --> peripheral smear reviewed, does not show schistocytes or blasts --> hep c rx when out of hospital --> transfuse if plt <20k # Leukocytosis very likely related to either uti/pna --> appreciate id care --> abx have been reviewed --> currently, wbc at 12, elevated # Anemia of chronic disease -- hgb currently 10-12 range, anemia panel reviewed --> trend cbc --> Hgb goal above 7 --> Currently, stable. # Septic shock -- on ivf and has received abx --> ID is following. Appreciate recs. # Healthcare associated bacterial pneumonia--> on abx, have been reviewed --> ID is following. Appreciate recs. # Supraventricular tachycardia # Acute prerenal azotemia # Paroxysmal SVT versus A. fib. Rate controlled with a dose of Cardizem. # Resp failure on NC # Dysphagia. --> 04/06: PEG placement Greatly appreciate consultation! Subjective Constitutional: Reports: no symptoms HEENT: Reports: no symptoms Cardiovascular: Reports: no symptoms Respiratory: Reports: no symptoms Gastrointestinal/Abdominal: Reports: no symptoms Genitourinary: Reports: no symptoms Neurologic/Psychiatric: Reports: no symptoms Endocrine: Reports: no symptoms Hematologic/Lymphatic: Reports: anemia Allergies: Coded Allergies: ARIPIPRAZOLE (Verified Allergy, Unknown, 03/31/18) QUETIAPINE (Verified Allergy, Unknown, 03/31/18) Subjective on tube feedings. hematuria better, in the icu Objective Last 24 Hour Vital Signs Date Time Temp Pulse Resp B/P (MAP) Pulse Ox O2 Delivery O2 Flow Rate FiO2 04/07/18 17:00 87 20 123/56 (78) 95 04/07/18 16:00 81 04/07/18 16:00 98.9 87 26 97/68 (78) 96 98.9 04/07/18 16:00 Nasal Cannula 2.0 04/07/18 15:00 87 26 126/45 (72) 97 04/07/18 14:00 85 21 114/56 (75) 98 04/07/18 13:00 80 25 116/54 (74) 98 04/07/18 12:00 98.3 81 19 102/61 (75) 98 98.3 04/07/18 12:00 Nasal Cannula 2.0 04/07/18 12:00 81 04/07/18 11:00 77 22 106/58 (74) 100 04/07/18 10:00 78 22 103/58 (73) 100 04/07/18 09:00 88 21 120/68 (85) 99 04/07/18 08:12 100 113/68 04/07/18 08:00 Nasal Cannula 2.0 04/07/18 08:00 101 04/07/18 08:00 98.8 99 26 113/68 (83) 96 98.8 04/07/18 07:00 95 21 106/64 (78) 99 04/07/18 06:00 99 21 113/56 (75) 99 04/07/18 05:00 98.7 99 30 112/57 (75) 97 98.7 04/07/18 04:00 Nasal Cannula 2.0 04/07/18 04:00 97 21 102/58 (73) 98 04/07/18 04:00 94 04/07/18 03:00 94 20 101/57 (72) 99 04/07/18 02:00 101 28 105/59 (74) 93 04/07/18 01:00 94 22 109/66 (80) 100 04/07/18 00:00 102 04/07/18 00:00 94 22 109/66 (80) 100 04/07/18 00:00 Nasal Cannula 2.0 04/06/18 23:00 104 22 110/66 (81) 97 04/06/18 22:00 107 22 101/50 (67) 95 04/06/18 21:00 108 22 101/54 (70) 95 04/06/18 21:00 Nasal Cannula 2.0 04/06/18 20:23 110 04/06/18 20:10 98.9 110 22 111/66 (81) 93 98.9 10/17/18 19:47 98 Nasal Cannula 2.0 28 04/06/18 19:47 Nasal Cannula 2.0 28 Intake and Output 04/06/18 04/07/18 19:00 07:00 Intake Total 200 ml 1935 ml Output Total 100 ml 1000 ml Balance 100 ml 935 ml IV Total 200 ml 1335 ml Tube Feeding 600 ml Output Urine Total 100 ml 1000 ml Estimated Blood Loss 0 ml # Bowel Movements 1 Laboratory Tests 04/07/18 04:30: White Blood Count 10.9H, Red Blood Count 2.80L, Hemoglobin 10.1L, Hematocrit 28.9L, Mean Corpuscular Volume 103H, Mean Corpuscular Hemoglobin 36.2H, Mean Corpuscular Hemoglobin Concent 35.0, Red Cell Distribution Width 12.7, Platelet Count 116L, Mean Platelet Volume 6.6, Neutrophils (%) (Auto) 57.7, Lymphocytes ( %) (Auto) 20.5, Monocytes (%) (Auto) 17.8H, Eosinophils (%) (Auto) 2.9, Basophils (%) (Auto) 1.1, Sodium Level 137, Potassium Level 4.0, Chloride Level 105, Carbon Dioxide Level 30, Anion Gap 2L, Blood Urea Nitrogen 11, Creatinine 0.6, Estimat Glomerular Filtration Rate > 60, Glucose Level 118H, Hemoglobin A1c 5.0, Uric Acid 2.1L, Calcium Level 8.2L, Phosphorus Level 3.1, Magnesium Level 2.0, Total Bilirubin 0.9, Direct Bilirubin 0.6H, Aspartate Amino Transf ( AST/SGOT) 60H, Alanine Aminotransferase (ALT/SGPT) 19, Alkaline Phosphatase 94, Pro-B-Type Natriuretic Peptide 569H, Total Protein 6.9, Albumin 1.2L Height (Feet): 6 Height (Inches): 1.00 Weight (Pounds): 190 General Appearance: no apparent distress EENT: TMs normal Neck: non-tender Respiratory/Chest: lungs clear Abdomen: no mass Extremities: non-tender Edema: 1+ Leg (L), 1+ Leg (R) Jose Mckeon MD Apr 07, 2018 19:21
[2018-04-07] MEDS ORDERED: Miralax 17gm pkt NG SCH (21:00)
[2018-04-07] MEDS: Miralax 17gm pkt NG SCH (21:40)
[2018-04-07] MEDS: Norco 5mg/325mg tab NG PRN (21:42)
[2018-04-07] MEDS ORDERED: Ipratropium 0.02% Inh Soln 2.5ml UD HHN PRN (21:45)
--- NOTE | 2018-04-07 21:46 | Pulmonology Progress Note ---
Assessment/Plan Problems: (1) Healthcare associated bacterial pneumonia (2) Decubitus ulcer of sacral region, stage 4 (3) Dysphagia (4) Respiratory distress (5) Dyspnea Assessment/Plan 1. Acute hypoxemic respiratory failure 2. Sepsis 3. Pneumonia 4. Altered mental status 5. NURY 6. Thrombocytopenia 7. Schizophrenia 8. Stage IV decubitus ulcer sp debridement 9. pAF Plan: -abx per ID: gume -oral care -wound care -wean oxygen as tolerated -PRN ATROVENT only HHN's -monitor volumes -TF's -FC, continue to discuss GOC Subjective Allergies: Coded Allergies: ARIPIPRAZOLE (Verified Allergy, Unknown, 03/31/18) QUETIAPINE (Verified Allergy, Unknown, 03/31/18) Subjective S/P PEG --> AFcRVR, now in SR AFVSS, on 2L, + cough + SOB, no FC Objective Last 24 Hour Vital Signs Date Time Temp Pulse Resp B/P (MAP) Pulse Ox O2 Delivery O2 Flow Rate FiO2 04/07/18 21:41 80 120/64 04/07/18 20:00 98.1 80 32 120/64 (82) 96 98.1 04/07/18 18:00 97.9 84 22 115/69 (84) 96 97.9 04/07/18 17:00 87 20 123/56 (78) 95 04/07/18 16:00 81 04/07/18 16:00 98.9 87 26 97/68 (78) 96 98.9 04/07/18 16:00 Nasal Cannula 2.0 04/07/18 15:00 87 26 126/45 (72) 97 04/07/18 14:00 85 21 114/56 (75) 98 04/07/18 13:00 80 25 116/54 (74) 98 04/07/18 12:00 98.3 81 19 102/61 (75) 98 98.3 04/07/18 12:00 Nasal Cannula 2.0 04/07/18 12:00 81 04/07/18 11:00 77 22 106/58 (74) 100 04/07/18 10:00 78 22 103/58 (73) 100 04/07/18 09:00 88 21 120/68 (85) 99 04/07/18 08:12 100 113/68 04/07/18 08:00 Nasal Cannula 2.0 04/07/18 08:00 101 04/07/18 08:00 98.8 99 26 113/68 (83) 96 98.8 04/07/18 07:00 95 21 106/64 (78) 99 04/07/18 06:00 99 21 113/56 (75) 99 04/07/18 05:00 98.7 99 30 112/57 (75) 97 98.7 04/07/18 04:00 Nasal Cannula 2.0 04/07/18 04:00 97 21 102/58 (73) 98 04/07/18 04:00 94 04/07/18 03:00 94 20 101/57 (72) 99 04/07/18 02:00 101 28 105/59 (74) 93 04/07/18 01:00 94 22 109/66 (80) 100 04/07/18 00:00 102 04/07/18 00:00 94 22 109/66 (80) 100 04/07/18 00:00 Nasal Cannula 2.0 04/06/18 23:00 104 22 110/66 (81) 97 04/06/18 22:00 107 22 101/50 (67) 95 Intake and Output 04/06/18 04/07/18 19:00 07:00 Intake Total 200 ml 1935 ml Output Total 100 ml 1000 ml Balance 100 ml 935 ml IV Total 200 ml 1335 ml Tube Feeding 600 ml Output Urine Total 100 ml 1000 ml Estimated Blood Loss 0 ml # Bowel Movements 1 General Appearance: cachetic HEENT: normocephalic, atraumatic, anicteric, mucous membranes moist Respiratory/Chest: chest wall non-tender, lungs clear, normal breath sounds, no respiratory distress, no accessory muscle use Cardiovascular: normal peripheral pulses, normal rate, regular rhythm Abdomen: normal bowel sounds, soft, non tender, no organomegaly, non distended , no mass, other - GT Extremities: no cyanosis, no clubbing, no edema Laboratory Tests 04/07/18 04:30: White Blood Count 10.9H, Red Blood Count 2.80L, Hemoglobin 10.1L, Hematocrit 28.9L, Mean Corpuscular Volume 103H, Mean Corpuscular Hemoglobin 36.2H, Mean Corpuscular Hemoglobin Concent 35.0, Red Cell Distribution Width 12.7, Platelet Count 116L, Mean Platelet Volume 6.6, Neutrophils (%) (Auto) 57.7, Lymphocytes ( %) (Auto) 20.5, Monocytes (%) (Auto) 17.8H, Eosinophils (%) (Auto) 2.9, Basophils (%) (Auto) 1.1, Sodium Level 137, Potassium Level 4.0, Chloride Level 105, Carbon Dioxide Level 30, Anion Gap 2L, Blood Urea Nitrogen 11, Creatinine 0.6, Estimat Glomerular Filtration Rate > 60, Glucose Level 118H, Hemoglobin A1c 5.0, Uric Acid 2.1L, Calcium Level 8.2L, Phosphorus Level 3.1, Magnesium Level 2.0, Total Bilirubin 0.9, Direct Bilirubin 0.6H, Aspartate Amino Transf ( AST/SGOT) 60H, Alanine Aminotransferase (ALT/SGPT) 19, Alkaline Phosphatase 94, Pro-B-Type Natriuretic Peptide 569H, Total Protein 6.9, Albumin 1.2L Current Medications Medications (Trade) Dose Ordered Sig/Elizabeth Route PRN Reason Start Time Stop Time Status Last Admin Dose Admin Acetaminophen (Tylenol) 500 mg Q4H PRN NG mild pain/temp >100.5 04/07/18 18:30 05/03/18 18:29 Acetaminophen/ Hydrocodone Bitart ([place] 5/325) 1 tab Q8H PRN NG for moderate pain 04/07/18 18:00 04/14/18 17:59 04/07/18 21:42 Benztropine Mesylate (Cogentin) 1 mg BID NG 04/07/18 18:00 05/07/18 17:59 04/07/18 18:37 Docusate Sodium (Colace) 100 mg TWICE A DAY NG 04/07/18 18:00 05/07/18 17:59 04/07/18 18:36 Gabapentin (Neurontin) 300 mg TID NG 04/07/18 18:00 05/07/18 17:59 04/07/18 19:05 Haloperidol (Haldol) 10 mg BID PRN ORAL Agitation 04/07/18 18:00 05/07/18 17:59 Lansoprazole (Prevacid) 30 mg BID NG 04/07/18 18:00 05/07/18 17:59 04/07/18 18:37 Metoprolol Tartrate (Lopressor) 25 mg Q12HR ORAL 04/07/18 21:00 05/07/18 08:59 04/07/18 21:41 Polyethylene Glycol (Miralax) 17 gm BEDTIME NG 04/07/18 21:00 05/05/18 20:59 04/07/18 21:40 Sodium Hypochlorite ([place] Strength) 1 applic DAILY TOPIC 04/08/18 09:00 04/30/18 15:40 Sodium Chloride 1,000 ml @ 80 mls/hr [id number] IV 04/07/18 18:00 05/06/18 17:59 04/07/18 18:37 Brendan Eugene MD Apr 07, 2018 21:46
--- NOTE | 2018-04-07 21:51 | General Progress Note ---
Assessment/Plan Problem List: (1) Acute prerenal azotemia ICD Codes: R79.89 - Other specified abnormal findings of blood chemistry SNOMED: 861863796 (2) Dyspnea ICD Codes: R06.00 - Dyspnea, unspecified SNOMED: 087378486 (3) Sepsis ICD Codes: A41.9 - Sepsis, unspecified organism SNOMED: 35604225 Qualifiers: Qualified Codes: A41.9 - Sepsis, unspecified organism (4) Dysphagia ICD Codes: R13.10 - Dysphagia, unspecified SNOMED: 72021008, 657234905 (5) Healthcare associated bacterial pneumonia ICD Codes: J15.9 - Unspecified bacterial pneumonia SNOMED: 864548387 Status: progressing Assessment/Plan low platelet w hematurea so consulted dr anmol ariasnutritin I&d per dr lemus failed swallow study dysphagia s/p peg afebrile Subjective ROS Limited/Unobtainable: Yes Allergies: Coded Allergies: ARIPIPRAZOLE (Verified Allergy, Unknown, 03/31/18) QUETIAPINE (Verified Allergy, Unknown, 03/31/18) Objective Last 24 Hour Vital Signs Date Time Temp Pulse Resp B/P (MAP) Pulse Ox O2 Delivery O2 Flow Rate FiO2 04/07/18 21:41 80 120/64 04/07/18 20:00 98.1 80 32 120/64 (82) 96 98.1 04/07/18 18:00 97.9 84 22 115/69 (84) 96 97.9 04/07/18 17:00 87 20 123/56 (78) 95 04/07/18 16:00 81 04/07/18 16:00 98.9 87 26 97/68 (78) 96 98.9 04/07/18 16:00 Nasal Cannula 2.0 04/07/18 15:00 87 26 126/45 (72) 97 04/07/18 14:00 85 21 114/56 (75) 98 04/07/18 13:00 80 25 116/54 (74) 98 04/07/18 12:00 98.3 81 19 102/61 (75) 98 98.3 04/07/18 12:00 Nasal Cannula 2.0 04/07/18 12:00 81 04/07/18 11:00 77 22 106/58 (74) 100 04/07/18 10:00 78 22 103/58 (73) 100 04/07/18 09:00 88 21 120/68 (85) 99 04/07/18 08:12 100 113/68 04/07/18 08:00 Nasal Cannula 2.0 04/07/18 08:00 101 04/07/18 08:00 98.8 99 26 113/68 (83) 96 98.8 04/07/18 07:00 95 21 106/64 (78) 99 04/07/18 06:00 99 21 113/56 (75) 99 04/07/18 05:00 98.7 99 30 112/57 (75) 97 98.7 04/07/18 04:00 Nasal Cannula 2.0 04/07/18 04:00 97 21 102/58 (73) 98 04/07/18 04:00 94 04/07/18 03:00 94 20 101/57 (72) 99 04/07/18 02:00 101 28 105/59 (74) 93 04/07/18 01:00 94 22 109/66 (80) 100 04/07/18 00:00 102 04/07/18 00:00 94 22 109/66 (80) 100 04/07/18 00:00 Nasal Cannula 2.0 04/06/18 23:00 104 22 110/66 (81) 97 04/06/18 22:00 107 22 101/50 (67) 95 Intake and Output 04/06/18 04/07/18 19:00 07:00 Intake Total 200 ml 1935 ml Output Total 100 ml 1000 ml Balance 100 ml 935 ml IV Total 200 ml 1335 ml Tube Feeding 600 ml Output Urine Total 100 ml 1000 ml Estimated Blood Loss 0 ml # Bowel Movements 1 Laboratory Tests 04/07/18 04:30: White Blood Count 10.9H, Red Blood Count 2.80L, Hemoglobin 10.1L, Hematocrit 28.9L, Mean Corpuscular Volume 103H, Mean Corpuscular Hemoglobin 36.2H, Mean Corpuscular Hemoglobin Concent 35.0, Red Cell Distribution Width 12.7, Platelet Count 116L, Mean Platelet Volume 6.6, Neutrophils (%) (Auto) 57.7, Lymphocytes ( %) (Auto) 20.5, Monocytes (%) (Auto) 17.8H, Eosinophils (%) (Auto) 2.9, Basophils (%) (Auto) 1.1, Sodium Level 137, Potassium Level 4.0, Chloride Level 105, Carbon Dioxide Level 30, Anion Gap 2L, Blood Urea Nitrogen 11, Creatinine 0.6, Estimat Glomerular Filtration Rate > 60, Glucose Level 118H, Hemoglobin A1c 5.0, Uric Acid 2.1L, Calcium Level 8.2L, Phosphorus Level 3.1, Magnesium Level 2.0, Total Bilirubin 0.9, Direct Bilirubin 0.6H, Aspartate Amino Transf ( AST/SGOT) 60H, Alanine Aminotransferase (ALT/SGPT) 19, Alkaline Phosphatase 94, Pro-B-Type Natriuretic Peptide 569H, Total Protein 6.9, Albumin 1.2L Height (Feet): 6 Height (Inches): 1.00 Weight (Pounds): 190 General Appearance: confused Neck: supple Respiratory/Chest: lungs clear Loly Dash MD Apr 07, 2018 21:51
--- NOTE | 2018-04-07 23:55 | Cardiology Progress Note ---
Assessment/Plan Assessment/Plan 1. Paroxysmal atrial fibrillation with RVR , resolved now in sinus rhythm, will transfer back to telemetry. Increase metoprolol to 50mg po bid. Echo reveals normal LVEF at 70%. 2. Short run of nonsustained ventricular tachycardia, Mg level at 2.0 today. 3. Acute hypoxemic respiratory failure, normal intracardiac filling pressure by echo. 4. Healthcare associated Pneumonia 5. NURY, resolved. 6. Thrombocytopenia 7. s/p PEG placement. Subjective Subjective Converted back to SR after the first IV dose of metoprolol, was never placed on amiodarone. Stable, awake. Currently SR at rate of 88. Objective Last 24 Hour Vital Signs Date Time Temp Pulse Resp B/P (MAP) Pulse Ox O2 Delivery O2 Flow Rate FiO2 04/07/18 21:41 80 120/64 04/07/18 20:00 Nasal Cannula 2.0 04/07/18 20:00 86 04/07/18 20:00 98.1 80 32 120/64 (82) 96 98.1 04/07/18 18:00 97.9 84 22 115/69 (84) 96 97.9 04/07/18 17:00 87 20 123/56 (78) 95 04/07/18 16:00 81 04/07/18 16:00 98.9 87 26 97/68 (78) 96 98.9 04/07/18 16:00 Nasal Cannula 2.0 04/07/18 15:00 87 26 126/45 (72) 97 04/07/18 14:00 85 21 114/56 (75) 98 04/07/18 13:00 80 25 116/54 (74) 98 04/07/18 12:00 98.3 81 19 102/61 (75) 98 98.3 04/07/18 12:00 Nasal Cannula 2.0 04/07/18 12:00 81 04/07/18 11:00 77 22 106/58 (74) 100 04/07/18 10:00 78 22 103/58 (73) 100 04/07/18 09:00 88 21 120/68 (85) 99 04/07/18 08:12 100 113/68 04/07/18 08:00 Nasal Cannula 2.0 04/07/18 08:00 101 04/07/18 08:00 98.8 99 26 113/68 (83) 96 98.8 04/07/18 07:00 95 21 106/64 (78) 99 04/07/18 06:00 99 21 113/56 (75) 99 04/07/18 05:00 98.7 99 30 112/57 (75) 97 98.7 04/07/18 04:00 Nasal Cannula 2.0 04/07/18 04:00 97 21 102/58 (73) 98 04/07/18 04:00 94 04/07/18 03:00 94 20 101/57 (72) 99 04/07/18 02:00 101 28 105/59 (74) 93 04/07/18 01:00 94 22 109/66 (80) 100 04/07/18 00:00 102 04/07/18 00:00 94 22 109/66 (80) 100 04/07/18 00:00 Nasal Cannula 2.0 Intake and Output 04/06/18 04/07/18 19:00 07:00 Intake Total 200 ml 1935 ml Output Total 100 ml 1000 ml Balance 100 ml 935 ml IV Total 200 ml 1335 ml Tube Feeding 600 ml Output Urine Total 100 ml 1000 ml Estimated Blood Loss 0 ml # Bowel Movements 1 2D Echo: LVEF 70%, Mild LVH, Grade I LVDD, RVSP 15 mmHg Laboratory Tests Test 04/07/18 04:30 White Blood Count 10.9 K/UL (4.8-10.8) H Red Blood Count 2.80 M/UL (4.70-6.10) L Hemoglobin 10.1 G/DL (14.2-18.0) L Hematocrit 28.9 % (42.0-52.0) L Mean Corpuscular Volume 103 FL (80-99) H Mean Corpuscular Hemoglobin 36.2 PG (27.0-31.0) H Mean Corpuscular Hemoglobin Concent 35.0 G/DL (32.0-36.0) Red Cell Distribution Width 12.7 % (11.6-14.8) Platelet Count 116 K/UL (150-450) L Mean Platelet Volume 6.6 FL (6.5-10.1) Neutrophils (%) (Auto) 57.7 % (45.0-75.0) Lymphocytes (%) (Auto) 20.5 % (20.0-45.0) Monocytes (%) (Auto) 17.8 % (1.0-10.0) H Eosinophils (%) (Auto) 2.9 % (0.0-3.0) Basophils (%) (Auto) 1.1 % (0.0-2.0) Sodium Level 137 MMOL/L (136-145) Potassium Level 4.0 MMOL/L (3.5-5.1) Chloride Level 105 MMOL/L (98-107) Carbon Dioxide Level 30 MMOL/L (21-32) Anion Gap 2 mmol/L (5-15) L Blood Urea Nitrogen 11 mg/dL (7-18) Creatinine 0.6 MG/DL (0.55-1.30) Estimat Glomerular Filtration Rate > 60 mL/min (>60) Glucose Level 118 MG/DL (74-106) H Hemoglobin A1c 5.0 % (4.3-6.0) Uric Acid 2.1 MG/DL (2.6-7.2) L Calcium Level 8.2 MG/DL (8.5-10.1) L Phosphorus Level 3.1 MG/DL (2.5-4.9) Magnesium Level 2.0 MG/DL (1.8-2.4) Total Bilirubin 0.9 MG/DL (0.2-1.0) Direct Bilirubin 0.6 MG/DL (0.0-0.3) H Aspartate Amino Transf (AST/SGOT) 60 U/L (15-37) H Alanine Aminotransferase (ALT/SGPT) 19 U/L (12-78) Alkaline Phosphatase 94 U/L (46-116) Pro-B-Type Natriuretic Peptide 569 pg/mL (0-125) H Total Protein 6.9 G/DL (6.4-8.2) Albumin 1.2 G/DL (3.4-5.0) L Objective HEENT: Atraumatic and normocephalic. Anicteric. Pupils are equal, round, and reactive to light and accommodation. Conjunctival pallor is present. NECK: JVP less than 5 cm. No carotid bruit. Carotid upstroke is 2+ bilaterally. CARDIOVASCULAR SYSTEM: Normal S1, S2. Regular rate rhythm. No murmurs, gallops, or rubs. LUNGS: Clear to auscultation bilaterally. ABDOMEN: Soft, nontender, and nondistended. No hepatosplenomegaly. Positive bowel sounds. EXTREMITIES: No evidence of edema, clubbing, or cyanosis. Gokul Villalta MD Apr 07, 2018 23:55
[2018-04-08] VITALS: BP 105/68
[2018-04-08] MEDS: Norco 5mg/325mg tab NG PRN ×2 (02:08→10:14)
[2018-04-08 04:00] VITALS: BP 114/71
[2018-04-08 07:08] LABS: BASOPHILS % (AUTO) 0.7 % (0.0-2.0); EOSINOPHILS % (AUTO) 2.2 % (0.0-3.0); HEMATOCRIT 29.9 % (42.0-52.0); HEMOGLOBIN 10.6 G/DL (14.2-18.0); LYMPHOCYTES % (AUTO) 25.5 % (20.0-45.0); MEAN CORPUSCULAR VOLUME 102 FL (80-99); NEUTROPHILS % (AUTO) 56.6 % (45.0-75.0); PLATELET COUNT 119 K/UL (150-450); RED BLOOD COUNT 2.92 M/UL (4.70-6.10); RED CELL DISTRIBUTION WIDTH 12.6 % (11.6-14.8); WHITE BLOOD COUNT 11.4 K/UL (4.8-10.8)
[2018-04-08 07:13] LABS: ANION GAP 5 mmol/L (5-15); BLOOD UREA NITROGEN 11 mg/dL (7-18); CALCIUM 8.3 MG/DL (8.5-10.1); CARBON DIOXIDE 29 MMOL/L (21-32); CHLORIDE 105 MMOL/L (98-107); CREATININE 0.5 MG/DL (0.55-1.30); POTASSIUM 3.8 MMOL/L (3.5-5.1); SODIUM 138 MMOL/L (136-145)
[2018-04-08 07:42] LABS: INR 1.3 (0.9-1.1)
[2018-04-08 08:00] VITALS: BP 122/76
--- NOTE | 2018-04-08 08:51 | Pulmonology Progress Note ---
Assessment/Plan Problems: (1) Healthcare associated bacterial pneumonia (2) Decubitus ulcer of sacral region, stage 4 (3) Dysphagia (4) Respiratory distress (5) Dyspnea Assessment/Plan 1. Acute hypoxemic respiratory failure 2. Sepsis 3. Pneumonia 4. Altered mental status 5. NURY 6. Thrombocytopenia 7. Schizophrenia 8. Stage IV decubitus ulcer sp debridement 9. pAF Plan: -abx per ID: ? gume -oral care -wound care -wean oxygen as tolerated -PRN ATROVENT only HHN's -monitor volumes -TF's -FC, continue to discuss GOC Subjective Allergies: Coded Allergies: ARIPIPRAZOLE (Verified Allergy, Unknown, 03/31/18) QUETIAPINE (Verified Allergy, Unknown, 03/31/18) Subjective TTF, remains in SR AFVSS, on 2L, + cough + SOB, no FC Objective Last 24 Hour Vital Signs Date Time Temp Pulse Resp B/P (MAP) Pulse Ox O2 Delivery O2 Flow Rate FiO2 04/08/18 08:00 97.5 85 20 122/76 (91) 95 97.5 04/08/18 04:00 Nasal Cannula 2.0 04/08/18 04:00 98.7 86 22 114/71 (85) 98 98.7 04/08/18 04:00 90 04/08/18 00:00 79 04/08/18 00:00 89 04/08/18 00:00 Nasal Cannula 2.0 04/08/18 00:00 97.5 86 20 105/68 (80) 96 97.5 04/07/18 21:41 80 120/64 04/07/18 20:00 Nasal Cannula 2.0 04/07/18 20:00 86 04/07/18 20:00 98.1 80 32 120/64 (82) 96 98.1 04/07/18 18:00 97.9 84 22 115/69 (84) 96 97.9 04/07/18 17:00 87 20 123/56 (78) 95 04/07/18 16:00 81 04/07/18 16:00 98.9 87 26 97/68 (78) 96 98.9 04/07/18 16:00 Nasal Cannula 2.0 04/07/18 15:00 87 26 126/45 (72) 97 04/07/18 14:00 85 21 114/56 (75) 98 04/07/18 13:00 80 25 116/54 (74) 98 04/07/18 12:00 98.3 81 19 102/61 (75) 98 98.3 04/07/18 12:00 Nasal Cannula 2.0 04/07/18 12:00 81 04/07/18 11:00 77 22 106/58 (74) 100 04/07/18 10:00 78 22 103/58 (73) 100 04/07/18 09:00 88 21 120/68 (85) 99 Intake and Output 04/07/18 04/08/18 19:00 07:00 Intake Total 1290 ml 1578 ml Output Total 800 ml 1400 ml Balance 490 ml 178 ml Free Water 50 ml 100 ml IV Total 640 ml 938 ml Tube Feeding 540 ml 540 ml Other 60 ml Output Urine Total 800 ml 1400 ml General Appearance: no acute distress, cachetic HEENT: normocephalic, atraumatic, anicteric, mucous membranes moist Respiratory/Chest: chest wall non-tender, rhonchi Cardiovascular: normal peripheral pulses, normal rate, regular rhythm Abdomen: normal bowel sounds, soft, non tender, no organomegaly, non distended , no mass Extremities: no cyanosis, no clubbing, no edema Laboratory Tests 04/08/18 05:00: White Blood Count 11.4H, Red Blood Count 2.92L, Hemoglobin 10.6L, Hematocrit 29.9L, Mean Corpuscular Volume 102H, Mean Corpuscular Hemoglobin 36.2H, Mean Corpuscular Hemoglobin Concent 35.4, Red Cell Distribution Width 12.6, Platelet Count 119L, Mean Platelet Volume 5.5L, Neutrophils (%) (Auto) 56.6, Lymphocytes (%) (Auto) 25.5, Monocytes (%) (Auto) 15.0H, Eosinophils (%) (Auto) 2.2, Basophils (%) (Auto) 0.7, Prothrombin Time 13.6H, Prothromb Time International Ratio 1.3H, Activated Partial Thromboplast Time 30, Sodium Level 138, Potassium Level 3.8, Chloride Level 105, Carbon Dioxide Level 29, Anion Gap 5, Blood Urea Nitrogen 11, Creatinine 0.5L, Estimat Glomerular Filtration Rate > 60, Glucose Level 131H, Calcium Level 8.3L Current Medications Medications (Trade) Dose Ordered Sig/Elizabeth Route PRN Reason Start Time Stop Time Status Last Admin Dose Admin Acetaminophen (Tylenol) 500 mg Q4H PRN NG mild pain/temp >100.5 04/07/18 18:30 05/03/18 18:29 Acetaminophen/ Hydrocodone Bitart ([place] 5/325) 1 tab Q8H PRN NG for moderate pain 04/07/18 18:00 04/14/18 17:59 04/08/18 02:08 Benztropine Mesylate (Cogentin) 1 mg BID NG 04/07/18 18:00 05/07/18 17:59 04/07/18 18:37 Docusate Sodium (Colace) 100 mg TWICE A DAY NG 04/07/18 18:00 05/07/18 17:59 04/07/18 18:36 Gabapentin (Neurontin) 300 mg TID NG 04/07/18 18:00 05/07/18 17:59 04/07/18 19:05 Haloperidol (Haldol) 10 mg BID PRN ORAL Agitation 04/07/18 18:00 05/07/18 17:59 Ipratropium [place] (Atrovent) 500 mcg Q4H PRN HHN Shortness of Breath 04/07/18 21:45 04/12/18 21:44 Lansoprazole (Prevacid) 30 mg BID NG 04/07/18 18:00 05/07/18 17:59 04/07/18 18:37 Metoprolol Tartrate (Lopressor) 50 mg Q12HR ORAL 04/08/18 09:00 05/08/18 08:59 Polyethylene Glycol (Miralax) 17 gm BEDTIME NG 04/07/18 21:00 05/05/18 20:59 04/07/18 21:40 Sodium Hypochlorite (Dakin's Quarter Strength) 1 applic DAILY TOPIC 04/08/18 09:00 04/30/18 15:40 Sodium Chloride 1,000 ml @ 80 mls/hr [id number] IV 04/07/18 18:00 05/06/18 17:59 04/08/18 02:15 Brendan Eugene MD Apr 08, 2018 08:51
[2018-04-08] MEDS ORDERED: Dakin's 0.125% Soln (Quarter Strength) 16oz TOPIC SCH (09:00)
[2018-04-08] MEDS: Docusate 100mg/10ml Liq NG SCH ×2 (09:19→17:30)
[2018-04-08] MEDS: Metoprolol 25mg tab ORAL SCH ×2 (09:19→20:54)
[2018-04-08] MEDS: Benztropine 1mg tab NG SCH ×2 (09:19→17:29)
[2018-04-08] MEDS: Gabapentin 300 MG/6 ML Soln NG SCH ×3 (09:19→17:29)
--- NOTE | 2018-04-08 10:06 | Diagnostic Imaging Report ---
Indication: Shortness of breath Technique: One view of the chest Comparison: 04/04/2018 Findings: Lung and pleural spaces are clear. The heart size is normal. No significant change Impression: No acute process
[2018-04-08] MEDS ORDERED: Tubing IV Secondary IV ONE (10:47)
[2018-04-08] MEDS ORDERED: Sterile Water Irrig 1000ml IRRIG ONE (10:47)
[2018-04-08] MEDS ORDERED: NS 275ml ONE (10:47)
--- NOTE | 2018-04-08 10:53 | GI Progress Note ---
Assessment/Plan Problems: (1) Dehydration ICD Codes: E86.0 - Dehydration SNOMED: 70855060 (2) Malnutrition ICD Codes: E46 - Unspecified protein-calorie malnutrition SNOMED: 38990934 (3) Dysphagia ICD Codes: R13.10 - Dysphagia, unspecified SNOMED: 69605100, 964389907 (4) Thrombocytopenia ICD Codes: D69.6 - Thrombocytopenia, unspecified SNOMED: 042890393 Status: stable Status Narrative Discussed with Dr. Mcgee. Assessment/Plan okay for DC per GI standpoint s/p PEG GTFs per RD to goal, tolerating GT site care daily/prn prn transfusions ppi fu labs The patient was seen and examined at bedside and all new and available data was reviewed in the patients chart. I agree with the above findings, impression and plan. (Patient seen earlier today. Signature stamp does not reflect patient encounter time.). - Artie Mcgee MD Subjective Subjective limited Objective Last 24 Hour Vital Signs Date Time Temp Pulse Resp B/P (MAP) Pulse Ox O2 Delivery O2 Flow Rate FiO2 04/08/18 09:19 85 122/76 04/08/18 08:00 83 04/08/18 08:00 97.5 85 20 122/76 (91) 95 97.5 04/08/18 04:00 Nasal Cannula 2.0 04/08/18 04:00 98.7 86 22 114/71 (85) 98 98.7 04/08/18 04:00 90 04/08/18 00:00 79 04/08/18 00:00 89 04/08/18 00:00 Nasal Cannula 2.0 04/08/18 00:00 97.5 86 20 105/68 (80) 96 97.5 04/07/18 21:41 80 120/64 04/07/18 20:00 Nasal Cannula 2.0 04/07/18 20:00 86 04/07/18 20:00 98.1 80 32 120/64 (82) 96 98.1 04/07/18 18:00 97.9 84 22 115/69 (84) 96 97.9 04/07/18 17:00 87 20 123/56 (78) 95 04/07/18 16:00 81 04/07/18 16:00 98.9 87 26 97/68 (78) 96 98.9 04/07/18 16:00 Nasal Cannula 2.0 04/07/18 15:00 87 26 126/45 (72) 97 04/07/18 14:00 85 21 114/56 (75) 98 04/07/18 13:00 80 25 116/54 (74) 98 04/07/18 12:00 98.3 81 19 102/61 (75) 98 98.3 04/07/18 12:00 Nasal Cannula 2.0 04/07/18 12:00 81 04/07/18 11:00 77 22 106/58 (74) 100 Intake and Output 04/07/18 04/08/18 19:00 07:00 Intake Total 1290 ml 1578 ml Output Total 800 ml 1400 ml Balance 490 ml 178 ml Free Water 50 ml 100 ml IV Total 640 ml 938 ml Tube Feeding 540 ml 540 ml Other 60 ml Output Urine Total 800 ml 1400 ml Laboratory Tests Test 04/08/18 05:00 White Blood Count 11.4 K/UL (4.8-10.8) H Red Blood Count 2.92 M/UL (4.70-6.10) L Hemoglobin 10.6 G/DL (14.2-18.0) L Hematocrit 29.9 % (42.0-52.0) L Mean Corpuscular Volume 102 FL (80-99) H Mean Corpuscular Hemoglobin 36.2 PG (27.0-31.0) H Mean Corpuscular Hemoglobin Concent 35.4 G/DL (32.0-36.0) Red Cell Distribution Width 12.6 % (11.6-14.8) Platelet Count 119 K/UL (150-450) L Mean Platelet Volume 5.5 FL (6.5-10.1) L Neutrophils (%) (Auto) 56.6 % (45.0-75.0) Lymphocytes (%) (Auto) 25.5 % (20.0-45.0) Monocytes (%) (Auto) 15.0 % (1.0-10.0) H Eosinophils (%) (Auto) 2.2 % (0.0-3.0) Basophils (%) (Auto) 0.7 % (0.0-2.0) Prothrombin Time 13.6 SEC (9.30-11.50) H Prothromb Time International Ratio 1.3 (0.9-1.1) H Activated Partial Thromboplast Time 30 SEC (23-33) Sodium Level 138 MMOL/L (136-145) Potassium Level 3.8 MMOL/L (3.5-5.1) Chloride Level 105 MMOL/L (98-107) Carbon Dioxide Level 29 MMOL/L (21-32) Anion Gap 5 mmol/L (5-15) Blood Urea Nitrogen 11 mg/dL (7-18) Creatinine 0.5 MG/DL (0.55-1.30) L Estimat Glomerular Filtration Rate > 60 mL/min (>60) Glucose Level 131 MG/DL (74-106) H Calcium Level 8.3 MG/DL (8.5-10.1) L Height (Feet): 6 Height (Inches): 1.00 Weight (Pounds): 188 General Appearance: alert Cardiovascular: normal rate Respiratory/Chest: normal breath sounds, no respiratory distress Abdominal Exam: normal bowel sounds, non tender, soft, GT site - c/d/i Phil Guevara NP Apr 08, 2018 10:53
--- NOTE | 2018-04-08 10:57 | General Progress Note ---
Progress Note Progress Note Surgery: downgraded. doing well. more alert and responsive today. wound evaluated at bedside with wound care nurse and nursing staff. much improved. no purulent drainage or significant necrotic tissue remains -okay to d/c from surgical standpoint -wound care as ordered thank you Matthew Jeter Apr 08, 2018 10:57
[2018-04-08 11:58] VITALS: BP 99/57
--- NOTE | 2018-04-08 12:45 | Procedure Note ---
DATE OF PROCEDURE: 04/06/2018 SURGEON: Artie Mcgee M.D. ANESTHESIOLOGIST: Dr. Humphrey. PROCEDURE: Upper endoscopy with PEG placement. ANESTHESIA: Per Dr. Humphrey. INSTRUMENT: Olympus adult flexible upper endoscope. INDICATION: Dysphagia. The procedure, risks, benefits, and possible consequences, including hemorrhage, aspiration, perforation and infection, and alternative treatments, were explained to the patient/legal guardian by Dr. Artie Mcgee and the patient/legal guardian understood and accepted these risks. DESCRIPTION OF PROCEDURE: After informed consent was obtained and the patient was adequately sedated, Olympus upper endoscope was advanced from the mouth into the second portion of the duodenum and retroflexion was performed in the stomach. Then, under endoscopic guidance under sterile condition, a 20-Maori pull type of G-tube was successfully placed in the epigastric area. The distance from the tip of the tube to the skin was about 2.5 cm in size. The patient tolerated the procedure very well without any complication. SUMMARY OF FINDINGS: Status post successful PEG placement. RECOMMENDATIONS: Abdominal binder. Elevate the head of the bed at all times. G-tube flush. G-tube care. Start tube feeding later today. Artie Mcgee M.D. DR: Duong JOB#: [id number] CC:
[2018-04-08] MEDS: Meropenem 1 GM in NS 55 ML IVPB SCH ×2 (12:57→21:01)
--- NOTE | 2018-04-08 13:24 | Infectious Diseases Prog Note ---
Assessment/Plan Assessment/Plan A 1. pneumonia 2. leucocytosis 3. hepatitis C 4, thrombocytopenia 5. necrotic sacral ulcer s/p debridement 6. Encephalopathy 7. PAF P 1. continue Meropenem 2. case was D/W pharmacy Subjective ROS Limited/Unobtainable: Yes Constitutional: Reports: other - doing better Allergies: Coded Allergies: ARIPIPRAZOLE (Verified Allergy, Unknown, 03/31/18) QUETIAPINE (Verified Allergy, Unknown, 03/31/18) Objective Vital Signs Last 24 Hour Vital Signs Date Time Temp Pulse Resp B/P (MAP) Pulse Ox O2 Delivery O2 Flow Rate FiO2 04/08/18 12:00 71 04/08/18 11:58 97.3 74 20 99/57 (71) 100 97.3 04/08/18 09:19 85 122/76 04/08/18 08:00 83 04/08/18 08:00 Nasal Cannula 2.0 04/08/18 08:00 97.5 85 20 122/76 (91) 95 97.5 04/08/18 04:00 Nasal Cannula 2.0 04/08/18 04:00 98.7 86 22 114/71 (85) 98 98.7 04/08/18 04:00 90 04/08/18 00:00 79 04/08/18 00:00 89 04/08/18 00:00 Nasal Cannula 2.0 04/08/18 00:00 97.5 86 20 105/68 (80) 96 97.5 04/07/18 21:41 80 120/64 04/07/18 20:00 Nasal Cannula 2.0 04/07/18 20:00 86 04/07/18 20:00 98.1 80 32 120/64 (82) 96 98.1 04/07/18 18:00 97.9 84 22 115/69 (84) 96 97.9 04/07/18 17:00 87 20 123/56 (78) 95 04/07/18 16:00 81 04/07/18 16:00 98.9 87 26 97/68 (78) 96 98.9 04/07/18 16:00 Nasal Cannula 2.0 04/07/18 15:00 87 26 126/45 (72) 97 04/07/18 14:00 85 21 114/56 (75) 98 Height (Feet): 6 Height (Inches): 1.00 Weight (Pounds): 188 General Appearance: no acute distress HEENT: other - poor dentition Respiratory/Chest: lungs clear Cardiovascular: normal rate Abdomen: soft, non tender Extremities: no edema Skin: ulcers - sacral stage 4, R heel Neurologic/Psychiatric: alert, responsive, other Laboratory Tests Test 04/08/18 05:00 White Blood Count 11.4 K/UL (4.8-10.8) H Red Blood Count 2.92 M/UL (4.70-6.10) L Hemoglobin 10.6 G/DL (14.2-18.0) L Hematocrit 29.9 % (42.0-52.0) L Mean Corpuscular Volume 102 FL (80-99) H Mean Corpuscular Hemoglobin 36.2 PG (27.0-31.0) H Mean Corpuscular Hemoglobin Concent 35.4 G/DL (32.0-36.0) Red Cell Distribution Width 12.6 % (11.6-14.8) Platelet Count 119 K/UL (150-450) L Mean Platelet Volume 5.5 FL (6.5-10.1) L Neutrophils (%) (Auto) 56.6 % (45.0-75.0) Lymphocytes (%) (Auto) 25.5 % (20.0-45.0) Monocytes (%) (Auto) 15.0 % (1.0-10.0) H Eosinophils (%) (Auto) 2.2 % (0.0-3.0) Basophils (%) (Auto) 0.7 % (0.0-2.0) Prothrombin Time 13.6 SEC (9.30-11.50) H Prothromb Time International Ratio 1.3 (0.9-1.1) H Activated Partial Thromboplast Time 30 SEC (23-33) Sodium Level 138 MMOL/L (136-145) Potassium Level 3.8 MMOL/L (3.5-5.1) Chloride Level 105 MMOL/L (98-107) Carbon Dioxide Level 29 MMOL/L (21-32) Anion Gap 5 mmol/L (5-15) Blood Urea Nitrogen 11 mg/dL (7-18) Creatinine 0.5 MG/DL (0.55-1.30) L Estimat Glomerular Filtration Rate > 60 mL/min (>60) Glucose Level 131 MG/DL (74-106) H Calcium Level 8.3 MG/DL (8.5-10.1) L Current Medications Medications (Trade) Dose Ordered Sig/Elizabeth Route PRN Reason Start Time Stop Time Status Last Admin Dose Admin Acetaminophen (Tylenol) 500 mg Q4H PRN NG mild pain/temp >100.5 04/07/18 18:30 11 18:29 Acetaminophen/ Hydrocodone Bitart ([place] 5/325) 1 tab Q8H PRN NG for moderate pain 04/07/18 18:00 04/14/18 17:59 04/08/18 10:14 Benztropine Mesylate (Cogentin) 1 mg BID NG 04/07/18 18:00 05/07/18 17:59 04/08/18 09:19 Docusate Sodium (Colace) 100 mg TWICE A DAY NG 04/07/18 18:00 05/07/18 17:59 04/08/18 09:19 Gabapentin (Neurontin) 300 mg TID NG 04/07/18 18:00 05/07/18 17:59 04/08/18 09:19 Haloperidol (Haldol) 10 mg BID PRN ORAL Agitation 04/07/18 18:00 05/07/18 17:59 Ipratropium [place] (Atrovent) 500 mcg Q4H PRN HHN Shortness of Breath 04/07/18 21:45 04/12/18 21:44 Lansoprazole (Prevacid) 30 mg BID NG 04/07/18 18:00 05/07/18 17:59 04/08/18 09:19 Meropenem 1 gm/ Sodium Chloride 55 ml @ 110 mls/hr Q8HR IVPB 04/08/18 12:00 04/13/18 11:59 04/08/18 12:57 Metoprolol Tartrate (Lopressor) 50 mg Q12HR ORAL 04/08/18 09:00 05/08/18 08:59 04/08/18 09:19 Polyethylene Glycol (Miralax) 17 gm BEDTIME NG 04/07/18 21:00 05/05/18 20:59 04/07/18 21:40 Sodium Hypochlorite (Dakin's Quarter Strength) 1 applic DAILY TOPIC 04/08/18 09:00 11/10/18 15:40 Sodium Chloride 1,000 ml @ 80 mls/hr [id number] IV 04/07/18 18:00 05/06/18 17:59 04/08/18 02:15 Mao Trevino MD Apr 08, 2018 13:24
--- NOTE | 2018-04-08 14:35 | Nephrology Progress Note ---
Assessment/Plan Problem List: (1) Malnutrition (2) Dehydration (3) Sepsis (4) Electrolyte abnormality Assessment Electrolyte imbalance other conditions; 1. Acute hypoxemic respiratory failure 2. Sepsis 3. Pneumonia 4. Altered mental status 5. NURY 6. Thrombocytopenia 7. Schizophrenia 8. Stage IV decubitus ulcer Plan now in [facility], out of ICU yesterday DC Wellbutrin mag & Phos supplement- change IV protonox to NG Prevacid change hypotonic solution to Isotonic as Na is lowering per database reporting consultant Subjective ROS Limited/Unobtainable: No Constitutional: Reports: malaise, weakness Objective Objective Last 24 Hour Vital Signs Date Time Temp Pulse Resp B/P (MAP) Pulse Ox O2 Delivery O2 Flow Rate FiO2 04/08/18 12:00 71 04/08/18 11:58 97.3 74 20 99/57 (71) 100 97.3 04/08/18 09:19 85 122/76 04/08/18 08:00 83 04/08/18 08:00 Nasal Cannula 2.0 04/08/18 08:00 97.5 85 20 122/76 (91) 95 97.5 04/08/18 04:00 Nasal Cannula 2.0 04/08/18 04:00 98.7 86 22 114/71 (85) 98 98.7 04/08/18 04:00 90 04/08/18 00:00 79 04/08/18 00:00 89 04/08/18 00:00 Nasal Cannula 2.0 04/08/18 00:00 97.5 86 20 105/68 (80) 96 97.5 04/07/18 21:41 80 120/64 04/07/18 20:00 Nasal Cannula 2.0 04/07/18 20:00 86 04/07/18 20:00 98.1 80 32 120/64 (82) 96 98.1 04/07/18 18:00 97.9 84 22 115/69 (84) 96 97.9 04/07/18 17:00 87 20 123/56 (78) 95 04/07/18 16:00 81 04/07/18 16:00 98.9 87 26 97/68 (78) 96 98.9 04/07/18 16:00 Nasal Cannula 2.0 04/07/18 15:00 87 26 126/45 (72) 97 Intake and Output 04/07/18 04/08/18 18:59 06:59 Intake Total 1320 ml 1608 ml Output Total 900 ml 1400 ml Balance 420 ml 208 ml Free Water 150 ml IV Total 720 ml 858 ml Tube Feeding 540 ml 600 ml Other 60 ml Output Urine Total 900 ml 1400 ml Laboratory Tests 04/08/18 05:00: White Blood Count 11.4H, Red Blood Count 2.92L, Hemoglobin 10.6L, Hematocrit 29.9L, Mean Corpuscular Volume 102H, Mean Corpuscular Hemoglobin 36.2H, Mean Corpuscular Hemoglobin Concent 35.4, Red Cell Distribution Width 12.6, Platelet Count 119L, Mean Platelet Volume 5.5L, Neutrophils (%) (Auto) 56.6, Lymphocytes (%) (Auto) 25.5, Monocytes (%) (Auto) 15.0H, Eosinophils (%) (Auto) 2.2, Basophils (%) (Auto) 0.7, Prothrombin Time 13.6H, Prothromb Time International Ratio 1.3H, Activated Partial Thromboplast Time 30, Sodium Level 138, Potassium Level 3.8, Chloride Level 105, Carbon Dioxide Level 29, Anion Gap 5, Blood Urea Nitrogen 11, Creatinine 0.5L, Estimat Glomerular Filtration Rate > 60, Glucose Level 131H, Calcium Level 8.3L Height (Feet): 6 Height (Inches): 1.00 Weight (Pounds): 188 General Appearance: no apparent distress, lethargic Cardiovascular: normal rate Respiratory/Chest: decreased breath sounds Abdomen: soft Objective no other change Jeffry Jade MD Apr 08, 2018 14:35
--- NOTE | 2018-04-08 15:42 | General Progress Note ---
Assessment/Plan Status: stable Assessment/Plan # Thrombocytopenia -- first admission here, therefore do not have his baseline, is VERY likely related to underlying sepsis and consumptive state, plt count appears to be 50-100k, on hepatitis panel does have Hep-C++ and hiv is negative , also on US abd: No acute findings. Left renal cyst, does have evidence of liver disease --> abx have been reviewed, unlikely contributors as only short hospital stay --> other medications have been reviewed as well --> peripheral smear reviewed, does not show schistocytes or blasts --> hep c rx when out of hospital --> transfuse if plt <20k # Leukocytosis very likely related to either uti/pna --> appreciate id care --> abx completed --> currently, wbc at 11.4, elevated # Anemia of chronic disease -- hgb currently 10-12 range, anemia panel reviewed --> trend cbc --> Hgb goal above 7 --> Currently, stable. # Septic shock -- on ivf and has received abx --> ID is following. Appreciate recs. # Healthcare associated bacterial pneumonia--> on abx, have been reviewed --> ID is following. Appreciate recs. # Supraventricular tachycardia # Acute prerenal azotemia # Paroxysmal SVT versus A. fib. Rate controlled with a dose of Cardizem. # Resp failure. On NC # Dysphagia. --> 04/06: PEG placement Greatly appreciate consultation! Subjective Date patient seen: Apr 08, 2018 Hematologic/Lymphatic: Reports: anemia Allergies: Coded Allergies: ARIPIPRAZOLE (Verified Allergy, Unknown, 03/31/18) QUETIAPINE (Verified Allergy, Unknown, 03/31/18) All Systems: reviewed and negative except above Subjective Transferred to telemetry. No acute events. VS stable. Objective Last 24 Hour Vital Signs Date Time Temp Pulse Resp B/P (MAP) Pulse Ox O2 Delivery O2 Flow Rate FiO2 04/08/18 12:00 71 04/08/18 11:58 97.3 74 20 99/57 (71) 100 97.3 04/08/18 09:19 85 122/76 04/08/18 08:00 83 04/08/18 08:00 Nasal Cannula 2.0 04/08/18 08:00 97.5 85 20 122/76 (91) 95 97.5 04/08/18 04:00 Nasal Cannula 2.0 04/08/18 04:00 98.7 86 22 114/71 (85) 98 98.7 04/08/18 04:00 90 04/08/18 00:00 79 04/08/18 00:00 89 04/08/18 00:00 Nasal Cannula 2.0 04/08/18 00:00 97.5 86 20 105/68 (80) 96 97.5 04/07/18 21:41 80 120/64 04/07/18 20:00 Nasal Cannula 2.0 04/07/18 20:00 86 04/07/18 20:00 98.1 80 32 120/64 (82) 96 98.1 04/07/18 18:00 97.9 84 22 115/69 (84) 96 97.9 04/07/18 17:00 87 20 123/56 (78) 95 04/07/18 16:00 81 04/07/18 16:00 98.9 87 26 97/68 (78) 96 98.9 04/07/18 16:00 Nasal Cannula 2.0 Intake and Output 04/07/18 04/08/18 18:59 06:59 Intake Total 1320 ml 1608 ml Output Total 900 ml 1400 ml Balance 420 ml 208 ml Free Water 150 ml IV Total 720 ml 858 ml Tube Feeding 540 ml 600 ml Other 60 ml Output Urine Total 900 ml 1400 ml Laboratory Tests 04/08/18 05:00: White Blood Count 11.4H, Red Blood Count 2.92L, Hemoglobin 10.6L, Hematocrit 29.9L, Mean Corpuscular Volume 102H, Mean Corpuscular Hemoglobin 36.2H, Mean Corpuscular Hemoglobin Concent 35.4, Red Cell Distribution Width 12.6, Platelet Count 119L, Mean Platelet Volume 5.5L, Neutrophils (%) (Auto) 56.6, Lymphocytes (%) (Auto) 25.5, Monocytes (%) (Auto) 15.0H, Eosinophils (%) (Auto) 2.2, Basophils (%) (Auto) 0.7, Prothrombin Time 13.6H, Prothromb Time International Ratio 1.3H, Activated Partial Thromboplast Time 30, Sodium Level 138, Potassium Level 3.8, Chloride Level 105, Carbon Dioxide Level 29, Anion Gap 5, Blood Urea Nitrogen 11, Creatinine 0.5L, Estimat Glomerular Filtration Rate > 60, Glucose Level 131H, Calcium Level 8.3L Height (Feet): 6 Height (Inches): 1.00 Weight (Pounds): 188 General Appearance: no apparent distress EENT: PERRL/EOMI Neck: normal alignment Cardiovascular: normal peripheral pulses Respiratory/Chest: no respiratory distress Abdomen: no organomegaly Jose Mckeon MD Apr 08, 2018 15:42
[2018-04-08 16:00] VITALS: BP 120/77
[2018-04-08 20:00] VITALS: BP 128/85
[2018-04-08] MEDS: Miralax 17gm pkt NG SCH (20:54)
--- NOTE | 2018-04-08 22:28 | General Progress Note ---
Assessment/Plan Problem List: (1) Malnutrition Assessment & Plan: encephalopathy due to metabolic d/o hypotension tachy cardia the pt lacks capacity to make decisions hold all psych meds at this time the pt may need urgent gt d/w Dr. mendenhall ICD Codes: E46 - Unspecified protein-calorie malnutrition SNOMED: 73312783 Status: stable, progressing Assessment/Plan encephalopathy due to metabolic d/o hypotension tachy cardia the pt lacks capacity to make decisions decrease Seroquel 100mg qhs Depakote 500mg bid. the pt may need urgent gt d/w Dr. Morgan d/w Dr. Veloz Subjective Neurologic/Psychiatric: Reports: anxiety, depressed, emotional problems Allergies: Coded Allergies: ARIPIPRAZOLE (Verified Allergy, Unknown, 03/31/18) QUETIAPINE (Verified Allergy, Unknown, 03/31/18) Subjective the pt was clam and more alert confused Objective Last 24 Hour Vital Signs Date Time Temp Pulse Resp B/P (MAP) Pulse Ox O2 Delivery O2 Flow Rate FiO2 04/08/18 20:54 83 128/85 04/08/18 20:12 97 Nasal Cannula 2.0 28 04/08/18 20:12 Nasal Cannula 2.0 28 04/08/18 20:12 78 18 Nasal Cannula 2.0 28 04/08/18 20:00 97.7 83 22 128/85 (99) 98 97.7 04/08/18 20:00 78 04/08/18 16:00 76 04/08/18 16:00 96.8 72 20 120/77 (91) 93 96.8 04/08/18 12:00 71 04/08/18 11:58 97.3 74 20 99/57 (71) 100 97.3 04/08/18 09:19 85 122/76 04/08/18 08:00 83 04/08/18 08:00 Nasal Cannula 2.0 04/08/18 08:00 97.5 85 20 122/76 (91) 95 97.5 04/08/18 04:00 Nasal Cannula 2.0 04/08/18 04:00 98.7 86 22 114/71 (85) 98 98.7 04/08/18 04:00 90 04/08/18 00:00 79 04/08/18 00:00 89 04/08/18 00:00 Nasal Cannula 2.0 04/08/18 00:00 97.5 86 20 105/68 (80) 96 97.5 Intake and Output 04/07/18 04/08/18 19:00 07:00 Intake Total 1290 ml 1578 ml Output Total 800 ml 1400 ml Balance 490 ml 178 ml Free Water 50 ml 100 ml IV Total 640 ml 938 ml Tube Feeding 540 ml 540 ml Other 60 ml Output Urine Total 800 ml 1400 ml Laboratory Tests 04/08/18 05:00: White Blood Count 11.4H, Red Blood Count 2.92L, Hemoglobin 10.6L, Hematocrit 29.9L, Mean Corpuscular Volume 102H, Mean Corpuscular Hemoglobin 36.2H, Mean Corpuscular Hemoglobin Concent 35.4, Red Cell Distribution Width 12.6, Platelet Count 119L, Mean Platelet Volume 5.5L, Neutrophils (%) (Auto) 56.6, Lymphocytes (%) (Auto) 25.5, Monocytes (%) (Auto) 15.0H, Eosinophils (%) (Auto) 2.2, Basophils (%) (Auto) 0.7, Prothrombin Time 13.6H, Prothromb Time International Ratio 1.3H, Activated Partial Thromboplast Time 30, Sodium Level 138, Potassium Level 3.8, Chloride Level 105, Carbon Dioxide Level 29, Anion Gap 5, Blood Urea Nitrogen 11, Creatinine 0.5L, Estimat Glomerular Filtration Rate > 60, Glucose Level 131H, Calcium Level 8.3L Height (Feet): 6 Height (Inches): 1.00 Weight (Pounds): 188 General Appearance: no apparent distress, alert, confused Madisyn Shetty MD Apr 08, 2018 22:28
--- NOTE | 2018-04-08 23:07 | General Progress Note ---
Assessment/Plan Problem List: (1) Acute prerenal azotemia ICD Codes: R79.89 - Other specified abnormal findings of blood chemistry SNOMED: 703950149 (2) Dyspnea ICD Codes: R06.00 - Dyspnea, unspecified SNOMED: 160408899 (3) Sepsis ICD Codes: A41.9 - Sepsis, unspecified organism SNOMED: 36215094 Qualifiers: Qualified Codes: A41.9 - Sepsis, unspecified organism (4) Dysphagia ICD Codes: R13.10 - Dysphagia, unspecified SNOMED: 93959485, 224547243 (5) Healthcare associated bacterial pneumonia ICD Codes: J15.9 - Unspecified bacterial pneumonia SNOMED: 166976520 Status: progressing Assessment/Plan low platelet w hematurea so consulted dr corea malnutritin I&d per dr lemus hematurea improving afebrile dysphagia s/p pe Subjective ROS Limited/Unobtainable: Yes Allergies: Coded Allergies: ARIPIPRAZOLE (Verified Allergy, Unknown, 03/31/18) QUETIAPINE (Verified Allergy, Unknown, 03/31/18) Objective Last 24 Hour Vital Signs Date Time Temp Pulse Resp B/P (MAP) Pulse Ox O2 Delivery O2 Flow Rate FiO2 04/08/18 21:00 Nasal Cannula 2.0 04/08/18 20:54 83 128/85 04/08/18 20:12 97 Nasal Cannula 2.0 28 04/08/18 20:12 Nasal Cannula 2.0 28 04/08/18 20:12 78 18 Nasal Cannula 2.0 28 04/08/18 20:00 97.7 83 22 128/85 (99) 98 97.7 04/08/18 20:00 78 04/08/18 16:00 76 04/08/18 16:00 96.8 72 20 120/77 (91) 93 96.8 04/08/18 12:00 71 04/08/18 11:58 97.3 74 20 99/57 (71) 100 97.3 04/08/18 09:19 85 122/76 04/08/18 08:00 83 04/08/18 08:00 Nasal Cannula 2.0 04/08/18 08:00 97.5 85 20 122/76 (91) 95 97.5 04/08/18 04:00 Nasal Cannula 2.0 04/08/18 04:00 98.7 86 22 114/71 (85) 98 98.7 04/08/18 04:00 90 04/08/18 00:00 79 04/08/18 00:00 89 04/08/18 00:00 Nasal Cannula 2.0 04/08/18 00:00 97.5 86 20 105/68 (80) 96 97.5 Intake and Output 04/07/18 04/08/18 19:00 07:00 Intake Total 1290 ml 1578 ml Output Total 800 ml 1400 ml Balance 490 ml 178 ml Free Water 50 ml 100 ml IV Total 640 ml 938 ml Tube Feeding 540 ml 540 ml Other 60 ml Output Urine Total 800 ml 1400 ml Laboratory Tests 04/08/18 05:00: White Blood Count 11.4H, Red Blood Count 2.92L, Hemoglobin 10.6L, Hematocrit 29.9L, Mean Corpuscular Volume 102H, Mean Corpuscular Hemoglobin 36.2H, Mean Corpuscular Hemoglobin Concent 35.4, Red Cell Distribution Width 12.6, Platelet Count 119L, Mean Platelet Volume 5.5L, Neutrophils (%) (Auto) 56.6, Lymphocytes (%) (Auto) 25.5, Monocytes (%) (Auto) 15.0H, Eosinophils (%) (Auto) 2.2, Basophils (%) (Auto) 0.7, Prothrombin Time 13.6H, Prothromb Time International Ratio 1.3H, Activated Partial Thromboplast Time 30, Sodium Level 138, Potassium Level 3.8, Chloride Level 105, Carbon Dioxide Level 29, Anion Gap 5, Blood Urea Nitrogen 11, Creatinine 0.5L, Estimat Glomerular Filtration Rate > 60, Glucose Level 131H, Calcium Level 8.3L Height (Feet): 6 Height (Inches): 1.00 Weight (Pounds): 188 General Appearance: confused Neck: supple Loly Dash MD Apr 08, 2018 23:07
[2018-04-09] VITALS: BP 122/70
[2018-04-09 04:00] VITALS: BP 113/68
[2018-04-09] MEDS: Meropenem 1 GM in NS 55 ML IVPB SCH ×3 (06:09→22:11)
[2018-04-09 07:40] LABS: BASOPHILS % (AUTO) 0.8 % (0.0-2.0); EOSINOPHILS % (AUTO) 1.7 % (0.0-3.0); HEMATOCRIT 31.4 % (42.0-52.0); HEMOGLOBIN 10.8 G/DL (14.2-18.0); LYMPHOCYTES % (AUTO) 30.5 % (20.0-45.0); MEAN CORPUSCULAR VOLUME 103 FL (80-99); MONOCYTES % (AUTO) 6.5 % (1.0-10.0); NEUTROPHILS % (AUTO) 60.5 % (45.0-75.0); PLATELET COUNT 176 K/UL (150-450); RED BLOOD COUNT 3.06 M/UL (4.70-6.10); RED CELL DISTRIBUTION WIDTH 12.9 % (11.6-14.8); WHITE BLOOD COUNT 14.2 K/UL (4.8-10.8)
[2018-04-09 08:00] VITALS: BP 104/46
[2018-04-09 08:10] LABS: ANION GAP 6 mmol/L (5-15); BLOOD UREA NITROGEN 11 mg/dL (7-18); CALCIUM 8.2 MG/DL (8.5-10.1); CARBON DIOXIDE 27 MMOL/L (21-32); CHLORIDE 103 MMOL/L (98-107); CREATININE 0.6 MG/DL (0.55-1.30); POTASSIUM 3.7 MMOL/L (3.5-5.1); SODIUM 136 MMOL/L (136-145)
[2018-04-09] MEDS: Metoprolol 25mg tab ORAL SCH ×2 (09:00→22:15)
[2018-04-09] MEDS: Docusate 100mg/10ml Liq NG SCH ×2 (09:06→18:00)
[2018-04-09] MEDS: Gabapentin 300 MG/6 ML Soln NG SCH ×3 (09:06→19:27)
[2018-04-09] MEDS: Benztropine 1mg tab NG SCH ×2 (09:06→19:27)
[2018-04-09] MEDS ORDERED: NS 500ML ONE (10:27)
[2018-04-09] MEDS ORDERED: Sterile Water Irrig 1000ml IRRIG ONE (10:27)
[2018-04-09 12:00] VITALS: BP 114/70
[2018-04-09 16:00] VITALS: BP 123/75
--- NOTE | 2018-04-09 16:14 | Nephrology Progress Note ---
Assessment/Plan Problem List: (1) Malnutrition (2) Dehydration (3) Sepsis (4) Electrolyte abnormality Assessment Electrolyte imbalance other conditions; 1. Acute hypoxemic respiratory failure 2. Sepsis 3. Pneumonia 4. Altered mental status 5. NURY 6. Thrombocytopenia 7. Schizophrenia 8. Stage IV decubitus ulcer Plan now in [facility], out of ICU 04/07 Off Wellbutrin mag & Phos supplement as needed change IV protonox to NG Prevacid change hypotonic solution to Isotonic as Na is lowering per senior analytic consultant Subjective ROS Limited/Unobtainable: No Constitutional: Reports: malaise Objective Objective Last 24 Hour Vital Signs Date Time Temp Pulse Resp B/P (MAP) Pulse Ox O2 Delivery O2 Flow Rate FiO2 04/09/18 16:00 98.2 85 18 123/75 (91) 96 98.2 04/09/18 12:53 Nasal Cannula 3.0 04/09/18 12:00 97.7 81 18 114/70 (85) 95 97.7 04/09/18 12:00 82 04/09/18 09:00 76 104/46 04/09/18 09:00 Nasal Cannula 3.0 04/09/18 08:00 77 04/09/18 08:00 97.4 76 18 104/46 (65) 95 97.4 04/09/18 04:00 73 04/09/18 04:00 98.1 76 22 113/68 (83) 95 98.1 04/09/18 00:00 72 04/09/18 00:00 97.7 76 22 122/70 (87) 96 97.7 04/08/18 21:00 Nasal Cannula 2.0 04/08/18 20:54 83 128/85 04/08/18 20:12 97 Nasal Cannula 2.0 28 04/08/18 20:12 Nasal Cannula 2.0 28 04/08/18 20:12 78 18 Nasal Cannula 2.0 28 04/08/18 20:00 97.7 83 22 128/85 (99) 98 97.7 04/08/18 20:00 78 Intake and Output 04/08/18 04/09/18 18:59 06:59 Intake Total 80 ml 720 ml Output Total 1350 ml 1800 ml Balance -1270 ml -1080 ml IV Total 80 ml 720 ml Output Urine Total 1350 ml 1800 ml # Bowel Movements 1 Laboratory Tests 04/09/18 06:05: White Blood Count 14.2H, Red Blood Count 3.06L, Hemoglobin 10.8L, Hematocrit 31.4L, Mean Corpuscular Volume 103H, Mean Corpuscular Hemoglobin 35.3H, Mean Corpuscular Hemoglobin Concent 34.4, Red Cell Distribution Width 12.9, Platelet Count 176, Mean Platelet Volume 5.5L, Neutrophils (%) (Auto) 60.5, Lymphocytes ( %) (Auto) 30.5, Monocytes (%) (Auto) 6.5, Eosinophils (%) (Auto) 1.7, Basophils (%) (Auto) 0.8, Sodium Level 136, Potassium Level 3.7, Chloride Level 103, Carbon Dioxide Level 27, Anion Gap 6, Blood Urea Nitrogen 11, Creatinine 0.6, Estimat Glomerular Filtration Rate > 60, Glucose Level 135H, Calcium Level 8.2L Height (Feet): 6 Height (Inches): 1.00 Weight (Pounds): 190 General Appearance: no apparent distress Cardiovascular: normal rate Respiratory/Chest: decreased breath sounds Abdomen: distended Objective no other change Jeffry Jade MD Apr 09, 2018 16:14
--- NOTE | 2018-04-09 17:13 | General Progress Note ---
Assessment/Plan Status: stable Assessment/Plan # Thrombocytopenia -- first admission here, therefore do not have his baseline, is VERY likely related to underlying sepsis and consumptive state, plt count appears to be 50-100k, on hepatitis panel does have Hep-C++ and hiv is negative , also on US abd: No acute findings. Left renal cyst, does have evidence of liver disease --> abx have been reviewed, unlikely contributors as only short hospital stay --> other medications have been reviewed as well --> peripheral smear reviewed, does not show schistocytes or blasts --> hep c rx when out of hospital --> transfuse if plt <20k --> Has improved/resolved # Leukocytosis very likely related to either uti/pna --> appreciate id care --> abx completed --> currently, wbc at 14.2, elevated # Anemia of chronic disease -- hgb currently 10-12 range, anemia panel reviewed --> trend cbc --> Hgb goal above 7 --> Currently, stable. # Septic shock -- on ivf and has received abx --> ID is following. Appreciate recs. # Healthcare associated bacterial pneumonia--> on abx, have been reviewed --> ID is following. Appreciate recs. # Supraventricular tachycardia # Acute prerenal azotemia # Paroxysmal SVT versus A. fib. Rate controlled with a dose of Cardizem. # Resp failure. On NC # Dysphagia. --> 04/06: PEG placement Greatly appreciate consultation! Subjective Date patient seen: Apr 09, 2018 Hematologic/Lymphatic: Reports: anemia Allergies: Coded Allergies: ARIPIPRAZOLE (Verified Allergy, Unknown, 03/31/18) QUETIAPINE (Verified Allergy, Unknown, 03/31/18) All Systems: reviewed and negative except above Subjective Transferred to telemetry. Plt count has improved, now wnl. VS stable. Objective Last 24 Hour Vital Signs Date Time Temp Pulse Resp B/P (MAP) Pulse Ox O2 Delivery O2 Flow Rate FiO2 04/09/18 16:00 85 04/09/18 16:00 98.2 85 18 123/75 (91) 96 98.2 04/09/18 12:53 Nasal Cannula 3.0 04/09/18 12:00 97.7 81 18 114/70 (85) 95 97.7 04/09/18 12:00 82 04/09/18 09:00 76 104/46 04/09/18 09:00 Nasal Cannula 3.0 04/09/18 08:00 77 04/09/18 08:00 97.4 76 18 104/46 (65) 95 97.4 04/09/18 04:00 73 04/09/18 04:00 98.1 76 22 113/68 (83) 95 98.1 04/09/18 00:00 72 04/09/18 00:00 97.7 76 22 122/70 (87) 96 97.7 04/08/18 21:00 Nasal Cannula 2.0 04/08/18 20:54 83 128/85 04/08/18 20:12 97 Nasal Cannula 2.0 28 04/08/18 20:12 Nasal Cannula 2.0 28 04/08/18 20:12 78 18 Nasal Cannula 2.0 28 04/08/18 20:00 97.7 83 22 128/85 (99) 98 97.7 04/08/18 20:00 78 Intake and Output 04/08/18 04/09/18 18:59 06:59 Intake Total 80 ml 720 ml Output Total 1350 ml 1800 ml Balance -1270 ml -1080 ml IV Total 80 ml 720 ml Output Urine Total 1350 ml 1800 ml # Bowel Movements 1 Laboratory Tests 04/09/18 06:05: White Blood Count 14.2H, Red Blood Count 3.06L, Hemoglobin 10.8L, Hematocrit 31.4L, Mean Corpuscular Volume 103H, Mean Corpuscular Hemoglobin 35.3H, Mean Corpuscular Hemoglobin Concent 34.4, Red Cell Distribution Width 12.9, Platelet Count 176, Mean Platelet Volume 5.5L, Neutrophils (%) (Auto) 60.5, Lymphocytes ( %) (Auto) 30.5, Monocytes (%) (Auto) 6.5, Eosinophils (%) (Auto) 1.7, Basophils (%) (Auto) 0.8, Sodium Level 136, Potassium Level 3.7, Chloride Level 103, Carbon Dioxide Level 27, Anion Gap 6, Blood Urea Nitrogen 11, Creatinine 0.6, Estimat Glomerular Filtration Rate > 60, Glucose Level 135H, Calcium Level 8.2L Height (Feet): 6 Height (Inches): 1.00 Weight (Pounds): 190 General Appearance: no apparent distress EENT: PERRL/EOMI Neck: normal alignment Cardiovascular: normal peripheral pulses Respiratory/Chest: no respiratory distress Abdomen: soft Jose Mckeon MD Apr 09, 2018 17:13
[2018-04-09 20:00] VITALS: BP 110/59
[2018-04-09] MEDS: Miralax 17gm pkt NG SCH (20:02)
[2018-04-09] MEDS: Norco 5mg/325mg tab NG PRN (20:37)
--- NOTE | 2018-04-09 20:55 | Pulmonology Progress Note ---
Assessment/Plan Assessment/Plan Assessment/Plan 1. Acute hypoxemic respiratory failure 2. Sepsis 3. Pneumonia 4. Altered mental status 5. NURY 6. Thrombocytopenia 7. Schizophrenia 8. Stage IV decubitus ulcer sp debridement 9. pAF Plan: -abx per ID: ? gume -oral care -wound care -wean oxygen as tolerated -PRN ATROVENT only HHN's -monitor volumes -TF's Subjective ROS Limited/Unobtainable: Yes Allergies: Coded Allergies: ARIPIPRAZOLE (Verified Allergy, Unknown, 03/31/18) QUETIAPINE (Verified Allergy, Unknown, 03/31/18) Subjective more awake tolerating GT feedings on supplemental o2 no fever does not get oob no overnight events wound cdi positive diarrhea Objective Last 24 Hour Vital Signs Date Time Temp Pulse Resp B/P (MAP) Pulse Ox O2 Delivery O2 Flow Rate FiO2 04/09/18 20:37 98.2 04/09/18 20:10 88 18 Nasal Cannula 2.0 28 04/09/18 20:10 96 Nasal Cannula 2.0 28 04/09/18 20:10 Nasal Cannula 2.0 28 04/09/18 20:00 90 04/09/18 16:00 85 04/09/18 16:00 98.2 85 18 123/75 (91) 96 98.2 04/09/18 12:53 Nasal Cannula 3.0 04/09/18 12:00 97.7 81 18 114/70 (85) 95 97.7 04/09/18 12:00 82 04/09/18 09:00 76 104/46 04/09/18 09:00 Nasal Cannula 3.0 04/09/18 08:39 Nasal Cannula 2.0 28 04/09/18 08:38 97 Nasal Cannula 2.0 28 04/09/18 08:37 71 18 Nasal Cannula 2.0 28 04/09/18 08:00 77 04/09/18 08:00 97.4 76 18 104/46 (65) 95 97.4 04/09/18 04:00 73 04/09/18 04:00 98.1 76 22 113/68 (83) 95 98.1 04/09/18 00:00 72 04/09/18 00:00 97.7 76 22 122/70 (87) 96 97.7 04/08/18 21:00 Nasal Cannula 2.0 Intake and Output 10/19/18 10/20/18 18:59 06:59 Intake Total 80 ml 720 ml Output Total 1350 ml 1800 ml Balance -1270 ml -1080 ml IV Total 80 ml 720 ml Output Urine Total 1350 ml 1800 ml # Bowel Movements 1 General Appearance: WD/WN HEENT: atraumatic, mucous membranes moist Respiratory/Chest: rhonchi Cardiovascular: normal rate, irregularly irregular Abdomen: soft, non tender, no organomegaly Extremities: no cyanosis Skin: no lesions Laboratory Tests 04/09/18 06:05: White Blood Count 14.2H, Red Blood Count 3.06L, Hemoglobin 10.8L, Hematocrit 31.4L, Mean Corpuscular Volume 103H, Mean Corpuscular Hemoglobin 35.3H, Mean Corpuscular Hemoglobin Concent 34.4, Red Cell Distribution Width 12.9, Platelet Count 176, Mean Platelet Volume 5.5L, Neutrophils (%) (Auto) 60.5, Lymphocytes ( %) (Auto) 30.5, Monocytes (%) (Auto) 6.5, Eosinophils (%) (Auto) 1.7, Basophils (%) (Auto) 0.8, Sodium Level 136, Potassium Level 3.7, Chloride Level 103, Carbon Dioxide Level 27, Anion Gap 6, Blood Urea Nitrogen 11, Creatinine 0.6, Estimat Glomerular Filtration Rate > 60, Glucose Level 135H, Calcium Level 8.2L Current Medications Medications (Trade) Dose Ordered Sig/Elizabeth Route PRN Reason Start Time Stop Time Status Last Admin Dose Admin Acetaminophen (Tylenol) 500 mg Q4H PRN NG mild pain/temp >100.5 04/07/18 18:30 05/03/18 18:29 Acetaminophen/ Hydrocodone Bitart ([place] 5/325) 1 tab Q8H PRN NG for moderate pain 04/07/18 18:00 04/14/18 17:59 04/09/18 20:37 Benztropine Mesylate (Cogentin) 1 mg BID NG 04/07/18 18:00 05/07/18 17:59 04/09/18 19:27 Docusate Sodium (Colace) 100 mg TWICE A DAY NG 04/07/18 18:00 05/07/18 17:59 04/09/18 09:06 Gabapentin (Neurontin) 300 mg TID NG 04/07/18 18:00 05/07/18 17:59 04/09/18 19:27 Haloperidol (Haldol) 10 mg BID PRN ORAL Agitation 04/07/18 18:00 05/07/18 17:59 04/09/18 20:37 Ipratropium [place] (Atrovent) 500 mcg Q4H PRN HHN Shortness of Breath 04/07/18 21:45 04/12/18 21:44 Lansoprazole (Prevacid) 30 mg BID NG 04/07/18 18:00 05/07/18 17:59 04/09/18 19:27 Meropenem 1 gm/ Sodium Chloride 55 ml @ 110 mls/hr Q8HR IVPB 04/08/18 12:00 04/13/18 11:59 04/09/18 15:05 Metoprolol Tartrate (Lopressor) 50 mg Q12HR ORAL 04/08/18 09:00 05/08/18 08:59 04/08/18 20:54 Polyethylene Glycol (Miralax) 17 gm BEDTIME NG 04/07/18 21:00 05/05/18 20:59 04/08/18 20:54 Sodium Chloride 1,000 ml @ 80 mls/hr [id number] IV 04/07/18 18:00 05/06/18 17:59 04/09/18 07:30 Yesi Palmer DO Apr 09, 2018 20:55
--- NOTE | 2018-04-09 21:22 | General Progress Note ---
Assessment/Plan Problem List: (1) Acute prerenal azotemia ICD Codes: R79.89 - Other specified abnormal findings of blood chemistry SNOMED: 301813933 (2) Dyspnea ICD Codes: R06.00 - Dyspnea, unspecified SNOMED: 819782941 (3) Sepsis ICD Codes: A41.9 - Sepsis, unspecified organism SNOMED: 80204012 Qualifiers: Qualified Codes: A41.9 - Sepsis, unspecified organism (4) Dysphagia ICD Codes: R13.10 - Dysphagia, unspecified SNOMED: 12047492, 757757293 (5) Healthcare associated bacterial pneumonia ICD Codes: J15.9 - Unspecified bacterial pneumonia SNOMED: 579833649 Status: progressing Assessment/Plan peg no wheezing obs w hematurea so consulted dr corea malnutritin I&d per dr lemus hematurea improving af dysphagia Subjective ROS Limited/Unobtainable: Yes Allergies: Coded Allergies: ARIPIPRAZOLE (Verified Allergy, Unknown, 03/31/18) QUETIAPINE (Verified Allergy, Unknown, 03/31/18) Objective Last 24 Hour Vital Signs Date Time Temp Pulse Resp B/P (MAP) Pulse Ox O2 Delivery O2 Flow Rate FiO2 04/09/18 20:37 98.2 04/09/18 20:10 88 18 Nasal Cannula 2.0 28 04/09/18 20:10 96 Nasal Cannula 2.0 28 04/09/18 20:10 Nasal Cannula 2.0 28 04/09/18 20:00 90 04/09/18 16:00 85 04/09/18 16:00 98.2 85 18 123/75 (91) 96 98.2 04/09/18 12:53 Nasal Cannula 3.0 04/09/18 12:00 97.7 81 18 114/70 (85) 95 97.7 04/09/18 12:00 82 04/09/18 09:00 76 104/46 04/09/18 09:00 Nasal Cannula 3.0 04/09/18 08:39 Nasal Cannula 2.0 28 04/09/18 08:38 97 Nasal Cannula 2.0 28 04/09/18 08:37 71 18 Nasal Cannula 2.0 28 04/09/18 08:00 77 04/09/18 08:00 97.4 76 18 104/46 (65) 95 97.4 04/09/18 04:00 73 04/09/18 04:00 98.1 76 22 113/68 (83) 95 98.1 04/09/18 00:00 72 04/09/18 00:00 97.7 76 22 122/70 (87) 96 97.7 Intake and Output 04/08/18 04/09/18 19:00 07:00 Intake Total 780 ml Output Total 1350 ml 1800 ml Balance -1350 ml -1020 ml IV Total 720 ml Tube Feeding 60 ml Output Urine Total 1350 ml 1800 ml # Bowel Movements 1 Laboratory Tests 04/09/18 06:05: White Blood Count 14.2H, Red Blood Count 3.06L, Hemoglobin 10.8L, Hematocrit 31.4L, Mean Corpuscular Volume 103H, Mean Corpuscular Hemoglobin 35.3H, Mean Corpuscular Hemoglobin Concent 34.4, Red Cell Distribution Width 12.9, Platelet Count 176, Mean Platelet Volume 5.5L, Neutrophils (%) (Auto) 60.5, Lymphocytes ( %) (Auto) 30.5, Monocytes (%) (Auto) 6.5, Eosinophils (%) (Auto) 1.7, Basophils (%) (Auto) 0.8, Sodium Level 136, Potassium Level 3.7, Chloride Level 103, Carbon Dioxide Level 27, Anion Gap 6, Blood Urea Nitrogen 11, Creatinine 0.6, Estimat Glomerular Filtration Rate > 60, Glucose Level 135H, Calcium Level 8.2L Height (Feet): 6 Height (Inches): 1.00 Weight (Pounds): 190 General Appearance: confused Cardiovascular: regular rhythm Respiratory/Chest: lungs clear Abdomen: soft Loly Dash MD Apr 09, 2018 21:22
[2018-04-10] VITALS: BP 133/63
[2018-04-10 04:00] VITALS: BP 116/54
[2018-04-10] MEDS: Meropenem 1 GM in NS 55 ML IVPB SCH ×3 (05:08→21:09)
[2018-04-10 08:00] VITALS: BP 124/62
--- NOTE | 2018-04-10 08:51 | Nephrology Progress Note ---
Assessment/Plan Problem List: (1) Malnutrition (2) Dehydration (3) Sepsis (4) Electrolyte abnormality Assessment Electrolyte imbalance other conditions; 1. Acute hypoxemic respiratory failure 2. Sepsis 3. Pneumonia 4. Altered mental status 5. NURY 6. Thrombocytopenia 7. Schizophrenia 8. Stage IV decubitus ulcer Plan no labs today as of now- now in tele, out of ICU 04/07 Off Wellbutrin mag & Phos supplement as needed change IV protonox to NG Prevacid change hypotonic solution to Isotonic as Na is lowering per strategic planning consultant Subjective ROS Limited/Unobtainable: No Constitutional: Reports: malaise, weakness Objective Objective Last 24 Hour Vital Signs Date Time Temp Pulse Resp B/P (MAP) Pulse Ox O2 Delivery O2 Flow Rate FiO2 04/10/18 08:00 84 04/10/18 08:00 97.5 99 20 124/62 (82) 95 97.5 04/10/18 07:25 Nasal Cannula 2.0 28 04/10/18 07:24 97 Nasal Cannula 2.0 28 04/10/18 07:24 87 18 Nasal Cannula 2.0 28 04/10/18 04:00 97.3 80 24 116/54 (74) 97 97.3 04/10/18 04:00 79 04/10/18 00:00 81 04/10/18 00:00 97.7 70 22 133/63 (86) 100 97.7 04/09/18 22:15 88 123/75 04/09/18 20:37 98.2 04/09/18 20:10 88 18 Nasal Cannula 2.0 28 04/09/18 20:10 96 Nasal Cannula 2.0 28 04/09/18 20:10 Nasal Cannula 2.0 28 04/09/18 20:00 90 04/09/18 20:00 98.1 85 22 110/59 (76) 96 98.1 04/09/18 16:00 85 04/09/18 16:00 98.2 85 18 123/75 (91) 96 98.2 04/09/18 12:53 Nasal Cannula 3.0 04/09/18 12:00 97.7 81 18 114/70 (85) 95 97.7 04/09/18 12:00 82 04/09/18 09:00 76 104/46 04/09/18 09:00 Nasal Cannula 3.0 Intake and Output 04/09/18 04/10/18 19:00 07:00 Intake Total 480 ml 1260 ml Output Total 1800 ml 950 ml Balance -1320 ml 310 ml Free Water 100 ml 200 ml IV Total 80 ml 640 ml Tube Feeding 300 ml 420 ml Output Urine Total 1800 ml 950 ml # Bowel Movements 2 2 Height (Feet): 6 Height (Inches): 1.00 Weight (Pounds): 187 General Appearance: no apparent distress Objective no other change Jeffry Jade MD Apr 10, 2018 08:51
[2018-04-10] MEDS: Docusate 100mg/10ml Liq NG SCH ×2 (09:00→18:00)
[2018-04-10] MEDS: Benztropine 1mg tab NG SCH ×2 (09:41→17:59)
[2018-04-10] MEDS: Metoprolol 25mg tab ORAL SCH ×2 (09:42→21:09)
[2018-04-10] MEDS: Norco 5mg/325mg tab NG PRN (09:43)
[2018-04-10] MEDS: Gabapentin 300 MG/6 ML Soln NG SCH ×3 (09:51→17:59)
--- NOTE | 2018-04-10 10:42 | Pulmonology Progress Note ---
Assessment/Plan Assessment/Plan Assessment/Plan 1. Acute hypoxemic respiratory failure 2. Sepsis 3. Pneumonia 4. Altered mental status 5. NURY 6. Thrombocytopenia 7. Schizophrenia 8. Stage IV decubitus ulcer sp debridement 9. pAF Plan: -abx per ID -oral care -wound care -wean oxygen as tolerated -PRN ATROVENT only HHN's -monitor volumes -TF's cxr am check labs Subjective ROS Limited/Unobtainable: Yes Allergies: Coded Allergies: ARIPIPRAZOLE (Verified Allergy, Unknown, 03/31/18) QUETIAPINE (Verified Allergy, Unknown, 03/31/18) Subjective obtunded tolerating GT feedings on supplemental o2 no fever does not get oob no overnight events wound cdi positive diarrhea Objective Last 24 Hour Vital Signs Date Time Temp Pulse Resp B/P (MAP) Pulse Ox O2 Delivery O2 Flow Rate FiO2 04/10/18 10:13 97.5 04/10/18 09:42 84 124/62 04/10/18 09:00 Nasal Cannula 1.0 Nasal Cannula 1.0 04/10/18 08:00 84 04/10/18 08:00 97.5 99 20 124/62 (82) 95 97.5 04/10/18 07:25 Nasal Cannula 2.0 28 04/10/18 07:24 97 Nasal Cannula 2.0 28 04/10/18 07:24 87 18 Nasal Cannula 2.0 28 04/10/18 04:00 97.3 80 24 116/54 (74) 97 97.3 04/10/18 04:00 79 04/10/18 00:00 81 04/10/18 00:00 97.7 70 22 133/63 (86) 100 97.7 04/09/18 22:15 88 123/75 04/09/18 20:37 98.2 04/09/18 20:10 88 18 Nasal Cannula 2.0 28 04/09/18 20:10 96 Nasal Cannula 2.0 28 04/09/18 20:10 Nasal Cannula 2.0 28 04/09/18 20:00 90 04/09/18 20:00 98.1 85 22 110/59 (76) 96 98.1 04/09/18 16:00 85 04/09/18 16:00 98.2 85 18 123/75 (91) 96 98.2 04/09/18 12:53 Nasal Cannula 3.0 04/09/18 12:00 97.7 81 18 114/70 (85) 95 97.7 04/09/18 12:00 82 Intake and Output 04/09/18 04/10/18 19:00 07:00 Intake Total 480 ml 1260 ml Output Total 1800 ml 950 ml Balance -1320 ml 310 ml Free Water 100 ml 200 ml IV Total 80 ml 640 ml Tube Feeding 300 ml 420 ml Output Urine Total 1800 ml 950 ml # Bowel Movements 2 2 General Appearance: WD/WN Respiratory/Chest: rhonchi Cardiovascular: normal rate, regular rhythm Abdomen: soft, non tender, no organomegaly Neurologic/Psychiatric: disoriented, unresponsiveness Current Medications Medications (Trade) Dose Ordered Sig/Elizabeth Route PRN Reason Start Time Stop Time Status Last Admin Dose Admin Acetaminophen (Tylenol) 500 mg Q4H PRN NG mild pain/temp >100.5 04/07/18 18:30 05/03/18 18:29 Acetaminophen/ Hydrocodone Bitart ([place] 5/325) 1 tab Q8H PRN NG for moderate pain 04/07/18 18:00 04/14/18 17:59 04/10/18 09:43 Benztropine Mesylate (Cogentin) 1 mg BID NG 04/07/18 18:00 05/07/18 17:59 04/10/18 09:41 Docusate Sodium (Colace) 100 mg TWICE A DAY NG 04/07/18 18:00 05/07/18 17:59 04/09/18 09:06 Gabapentin (Neurontin) 300 mg TID NG 04/07/18 18:00 05/07/18 17:59 04/10/18 09:51 Haloperidol (Haldol) 10 mg BID PRN ORAL Agitation 04/07/18 18:00 05/07/18 17:59 04/10/18 10:22 Ipratropium [place] (Atrovent) 500 mcg Q4H PRN HHN Shortness of Breath 04/07/18 21:45 04/12/18 21:44 Lansoprazole (Prevacid) 30 mg BID NG 04/07/18 18:00 05/07/18 17:59 04/10/18 09:41 Meropenem 1 gm/ Sodium Chloride 55 ml @ 110 mls/hr Q8HR IVPB 04/08/18 12:00 04/13/18 11:59 04/10/18 05:08 Metoprolol Tartrate (Lopressor) 50 mg Q12HR ORAL 04/08/18 09:00 05/08/18 08:59 04/10/18 09:42 Polyethylene Glycol (Miralax) 17 gm BEDTIME NG 04/07/18 21:00 05/05/18 20:59 04/08/18 20:54 Sodium Chloride 1,000 ml @ 80 mls/hr [id number] IV 04/07/18 18:00 05/06/18 17:59 04/10/18 02:23 Yesi Palmer DO Apr 10, 2018 10:42
--- NOTE | 2018-04-10 10:57 | Infectious Diseases Prog Note ---
Assessment/Plan Assessment/Plan A 1. pneumonia 2. leucocytosis 3. hepatitis C 4, thrombocytopenia 5. necrotic sacral ulcer s/p debridement 6. Encephalopathy 7. PAF P 1. continue Meropenem 2. Check C. difficile Subjective ROS Limited/Unobtainable: Yes Gastrointestinal/Abdominal: Reports: diarrhea, other - X 1 today, four times yesterday Musculoskeletal: Reports: pain, other - back pain Allergies: Coded Allergies: ARIPIPRAZOLE (Verified Allergy, Unknown, 03/31/18) QUETIAPINE (Verified Allergy, Unknown, 03/31/18) Objective Vital Signs Last 24 Hour Vital Signs Date Time Temp Pulse Resp B/P (MAP) Pulse Ox O2 Delivery O2 Flow Rate FiO2 04/10/18 10:13 97.5 04/10/18 09:42 84 124/62 04/10/18 09:00 Nasal Cannula 1.0 Nasal Cannula 1.0 04/10/18 08:00 84 04/10/18 08:00 97.5 99 20 124/62 (82) 95 97.5 04/10/18 07:25 Nasal Cannula 2.0 28 04/10/18 07:24 97 Nasal Cannula 2.0 28 04/10/18 07:24 87 18 Nasal Cannula 2.0 28 04/10/18 04:00 97.3 80 24 116/54 (74) 97 97.3 04/10/18 04:00 79 04/10/18 00:00 81 04/10/18 00:00 97.7 70 22 133/63 (86) 100 97.7 04/09/18 22:15 88 123/75 04/09/18 20:37 98.2 04/09/18 20:10 88 18 Nasal Cannula 2.0 28 04/09/18 20:10 96 Nasal Cannula 2.0 28 04/09/18 20:10 Nasal Cannula 2.0 28 04/09/18 20:00 90 04/09/18 20:00 98.1 85 22 110/59 (76) 96 98.1 04/09/18 16:00 85 04/09/18 16:00 98.2 85 18 123/75 (91) 96 98.2 04/09/18 12:53 Nasal Cannula 3.0 04/09/18 12:00 97.7 81 18 114/70 (85) 95 97.7 04/09/18 12:00 82 Height (Feet): 6 Height (Inches): 1.00 Weight (Pounds): 187 General Appearance: no acute distress HEENT: other - poor dentition Respiratory/Chest: lungs clear Cardiovascular: normal rate Abdomen: soft, non tender, other - GT feeding Extremities: no edema Neurologic/Psychiatric: alert, responsive Current Medications Medications (Trade) Dose Ordered Sig/Elizabeth Route PRN Reason Start Time Stop Time Status Last Admin Dose Admin Acetaminophen (Tylenol) 500 mg Q4H PRN NG mild pain/temp >100.5 04/07/18 18:30 05/03/18 18:29 Acetaminophen/ Hydrocodone Bitart ([place] 5/325) 1 tab Q8H PRN NG for moderate pain 04/07/18 18:00 04/14/18 17:59 04/10/18 09:43 Benztropine Mesylate (Cogentin) 1 mg BID NG 04/07/18 18:00 05/07/18 17:59 04/10/18 09:41 Docusate Sodium (Colace) 100 mg TWICE A DAY NG 04/07/18 18:00 05/07/18 17:59 04/09/18 09:06 Gabapentin (Neurontin) 300 mg TID NG 04/07/18 18:00 05/07/18 17:59 04/10/18 09:51 Haloperidol (Haldol) 10 mg BID PRN ORAL Agitation 04/07/18 18:00 05/07/18 17:59 04/10/18 10:22 Ipratropium [place] (Atrovent) 500 mcg Q4H PRN HHN Shortness of Breath 04/07/18 21:45 04/12/18 21:44 Lansoprazole (Prevacid) 30 mg BID NG 04/07/18 18:00 05/07/18 17:59 04/10/18 09:41 Meropenem 1 gm/ Sodium Chloride 55 ml @ 110 mls/hr Q8HR IVPB 04/08/18 12:00 04/13/18 11:59 04/10/18 05:08 Metoprolol Tartrate (Lopressor) 50 mg Q12HR ORAL 04/08/18 09:00 05/08/18 08:59 04/10/18 09:42 Polyethylene Glycol (Miralax) 17 gm BEDTIME NG 04/07/18 21:00 05/05/18 20:59 04/08/18 20:54 Sodium Chloride 1,000 ml @ 80 mls/hr [id number] IV 04/07/18 18:00 05/06/18 17:59 04/10/18 02:23 Mao Trevino MD Apr 10, 2018 10:57
[2018-04-10 12:00] VITALS: BP 135/61
--- NOTE | 2018-04-10 13:13 | General Progress Note ---
Assessment/Plan Status: stable Assessment/Plan # Thrombocytopenia -- first admission here, therefore do not have his baseline, is VERY likely related to underlying sepsis and consumptive state, plt count appears to be 50-100k, on hepatitis panel does have Hep-C++ and hiv is negative , also on US abd: No acute findings. Left renal cyst, does have evidence of liver disease --> abx have been reviewed, unlikely contributors as only short hospital stay --> other medications have been reviewed as well --> peripheral smear reviewed, does not show schistocytes or blasts --> hep c rx when out of hospital --> transfuse if plt <20k --> Has improved/resolved # Leukocytosis very likely related to either uti/pna --> appreciate id care --> abx completed --> currently, wbc at 14.2, elevated # Anemia of chronic disease -- hgb currently 10-12 range, anemia panel reviewed --> trend cbc --> Hgb goal above 7 --> Currently, stable. # Septic shock -- on ivf and has received abx --> ID is following. Appreciate recs. # Healthcare associated bacterial pneumonia--> on abx, have been reviewed --> ID is following. Appreciate recs. # Supraventricular tachycardia # Acute prerenal azotemia # Paroxysmal SVT versus A. fib. Rate controlled with a dose of Cardizem. # Resp failure. On NC # Dysphagia. --> 04/06: PEG placement Greatly appreciate consultation! Subjective Date patient seen: Apr 10, 2018 ROS Limited/Unobtainable: Yes Hematologic/Lymphatic: Reports: anemia Allergies: Coded Allergies: ARIPIPRAZOLE (Verified Allergy, Unknown, 03/31/18) QUETIAPINE (Verified Allergy, Unknown, 03/31/18) Subjective Pt awake and alert. No acute events. VS stable. Objective Last 24 Hour Vital Signs Date Time Temp Pulse Resp B/P (MAP) Pulse Ox O2 Delivery O2 Flow Rate FiO2 04/10/18 12:00 98.3 73 20 135/61 (85) 99 98.3 04/10/18 10:13 97.5 04/10/18 09:42 84 124/62 04/10/18 09:00 Nasal Cannula 1.0 Nasal Cannula 1.0 04/10/18 08:00 84 04/10/18 08:00 97.5 99 20 124/62 (82) 95 97.5 04/10/18 07:25 Nasal Cannula 2.0 28 04/10/18 07:24 97 Nasal Cannula 2.0 28 04/10/18 07:24 87 18 Nasal Cannula 2.0 28 04/10/18 04:00 97.3 80 24 116/54 (74) 97 97.3 04/10/18 04:00 79 04/10/18 00:00 81 04/10/18 00:00 97.7 70 22 133/63 (86) 100 97.7 04/09/18 22:15 88 123/75 04/09/18 20:37 98.2 04/09/18 20:10 88 18 Nasal Cannula 2.0 28 04/09/18 20:10 96 Nasal Cannula 2.0 28 04/09/18 20:10 Nasal Cannula 2.0 28 04/09/18 20:00 90 04/09/18 20:00 98.1 85 22 110/59 (76) 96 98.1 04/09/18 16:00 85 04/09/18 16:00 98.2 85 18 123/75 (91) 96 98.2 Intake and Output 04/09/18 04/10/18 19:00 07:00 Intake Total 480 ml 1260 ml Output Total 1800 ml 950 ml Balance -1320 ml 310 ml Free Water 100 ml 200 ml IV Total 80 ml 640 ml Tube Feeding 300 ml 420 ml Output Urine Total 1800 ml 950 ml # Bowel Movements 2 2 Height (Feet): 6 Height (Inches): 1.00 Weight (Pounds): 187 General Appearance: no apparent distress EENT: PERRL/EOMI Neck: normal alignment Cardiovascular: normal peripheral pulses Respiratory/Chest: no respiratory distress Abdomen: soft Jose Mckeon MD Apr 10, 2018 13:13
[2018-04-10 16:00] VITALS: BP 110/61
[2018-04-10 20:00] VITALS: BP 111/61
[2018-04-10] MEDS: Miralax 17gm pkt NG SCH (20:54)
--- NOTE | 2018-04-10 21:24 | General Progress Note ---
Assessment/Plan Problem List: (1) Acute prerenal azotemia ICD Codes: R79.89 - Other specified abnormal findings of blood chemistry SNOMED: 805202582 (2) Dyspnea ICD Codes: R06.00 - Dyspnea, unspecified SNOMED: 406523647 (3) Sepsis ICD Codes: A41.9 - Sepsis, unspecified organism SNOMED: 46063715 Qualifiers: Qualified Codes: A41.9 - Sepsis, unspecified organism (4) Dysphagia ICD Codes: R13.10 - Dysphagia, unspecified SNOMED: 48883357, 869793110 (5) Healthcare associated bacterial pneumonia ICD Codes: J15.9 - Unspecified bacterial pneumonia SNOMED: 605004522 Status: progressing Assessment/Plan peg sepsis pna improving I&d per dr lemus hematurea improving dysphagia Subjective ROS Limited/Unobtainable: Yes Allergies: Coded Allergies: ARIPIPRAZOLE (Verified Allergy, Unknown, 03/31/18) QUETIAPINE (Verified Allergy, Unknown, 03/31/18) Objective Last 24 Hour Vital Signs Date Time Temp Pulse Resp B/P (MAP) Pulse Ox O2 Delivery O2 Flow Rate FiO2 04/10/18 21:09 74 111/61 04/10/18 20:00 74 04/10/18 20:00 98.9 78 19 111/61 (78) 98 98.9 04/10/18 16:00 97.9 75 20 110/61 (77) 97 97.9 04/10/18 16:00 71 04/10/18 12:00 98.3 73 20 135/61 (85) 99 98.3 04/10/18 12:00 73 04/10/18 10:13 97.5 04/10/18 09:42 84 124/62 04/10/18 09:00 Nasal Cannula 1.0 Nasal Cannula 1.0 04/10/18 08:00 84 04/10/18 08:00 97.5 99 20 124/62 (82) 95 97.5 04/10/18 07:25 Nasal Cannula 2.0 28 04/10/18 07:24 97 Nasal Cannula 2.0 28 04/10/18 07:24 87 18 Nasal Cannula 2.0 28 04/10/18 04:00 97.3 80 24 116/54 (74) 97 97.3 04/10/18 04:00 79 04/10/18 00:00 81 04/10/18 00:00 97.7 70 22 133/63 (86) 100 97.7 04/09/18 22:15 88 123/75 Intake and Output 04/09/18 04/10/18 18:59 06:59 Intake Total 400 ml 1400 ml Output Total 1800 ml 950 ml Balance -1400 ml 450 ml Free Water 100 ml 200 ml IV Total 720 ml Tube Feeding 300 ml 480 ml Output Urine Total 1800 ml 950 ml # Bowel Movements 2 2 Height (Feet): 6 Height (Inches): 1.00 Weight (Pounds): 187 General Appearance: confused Neck: supple Cardiovascular: regular rhythm Loly Dash MD Apr 10, 2018 21:24
--- NOTE | 2018-04-10 21:45 | General Progress Note ---
Assessment/Plan Problem List: (1) Malnutrition Assessment & Plan: encephalopathy due to metabolic d/o hypotension tachy cardia the pt lacks capacity to make decisions hold all psych meds at this time the pt may need urgent gt d/w Dr. mendenhall ICD Codes: E46 - Unspecified protein-calorie malnutrition SNOMED: 15979081 Assessment/Plan encephalopathy due to metabolic d/o hypotension tachy cardia the pt lacks capacity to make decisions decrease Seroquel 100mg qhs Depakote 500mg bid. the pt may need urgent gt d/w Dr. Morgan d/w Dr. Veloz Subjective Date patient seen: Apr 09, 2018 Neurologic/Psychiatric: Reports: anxiety Allergies: Coded Allergies: ARIPIPRAZOLE (Verified Allergy, Unknown, 03/31/18) QUETIAPINE (Verified Allergy, Unknown, 03/31/18) Subjective the pt was clam and more alert confused Objective Last 24 Hour Vital Signs Date Time Temp Pulse Resp B/P (MAP) Pulse Ox O2 Delivery O2 Flow Rate FiO2 04/10/18 21:09 74 111/61 04/10/18 20:00 74 04/10/18 20:00 98.9 78 19 111/61 (78) 98 98.9 04/10/18 16:00 97.9 75 20 110/61 (77) 97 97.9 04/10/18 16:00 71 04/10/18 12:00 98.3 73 20 135/61 (85) 99 98.3 04/10/18 12:00 73 04/10/18 10:13 97.5 04/10/18 09:42 84 124/62 04/10/18 09:00 Nasal Cannula 1.0 Nasal Cannula 1.0 04/10/18 08:00 84 04/10/18 08:00 97.5 99 20 124/62 (82) 95 97.5 04/10/18 07:25 Nasal Cannula 2.0 28 04/10/18 07:24 97 Nasal Cannula 2.0 28 04/10/18 07:24 87 18 Nasal Cannula 2.0 28 04/10/18 04:00 97.3 80 24 116/54 (74) 97 97.3 04/10/18 04:00 79 04/10/18 00:00 81 04/10/18 00:00 97.7 70 22 133/63 (86) 100 97.7 04/09/18 22:15 88 123/75 Intake and Output 04/09/18 04/10/18 18:59 06:59 Intake Total 400 ml 1400 ml Output Total 1800 ml 950 ml Balance -1400 ml 450 ml Free Water 100 ml 200 ml IV Total 720 ml Tube Feeding 300 ml 480 ml Output Urine Total 1800 ml 950 ml # Bowel Movements 2 2 Height (Feet): 6 Height (Inches): 1.00 Weight (Pounds): 187 Madisyn Shetty MD Apr 10, 2018 21:45
--- NOTE | 2018-04-10 21:45 | General Progress Note ---
Assessment/Plan Problem List: (1) Malnutrition Assessment & Plan: encephalopathy due to metabolic d/o hypotension tachy cardia the pt lacks capacity to make decisions hold all psych meds at this time the pt may need urgent gt d/w Dr. mendenhall ICD Codes: E46 - Unspecified protein-calorie malnutrition SNOMED: 57159665 Status: stable, progressing Assessment/Plan encephalopathy due to metabolic d/o hypotension tachy cardia the pt lacks capacity to make decisions decrease Seroquel 100mg qhs Depakote 500mg bid. the pt may need urgent gt d/w Dr. Morgan d/w Dr. Veloz Subjective Date patient seen: Apr 10, 2018 Neurologic/Psychiatric: Reports: anxiety, depressed Allergies: Coded Allergies: ARIPIPRAZOLE (Verified Allergy, Unknown, 03/31/18) QUETIAPINE (Verified Allergy, Unknown, 03/31/18) Objective Last 24 Hour Vital Signs Date Time Temp Pulse Resp B/P (MAP) Pulse Ox O2 Delivery O2 Flow Rate FiO2 04/10/18 21:09 74 111/61 04/10/18 20:00 74 04/10/18 20:00 98.9 78 19 111/61 (78) 98 98.9 04/10/18 16:00 97.9 75 20 110/61 (77) 97 97.9 04/10/18 16:00 71 04/10/18 12:00 98.3 73 20 135/61 (85) 99 98.3 04/10/18 12:00 73 04/10/18 10:13 97.5 04/10/18 09:42 84 124/62 04/10/18 09:00 Nasal Cannula 1.0 Nasal Cannula 1.0 04/10/18 08:00 84 04/10/18 08:00 97.5 99 20 124/62 (82) 95 97.5 04/10/18 07:25 Nasal Cannula 2.0 28 04/10/18 07:24 97 Nasal Cannula 2.0 28 04/10/18 07:24 87 18 Nasal Cannula 2.0 28 04/10/18 04:00 97.3 80 24 116/54 (74) 97 97.3 04/10/18 04:00 79 04/10/18 00:00 81 04/10/18 00:00 97.7 70 22 133/63 (86) 100 97.7 10/20/18 22:15 88 123/75 Intake and Output 04/09/18 04/10/18 18:59 06:59 Intake Total 400 ml 1400 ml Output Total 1800 ml 950 ml Balance -1400 ml 450 ml Free Water 100 ml 200 ml IV Total 720 ml Tube Feeding 300 ml 480 ml Output Urine Total 1800 ml 950 ml # Bowel Movements 2 2 Height (Feet): 6 Height (Inches): 1.00 Weight (Pounds): 187 General Appearance: no apparent distress, alert, confused Madisyn Shetty MD Apr 10, 2018 21:45
--- NOTE | 2018-04-10 22:27 | Diagnostic Imaging Report ---
APPROVED REPORT CPT Code: 07500 Present Symptoms Lower Extremity Pain: Bilateral BILATERAL: Imaging reveals a patent deep venous system bilaterally. There is no evidence of thrombus within the femoral, popliteal or tibial segments. The greater saphenous veins are also within normal limits. Doppler indicates normal spontaneous flow within these segments.
[2018-04-11] VITALS (7 sets, daily range): BP systolic 105–135; BP diastolic 59–74
[2018-04-11] MEDS: Meropenem 1 GM in NS 55 ML IVPB SCH ×3 (05:12→21:56)
[2018-04-11 05:54] LABS: BASOPHILS % (AUTO) 0.8 % (0.0-2.0); EOSINOPHILS % (AUTO) 2.3 % (0.0-3.0); HEMOGLOBIN 10.6 G/DL (14.2-18.0); LYMPHOCYTES % (AUTO) 22.6 % (20.0-45.0); MEAN CORPUSCULAR VOLUME 103 FL (80-99); MONOCYTES % (AUTO) 9.2 % (1.0-10.0); NEUTROPHILS % (AUTO) 65.1 % (45.0-75.0); PLATELET COUNT 140 K/UL (150-450); WHITE BLOOD COUNT 11.4 K/UL (4.8-10.8)
[2018-04-11 06:12] LABS: ALANINE AMINOTRANSFERASE 55 U/L (12-78); ALBUMIN 1.4 G/DL (3.4-5.0); ALBUMIN/GLOBULIN RATIO 0.2 (1.0-2.7); ALKALINE PHOSPHATASE 223 U/L (46-116); ANION GAP 3 mmol/L (5-15); ASPARTATE AMINO TRANSFERASE 106 U/L (15-37); BILIRUBIN,TOTAL 0.5 MG/DL (0.2-1.0); BLOOD UREA NITROGEN 10 mg/dL (7-18); CALCIUM 8.6 MG/DL (8.5-10.1); CARBON DIOXIDE 29 MMOL/L (21-32); CHLORIDE 103 MMOL/L (98-107); CREATININE 0.4 MG/DL (0.55-1.30); PHOSPHORUS 3.4 MG/DL (2.5-4.9); POTASSIUM 3.9 MMOL/L (3.5-5.1); SODIUM 135 MMOL/L (136-145)
[2018-04-11] MEDS: Docusate 100mg/10ml Liq NG SCH ×2 (09:06→17:03)
[2018-04-11] MEDS: Gabapentin 300 MG/6 ML Soln NG SCH ×3 (09:06→17:03)
[2018-04-11] MEDS: Metoprolol 25mg tab ORAL SCH ×2 (09:07→20:32)
[2018-04-11] MEDS: Benztropine 1mg tab NG SCH ×2 (09:07→17:03)
--- NOTE | 2018-04-11 10:43 | GI Progress Note ---
Assessment/Plan Problems: (1) Dehydration ICD Codes: E86.0 - Dehydration SNOMED: 99319773 (2) Malnutrition ICD Codes: E46 - Unspecified protein-calorie malnutrition SNOMED: 79104485 (3) Dysphagia ICD Codes: R13.10 - Dysphagia, unspecified SNOMED: 37826575, 842453992 (4) Thrombocytopenia ICD Codes: D69.6 - Thrombocytopenia, unspecified SNOMED: 012366595 Status: stable Status Narrative Discussed with Dr. Mcgee. Assessment/Plan okay for DC per GI standpoint s/p PEG GTFs per RD to goal, tolerating GT site care daily/prn prn transfusions ppi fu labs The patient was seen and examined at bedside and all new and available data was reviewed in the patients chart. I agree with the above findings, impression and plan. (Patient seen earlier today. Signature stamp does not reflect patient encounter time.). - Artie Mcgee MD Subjective Subjective limited Objective Last 24 Hour Vital Signs Date Time Temp Pulse Resp B/P (MAP) Pulse Ox O2 Delivery O2 Flow Rate FiO2 04/11/18 09:07 71 117/62 04/11/18 09:00 Nasal Cannula 1.0 Nasal Cannula 1.0 04/11/18 08:25 96.8 71 20 117/62 (80) 94 96.8 04/11/18 08:12 Nasal Cannula 2.0 28 04/11/18 08:12 71 18 Nasal Cannula 2.0 28 04/11/18 08:12 94 Nasal Cannula 2.0 28 04/11/18 04:00 99.0 71 19 117/59 (78) 94 99.0 04/11/18 04:00 68 04/11/18 00:00 98.9 75 20 105/74 (84) 96 98.9 04/11/18 00:00 73 04/10/18 21:47 Nasal Cannula 2.0 28 04/10/18 21:47 98 Nasal Cannula 2.0 28 04/10/18 21:45 69 20 Nasal Cannula 2.0 28 04/10/18 21:09 74 111/61 04/10/18 20:00 74 04/10/18 20:00 98.9 78 19 111/61 (78) 98 98.9 04/10/18 16:00 97.9 75 20 110/61 (77) 97 97.9 10/21/18 16:00 71 04/10/18 12:00 98.3 73 20 135/61 (85) 99 98.3 04/10/18 12:00 73 Intake and Output 04/10/18 04/11/18 19:00 07:00 Intake Total 60 ml 1621 ml Output Total 2000 ml 1200 ml Balance -1940 ml 421 ml Free Water 100 ml IV Total 861 ml Tube Feeding 60 ml 660 ml Output Urine Total 2000 ml 1200 ml # Bowel Movements 4 1 Laboratory Tests Test 04/11/18 05:10 White Blood Count 11.4 K/UL (4.8-10.8) H Red Blood Count 3.00 M/UL (4.70-6.10) L Hemoglobin 10.6 G/DL (14.2-18.0) L Hematocrit 31.0 % (42.0-52.0) L Mean Corpuscular Volume 103 FL (80-99) H Mean Corpuscular Hemoglobin 35.3 PG (27.0-31.0) H Mean Corpuscular Hemoglobin Concent 34.2 G/DL (32.0-36.0) Red Cell Distribution Width 13.0 % (11.6-14.8) Platelet Count 140 K/UL (150-450) L Mean Platelet Volume 5.9 FL (6.5-10.1) L Neutrophils (%) (Auto) 65.1 % (45.0-75.0) Lymphocytes (%) (Auto) 22.6 % (20.0-45.0) Monocytes (%) (Auto) 9.2 % (1.0-10.0) Eosinophils (%) (Auto) 2.3 % (0.0-3.0) Basophils (%) (Auto) 0.8 % (0.0-2.0) Sodium Level 135 MMOL/L (136-145) L Potassium Level 3.9 MMOL/L (3.5-5.1) Chloride Level 103 MMOL/L (98-107) Carbon Dioxide Level 29 MMOL/L (21-32) Anion Gap 3 mmol/L (5-15) L Blood Urea Nitrogen 10 mg/dL (7-18) Creatinine 0.4 MG/DL (0.55-1.30) L Estimat Glomerular Filtration Rate > 60 mL/min (>60) Glucose Level 144 MG/DL (74-106) H Calcium Level 8.6 MG/DL (8.5-10.1) Phosphorus Level 3.4 MG/DL (2.5-4.9) Magnesium Level 1.6 MG/DL (1.8-2.4) L Total Bilirubin 0.5 MG/DL (0.2-1.0) Aspartate Amino Transf (AST/SGOT) 106 U/L (15-37) H Alanine Aminotransferase (ALT/SGPT) 55 U/L (12-78) Alkaline Phosphatase 223 U/L (46-116) H C-Reactive Protein, Quantitative 1.5 mg/dL (0.00-0.90) H Pro-B-Type Natriuretic Peptide 480 pg/mL (0-125) H Total Protein 8.1 G/DL (6.4-8.2) Albumin 1.4 G/DL (3.4-5.0) L Globulin 6.7 g/dL Albumin/Globulin Ratio 0.2 (1.0-2.7) L Height (Feet): 6 Height (Inches): 1.00 Weight (Pounds): 187 General Appearance: WD/WN, no apparent distress, alert Cardiovascular: normal rate Respiratory/Chest: normal breath sounds, no respiratory distress Abdominal Exam: normal bowel sounds, non tender, soft, GT site - c/d/i Extremities: non-tender Phil Guevara NP Apr 11, 2018 10:43
--- NOTE | 2018-04-11 11:12 | Diagnostic Imaging Report ---
Indication: Dyspnea Comparison: 04/08/2018 A single view chest radiograph was obtained. Findings: The lungs are clear. Bones are osteopenic. Heart size is stable and normal. IMPRESSION: No acute process
--- NOTE | 2018-04-11 12:00 | General Progress Note ---
Progress Note Progress Note Surgery: slowly improving. wound improved. no signs of infection. great care by nursing staff and wound care nurse. cont current care and management outpatient follow up -okay to d/c from surgical standpoint Matthew Jeter Apr 11, 2018 12:00
--- NOTE | 2018-04-11 13:00 | Pulmonology Progress Note ---
Assessment/Plan Problems: (1) Healthcare associated bacterial pneumonia (2) Decubitus ulcer of sacral region, stage 4 (3) Dysphagia (4) Respiratory distress (5) Dyspnea Assessment/Plan 1. Acute hypoxemic respiratory failure 2. Sepsis 3. Pneumonia 4. Altered mental status 5. NURY 6. Thrombocytopenia 7. Schizophrenia 8. Stage IV decubitus ulcer sp debridement 9. pAF Plan: -abx per ID -oral care -wound care -wean oxygen as tolerated -PRN ATROVENT only HHN's -monitor volumes -TF's -FC, continue to discuss GOC Subjective Allergies: Coded Allergies: ARIPIPRAZOLE (Verified Allergy, Unknown, 03/31/18) QUETIAPINE (Verified Allergy, Unknown, 03/31/18) Subjective CXR NAD, AFVSS, on 2L, no cough no SOB, no FC, brandie TF's Objective Last 24 Hour Vital Signs Date Time Temp Pulse Resp B/P (MAP) Pulse Ox O2 Delivery O2 Flow Rate FiO2 04/11/18 09:07 71 117/62 04/11/18 09:00 Nasal Cannula 1.0 Nasal Cannula 1.0 04/11/18 08:25 96.8 71 20 117/62 (80) 94 96.8 04/11/18 08:12 Nasal Cannula 2.0 28 04/11/18 08:12 71 18 Nasal Cannula 2.0 28 04/11/18 08:12 94 Nasal Cannula 2.0 28 04/11/18 04:00 99.0 71 19 117/59 (78) 94 99.0 04/11/18 04:00 68 04/11/18 00:00 98.9 75 20 105/74 (84) 96 98.9 04/11/18 00:00 73 04/10/18 21:47 Nasal Cannula 2.0 28 04/10/18 21:47 98 Nasal Cannula 2.0 28 04/10/18 21:45 69 20 Nasal Cannula 2.0 28 04/10/18 21:09 74 111/61 04/10/18 20:00 74 04/10/18 20:00 98.9 78 19 111/61 (78) 98 98.9 04/10/18 16:00 97.9 75 20 110/61 (77) 97 97.9 04/10/18 16:00 71 Intake and Output 04/10/18 04/11/18 19:00 07:00 Intake Total 60 ml 1621 ml Output Total 2000 ml 1200 ml Balance -1940 ml 421 ml Free Water 100 ml IV Total 861 ml Tube Feeding 60 ml 660 ml Output Urine Total 2000 ml 1200 ml # Bowel Movements 4 1 General Appearance: no acute distress HEENT: normocephalic, atraumatic, anicteric, mucous membranes moist Respiratory/Chest: chest wall non-tender, lungs clear, normal breath sounds, no respiratory distress, no accessory muscle use Cardiovascular: normal peripheral pulses, normal rate, regular rhythm Abdomen: normal bowel sounds, soft, non tender, no organomegaly, non distended , no mass, other - GT Extremities: no cyanosis, no clubbing, no edema Laboratory Tests 04/11/18 05:10: White Blood Count 11.4H, Red Blood Count 3.00L, Hemoglobin 10.6L, Hematocrit 31.0L, Mean Corpuscular Volume 103H, Mean Corpuscular Hemoglobin 35.3H, Mean Corpuscular Hemoglobin Concent 34.2, Red Cell Distribution Width 13.0, Platelet Count 140L, Mean Platelet Volume 5.9L, Neutrophils (%) (Auto) 65.1, Lymphocytes (%) (Auto) 22.6, Monocytes (%) (Auto) 9.2, Eosinophils (%) (Auto) 2.3, Basophils (%) (Auto) 0.8, Sodium Level 135L, Potassium Level 3.9, Chloride Level 103, Carbon Dioxide Level 29, Anion Gap 3L, Blood Urea Nitrogen 10, Creatinine 0.4L, Estimat Glomerular Filtration Rate > 60, Glucose Level 144H, Calcium Level 8.6, Phosphorus Level 3.4, Magnesium Level 1.6L, Total Bilirubin 0.5, Aspartate Amino Transf (AST/SGOT) 106H, Alanine Aminotransferase (ALT/SGPT ) 55, Alkaline Phosphatase 223H, C-Reactive Protein, Quantitative 1.5H, Pro-B- Type Natriuretic Peptide 480H, Total Protein 8.1, Albumin 1.4L, Globulin 6.7, Albumin/Globulin Ratio 0.2L Current Medications Medications (Trade) Dose Ordered Sig/Elizabeth Route PRN Reason Start Time Stop Time Status Last Admin Dose Admin Acetaminophen (Tylenol) 500 mg Q4H PRN NG mild pain/temp >100.5 04/07/18 18:30 05/03/18 18:29 Acetaminophen/ Hydrocodone Bitart ([place] 5/325) 1 tab Q8H PRN NG for moderate pain 04/07/18 18:00 04/14/18 17:59 04/10/18 09:43 Benztropine Mesylate (Cogentin) 1 mg BID NG 04/07/18 18:00 05/07/18 17:59 04/11/18 09:07 Docusate Sodium (Colace) 100 mg TWICE A DAY NG 04/07/18 18:00 05/07/18 17:59 04/11/18 09:06 Gabapentin (Neurontin) 300 mg TID NG 04/07/18 18:00 05/07/18 17:59 04/11/18 09:06 Haloperidol (Haldol) 10 mg BID PRN ORAL Agitation 04/07/18 18:00 05/07/18 17:59 04/10/18 10:22 Ipratropium [place] (Atrovent) 500 mcg Q4H PRN HHN Shortness of Breath 04/07/18 21:45 04/12/18 21:44 Lansoprazole (Prevacid) 30 mg BID NG 04/07/18 18:00 05/07/18 17:59 04/11/18 09:07 Meropenem 1 gm/ Sodium Chloride 55 ml @ 110 mls/hr Q8HR IVPB 04/08/18 12:00 04/13/18 11:59 04/11/18 05:12 Metoprolol Tartrate (Lopressor) 50 mg Q12HR ORAL 04/08/18 09:00 05/08/18 08:59 04/11/18 09:07 Polyethylene Glycol (Miralax) 17 gm BEDTIME NG 04/07/18 21:00 05/05/18 20:59 04/08/18 20:54 Sodium Chloride 1,000 ml @ 80 mls/hr [id number] IV 04/07/18 18:00 05/06/18 17:59 04/11/18 09:08 Brendan Eugene MD Apr 11, 2018 12:59
--- NOTE | 2018-04-11 14:41 | Nephrology Progress Note ---
Assessment/Plan Problem List: (1) Malnutrition (2) Dehydration (3) Sepsis (4) Electrolyte abnormality Assessment Electrolyte imbalance other conditions; 1. Acute hypoxemic respiratory failure 2. Sepsis 3. Pneumonia 4. Altered mental status 5. NURY 6. Thrombocytopenia 7. Schizophrenia 8. Stage IV decubitus ulcer Plan no labs today as of now- now in tele, out of ICU 04/07 Off Wellbutrin mag & Phos supplement as needed change IV protonox to NG Prevacid change hypotonic solution to Isotonic as Na is lowering per recruiting operations consultant Subjective ROS Limited/Unobtainable: No Constitutional: Reports: malaise Objective Objective Last 24 Hour Vital Signs Date Time Temp Pulse Resp B/P (MAP) Pulse Ox O2 Delivery O2 Flow Rate FiO2 04/11/18 12:00 54 04/11/18 12:00 97.3 68 18 135/69 (91) 94 97.3 04/11/18 09:07 71 117/62 04/11/18 09:00 Nasal Cannula 1.0 Nasal Cannula 1.0 04/11/18 08:25 96.8 71 20 117/62 (80) 94 96.8 04/11/18 08:12 Nasal Cannula 2.0 28 04/11/18 08:12 71 18 Nasal Cannula 2.0 28 04/11/18 08:12 94 Nasal Cannula 2.0 28 04/11/18 08:00 70 04/11/18 04:00 99.0 71 19 117/59 (78) 94 99.0 04/11/18 04:00 68 04/11/18 00:00 98.9 75 20 105/74 (84) 96 98.9 04/11/18 00:00 73 04/10/18 21:47 Nasal Cannula 2.0 28 04/10/18 21:47 98 Nasal Cannula 2.0 28 04/10/18 21:45 69 20 Nasal Cannula 2.0 28 04/10/18 21:09 74 111/61 04/10/18 20:00 74 04/10/18 20:00 98.9 78 19 111/61 (78) 98 98.9 04/10/18 16:00 97.9 75 20 110/61 (77) 97 97.9 04/10/18 16:00 71 Intake and Output 04/10/18 04/11/18 19:00 07:00 Intake Total 60 ml 1621 ml Output Total 2000 ml 1200 ml Balance -1940 ml 421 ml Free Water 100 ml IV Total 861 ml Tube Feeding 60 ml 660 ml Output Urine Total 2000 ml 1200 ml # Bowel Movements 4 1 Laboratory Tests 04/11/18 05:10: White Blood Count 11.4H, Red Blood Count 3.00L, Hemoglobin 10.6L, Hematocrit 31.0L, Mean Corpuscular Volume 103H, Mean Corpuscular Hemoglobin 35.3H, Mean Corpuscular Hemoglobin Concent 34.2, Red Cell Distribution Width 13.0, Platelet Count 140L, Mean Platelet Volume 5.9L, Neutrophils (%) (Auto) 65.1, Lymphocytes (%) (Auto) 22.6, Monocytes (%) (Auto) 9.2, Eosinophils (%) (Auto) 2.3, Basophils (%) (Auto) 0.8, Sodium Level 135L, Potassium Level 3.9, Chloride Level 103, Carbon Dioxide Level 29, Anion Gap 3L, Blood Urea Nitrogen 10, Creatinine 0.4L, Estimat Glomerular Filtration Rate > 60, Glucose Level 144H, Calcium Level 8.6, Phosphorus Level 3.4, Magnesium Level 1.6L, Total Bilirubin 0.5, Aspartate Amino Transf (AST/SGOT) 106H, Alanine Aminotransferase (ALT/SGPT ) 55, Alkaline Phosphatase 223H, C-Reactive Protein, Quantitative 1.5H, Pro-B- Type Natriuretic Peptide 480H, Total Protein 8.1, Albumin 1.4L, Globulin 6.7, Albumin/Globulin Ratio 0.2L Height (Feet): 6 Height (Inches): 1.00 Weight (Pounds): 187 General Appearance: no apparent distress Objective no other change Jeffry Jade MD Apr 11, 2018 14:41
--- NOTE | 2018-04-11 15:19 | General Progress Note ---
Assessment/Plan Status: stable Assessment/Plan # Thrombocytopenia -- first admission here, therefore do not have his baseline, is VERY likely related to underlying sepsis and consumptive state, plt count appears to be 50-100k, on hepatitis panel does have Hep-C++ and hiv is negative , also on US abd: No acute findings. Left renal cyst, does have evidence of liver disease --> abx have been reviewed, unlikely contributors as only short hospital stay --> other medications have been reviewed as well --> peripheral smear reviewed, does not show schistocytes or blasts --> hep c rx when out of hospital --> transfuse if plt <20k --> Has improved/resolved # Leukocytosis very likely related to uti --> appreciate id care --> abx completed --> currently, wbc at 14.2, elevated --> 04/11: CXR: No acute process # Anemia of chronic disease -- hgb currently 10-12 range, anemia panel reviewed --> trend cbc --> Hgb goal above 7 --> Currently, stable. # Septic shock -- on ivf and has received abx --> ID is following. Appreciate recs. # Healthcare associated bacterial pneumonia--> on abx, have been reviewed --> ID is following. Appreciate recs. # Supraventricular tachycardia # Acute prerenal azotemia # Paroxysmal SVT versus A. fib. Rate controlled with a dose of Cardizem. --> On beta rose # Resp failure. On NC # Dysphagia. --> 04/06: PEG placement Greatly appreciate consultation! Subjective Date patient seen: Apr 11, 2018 ROS Limited/Unobtainable: Yes Hematologic/Lymphatic: Reports: anemia Allergies: Coded Allergies: ARIPIPRAZOLE (Verified Allergy, Unknown, 03/31/18) QUETIAPINE (Verified Allergy, Unknown, 03/31/18) Subjective Pt awake and alert. No acute events. WBC remains elevated, afebrile. Objective Last 24 Hour Vital Signs Date Time Temp Pulse Resp B/P (MAP) Pulse Ox O2 Delivery O2 Flow Rate FiO2 04/11/18 12:00 54 04/11/18 12:00 97.3 68 18 135/69 (91) 94 97.3 04/11/18 09:07 71 117/62 04/11/18 09:00 Nasal Cannula 1.0 Nasal Cannula 1.0 04/11/18 08:25 96.8 71 20 117/62 (80) 94 96.8 04/11/18 08:12 Nasal Cannula 2.0 28 04/11/18 08:12 71 18 Nasal Cannula 2.0 28 04/11/18 08:12 94 Nasal Cannula 2.0 28 04/11/18 08:00 70 04/11/18 04:00 99.0 71 19 117/59 (78) 94 99.0 04/11/18 04:00 68 04/11/18 00:00 98.9 75 20 105/74 (84) 96 98.9 04/11/18 00:00 73 04/10/18 21:47 Nasal Cannula 2.0 28 04/10/18 21:47 98 Nasal Cannula 2.0 28 04/10/18 21:45 69 20 Nasal Cannula 2.0 28 04/10/18 21:09 74 111/61 04/10/18 20:00 74 04/10/18 20:00 98.9 78 19 111/61 (78) 98 98.9 04/10/18 16:00 97.9 75 20 110/61 (77) 97 97.9 04/10/18 16:00 71 Intake and Output 04/10/18 04/11/18 19:00 07:00 Intake Total 60 ml 1621 ml Output Total 2000 ml 1200 ml Balance -1940 ml 421 ml Free Water 100 ml IV Total 861 ml Tube Feeding 60 ml 660 ml Output Urine Total 2000 ml 1200 ml # Bowel Movements 4 1 Laboratory Tests 04/11/18 05:10: White Blood Count 11.4H, Red Blood Count 3.00L, Hemoglobin 10.6L, Hematocrit 31.0L, Mean Corpuscular Volume 103H, Mean Corpuscular Hemoglobin 35.3H, Mean Corpuscular Hemoglobin Concent 34.2, Red Cell Distribution Width 13.0, Platelet Count 140L, Mean Platelet Volume 5.9L, Neutrophils (%) (Auto) 65.1, Lymphocytes (%) (Auto) 22.6, Monocytes (%) (Auto) 9.2, Eosinophils (%) (Auto) 2.3, Basophils (%) (Auto) 0.8, Sodium Level 135L, Potassium Level 3.9, Chloride Level 103, Carbon Dioxide Level 29, Anion Gap 3L, Blood Urea Nitrogen 10, Creatinine 0.4L, Estimat Glomerular Filtration Rate > 60, Glucose Level 144H, Calcium Level 8.6, Phosphorus Level 3.4, Magnesium Level 1.6L, Total Bilirubin 0.5, Aspartate Amino Transf (AST/SGOT) 106H, Alanine Aminotransferase (ALT/SGPT ) 55, Alkaline Phosphatase 223H, C-Reactive Protein, Quantitative 1.5H, Pro-B- Type Natriuretic Peptide 480H, Total Protein 8.1, Albumin 1.4L, Globulin 6.7, Albumin/Globulin Ratio 0.2L Height (Feet): 6 Height (Inches): 1.00 Weight (Pounds): 187 General Appearance: no apparent distress EENT: PERRL/EOMI Neck: normal alignment Cardiovascular: normal peripheral pulses Respiratory/Chest: no respiratory distress Abdomen: soft Jose Mckeon MD Apr 11, 2018 15:19
--- NOTE | 2018-04-11 16:53 | Infectious Diseases Prog Note ---
Assessment/Plan Assessment/Plan A 1. pneumonia improving 2. leucocytosis improving 3. hepatitis C 4, thrombocytopenia 5. necrotic sacral ulcer s/p debridement 6. Encephalopathy 7. PAF P 1. continue Meropenem X 1 day 2. Check C. difficile Subjective ROS Limited/Unobtainable: Yes Allergies: Coded Allergies: ARIPIPRAZOLE (Verified Allergy, Unknown, 03/31/18) QUETIAPINE (Verified Allergy, Unknown, 03/31/18) Objective Vital Signs Last 24 Hour Vital Signs Date Time Temp Pulse Resp B/P (MAP) Pulse Ox O2 Delivery O2 Flow Rate FiO2 04/11/18 16:00 85 04/11/18 16:00 97.0 74 18 128/72 (90) 98 97.0 04/11/18 12:00 54 04/11/18 12:00 97.3 68 18 135/69 (91) 94 97.3 04/11/18 09:07 71 117/62 04/11/18 09:00 Nasal Cannula 1.0 Nasal Cannula 1.0 04/11/18 08:25 96.8 71 20 117/62 (80) 94 96.8 04/11/18 08:12 Nasal Cannula 2.0 28 04/11/18 08:12 71 18 Nasal Cannula 2.0 28 04/11/18 08:12 94 Nasal Cannula 2.0 28 04/11/18 08:00 70 04/11/18 04:00 99.0 71 19 117/59 (78) 94 99.0 04/11/18 04:00 68 04/11/18 00:00 98.9 75 20 105/74 (84) 96 98.9 04/11/18 00:00 73 04/10/18 21:47 Nasal Cannula 2.0 28 04/10/18 21:47 98 Nasal Cannula 2.0 28 04/10/18 21:45 69 20 Nasal Cannula 2.0 28 04/10/18 21:09 74 111/61 04/10/18 20:00 74 04/10/18 20:00 98.9 78 19 111/61 (78) 98 98.9 Height (Feet): 6 Height (Inches): 1.00 Weight (Pounds): 187 General Appearance: no acute distress HEENT: mucous membranes moist Respiratory/Chest: lungs clear Cardiovascular: normal rate Abdomen: soft, non tender, other - GT feeding Skin: ulcers Neurologic/Psychiatric: other - sleeping Laboratory Tests Test 04/11/18 05:10 White Blood Count 11.4 K/UL (4.8-10.8) H Red Blood Count 3.00 M/UL (4.70-6.10) L Hemoglobin 10.6 G/DL (14.2-18.0) L Hematocrit 31.0 % (42.0-52.0) L Mean Corpuscular Volume 103 FL (80-99) H Mean Corpuscular Hemoglobin 35.3 PG (27.0-31.0) H Mean Corpuscular Hemoglobin Concent 34.2 G/DL (32.0-36.0) Red Cell Distribution Width 13.0 % (11.6-14.8) Platelet Count 140 K/UL (150-450) L Mean Platelet Volume 5.9 FL (6.5-10.1) L Neutrophils (%) (Auto) 65.1 % (45.0-75.0) Lymphocytes (%) (Auto) 22.6 % (20.0-45.0) Monocytes (%) (Auto) 9.2 % (1.0-10.0) Eosinophils (%) (Auto) 2.3 % (0.0-3.0) Basophils (%) (Auto) 0.8 % (0.0-2.0) Sodium Level 135 MMOL/L (136-145) L Potassium Level 3.9 MMOL/L (3.5-5.1) Chloride Level 103 MMOL/L (98-107) Carbon Dioxide Level 29 MMOL/L (21-32) Anion Gap 3 mmol/L (5-15) L Blood Urea Nitrogen 10 mg/dL (7-18) Creatinine 0.4 MG/DL (0.55-1.30) L Estimat Glomerular Filtration Rate > 60 mL/min (>60) Glucose Level 144 MG/DL (74-106) H Calcium Level 8.6 MG/DL (8.5-10.1) Phosphorus Level 3.4 MG/DL (2.5-4.9) Magnesium Level 1.6 MG/DL (1.8-2.4) L Total Bilirubin 0.5 MG/DL (0.2-1.0) Aspartate Amino Transf (AST/SGOT) 106 U/L (15-37) H Alanine Aminotransferase (ALT/SGPT) 55 U/L (12-78) Alkaline Phosphatase 223 U/L (46-116) H C-Reactive Protein, Quantitative 1.5 mg/dL (0.00-0.90) H Pro-B-Type Natriuretic Peptide 480 pg/mL (0-125) H Total Protein 8.1 G/DL (6.4-8.2) Albumin 1.4 G/DL (3.4-5.0) L Globulin 6.7 g/dL Albumin/Globulin Ratio 0.2 (1.0-2.7) L Current Medications Medications (Trade) Dose Ordered Sig/Elizabeth Route PRN Reason Start Time Stop Time Status Last Admin Dose Admin Acetaminophen (Tylenol) 500 mg Q4H PRN NG mild pain/temp >100.5 04/07/18 18:30 05/03/18 18:29 Acetaminophen/ Hydrocodone Bitart ([place] 5/325) 1 tab Q8H PRN NG for moderate pain 04/07/18 18:00 04/14/18 17:59 04/10/18 09:43 Benztropine Mesylate (Cogentin) 1 mg BID NG 04/07/18 18:00 05/07/18 17:59 04/11/18 09:07 Docusate Sodium (Colace) 100 mg TWICE A DAY NG 04/07/18 18:00 05/07/18 17:59 04/11/18 09:06 Gabapentin (Neurontin) 300 mg TID NG 04/07/18 18:00 05/07/18 17:59 04/11/18 13:25 Haloperidol (Haldol) 10 mg BID PRN ORAL Agitation 04/07/18 18:00 05/07/18 17:59 04/10/18 10:22 Ipratropium [place] (Atrovent) 500 mcg Q4H PRN HHN Shortness of Breath 04/07/18 21:45 04/12/18 21:44 Lansoprazole (Prevacid) 30 mg BID NG 04/07/18 18:00 05/07/18 17:59 04/11/18 09:07 Magnesium Oxide (Mag-Ox 400mg) 400 mg THREE TIMES A DAY GT 04/11/18 18:00 05/11/18 17:59 Meropenem 1 gm/ Sodium Chloride 55 ml @ 110 mls/hr Q8HR IVPB 04/08/18 12:00 04/13/18 11:59 04/11/18 13:25 Metoprolol Tartrate (Lopressor) 50 mg Q12HR ORAL 04/08/18 09:00 05/08/18 08:59 04/11/18 09:07 Polyethylene Glycol (Miralax) 17 gm BEDTIME NG 04/07/18 21:00 05/05/18 20:59 04/08/18 20:54 Sodium Chloride 1,000 ml @ 80 mls/hr [id number] IV 04/07/18 18:00 05/06/18 17:59 04/11/18 09:08 Mao Trevino MD Apr 11, 2018 16:53
[2018-04-11] MEDS: Magnesium Oxide 400mg tab GT SCH (17:10)
[2018-04-11] MEDS: Miralax 17gm pkt NG SCH (20:31)
[2018-04-11] MEDS: Norco 5mg/325mg tab NG PRN (20:32)
--- NOTE | 2018-04-11 20:44 | General Progress Note ---
Assessment/Plan Problem List: (1) Acute prerenal azotemia ICD Codes: R79.89 - Other specified abnormal findings of blood chemistry SNOMED: 499692024 (2) Dyspnea ICD Codes: R06.00 - Dyspnea, unspecified SNOMED: 113890454 (3) Sepsis ICD Codes: A41.9 - Sepsis, unspecified organism SNOMED: 32050017 Qualifiers: Qualified Codes: A41.9 - Sepsis, unspecified organism (4) Dysphagia ICD Codes: R13.10 - Dysphagia, unspecified SNOMED: 75061034, 691866947 (5) Healthcare associated bacterial pneumonia ICD Codes: J15.9 - Unspecified bacterial pneumonia SNOMED: 190476411 Status: progressing Assessment/Plan peg sepsis pna mild leukocytosis dc in am improving I&d per dr lemus hematurea improving dysphagia Subjective ROS Limited/Unobtainable: Yes Allergies: Coded Allergies: ARIPIPRAZOLE (Verified Allergy, Unknown, 03/31/18) QUETIAPINE (Verified Allergy, Unknown, 03/31/18) Objective Last 24 Hour Vital Signs Date Time Temp Pulse Resp B/P (MAP) Pulse Ox O2 Delivery O2 Flow Rate FiO2 04/11/18 20:32 50 112/65 04/11/18 19:30 64 18 Nasal Cannula 2.0 28 04/11/18 19:30 Nasal Cannula 2.0 28 04/11/18 19:30 94 Nasal Cannula 96.0 28 04/11/18 16:00 85 04/11/18 16:00 97.0 74 18 128/72 (90) 98 97.0 04/11/18 12:00 54 04/11/18 12:00 97.3 68 18 135/69 (91) 94 97.3 04/11/18 09:07 71 117/62 04/11/18 09:00 Nasal Cannula 1.0 Nasal Cannula 1.0 04/11/18 08:25 96.8 71 20 117/62 (80) 94 96.8 04/11/18 08:12 Nasal Cannula 2.0 28 04/11/18 08:12 71 18 Nasal Cannula 2.0 28 04/11/18 08:12 94 Nasal Cannula 2.0 28 04/11/18 08:00 70 04/11/18 04:00 99.0 71 19 117/59 (78) 94 99.0 04/11/18 04:00 68 04/11/18 00:00 98.9 75 20 105/74 (84) 96 98.9 04/11/18 00:00 73 04/10/18 21:47 Nasal Cannula 2.0 28 04/10/18 21:47 98 Nasal Cannula 2.0 28 04/10/18 21:45 69 20 Nasal Cannula 2.0 28 04/10/18 21:09 74 111/61 Intake and Output 04/10/18 04/11/18 18:59 06:59 Intake Total 1681 ml Output Total 2000 ml 1200 ml Balance -2000 ml 481 ml Free Water 100 ml IV Total 861 ml Tube Feeding 720 ml Output Urine Total 2000 ml 1200 ml # Bowel Movements 4 1 Laboratory Tests 04/11/18 05:10: White Blood Count 11.4H, Red Blood Count 3.00L, Hemoglobin 10.6L, Hematocrit 31.0L, Mean Corpuscular Volume 103H, Mean Corpuscular Hemoglobin 35.3H, Mean Corpuscular Hemoglobin Concent 34.2, Red Cell Distribution Width 13.0, Platelet Count 140L, Mean Platelet Volume 5.9L, Neutrophils (%) (Auto) 65.1, Lymphocytes (%) (Auto) 22.6, Monocytes (%) (Auto) 9.2, Eosinophils (%) (Auto) 2.3, Basophils (%) (Auto) 0.8, Sodium Level 135L, Potassium Level 3.9, Chloride Level 103, Carbon Dioxide Level 29, Anion Gap 3L, Blood Urea Nitrogen 10, Creatinine 0.4L, Estimat Glomerular Filtration Rate > 60, Glucose Level 144H, Calcium Level 8.6, Phosphorus Level 3.4, Magnesium Level 1.6L, Total Bilirubin 0.5, Aspartate Amino Transf (AST/SGOT) 106H, Alanine Aminotransferase (ALT/SGPT ) 55, Alkaline Phosphatase 223H, C-Reactive Protein, Quantitative 1.5H, Pro-B- Type Natriuretic Peptide 480H, Total Protein 8.1, Albumin 1.4L, Globulin 6.7, Albumin/Globulin Ratio 0.2L Height (Feet): 6 Height (Inches): 1.00 Weight (Pounds): 187 General Appearance: confused Respiratory/Chest: chest wall non-tender Loly Dash MD Apr 11, 2018 20:44
--- NOTE | 2018-04-12 00:02 | General Progress Note ---
Assessment/Plan Problem List: (1) Malnutrition Assessment & Plan: encephalopathy due to metabolic d/o hypotension tachy cardia the pt lacks capacity to make decisions hold all psych meds at this time the pt may need urgent gt d/w Dr. mendenhall ICD Codes: E46 - Unspecified protein-calorie malnutrition SNOMED: 13621025 Status: unchanged Assessment/Plan encephalopathy due to metabolic d/o the pt lacks capacity to make decisions decrease Seroquel 50mg qhs Depakote 500mg bid. Subjective Date patient seen: Apr 11, 2018 Neurologic/Psychiatric: Reports: anxiety, depressed Allergies: Coded Allergies: ARIPIPRAZOLE (Verified Allergy, Unknown, 03/31/18) QUETIAPINE (Verified Allergy, Unknown, 03/31/18) Subjective more alert confused. Objective Last 24 Hour Vital Signs Date Time Temp Pulse Resp B/P (MAP) Pulse Ox O2 Delivery O2 Flow Rate FiO2 04/11/18 23:41 97.9 65 16 119/62 (81) 98 97.9 04/11/18 20:32 50 112/65 04/11/18 20:00 97.5 50 17 112/65 (81) 98 97.5 04/11/18 20:00 68 04/11/18 19:30 64 18 Nasal Cannula 2.0 28 04/11/18 19:30 Nasal Cannula 2.0 28 04/11/18 19:30 94 Nasal Cannula 96.0 28 04/11/18 16:00 85 04/11/18 16:00 97.0 74 18 128/72 (90) 98 97.0 04/11/18 12:00 54 04/11/18 12:00 97.3 68 18 135/69 (91) 94 97.3 04/11/18 09:07 71 117/62 04/11/18 09:00 Nasal Cannula 1.0 Nasal Cannula 1.0 04/11/18 08:25 96.8 71 20 117/62 (80) 94 96.8 04/11/18 08:12 Nasal Cannula 2.0 28 04/11/18 08:12 71 18 Nasal Cannula 2.0 28 04/11/18 08:12 94 Nasal Cannula 2.0 28 04/11/18 08:00 70 04/11/18 04:00 99.0 71 19 117/59 (78) 94 99.0 04/11/18 04:00 68 Intake and Output 04/11/18 04/12/18 18:59 06:59 Intake Total 530 ml 80 ml Output Total 800 ml Balance -270 ml 80 ml IV Total 530 ml 80 ml Output Urine Total 800 ml # Bowel Movements 1 Laboratory Tests 04/11/18 05:10: White Blood Count 11.4H, Red Blood Count 3.00L, Hemoglobin 10.6L, Hematocrit 31.0L, Mean Corpuscular Volume 103H, Mean Corpuscular Hemoglobin 35.3H, Mean Corpuscular Hemoglobin Concent 34.2, Red Cell Distribution Width 13.0, Platelet Count 140L, Mean Platelet Volume 5.9L, Neutrophils (%) (Auto) 65.1, Lymphocytes (%) (Auto) 22.6, Monocytes (%) (Auto) 9.2, Eosinophils (%) (Auto) 2.3, Basophils (%) (Auto) 0.8, Sodium Level 135L, Potassium Level 3.9, Chloride Level 103, Carbon Dioxide Level 29, Anion Gap 3L, Blood Urea Nitrogen 10, Creatinine 0.4L, Estimat Glomerular Filtration Rate > 60, Glucose Level 144H, Calcium Level 8.6, Phosphorus Level 3.4, Magnesium Level 1.6L, Total Bilirubin 0.5, Aspartate Amino Transf (AST/SGOT) 106H, Alanine Aminotransferase (ALT/SGPT ) 55, Alkaline Phosphatase 223H, C-Reactive Protein, Quantitative 1.5H, Pro-B- Type Natriuretic Peptide 480H, Total Protein 8.1, Albumin 1.4L, Globulin 6.7, Albumin/Globulin Ratio 0.2L Height (Feet): 6 Height (Inches): 1.00 Weight (Pounds): 187 General Appearance: no apparent distress, alert, confused, agitated Madisyn Shetty MD Apr 12, 2018 00:02
[2018-04-12 04:00] VITALS: BP 115/70
--- NOTE | 2018-04-12 06:06 | General Progress Note ---
Assessment/Plan Assessment/Plan # Thrombocytopenia -- first admission here, therefore do not have his baseline, is VERY likely related to underlying sepsis (infection) and consumptive state, plt count appears to be 50-100k, on hepatitis panel does have Hep-C++ and hiv is negative, also on US abd: No acute findings. Left renal cyst, does have evidence of liver disease --> abx have been reviewed, unlikely contributors as only has had a short hospital stay --> other medications have been reviewed as well --> peripheral smear reviewed, does not show schistocytes or blasts --> Hep C rx when out of hospital --> transfuse if plt <20k --> Continues to improve # Leukocytosis very likely related to uti --> appreciate id care --> abx completed --> currently, wbc at 14.2, elevated --> 04/11: CXR: No acute process # Anemia of chronic disease -- hgb currently 10-12 range, anemia panel reviewed --> trend cbc --> Hgb goal above 7 --> Currently, stable. # Septic shock -- on ivf and has received abx --> ID is following. Appreciate recs. # Healthcare associated bacterial pneumonia--> on abx, have been reviewed --> ID is following. Appreciate recs. # Supraventricular tachycardia # Acute prerenal azotemia # Paroxysmal SVT versus A. fib. Rate controlled with a dose of Cardizem. --> On beta rose # Resp failure. On NC # Dysphagia. --> 04/06: PEG placement Greatly appreciate consultation! Subjective Constitutional: Denies: no symptoms, chills, diaphoresis, fever, malaise, weakness, other HEENT: Denies: no symptoms, eye pain, blurred vision, tearing, double vision, ear pain, ear discharge, nose pain, nose congestion, throat pain, throat swelling, mouth pain, mouth swelling, other Cardiovascular: Denies: no symptoms, chest pain, edema, irregular heart rate, lightheadedness, palpitations, syncope, other Respiratory: Denies: no symptoms, cough, orthopnea, shortness of breath, SOB with excertion, SOB at rest, sputum, stridor, wheezing, other Gastrointestinal/Abdominal: Denies: no symptoms, abdomen distended, abdominal pain, black stools, tarry stools, blood in stool, constipated, diarrhea, difficulty swallowing, nausea, poor appetite, poor fluid intake, rectal bleeding , vomiting, other Genitourinary: Denies: no symptoms, burning, discharge, frequency, flank pain, hematuria, incontinence, pain, urgency, other Neurologic/Psychiatric: Denies: no symptoms, anxiety, depressed, emotional problems, headache, numbness, paresthesia, pre-existing deficit, seizure, tingling, tremors, weakness, other Endocrine: Denies: no symptoms, excessive sweating, flushing, intolerance to cold, intolerance to heat, increased hunger, increased thirst, increased urine, unexplained weight gain, unexplained weight loss, other Allergies: Coded Allergies: ARIPIPRAZOLE (Verified Allergy, Unknown, 03/31/18) QUETIAPINE (Verified Allergy, Unknown, 03/31/18) Subjective Pt awake and alert. Remains confused. WBC remains elevated, afebrile. Objective Last 24 Hour Vital Signs Date Time Temp Pulse Resp B/P (MAP) Pulse Ox O2 Delivery O2 Flow Rate FiO2 04/12/18 04:00 98.0 62 16 115/70 (85) 98 98.0 04/12/18 00:00 68 04/11/18 23:41 97.9 65 16 119/62 (81) 98 97.9 04/11/18 20:32 50 112/65 04/11/18 20:00 97.5 50 17 112/65 (81) 98 97.5 04/11/18 20:00 68 04/11/18 19:30 64 18 Nasal Cannula 2.0 28 04/11/18 19:30 Nasal Cannula 2.0 28 04/11/18 19:30 94 Nasal Cannula 96.0 28 04/11/18 16:00 85 04/11/18 16:00 97.0 74 18 128/72 (90) 98 97.0 04/11/18 12:00 54 04/11/18 12:00 97.3 68 18 135/69 (91) 94 97.3 04/11/18 09:07 71 117/62 04/11/18 09:00 Nasal Cannula 1.0 Nasal Cannula 1.0 04/11/18 08:25 96.8 71 20 117/62 (80) 94 96.8 04/11/18 08:12 Nasal Cannula 2.0 28 04/11/18 08:12 71 18 Nasal Cannula 2.0 28 04/11/18 08:12 94 Nasal Cannula 2.0 28 04/11/18 08:00 70 Intake and Output 04/11/18 04/12/18 19:00 07:00 Intake Total 610 ml Output Total 800 ml Balance -190 ml IV Total 610 ml Output Urine Total 800 ml # Bowel Movements 1 Height (Feet): 6 Height (Inches): 1.00 Weight (Pounds): 187 General Appearance: alert EENT: normal ENT inspection Neck: non-tender Cardiovascular: normal rate Respiratory/Chest: lungs clear Abdomen: normal bowel sounds Extremities: non-tender Edema: 1+ Leg (L), 1+ Leg (R) Neurologic: alert Skin: warm/dry Objective + peg Jose Mckeon MD Apr 12, 2018 06:06
[2018-04-12] MEDS: Meropenem 1 GM in NS 55 ML IVPB SCH (06:15)
[2018-04-12 08:00] VITALS: BP 129/61
--- NOTE | 2018-04-12 08:03 | Cardiology Progress Note ---
Assessment/Plan Assessment/Plan 1. Paroxysmal atrial fibrillation with RVR , now in sinus rhythm, continue metoprolol, Echo reveals normal LVEF at 70%. 2. Short run of nonsustained ventricular tachycardia, keep Mg level >2.0. 3. Acute hypoxemic respiratory failure 4. Healthcare associated Pneumonia 5. NURY, resolved. 6. Thrombocytopenia 7. s/p PEG placement. Subjective Genitourinary: Reports: no symptoms, burning, discharge, frequency, flank pain , hematuria, incontinence, pain, urgency, other Subjective Sinus rhythm at 71. Objective Last 24 Hour Vital Signs Date Time Temp Pulse Resp B/P (MAP) Pulse Ox O2 Delivery O2 Flow Rate FiO2 04/12/18 04:00 71 04/12/18 04:00 98.0 62 16 115/70 (85) 98 98.0 04/12/18 00:00 68 04/11/18 23:41 97.9 65 16 119/62 (81) 98 97.9 04/11/18 20:32 50 112/65 04/11/18 20:00 97.5 50 17 112/65 (81) 98 97.5 04/11/18 20:00 68 04/11/18 19:30 64 18 Nasal Cannula 2.0 28 04/11/18 19:30 Nasal Cannula 2.0 28 04/11/18 19:30 94 Nasal Cannula 96.0 28 04/11/18 16:00 85 04/11/18 16:00 97.0 74 18 128/72 (90) 98 97.0 04/11/18 12:00 54 04/11/18 12:00 97.3 68 18 135/69 (91) 94 97.3 04/11/18 09:07 71 117/62 04/11/18 09:00 Nasal Cannula 1.0 Nasal Cannula 1.0 04/11/18 08:25 96.8 71 20 117/62 (80) 94 96.8 04/11/18 08:12 Nasal Cannula 2.0 28 04/11/18 08:12 71 18 Nasal Cannula 2.0 28 04/11/18 08:12 94 Nasal Cannula 2.0 28 Intake and Output 04/11/18 04/12/18 19:00 07:00 Intake Total 610 ml Output Total 800 ml 1300 ml Balance -190 ml -1300 ml IV Total 610 ml Output Urine Total 800 ml 1300 ml # Voids 2 # Bowel Movements 1 1 2D Echo: LVEF 70%, Mild LVH, Grade I LVDD, RVSP 15 mmHg Objective HEENT: Atraumatic and normocephalic. Anicteric. Pupils are equal, round, and reactive to light and accommodation. Conjunctival pallor is present. NECK: JVP less than 5 cm. No carotid bruit. Carotid upstroke is 2+ bilaterally. CARDIOVASCULAR SYSTEM: Normal S1, S2. Regular rate rhythm. No murmurs, gallops, or rubs. LUNGS: Clear to auscultation bilaterally. ABDOMEN: Soft, nontender, and nondistended. No hepatosplenomegaly. Positive bowel sounds. EXTREMITIES: No evidence of edema, clubbing, or cyanosis. Gokul Villalta MD Apr 12, 2018 08:03
[2018-04-12] MEDS: Docusate 100mg/10ml Liq NG SCH (09:02)
[2018-04-12] MEDS: Magnesium Oxide 400mg tab GT SCH ×2 (09:03→12:15)
[2018-04-12] MEDS: Benztropine 1mg tab NG SCH (09:03)
[2018-04-12] MEDS: Norco 5mg/325mg tab NG PRN (09:04)
[2018-04-12] MEDS: Metoprolol 25mg tab ORAL SCH (09:05)
[2018-04-12] MEDS: Gabapentin 300 MG/6 ML Soln NG SCH ×2 (09:30→12:15)
[2018-04-12] MEDS ORDERED: Morphine Sulfate 2mg/ml Inj IVP PRN (11:00)
--- NOTE | 2018-04-12 11:49 | Infectious Diseases Prog Note ---
Assessment/Plan Assessment/Plan A 1. pneumonia treated 2. leucocytosis improving 3. hepatitis C 4, thrombocytopenia 5. necrotic sacral ulcer s/p debridement 6. Encephalopathy 7. PAF P 1.discontinue Meropenem 2. Agree with discharge to SNF without antibiotic Subjective ROS Limited/Unobtainable: Yes Constitutional: Reports: other - feels better Allergies: Coded Allergies: ARIPIPRAZOLE (Verified Allergy, Unknown, 03/31/18) QUETIAPINE (Verified Allergy, Unknown, 03/31/18) Objective Vital Signs Last 24 Hour Vital Signs Date Time Temp Pulse Resp B/P (MAP) Pulse Ox O2 Delivery O2 Flow Rate FiO2 04/12/18 10:44 Nasal Cannula 1.0 Nasal Cannula 1.0 04/12/18 10:00 Nasal Cannula 1.0 Nasal Cannula 1.0 04/12/18 09:34 97.2 04/12/18 09:05 69 129/61 04/12/18 09:04 97.2 04/12/18 09:00 Nasal Cannula 1.0 Nasal Cannula 1.0 04/12/18 08:00 97.2 69 18 129/61 (83) 97 97.2 04/12/18 08:00 Nasal Cannula 1.0 Nasal Cannula 1.0 04/12/18 07:38 71 04/12/18 07:15 Nasal Cannula 2.0 28 04/12/18 07:15 71 18 Nasal Cannula 2.0 28 04/12/18 07:15 95 Nasal Cannula 2.0 28 04/12/18 04:00 71 04/12/18 04:00 98.0 62 16 115/70 (85) 98 98.0 04/12/18 00:00 68 04/11/18 23:41 97.9 65 16 119/62 (81) 98 97.9 04/11/18 20:32 50 112/65 04/11/18 20:00 97.5 50 17 112/65 (81) 98 97.5 04/11/18 20:00 68 04/11/18 19:30 64 18 Nasal Cannula 2.0 28 04/11/18 19:30 Nasal Cannula 2.0 28 04/11/18 19:30 94 Nasal Cannula 96.0 28 04/11/18 16:00 85 04/11/18 16:00 97.0 74 18 128/72 (90) 98 97.0 04/11/18 12:00 54 04/11/18 12:00 97.3 68 18 135/69 91 94 97.3 Height (Feet): 6 Height (Inches): 1.00 Weight (Pounds): 186 General Appearance: no acute distress HEENT: mucous membranes moist Respiratory/Chest: lungs clear Cardiovascular: normal rate Abdomen: soft, non tender, other - GT feeding Extremities: no edema Neurologic/Psychiatric: alert, responsive Current Medications Medications (Trade) Dose Ordered Sig/Elizabeth Route PRN Reason Start Time Stop Time Status Last Admin Dose Admin Acetaminophen (Tylenol) 500 mg Q4H PRN NG mild pain/temp >100.5 04/07/18 18:30 05/03/18 18:29 Acetaminophen/ Hydrocodone Bitart ([place] 5/325) 1 tab Q8H PRN NG Moderate Pain (Pain Scale 4-6) 04/12/18 18:00 04/14/18 17:59 Benztropine Mesylate (Cogentin) 1 mg BID NG 04/07/18 18:00 05/07/18 17:59 04/12/18 09:03 Docusate Sodium (Colace) 100 mg TWICE A DAY NG 04/07/18 18:00 05/07/18 17:59 04/12/18 09:02 Gabapentin (Neurontin) 300 mg TID NG 04/07/18 18:00 05/07/18 17:59 04/12/18 09:30 Haloperidol (Haldol) 10 mg BID PRN ORAL Agitation 04/07/18 18:00 05/07/18 17:59 04/10/18 10:22 Ipratropium [place] (Atrovent) 500 mcg Q4H PRN HHN Shortness of Breath 04/07/18 21:45 04/12/18 21:44 Lansoprazole (Prevacid) 30 mg BID NG 04/07/18 18:00 05/07/18 17:59 04/12/18 09:03 Magnesium Oxide (Mag-Ox 400mg) 400 mg THREE TIMES A DAY GT 04/11/18 18:00 05/11/18 17:59 04/12/18 09:03 Meropenem 1 gm/ Sodium Chloride 55 ml @ 110 mls/hr Q8HR IVPB 04/08/18 12:00 04/13/18 11:59 04/12/18 06:15 Metoprolol Tartrate (Lopressor) 50 mg Q12HR ORAL 04/08/18 09:00 05/08/18 08:59 04/12/18 09:05 Morphine Sulfate (Morphine Sulfate) 2 mg Q6H PRN IVP Severe Pain (Pain Scale 7-10) 04/12/18 11:00 04/19/18 10:59 Polyethylene Glycol (Miralax) 17 gm BEDTIME NG 04/07/18 21:00 05/05/18 20:59 04/11/18 20:31 Sodium Chloride 1,000 ml @ 80 mls/hr [id number] IV 04/07/18 18:00 05/06/18 17:59 04/12/18 11:03 Mao Trevino MD Apr 12, 2018 11:49
[2018-04-12 12:00] VITALS: BP 112/62
--- NOTE | 2018-04-12 12:58 | GI Progress Note ---
Assessment/Plan Problems: (1) Dehydration ICD Codes: E86.0 - Dehydration SNOMED: 02223657 (2) Malnutrition ICD Codes: E46 - Unspecified protein-calorie malnutrition SNOMED: 83241839 (3) Dysphagia ICD Codes: R13.10 - Dysphagia, unspecified SNOMED: 15419248, 391407214 (4) Thrombocytopenia ICD Codes: D69.6 - Thrombocytopenia, unspecified SNOMED: 754243027 Status: stable Status Narrative Discussed with Dr. Mcgee. Assessment/Plan okay for DC per GI standpoint s/p PEG GTFs per RD to goal, tolerating GT site care daily/prn prn transfusions ppi fu labs The patient was seen and examined at bedside and all new and available data was reviewed in the patients chart. I agree with the above findings, impression and plan. (Patient seen earlier today. Signature stamp does not reflect patient encounter time.). - Artie Mcgee MD Subjective Subjective limited Objective Last 24 Hour Vital Signs Date Time Temp Pulse Resp B/P (MAP) Pulse Ox O2 Delivery O2 Flow Rate FiO2 04/12/18 12:16 97.2 04/12/18 12:00 98.2 62 18 112/62 (79) 98 98.2 04/12/18 10:44 Nasal Cannula 1.0 Nasal Cannula 1.0 04/12/18 10:00 Nasal Cannula 1.0 Nasal Cannula 1.0 04/12/18 09:34 97.2 04/12/18 09:05 69 129/61 04/12/18 09:04 97.2 04/12/18 09:00 Nasal Cannula 1.0 Nasal Cannula 1.0 04/12/18 08:00 97.2 69 18 129/61 (83) 97 97.2 04/12/18 08:00 Nasal Cannula 1.0 Nasal Cannula 1.0 04/12/18 07:38 71 04/12/18 07:15 Nasal Cannula 2.0 28 04/12/18 07:15 71 18 Nasal Cannula 2.0 28 04/12/18 07:15 95 Nasal Cannula 2.0 28 04/12/18 04:00 71 04/12/18 04:00 98.0 62 16 115/70 (85) 98 98.0 04/12/18 00:00 68 04/11/18 23:41 97.9 65 16 119/62 (81) 98 97.9 04/11/18 20:32 50 112/65 04/11/18 20:00 97.5 50 17 112/65 (81) 98 97.5 04/11/18 20:00 68 04/11/18 19:30 64 18 Nasal Cannula 2.0 28 04/11/18 19:30 Nasal Cannula 2.0 28 04/11/18 19:30 94 Nasal Cannula 96.0 28 04/11/18 16:00 85 04/11/18 16:00 97.0 74 18 128/72 (90) 98 97.0 Intake and Output 04/11/18 04/12/18 19:00 07:00 Intake Total 610 ml Output Total 800 ml 1300 ml Balance -190 ml -1300 ml IV Total 610 ml Output Urine Total 800 ml 1300 ml # Voids 2 # Bowel Movements 1 1 Laboratory Tests Test 04/12/18 12:15 Magnesium Level 1.6 MG/DL (1.8-2.4) L Height (Feet): 6 Height (Inches): 1.00 Weight (Pounds): 186 General Appearance: no apparent distress Cardiovascular: normal rate Respiratory/Chest: normal breath sounds, no respiratory distress Abdominal Exam: normal bowel sounds, non tender, soft, GT site - c/d/i Extremities: non-tender Phil Guevara BUTTONER Apr 12, 2018 12:58
[2018-04-12] MEDS ORDERED: COLACE100 MG ORAL (13:06)
[2018-04-12] MEDS ORDERED: GABAPENTIN300 MG/61 ORAL (13:08)
[2018-04-12] MEDS ORDERED: MAGNESIUM400 M1 PO (13:09)
[2018-04-12] MEDS ORDERED: METOPROLOL SUCC50 MG ORAL (13:09)
[2018-04-12] MEDS ORDERED: NORCO 5-325 TA1 EACH ORAL (13:34)
--- NOTE | 2018-04-12 14:39 | Nephrology Progress Note ---
Assessment/Plan Problem List: (1) Malnutrition (2) Dehydration (3) Sepsis (4) Electrolyte abnormality Assessment Electrolyte imbalance other conditions; 1. Acute hypoxemic respiratory failure 2. Sepsis 3. Pneumonia 4. Altered mental status 5. NURY 6. Thrombocytopenia 7. Schizophrenia 8. Stage IV decubitus ulcer Plan stable Off Wellbutrin mag & Phos supplement as needed change IV protonox to NG Prevacid change hypotonic solution to Isotonic as Na is lowering per media consultant ? DC Subjective ROS Limited/Unobtainable: No Constitutional: Reports: malaise Objective Objective Last 24 Hour Vital Signs Date Time Temp Pulse Resp B/P (MAP) Pulse Ox O2 Delivery O2 Flow Rate FiO2 04/12/18 12:46 97.2 04/12/18 12:16 97.2 04/12/18 12:00 98.2 62 18 112/62 (79) 98 98.2 04/12/18 11:36 61 04/12/18 10:44 Nasal Cannula 1.0 Nasal Cannula 1.0 04/12/18 10:00 Nasal Cannula 1.0 Nasal Cannula 1.0 04/12/18 09:34 97.2 04/12/18 09:05 69 129/61 04/12/18 09:04 97.2 04/12/18 09:00 Nasal Cannula 1.0 Nasal Cannula 1.0 04/12/18 08:00 97.2 69 18 129/61 (83) 97 97.2 04/12/18 08:00 Nasal Cannula 1.0 Nasal Cannula 1.0 04/12/18 07:38 71 04/12/18 07:15 Nasal Cannula 2.0 28 04/12/18 07:15 71 18 Nasal Cannula 2.0 28 04/12/18 07:15 95 Nasal Cannula 2.0 28 04/12/18 04:00 71 04/12/18 04:00 98.0 62 16 115/70 (85) 98 98.0 04/12/18 00:00 68 04/11/18 23:41 97.9 65 16 119/62 (81) 98 97.9 04/11/18 20:32 50 112/65 04/11/18 20:00 97.5 50 17 112/65 (81) 98 97.5 04/11/18 20:00 68 04/11/18 19:30 64 18 Nasal Cannula 2.0 28 04/11/18 19:30 Nasal Cannula 2.0 28 04/11/18 19:30 94 Nasal Cannula 96.0 28 04/11/18 16:00 85 04/11/18 16:00 97.0 74 18 128/72 (90) 98 97.0 Intake and Output 04/11/18 04/12/18 19:00 07:00 Intake Total 610 ml Output Total 800 ml 1300 ml Balance -190 ml -1300 ml IV Total 610 ml Output Urine Total 800 ml 1300 ml # Voids 2 # Bowel Movements 1 1 Laboratory Tests 04/12/18 12:15: Magnesium Level 1.6L Height (Feet): 6 Height (Inches): 1.00 Weight (Pounds): 186 General Appearance: no apparent distress Objective no other change Jeffry Jade MD Apr 12, 2018 14:39
[2018-04-12] MEDS ORDERED: Norco 5mg/325mg tab NG PRN (18:00)
--- NOTE | 2018-04-12 21:46 | General Progress Note ---
Assessment/Plan Problem List: (1) Malnutrition Assessment & Plan: encephalopathy due to metabolic d/o hypotension tachy cardia the pt lacks capacity to make decisions hold all psych meds at this time the pt may need urgent gt d/w Dr. mendenhall ICD Codes: E46 - Unspecified protein-calorie malnutrition SNOMED: 11862538 Assessment/Plan encephalopathy due to metabolic d/o the pt lacks capacity to make decisions decrease Seroquel 50mg qhs Depakote 500mg bid. Subjective Neurologic/Psychiatric: Reports: anxiety, depressed, emotional problems Allergies: Coded Allergies: ARIPIPRAZOLE (Verified Allergy, Unknown, 03/31/18) QUETIAPINE (Verified Allergy, Unknown, 03/31/18) Subjective more alert confused. Objective Last 24 Hour Vital Signs Date Time Temp Pulse Resp B/P (MAP) Pulse Ox O2 Delivery O2 Flow Rate FiO2 04/12/18 12:46 97.2 04/12/18 12:16 97.2 04/12/18 12:00 98.2 62 18 112/62 (79) 98 98.2 04/12/18 11:36 61 04/12/18 10:44 Nasal Cannula 1.0 Nasal Cannula 1.0 04/12/18 10:00 Nasal Cannula 1.0 Nasal Cannula 1.0 04/12/18 09:34 97.2 04/12/18 09:05 69 129/61 04/12/18 09:04 97.2 04/12/18 09:00 Nasal Cannula 1.0 Nasal Cannula 1.0 04/12/18 08:00 97.2 69 18 129/61 (83) 97 97.2 04/12/18 08:00 Nasal Cannula 1.0 Nasal Cannula 1.0 04/12/18 07:38 71 04/12/18 07:15 Nasal Cannula 2.0 28 04/12/18 07:15 71 18 Nasal Cannula 2.0 28 04/12/18 07:15 95 Nasal Cannula 2.0 28 04/12/18 04:00 71 04/12/18 04:00 98.0 62 16 115/70 (85) 98 98.0 04/12/18 00:00 68 04/11/18 23:41 97.9 65 16 119/62 (81) 98 97.9 Intake and Output 04/11/18 04/12/18 19:00 07:00 Intake Total 610 ml 120 ml Output Total 800 ml 1300 ml Balance -190 ml -1180 ml Free Water 60 ml IV Total 610 ml Tube Feeding 60 ml Output Urine Total 800 ml 1300 ml # Voids 2 # Bowel Movements 1 1 Laboratory Tests 04/12/18 12:15: Magnesium Level 1.6L Height (Feet): 6 Height (Inches): 1.00 Weight (Pounds): 186 Madisyn Shetty MD Apr 12, 2018 21:46
--- NOTE | 2018-04-15 10:04 | Discharge Summary ---
Discharge Summary Discharge Summary _ DATE OF ADMISSION: 03/31/2018 DATE OF DISCHARGE: 04/12/2018 REASON FOR ADMISSION: 67 years old male with past medical history of depression, schizophrenia, was sent from the shelter facility for evaluation due to altered mental status and fever. Patient was found to be febrile with temperature 103, tachycardic with heart rate 142, and hypoxic -87% on room air. Laboratory workup revealed significant leukocytosis WBC 21.9, stable hemoglobin and hematocrit, platelet count 99.. Lactic acid 3.3. Troponin negative. EKG revealed sinus tachycardia , no acute ischemic changes. BUN 29 creatinine 1.2 Chest x-ray revealed possible left lower lobe infiltrate. Patient admitted with diagnoses of sepsis, pneumonia , azotemia, supraventricular tachycardia, thrombocytopenia. CONSULTANTS: book sorter Dr. Villalta pulmonary Dr. Eugene ID specialist Dr. Edwards GI specialist Dr. Mcgee blood bank attendant Dr. Jade fee clerk/oncologist Dr. Mckeon surgery Dr. Jeter psychiatrist HOSPITAL COURSE: Patient admitted to monitored floor and started on IV fluids and empiric antibiotics. Cath Lab Manager seen and evaluated patient, who initially demonstrated sinus tachycardia . Per cardiology , sinus tachycardia was likely secondary to overwhelming sepsis and hypovolemia. Patient was continued on IV fluids. No indication for AV nodular agents. Patient also exhibited evidence of short runs of nonsustained ventricular tachycardia. Magnesium level replaced . Echocardiogram revealed preserved ejection fraction of 70% with normal wall motion to the extent visualized. Mild left ventricular hypertrophy. No evidence of pericardial effusion.. Patient later noted to have paroxysmal atrial fibrillation with rapid ventricular response. Patient was started on beta rose and dose was uptitrated. Heart rate stabilized. Patient converted to sinus rhythm. Tablet Technician closely followed. Supplemental oxygen provided as needed to keep pulse oximetry above 92% . Pulmonary toilet provided with Atrovent on as needed basis. Volumes were closely monitored. Strict aspiration precautions were maintained. Patient initially received nutrition via NG tube. Patient suctioned as needed , and oral care provided. ID specialist closely followed. Patient was on IV antibiotics for healthcare associated pneumonia. Patient completed antibiotics. Follow-up chest x-ray revealed no acute process. Patient had sacral decubitus stage 4 present on admission, Patient undergone excisional debridement of sacral decubitus ulcer on 04/06 . Wound care provided as per surgeon's recommendation. Pathology of sacral wound revealed fibroadipose tissue with necrosis and inflammation. Senior Controls Engineer followed . Patient was initially hydrated. Renal parameters and electrolytes were closely monitored. Electrolytes corrected as needed, and nephrotoxins were avoided. Acute kidney injury resolve BUN 10 and creatinine 0.4.. Patient initially with evidence of hematuria . No evidence of urinary tract infection. Urologist recommended hold anticoagulation. GI specialist followed. Patient failed swallow evaluation. Video swallow evaluation revealed evidence of aspiration. Feeding tube was recommended. GI prophylaxis provided. Bowel regimen instituted. Patient subsequently undergone EGD on 04/06 with placement of gastrostomy tube. Abdominal binder initially was applied. Strict aspiration /reflux precautions maintained. G-tube site care provided . Patient started on tube feeding and was advanced to goal rate. Patient was able to tolerate tube feeding. Dietary supplements provided as per director print's recommendations. Stool for occult blood was negative.. Technology Training Associate followed . Patient initially with evidence of thrombocytopenia., very likely due to underlying sepsis/infection and consumptive state. Hepatitis panel revealed evidence of hepatitis C . HIV test was negative. Abdominal ultrasound revealed no acute findings. Peripheral smear review did not demonstrated schistocytes or blasts. Platelet count was closely monitored with parameters to transfuse only if fell below 20. Leukocytosis was likely related to sepsis. Hemoglobin and hematocrit were closely monitored with goal to keep hemoglobin above 7. Anemia panel was consistent with anemia of chronic disease. Prior to discharge hemoglobin 10.6, hematocrit 31, platelet count 140. Psychiatrist followed. Psychiatric medication regimen optimized as per psychiatrist. Supportive care provided. Pain management was addressed as needed. Bowel regimen instituted. Patient condition stabilized. Patient was transferred back to shelter facility for continuation of care FINAL DIAGNOSES: Acute hypoxemic respiratory failure Sepsis Healthcare associated pneumonia ,status post treatment Acute kidney injury, resolved Dehydration Encephalopathy due to metabolic disorder Dysphagia ,status post EGD and PEG placement 04/06 Paroxysmal atrial fibrillation with rapid ventricular response, resolved Short runs of nonsustained ventricular tachycardia Necrotic sacral decubitus stage 4, present on admission, s/p debridement 04/06 Protein calorie malnutrition Hepatitis C DISCHARGE MEDICATIONS: See Medication Reconciliation list. DISCHARGE INSTRUCTIONS: Patient was discharged to the shelter facility. Follow up with medical doctor at the facility. I have been assigned to dictate discharge summary for this account. I was not involved in the patient's management. Ella Damon NP Apr 15, 2018 10:04
== END 2018-04-12 15:23 | DRG 720 ==
LOC: EDBD 01:52 → EMR 02:10 → EDBEDREQ 02:22 → 2E 02:55 → EDBEDREQ 03:06 → 2E 04-03 14:53 → ICU 04-06 20:19 → 2E 04-07 18:13
PROC: 0JB70ZZ Excision of Back Subcutaneous Tissue and Fascia, Open Approach (ICD-10-PCS; principal; 2018-04-06 11:29)
PROC: 0DH63UZ Insertion of Feeding Device into Stomach, Percutaneous Approach (ICD-10-PCS; 2018-04-06 11:29)
DX: A41.9 Sepsis, unspecified organism (principal); J96.01 Acute respiratory failure with hypoxia; N17.9 Acute kidney failure, unspecified; G93.41 Metabolic encephalopathy; L89.154 Pressure ulcer of sacral region, stage 4; E46 Unspecified protein-calorie malnutrition; J15.9 Unspecified bacterial pneumonia; D69.6 Thrombocytopenia, unspecified; R13.10 Dysphagia, unspecified; I48.0 Paroxysmal atrial fibrillation; F32.9 Major depressive disorder, single episode, unspecified; F20.9 Schizophrenia, unspecified; J44.0 Chronic obstructive pulmonary disease with (acute) lower respiratory infection; K21.9 Gastro-esophageal reflux disease without esophagitis; D64.9 Anemia, unspecified; I47.1 Supraventricular tachycardia; B19.20 Unspecified viral hepatitis C without hepatic coma; R31.0 Gross hematuria; E86.0 Dehydration; Z68.24 Body mass index [BMI] 24.0-24.9, adult
CPT/HCPCS: 36415; 36600; 51702; 71045; 74018; 74230; 76700; 80048; 80053; 80061; 80076; 80164; 80202; 81003; 82105; 82140; 82248; 82270; 82550; 82553; 82607; 82728; 82803; 82962; 82977; 83036; 83540; 83550; 83605; 83735; 83880; 84100; 84153; 84165; 84443; 84484; 84550; 85007; 85025; 85610; 85730; 86140; 86703; 86705; 86709; 86803; 87040; 87070; 87081; 87181; 87205; 87324; 87340; 93005; 93306; 93970; 94003; 94150; 94640; 94664; 94760; 96361; 96365; 96367; 96375; 99291; J7620